=== PATIENT | female | born 1960 | race Caucasian/White ===

== ENCOUNTER 2020-04-08 22:14 | Emergency (ER) | payer OTHER, SELFPAY ==
--- NOTE | 2020-04-08 22:17 | ED_ITS ---
HPI - Abdominal Pain General Chief Complaint: Abdominal Pain Stated Complaint: abdominal pain Time Seen by Provider: 04/08/20 22:17 Source: patient Mode of arrival: EMS Limitations: no limitations History of Present Illness HPI narrative: This is a 60-year-old female with known history of chronic UTIs, renal stones, diverticulitis who presents with 3 days of worsening abdominal pain increasing episodes of nonbloody diarrhea as well as increasing episodes of nausea and vomiting with chills but denies any urinary pain/burning/frequency. MD elicited complaint: abdominal pain Related Data Previous Rx's Medication Instructions Recorded ciprofloxacin HCl 500 mg PO Q12H 10 Days #20 tab 04/09/20 metronidazole [Flagyl] 500 mg PO Q8H 10 Days #30 tab 04/09/20 ondansetron HCl [Zofran] 4 mg PO Q6H PRN #10 tab 04/09/20 Allergies Allergy/AdvReac Type Severity Reaction Status Date / Time Penicillins Allergy Severe ANAPHYLAXIS Verified 04/08/20 22:24 morphine [MORPHINE] Allergy Mild TACHYCARDIA, Verified 04/08/20 22:24 HIVES, ITCHING penicillin V Allergy Unknown Anaphylaxis Verified 04/08/20 22:24 Review of Systems Review of Systems Pertinent positives and negatives as stated in HPI 10 point review of systems otherwise negative. Physical Exam Vital Signs: Vital Signs: Last Vital Signs Temp 97.9 F 04/08/20 22:24 Pulse 73 04/08/20 23:58 Resp 16 04/08/20 23:58 BP 176/85 H 04/08/20 23:58 Pulse Ox 99 04/08/20 23:58 Body Mass Index 25.7 VITAL SIGNS: Reviewed. GENERAL: Well developed, well nourished, in no acute distress. HEAD: Normocephalic/atraumatic, EYES: PERRLA, EOMI intact without pain, no nystagmus/pallor/icterus noted EARS: Ext canals without abnormality, TMs non-bulging and non-erythematous NOSE: Nares patent bilateral OROPHARYNX: no oral lesions noted, posterior pharynx clear and non-erythematous without noted tonsillar enlargement/erythema/exudates NECK: Supple, no adenopathy LUNGS: Normal breath sounds. No adventitious sounds or accessory muscle use. SpO2<98> CARDIOVASCULAR: Regular rate and rhythm without noted murmurs, no JVD or lower extremity edema. ABDOMEN: Soft, diffusely tender/maximal at left lower quadrant with voluntary guarding, non-distended with bowel sounds. No rigidity. No palpable masses or hernias noted MUSCULOSKELETAL: No tenderness, deformities, or effusions noted on gross inspection. EXTREMITIES: No cyanosis, clubbing or edema. SKIN: Inspection of the skin reveals no rashes, ulcerations, jaundice, pallor, or petechiae. NEUROLOGIC: Alert and oriented x 4. Strength and sensation to light touch were grossly intact x 4. Course Course Course Narrative: This is a 60-year-old female with history and clinical presentation most consistent with diverticulitis but will rule out less likely SBO, UTI, renal colic, pyelonephritis. On review of all investigations there is a mild leukocytosis and urinalysis findings that show leukocyte esterase and continued show urine wbc's. Otherwise, there are no acute findings on chemistries and the CT scan inconsistent with evidence of pyelonephritis or obstructive uropathy, and there is reported fat stranding along the sigmoid colon with generalized wall thickening of the sigmoid colon. The radiologist specifically states that there is a segment of the mid sigmoid colon demonstrating what appears to be eccentric wall thickening and that underlying sigmoid colonic mass is not excluded in this location. All these results and findings were discussed with the patient at bedside and she states that she has never been referred to Gastroenterology or undergone a colonoscopy after any episodes of her diverticulitis. At this time I highly recommended to the patient that she follow-up with a semiconductor testing group leader for further evaluation and workup as indicated. In addition, due to the persistent evidence of urine infection as well as some mild stranding of the colon patient understands that she will be discharged on 2 antibiotics. Patient has received 1 L fluid is currently feeling somewhat better. MDM - Abdominal Pain Lab Data Result diagrams: 04/08/20 22:35 04/08/20 22:35 Labs: Lab Results 04/08/20 04/08/20 04/08/20 Range/Units 22:35 22:35 22:35 WBC 12.5 H (4.8-10.8) X10*3/uL RBC 4.46 (4.20-5.50) X10*6/uL Hgb 13.1 (12.0-16.0) g/dl Hct 38.1 (37-47) % MCV 85.4 (80-98) fL MCH 29.4 (27.0-33.0) pg MCHC 34.4 (31.0-35.0) g/dl RDW 14.7 (11.0-16.0) % Plt Count 307 (160-400) X10*3/uL MPV 9.4 (9.4-12.3) fL Immature Gran % (Auto) 0.2 (0.0-0.4) % Neut % (Auto) 66.1 (45-73) % Lymph % (Auto) 24.7 (20-40) % [place] % (Auto) 5.2 (2-11) % Eos % (Auto) 3.4 (0-4) % Baso % (Auto) 0.4 (0-2) % Lymph # (Auto) 3.1 (1.2-4.9) X10*3/uL [place] # (Auto) 0.7 (0.1-1.2) X10*3/uL Eos # (Auto) 0.4 (0.0-0.4) X10*3/uL Baso # (Auto) 0.1 (0.0-0.2) X10*3/uL Abs Immat Gran (auto) 0.03 (0.00-0.03) X10*3/uL Absolute Neuts (auto) 8.2 (2.0-8.3) X10*3/uL Absolute Nucleated RBC 0.000 (0.0-0.012) X10*3/uL Nucleated RBC % (auto) 0.0 (0.0-0.2) /100WBC Sodium 142 (135-145) mmol/L Potassium 3.9 (3.3-5.1) mmol/l Chloride 108 (96-108) mmol/L Carbon Dioxide 24 (22-29) mmol/L Anion Gap 14 (12-20) BUN 17 H (9-16) mg/dL Creatinine 0.74 (0.5-1.4) mg/dL Estim Creat Clear Calc 84.2 Estimated GFR > 60 Random Glucose 109 (60-115) mg/dL Lactic Acid (0.5-2.0) mmol/L Calcium 8.5 (8.4-10.2) mg/dL Total Bilirubin 0.3 (0.0-1.0) mg/dL AST 12 (5-31) U/L ALT 9 (0-31) U/L Alkaline Phosphatase 101 (39-117) U/L Total Protein 7.5 (6.5-8.0) g/dL Albumin 4.2 (3.5-5.0) g/dL Urine Color YELLOW Urine Appearance CLEAR Urine pH 6.0 (5.0-8.0) Ur Specific [place] 1.025 (1.005-1.025) Urine Protein TRACE (NEG-TRACE) MG/DL Urine Glucose (UA) NEG (NEG) MG/DL Urine Ketones 5 (NEG) MG/DL Urine Blood 3+ H (NEG) Urine Nitrite NEG (NEG) Ur Leukocyte Esterase TRACE H (NEG) Urine RBC 15-29 H (0) /HPF Urine WBC 5-9 H (0-4) /HPF Ur Squamous Epith Cells TRACE /LPF Urine Bacteria TRACE /LPF Urine Mucus 1+ /LPF // Range/Units 00:09 WBC (4.8-10.8) X10*3/uL RBC (4.20-5.50) X10*6/uL Hgb (12.0-16.0) g/dl Hct (37-47) % MCV (80-98) fL MCH (27.0-33.0) pg MCHC (31.0-35.0) g/dl RDW (11.0-16.0) % Plt Count (160-400) X10*3/uL MPV (9.4-12.3) fL Immature Gran % (Auto) (0.0-0.4) % Neut % (Auto) (45-73) % Lymph % (Auto) (20-40) % [place] % (Auto) (2-11) % Eos % (Auto) (0-4) % Baso % (Auto) (0-2) % Lymph # (Auto) (1.2-4.9) X10*3/uL [place] # (Auto) (0.1-1.2) X10*3/uL Eos # (Auto) (0.0-0.4) X10*3/uL Baso # (Auto) (0.0-0.2) X10*3/uL Abs Immat Gran (auto) (0.00-0.03) X10*3/uL Absolute Neuts (auto) (2.0-8.3) X10*3/uL Absolute Nucleated RBC (0.0-0.012) X10*3/uL Nucleated RBC % (auto) (0.0-0.2) /100WBC Sodium (135-145) mmol/L Potassium (3.3-5.1) mmol/l Chloride (96-108) mmol/L Carbon Dioxide (22-29) mmol/L Anion Gap (12-20) BUN (9-16) mg/dL Creatinine (0.5-1.4) mg/dL Estim Creat Clear Calc Estimated GFR Random Glucose (60-115) mg/dL Lactic Acid 1.0 (0.5-2.0) mmol/L Calcium (8.4-10.2) mg/dL Total Bilirubin (0.0-1.0) mg/dL AST (5-31) U/L ALT (0-31) U/L Alkaline Phosphatase (39-117) U/L Total Protein (6.5-8.0) g/dL Albumin (3.5-5.0) g/dL Urine Color Urine Appearance Urine pH (5.0-8.0) Ur Specific [place] (1.005-1.025) Urine Protein (NEG-TRACE) MG/DL Urine Glucose (UA) (NEG) MG/DL Urine Ketones (NEG) MG/DL Urine Blood (NEG) Urine Nitrite (NEG) Ur Leukocyte Esterase (NEG) Urine RBC (0) /HPF Urine WBC (0-4) /HPF Ur Squamous Epith Cells /LPF Urine Bacteria /LPF Urine Mucus /LPF Discharge Plan Discharge Clinical Impression: Diverticulitis UTI (urinary tract infection) Qualifiers: Urinary tract infection type: site unspecified Hematuria presence: with hematuria Qualified Code(s): N39.0 - Urinary tract infection, site not specified Patient Disposition: Home, Self-Care Prescriptions: New ondansetron HCl [Zofran] 4 mg tablet 4 mg PO Q6H PRN (Reason: nausea and vomiting) Qty: 10 RF: 0 metronidazole [Flagyl] 500 mg tablet 500 mg PO Q8H 10 Days Qty: 30 RF: 0 ciprofloxacin HCl 500 mg tablet 500 mg PO Q12H 10 Days Qty: 20 RF: 0 Referrals: [facility] [Primary Care Provider] - 2 days (Re-evaluation and outpatient management of chronic UTI as well as co management of further workup regarding her diverticulitis.) Farzaneh Bauer MD [Physician] - 2 days (Patient with multiple episodes of diverticulitis and last CT scan 04/09 cannot rule out underlying malignancy in mid-colon.) [facility] Past Medical History Source: nursing notes reviewed Medical History Medullary sponge kidney Social History Social History Advance Directives: No
--- NOTE | 2020-04-08 22:20 | CT_ITS ---
EXAMINATION: CT ABDOMEN AND PELVIS WITH CONTRAST CLINICAL INFORMATION: Left lower quadrant pain COMPARISON: 12/15/2019 TECHNIQUE: Multidetector volumetric images were obtained from the superior aspect of the liver through the pubic symphysis following administration 85 mL of Omnipaque 350 intravenous contrast. Sagittal and coronal reformatted images were obtained on the technologist's workstation. Oral contrast: No This CT examination was performed using dose optimization techniques as appropriate, variously including the following: *Automated exposure control *Adjustment of mA and/or kV according to patient size (this includes techniques or standardized protocols for targeted exams where dose is matched to indication/reason for exam; i.e. extremities or head) *Use of iterative reconstruction technique DLP: 528 mGy-cm FINDINGS: IMAGED THORAX: Cardiomegaly. Lungs are clear. LIVER, GALLBLADDER, AND BILIARY TREE: The liver is normal in size, shape, and attenuation. No focal hepatic lesion or biliary ductal dilatation is present. Gallbladder unremarkable. PANCREAS: Unremarkable. SPLEEN: Unremarkable. ADRENAL GLANDS: Unremarkable. KIDNEYS AND URETERS: Numerous bilateral nonobstructive intrarenal calculi redemonstrated ranging in size from punctate to 5 mm. There are bilateral renal cysts, some of which are technically too small to characterize. No specifically concerning renal cyst or mass. No hydronephrosis or perinephric abnormality. Ureters are normal in course and caliber. BLADDER: Unremarkable. GASTROINTESTINAL TRACT: Pancolonic diverticulosis redemonstrated, most extensive within the sigmoid colon. There is chronic diverticular disease with generalized wall thickening of the sigmoid colon. There is a segment of the mid sigmoid colon which may have eccentric wall thickening as seen on series 3, images 62 through 67 (see boothe images). There is mild pericolic fat stranding along the sigmoid colon and scarring within the sigmoid mesocolon. There is scar tissue between the sigmoid colon and the bladder, without evidence of fistula formation. The left ovary appears tethered to the proximal sigmoid colon (series 5, image 38), unchanged. Right ovary unremarkable. ABDOMINAL WALL: No significant hernia is appreciated. LYMPH NODES: Normal. VASCULAR: Unremarkable. PELVIC VISCERA: Hysterectomy. Right ovary unremarkable. Left ovary appears scarred to the proximal sigmoid colon as described above. OSSEOUS STRUCTURES: No acute or suspicious osseous abnormalities. CT/CT abdomen pelvis w con IMPRESSION: * Pancolonic diverticulosis with chronic sigmoid diverticular disease. There is mild pericolic fat stranding which may represent chronic scar tissue at the sigmoid mesocolon and/or mild inflammation, the appearance of which is unchanged from the previous examination. There is a segment of the mid sigmoid colon demonstrating what appears to be eccentric wall thickening. Underlying sigmoid colonic mass is not excluded in this location. Recommend colonoscopy for further evaluation. * Of note, the scar tissue tethers the left ovary is tethered to the proximal sigmoid colon. * Hysterectomy. * Numerous bilateral nonobstructive intrarenal calculi and bilateral renal cysts redemonstrated.
[2020-04-08 22:24] VITALS: BP 170/85; BP 191/117; PULSE 60; PULSE 64; RESP 18; TEMP 36.6; O2SAT 98; BMI 25.7
[2020-04-08] MEDS: 0.9 % Sodium Chloride 1,000 ML 999 ML IV (22:36)
[2020-04-08 22:43] LABS: Basophils Absolute Auto 0.1 X10*3/uL (0.0-0.2); Basophils Percent Auto 0.4 % (0-2); Eosinophils Absolute Auto 0.4 X10*3/uL (0.0-0.4); Eosinophils Percent Auto 3.4 % (0-4); Hematocrit 38.1 % (37-47); Hemoglobin 13.1 g/dl (12.0-16.0); Imm Gran Abs Auto 0.03 X10*3/uL (0.00-0.03); Imm Gran Pct Auto 0.2 % (0.0-0.4); Lymphocytes Absolute Auto 3.1 X10*3/uL (1.2-4.9); Lymphocytes Percent Auto 24.7 % (20-40); MANUAL DIFF FLAG NO; Mean Corpuscular HGB Conc 34.4 g/dl (31.0-35.0); Mean Corpuscular Hemoglobin 29.4 pg (27.0-33.0); Mean Corpuscular Volume 85.4 fL (80-98); Mean Platelet Volume 9.4 fL (9.4-12.3); Monocytes Absolute Auto 0.7 X10*3/uL (0.1-1.2); Monocytes Percent Auto 5.2 % (2-11); Neutrophils Absolute Auto 8.2 X10*3/uL (2.0-8.3); Neutrophils Percent Auto 66.1 % (45-73); Platelet Count 307 X10*3/uL (160-400); Red Blood Count 4.46 X10*6/uL (4.20-5.50); Red Cell Distribution Width 14.7 % (11.0-16.0); White Blood Count 12.5 X10*3/uL (4.8-10.8)
[2020-04-08 22:46] LABS: Appearance Urine CLEAR; Color Urine YELLOW; Glucose Urine UA NEG (NEG); Leukocyte Esterase Urine TRACE (NEG); Nitrite Urine NEG (NEG); Specific Gravity - Urine 1.025 (1.005-1.025); Urine Blood 3+ (NEG); Urine Ketones 5 MG/DL (NEG); Urine Protein TRACE MG/DL (NEG-TRACE)
[2020-04-08 23:01] LABS: Bacteria Urine TRACE /LPF; Mucus Urine 1+ /LPF; Squamous Epithelial Cell Urine TRACE /LPF
[2020-04-08 23:07] LABS: Alanine Aminotransferase 9 U/L (0-31); Albumin Level 4.2 g/dL (3.5-5.0); Alkaline Phosphatase 101 U/L (39-117); Anion Gap 14 (12-20); Aspartate Amino Transferase 12 U/L (5-31); Bilirubin Total 0.3 mg/dL (0.0-1.0); Blood Urea Nitrogen 17 mg/dL (9-16); Calcium 8.5 mg/dL (8.4-10.2); Carbon Dioxide 24 mmol/L (22-29); Chloride 108 mmol/L (96-108); Creatinine Clr Calc Pharmacy 84.2; Estimated Glomerular Filt Rate > 60; Glucose Random 109 mg/dL (60-115); Potassium 3.9 mmol/l (3.3-5.1); Sodium 142 mmol/L (135-145); Total Protein 7.5 g/dL (6.5-8.0)
[2020-04-08] MEDS: iohexoL 350 MG/ML 100 ML INFUS..BTL 85 ML IV (23:55)
[2020-04-08] MEDS: fentaNYL citrate/PF 100 MCG/2 ML VIAL 25 MCG IVPUSH (23:57)
[2020-04-08 23:58] VITALS: BP 176/85; PULSE 73; RESP 16; O2SAT 99
[2020-04-09] MEDS: cefTRIAXone sodium 1 GM in 0.9 % Sodium Chloride 50 ML IV (00:20)
[2020-04-09] MEDS: metroNIDAZOLE/NS 500 MG/100 ML PIGGYBACK 100 MG IV (01:13)
[2020-04-09 02:30] VITALS: BP 169/85; PULSE 87; RESP 16; O2SAT 98
== END 2020-04-09 02:52 | disposition home or self-care (01) ==
PROVIDERS: Emergency Provider Student in an Organized Health Care Education/Training Program
DX: K57.32 Diverticulitis of large intestine without perforation or abscess without bleeding (principal); N39.0 Urinary tract infection, site not specified; R10.9 Unspecified abdominal pain; Z79.899 Other long term (current) drug therapy
CPT/HCPCS: 36415; 74177; 80053; 81001; 83605; 85025; 87040; 87086; 96361; 96365; 96375; 99283; 99284; J0696; J3010; Q9967

== ENCOUNTER → 2020-04-17 14:52 | Outpatient (BNVA) | payer OTHER, SELFPAY | PROVIDERS: Visit Provider Internal Medicine Gastroenterology | DX: Z13.89 Encounter for screening for other disorder (principal) | CPT/HCPCS: Q3014 ==

== ENCOUNTER 2020-10-15 19:00 | Emergency (ER) | payer OTHER, SELFPAY ==
--- NOTE | 2020-10-15 | ECG_ITS ---
Test Reason : CP Blood Pressure : / mmHG Vent. Rate : 058 BPM Atrial Rate : 058 BPM P-R Int : 152 ms QRS Dur : 096 ms QT Int : 428 ms P-R-T Axes : 044 -31 017 degrees QTc Int : 420 ms Sinus bradycardia Possible Left atrial enlargement Left axis deviation Left ventricular hypertrophy T wave abnormality, consider anterior ischemia Abnormal ECG When compared with ECG of 15-DEC-2019 14:19, T wave inversion now evident in Anterior leads Referred By: Generic ED Physician Electronically Signed By:Jesse Brooks
--- NOTE | ~2020-10-15 | CT_ITS ---
EXAMINATION: CT ABDOMEN AND PELVIS WITHOUT CONTRAST CLINICAL INFORMATION: Right flank diffuse abdominal pain with history of medullary sponge kidney. COMPARISON: CT abdomen pelvis 04/08/2020 TECHNIQUE: Multidetector volumetric imaging was performed from the superior aspect of the liver through the pubic symphysis. Sagittal and coronal reformatted images were obtained on the technologist's workstation. This CT examination was performed using dose optimization techniques as appropriate, variously including the following: *Automated exposure control *Adjustment of mA and/or kV according to patient size (this includes techniques or standardized protocols for targeted exams where dose is matched to indication/reason for exam; i.e. extremities or head) *Use of iterative reconstruction technique DLP: 544 mGy-cm FINDINGS: LUNG BASES: Scarring is present at the lung bases LIVER, GALLBLADDER, AND BILIARY TREE: The liver is normal in size, shape, and attenuation. No focal hepatic lesion or biliary ductal dilatation is present. The gallbladder is unremarkable with no evidence of radiopaque gallstones, gallbladder wall thickening, or obvious pericholecystic inflammatory changes. PANCREAS: Unremarkable. SPLEEN: Unremarkable. ADRENAL GLANDS: Unremarkable. KIDNEYS AND URETERS: The kidneys are normal in size, shape, and attenuation. Bilateral moderately extensive renal calculi are present with the largest on the right measuring 7 mm and the largest on the left measuring 8 mm. No hydronephrosis, hydroureter, or ureteral calculi seen. No perinephric stranding. BLADDER: Unremarkable. GASTROINTESTINAL TRACT: A small hiatal hernia is present. Diverticular changes present throughout the colon but predominantly on the left no evidence of diverticulitis. The small and large bowel are unremarkable. The appendix is none seen but there is no evidence of appendicitis.. ABDOMINAL WALL: No significant hernia is appreciated. LYMPH NODES: No retroperitoneal lymphadenopathy. VASCULAR: Unremarkable. PELVIC VISCERA: Surgically removed OSSEOUS STRUCTURES: Exaggerated lumbar lordosis is seen. No bony destructive lesions present. CT/CT abdomen pelvis wo con IMPRESSION: 1. Bilateral renal calculi but no evidence of obstruction. 2. Colonic diverticulosis without diverticulitis
[2020-10-15 19:03] VITALS: BP 192/82; PULSE 73; RESP 20; TEMP 36.6; O2SAT 98; BMI 25.9
[2020-10-15 20:00] VITALS: BP 184/89; PULSE 56; RESP 20; O2SAT 96
[2020-10-15 20:10] LABS: Glucose Urine UA NEG (NEG); Leukocyte Esterase Urine 1+ (NEG); Nitrite Urine NEG (NEG); Specific Gravity - Urine 1.025 (1.005-1.025); UACC Culture Trigger YES; Urine Blood 2+ (NEG); Urine Ketones NEG (NEG); Urine Protein NEG (NEG-TRACE)
[2020-10-15 20:11] LABS: Appearance Urine CLEAR; Color Urine YELLOW
[2020-10-15 20:16] LABS: MANUAL DIFF FLAG NO
[2020-10-15 20:18] LABS: Basophils Percent Auto 0.3 % (0-2); Eosinophils Absolute Auto 0.4 X10*3/uL (0.0-0.4); Hematocrit 40.9 % (37-47); Hemoglobin 13.8 g/dl (12.0-16.0); Imm Gran Abs Auto 0.04 X10*3/uL (0.00-0.03); Imm Gran Pct Auto 0.3 % (0.0-0.4); Lymphocytes Absolute Auto 4.2 X10*3/uL (1.2-4.9); Mean Corpuscular HGB Conc 33.7 g/dl (31.0-35.0); Mean Corpuscular Hemoglobin 28.9 pg (27.0-33.0); Mean Corpuscular Volume 85.7 fL (80-98); Mean Platelet Volume 9.4 fL (9.4-12.3); Monocytes Absolute Auto 0.6 X10*3/uL (0.1-1.2); Monocytes Percent Auto 4.6 % (2-11); Neutrophils Absolute Auto 8.2 X10*3/uL (2.0-8.3); Neutrophils Percent Auto 60.8 % (45-73); Platelet Count 334 X10*3/uL (160-400); Red Blood Count 4.77 X10*6/uL (4.20-5.50); Red Cell Distribution Width 14.5 % (11.0-16.0); White Blood Count 13.6 X10*3/uL (4.8-10.8)
[2020-10-15 20:21] LABS: Bacteria Urine 1+ /LPF; Mucus Urine 2+ /LPF; Renal Epithelial Cells Urine TRACE /LPF; Squamous Epithelial Cell Urine 2+ /LPF
[2020-10-15 20:44] LABS: Alanine Aminotransferase 8 U/L (0-31); Albumin Level 4.4 g/dL (3.5-5.0); Alkaline Phosphatase 115 U/L (39-117); Anion Gap 15 (12-20); Aspartate Amino Transferase 14 U/L (5-31); Bilirubin Total 0.4 mg/dL (0.0-1.0); Blood Urea Nitrogen 15 mg/dL (9-16); Calcium 9.7 mg/dL (8.4-10.2); Carbon Dioxide 25 mmol/L (22-29); Chloride 107 mmol/L (96-108); Creatinine Clr Calc Pharmacy 84.7; Estimated Glomerular Filt Rate > 60; Glucose Random 89 mg/dL (60-115); Potassium 4.4 mmol/L (3.3-5.1); Sodium 143 mmol/L (135-145); Total Protein 7.9 g/dL (6.5-8.0)
[2020-10-15] MEDS: Ketorolac Tromethamine 30 MG/ML VIAL IVPUSH (21:19)
[2020-10-15] MEDS: 0.9 % Sodium Chloride 1,000 ML 999 ML IVCONT (21:19)
[2020-10-15] MEDS: ondansetron HCL 4 MG/2 ML VIAL IVPUSH (21:19)
[2020-10-15 21:42] LABS: MANUAL DIFF FLAG NO
[2020-10-15 21:43] LABS: Basophils Absolute Auto 0.1 X10*3/uL (0.0-0.2); Basophils Percent Auto 0.4 % (0-2); Eosinophils Absolute Auto 0.4 X10*3/uL (0.0-0.4); Eosinophils Percent Auto 3.1 % (0-4); Hematocrit 38.3 % (37-47); Hemoglobin 13.1 g/dl (12.0-16.0); Imm Gran Abs Auto 0.03 X10*3/uL (0.00-0.03); Imm Gran Pct Auto 0.2 % (0.0-0.4); Lymphocytes Absolute Auto 3.9 X10*3/uL (1.2-4.9); Lymphocytes Percent Auto 30.5 % (20-40); Mean Corpuscular HGB Conc 34.2 g/dl (31.0-35.0); Mean Corpuscular Hemoglobin 29.1 pg (27.0-33.0); Mean Corpuscular Volume 85.1 fL (80-98); Mean Platelet Volume 9.3 fL (9.4-12.3); Monocytes Absolute Auto 0.7 X10*3/uL (0.1-1.2); Monocytes Percent Auto 5.3 % (2-11); Neutrophils Absolute Auto 7.7 X10*3/uL (2.0-8.3); Neutrophils Percent Auto 60.5 % (45-73); Platelet Count 302 X10*3/uL (160-400); Red Cell Distribution Width 14.4 % (11.0-16.0); White Blood Count 12.8 X10*3/uL (4.8-10.8)
[2020-10-15 22:00] VITALS: BP 169/89; PULSE 78; RESP 18; O2SAT 99
[2020-10-15 22:12] LABS: Troponin-I High Sensitivity < 3.5 ng/L (<3.5-17.0)
[2020-10-15 22:17] LABS: Alanine Aminotransferase 8 U/L (0-31); Albumin Level 3.9 g/dL (3.5-5.0); Alkaline Phosphatase 104 U/L (39-117); Anion Gap 14 (12-20); Aspartate Amino Transferase 12 U/L (5-31); Bilirubin Direct < 0.2 mg/dL (0.0-0.5); Bilirubin Total 0.4 mg/dL (0.0-1.0); Blood Urea Nitrogen 15 mg/dL (9-16); Carbon Dioxide 24 mmol/L (22-29); Chloride 107 mmol/L (96-108); Creatinine Clr Calc Pharmacy 92.2; Estimated Glomerular Filt Rate > 60; Glucose Random 79 mg/dL (60-115); Lipase 22 U/L (8-78); Potassium 3.6 mmol/L (3.3-5.1); Sodium 141 mmol/L (135-145); Total Protein 6.8 g/dL (6.5-8.0)
--- NOTE | 2020-10-15 22:35 | PC.NURSE ---
patient complaining of 10/10 pain despite being given IV toradol patient states that the only medication that works for her is the one that starts with a d patient on the phone in the room, listening to music and lying quietly and calmly until staff approaches the patient wherein which she begins to wiltonan and claude stating that she has excruciating pain that does not go away provider made aware.
--- NOTE | 2020-10-15 22:40 | PC.NURSE ---
patient on her phone in the room swearing saying that no one is addressing my pain Dr. Lee at the bedside
--- NOTE | 2020-10-15 22:54 | ED.ABDPAIN ---
HPI - Abdominal Pain General Chief Complaint: Abdominal Pain Stated Complaint: Flank pain Time Seen by Provider: 10/15/20 21:03 Source: patient Mode of arrival: ambulatory Limitations: no limitations History of Present Illness HPI narrative: Patient comes to the emergency room complaining of right-sided flank pain. Patient states that she has history of medullary sponge kidney disease, usually seen at [facility]. Patient takes oxycodone every day for pain, however she has had a pain issue patient for the last 3-4 days. Patient denies fever chills, patient states every day she urinates dark urine with sediments. Related Data Home Medications Medication Instructions Recorded Confirmed duloxetine 20 mg capsule,delayed 20 mg PO DAILY cap 04/17/20 05/02/20 release losartan 25 mg tablet 25 mg PO DAILY 04/17/20 05/02/20 naproxen 500 mg tablet 500 mg PO DAILY PRN tab 04/17/20 05/02/20 nitrofurantoin macrocrystal 100 mg 100 mg PO DAILY cap 04/17/20 05/02/20 capsule oxycodone 5 mg capsule 5 mg PO QID PRN 04/17/20 05/02/20 Previous Rx's Medication Instructions Recorded ondansetron HCl [Zofran] 4 mg PO Q6H PRN #10 tab 04/09/20 bisacodyl 5 mg tablet,delayed 5 mg PO BEDTIME 2 Days #2 tab 04/17/20 release peg 3350-electrolytes 236 240 ml PO Q10M 1 Days #4000 ml 04/17/20 gram-22.74 gram-6.74 gram-5.86 gram solution Allergies Allergy/AdvReac Type Severity Reaction Status Date / Time Penicillins Allergy Severe ANAPHYLAXIS Verified 04/17/20 14:53 morphine [MORPHINE] Allergy Mild TACHYCARDIA, Verified 04/17/20 14:53 HIVES, ITCHING Review of Systems Review of Systems Constitutional : No Weight loss, No Fever, No Chills, No Night Sweats, No Fatigue, No Malaise ENT/Mouth : No Hearing loss, No Ear Pain, No Nasal Congestion, No Sinus Pain, No Hoarseness, No sore throat, No Rhinorrhea, No Swallowing Difficulty Eyes: No Eye Pain, No Swelling, No Redness, No Foreign Body, No Discharge, No Vision Changes Cardiovascular : No Chest Pain, No SOB, No Dyspnea on Exertion, No Orthopnea, No Edema, No Palpitations Respiratory : No Cough, No Sputum, No Wheezing, No Smoke Exposure, No Dyspnea Gastrointestinal : No Nausea, No Vomiting, No Diarrhea, No Constipation, complaining of right-sided flank pain radiating towards the right lower quadrant, No Hematochezia, No Melena Genitourinary : no irregular bleeding, No Dysuria, No Urinary Frequency, states she has chronic hematuria, No Urinary Incontinence, No Urgency, complaining of right-sided Flank Pain, No Urinary Flow Changes, No Hesitancy Musculoskeletal : No joint pain, No Myalgias, No Joint Swelling Skin : No Skin Lesions, No rash Neuro : No Weakness, No Numbness, No Paresthesias, No Loss of Consciousness, No Dizziness, No Headache Psych : No Anxiety/Panic, No Depression, No SI/HI/AH/VH, No Social Issues, Heme/Lymph: No Bruising, No Bleeding,No Lymphadenopathy Endocrine : No Polyuria, No Polydipsia, No Temperature Intolerance Physical Exam Vital Signs: Vital Signs: Last Vital Signs Temp 98 F 10/15/20 19:03 Pulse 78 10/15/20 22:00 Resp 18 10/15/20 22:00 BP 169/89 H 10/15/20 22:00 Pulse Ox 99 10/15/20 22:00 Body Mass Index 25.9 Appearance: Alert. Oriented X3. No acute distress. Eyes: Pupils equal, round and reactive to light. ENT: Pharynx normal. Neck: Normal inspection. Neck supple. No lymph nodes noted. No crepitus CVS: Normal heart rate and rhythm. Pulses normal. Normal S1 and S2 Respiratory: No respiratory distress. Breath sounds normal. No Wheezing. No rales Abdomen: Soft and nontender. No rigidity. Moderate diffuse distention. Mild CVA tenderness in the right side Skin: Skin warm and dry. Normal skin color. Normal skin turgor. Extremities: No lower extremity edema. No lower extremity edema. No Lacerations. No Rash Neuro: Oriented X 3. No motor deficit. No sensory deficit. Moving all extermities. No slurred speech. Course Course Course Narrative: I discussed the CT scan and labs with the patient, no acute findings. Patient instructed to follow-up with her specialist in [facility]. Patient states she has enough oxycodone at home. MDM - Abdominal Pain Lab Data Result diagrams: 10/15/20 21:38 10/15/20 21:37 Labs: Lab Results 10/15/20 10/15/20 10/15/20 Range/Units 20:05 20:11 20:11 WBC 13.6 H (4.8-10.8) X10*3/uL RBC 4.77 (4.20-5.50) X10*6/uL Hgb 13.8 (12.0-16.0) g/dl Hct 40.9 (37-47) % MCV 85.7 (80-98) fL MCH 28.9 (27.0-33.0) pg MCHC 33.7 (31.0-35.0) g/dl RDW 14.5 (11.0-16.0) % Plt Count 334 (160-400) X10*3/uL MPV 9.4 (9.4-12.3) fL Immature Gran % (Auto) 0.3 (0.0-0.4) % Neut % (Auto) 60.8 (45-73) % Lymph % (Auto) 31.0 (20-40) % [place] % (Auto) 4.6 (2-11) % Eos % (Auto) 3.0 (0-4) % Baso % (Auto) 0.3 (0-2) % Lymph # (Auto) 4.2 (1.2-4.9) X10*3/uL [place] # (Auto) 0.6 (0.1-1.2) X10*3/uL Eos # (Auto) 0.4 (0.0-0.4) X10*3/uL Baso # (Auto) 0.0 (0.0-0.2) X10*3/uL Abs Immat Gran (auto) 0.04 H (0.00-0.03) X10*3/uL Absolute Neuts (auto) 8.2 (2.0-8.3) X10*3/uL Absolute Nucleated RBC 0.000 (0.0-0.012) X10*3/uL Nucleated RBC % (auto) 0.0 (0.0-0.2) /100WBC Sodium 143 (135-145) mmol/L Potassium 4.4 (3.3-5.1) mmol/L Chloride 107 (96-108) mmol/L Carbon Dioxide 25 (22-29) mmol/L Anion Gap 15 (12-20) BUN 15 (9-16) mg/dL Creatinine 0.74 (0.5-1.4) mg/dL Estim Creat Clear Calc 84.7 Estimated GFR > 60 Random Glucose 89 (60-115) mg/dL Calcium 9.7 D (8.4-10.2) mg/dL Total Bilirubin 0.4 (0.0-1.0) mg/dL Direct Bilirubin (0.0-0.5) mg/dL AST 14 (5-31) U/L ALT 8 (0-31) U/L Alkaline Phosphatase 115 (39-117) U/L Troponin I [place]ens (<3.5-17.0) ng/L Total Protein 7.9 (6.5-8.0) g/dL Albumin 4.4 (3.5-5.0) g/dL Lipase (8-78) U/L Urine Color YELLOW Urine Appearance CLEAR Urine pH 6.0 (5.0-8.0) Ur Specific [place] 1.025 (1.005-1.025) Urine Protein NEG (NEG-TRACE) MG/DL Urine Glucose (UA) NEG (NEG) MG/DL Urine Ketones NEG (NEG) MG/DL Urine Blood 2+ H (NEG) Urine Nitrite NEG (NEG) Ur Leukocyte Esterase 1+ H (NEG) Urine RBC 5-9 H (0) /HPF Urine WBC 5-9 H (0-4) /HPF Ur Squamous Epith Cells 2+ /LPF Ur Renal Epithelial Cell TRACE /LPF Urine Bacteria 1+ /LPF Urine Mucus 2+ /LPF 10/15/20 10/15/20 10/15/20 Range/Units 21:37 21:38 21:38 WBC 12.8 H (4.8-10.8) X10*3/uL RBC 4.50 (4.20-5.50) X10*6/uL Hgb 13.1 (12.0-16.0) g/dl Hct 38.3 (37-47) % MCV 85.1 (80-98) fL MCH 29.1 (27.0-33.0) pg MCHC 34.2 (31.0-35.0) g/dl RDW 14.4 (11.0-16.0) % Plt Count 302 (160-400) X10*3/uL MPV 9.3 L (9.4-12.3) fL Immature Gran % (Auto) 0.2 (0.0-0.4) % Neut % (Auto) 60.5 (45-73) % Lymph % (Auto) 30.5 (20-40) % [place] % (Auto) 5.3 (2-11) % Eos % (Auto) 3.1 (0-4) % Baso % (Auto) 0.4 (0-2) % Lymph # (Auto) 3.9 (1.2-4.9) X10*3/uL [place] # (Auto) 0.7 (0.1-1.2) X10*3/uL Eos # (Auto) 0.4 (0.0-0.4) X10*3/uL Baso # (Auto) 0.1 (0.0-0.2) X10*3/uL Abs Immat Gran (auto) 0.03 (0.00-0.03) X10*3/uL Absolute Neuts (auto) 7.7 (2.0-8.3) X10*3/uL Absolute Nucleated RBC 0.000 (0.0-0.012) X10*3/uL Nucleated RBC % (auto) 0.0 (0.0-0.2) /100WBC Sodium 141 (135-145) mmol/L Potassium 3.6 (3.3-5.1) mmol/L Chloride 107 (96-108) mmol/L Carbon Dioxide 24 (22-29) mmol/L Anion Gap 14 (12-20) BUN 15 (9-16) mg/dL Creatinine 0.68 (0.5-1.4) mg/dL Estim Creat Clear Calc 92.2 Estimated GFR > 60 Random Glucose 79 (60-115) mg/dL Calcium 9.0 D (8.4-10.2) mg/dL Total Bilirubin 0.4 (0.0-1.0) mg/dL Direct Bilirubin < 0.2 (0.0-0.5) mg/dL AST 12 (5-31) U/L ALT 8 (0-31) U/L Alkaline Phosphatase 104 (39-117) U/L Troponin I [place]ens < 3.5 (<3.5-17.0) ng/L Total Protein 6.8 (6.5-8.0) g/dL Albumin 3.9 (3.5-5.0) g/dL Lipase 22 (8-78) U/L Urine Color Urine Appearance Urine pH (5.0-8.0) Ur Specific [place] (1.005-1.025) Urine Protein (NEG-TRACE) MG/DL Urine Glucose (UA) (NEG) MG/DL Urine Ketones (NEG) MG/DL Urine Blood (NEG) Urine Nitrite (NEG) Ur Leukocyte Esterase (NEG) Urine RBC (0) /HPF Urine WBC (0-4) /HPF Ur Squamous Epith Cells /LPF Ur Renal Epithelial Cell /LPF Urine Bacteria /LPF Urine Mucus /LPF Imaging Data CT scan - abdomen: Radiologist's impression: FINDINGS: LUNG BASES: Scarring is present at the lung bases LIVER, GALLBLADDER, AND BILIARY TREE: The liver is normal in size, shape, and attenuation. No focal hepatic lesion or biliary ductal dilatation is present. The gallbladder is unremarkable with no evidence of radiopaque gallstones, gallbladder wall thickening, or obvious pericholecystic inflammatory changes. PANCREAS: Unremarkable. SPLEEN: Unremarkable. ADRENAL GLANDS: Unremarkable. KIDNEYS AND URETERS: The kidneys are normal in size, shape, and attenuation. Bilateral moderately extensive renal calculi are present with the largest on the right measuring 7 mm and the largest on the left measuring 8 mm. No hydronephrosis, hydroureter, or ureteral calculi seen. No perinephric stranding. BLADDER: Unremarkable. GASTROINTESTINAL TRACT: A small hiatal hernia is present. Diverticular changes present throughout the colon but predominantly on the left no evidence of diverticulitis. The small and large bowel are unremarkable. The appendix is none seen but there is no evidence of appendicitis.. ABDOMINAL WALL: No significant hernia is appreciated. LYMPH NODES: No retroperitoneal lymphadenopathy. VASCULAR: Unremarkable. PELVIC VISCERA: Surgically removed OSSEOUS STRUCTURES: Exaggerated lumbar lordosis is seen. No bony destructive lesions present. CT/CT abdomen pelvis wo con IMPRESSION: 1. Bilateral renal calculi but no evidence of obstruction. 2. Colonic diverticulosis without diverticulitis ECG Data Attestation: I personally reviewed and interpreted this ECG as follows: (Sinus bradycardia, heart rate 58, nonspecific ST changes, QTC 420, an EKG changes from 2019) Discharge Plan Discharge Clinical Impression: Chronic flank pain Patient Disposition: Home, Self-Care Instructions: Flank Pain (ED) Additional Instructions: Please follow-up with your specialist in [place]. Please follow-up with your primary care physician tomorrow. If you have any worsening or new symptoms, please return to the emergency room or call 911 Prescriptions: No Action ondansetron HCl [Zofran] 4 mg tablet 4 mg PO Q6H PRN (Reason: nausea and vomiting) Qty: 10 RF: 0 duloxetine [Cymbalta] 20 mg capsule,delayed release(DR/EC) 20 mg PO DAILY RF: 0 oxycodone 5 mg capsule 5 mg PO QID PRN (Reason: Pain) RF: 0 nitrofurantoin macrocrystal 100 mg capsule 100 mg PO DAILY RF: 0 losartan 25 mg tablet 25 mg PO DAILY RF: 0 naproxen [Naprosyn] 500 mg tablet 500 mg PO DAILY PRN (Reason: knee pain) RF: 0 bisacodyl [Dulcolax (bisacodyl)] 5 mg tablet,delayed release (DR/EC) 5 mg PO BEDTIME 2 Days Qty: 2 RF: 0 peg 3350-electrolytes [Golytely] 236-22.74-6.74 -5.86 gram recon soln 240 ml PO Q10M 1 Days Qty: 4000 RF: 0 Interventions: ED Discharge Assessment Last Done: 10/15/20 23:08 Discharge Date/Time: 10/15/20 23:08 ON LICENSE OF [facility] Past Medical History Medical History History of urinary tract infection Kidney stones Medullary sponge kidney Surgical History History of arthroplasty of right knee (~01/2018) Hx of cystoscopy Hx of cystoscopy Hx of knee surgery Status post appendectomy Status post bunionectomy (~09/2011) Status post hysterectomy Status post tonsillectomy Family History Family History (Updated 04/17/20 @ 14:56 by MEENA Grant) Father HTN (hypertension) Cancer of kidney Mother Dementia Age related osteoporosis Social History Social History (Updated 04/17/20 @ 14:57 by MEENA Grant) Alcohol intake: never Patient Tobacco Use Status: Current someday Tobacco user Cigarettes Per Day: 2 Smoked in Last 30 Days: Yes Use of substances other than those prescribed or required for medical reasons: Yes Substance Use Type: Marijuana Substance Use Frequency: Daily Last Used Substance: Days (ago) Advance Directives: No Patient : No
[2020-10-15] MEDS: HYDROmorphone HCl 2 MG TABLET 1 MG PO (22:57)
== END 2020-10-15 23:08 | disposition home or self-care (01) ==
PROVIDERS: Emergency Provider Emergency Medicine
DX: R10.9 Unspecified abdominal pain (principal); G89.29 Other chronic pain; Q61.5 Medullary cystic kidney; Z79.891 Long term (current) use of opiate analgesic
CPT/HCPCS: 36415; 74176; 80048; 80053; 80076; 81001; 81003; 82248; 83690; 84484; 85025; 87086; 93005; 96361; 96374; 96375; 99284; 99285; J1885; J2405

== ENCOUNTER 2020-10-22 18:54 | Emergency (ER) | payer OTHER, SELFPAY ==
[2020-10-22 19:06] VITALS: BP 159/87; PULSE 82; RESP 18; TEMP 36.7; O2SAT 98; BMI 25.7
[2020-10-22 19:55] LABS: MANUAL DIFF FLAG NO
[2020-10-22 20:00] LABS: Basophils Percent Auto 0.3 % (0-2); Eosinophils Absolute Auto 0.4 X10*3/uL (0.0-0.4); Eosinophils Percent Auto 3.9 % (0-4); Hematocrit 37.7 % (37-47); Hemoglobin 12.5 g/dl (12.0-16.0); Imm Gran Abs Auto 0.02 X10*3/uL (0.00-0.03); Imm Gran Pct Auto 0.2 % (0.0-0.4); Lymphocytes Absolute Auto 3.2 X10*3/uL (1.2-4.9); Lymphocytes Percent Auto 33.3 % (20-40); Mean Corpuscular HGB Conc 33.2 g/dl (31.0-35.0); Mean Corpuscular Hemoglobin 28.7 pg (27.0-33.0); Mean Corpuscular Volume 86.5 fL (80-98); Mean Platelet Volume 9.4 fL (9.4-12.3); Monocytes Absolute Auto 0.6 X10*3/uL (0.1-1.2); Monocytes Percent Auto 6.3 % (2-11); Neutrophils Absolute Auto 5.4 X10*3/uL (2.0-8.3); Platelet Count 342 X10*3/uL (160-400); Red Blood Count 4.36 X10*6/uL (4.20-5.50); Red Cell Distribution Width 14.5 % (11.0-16.0); White Blood Count 9.7 X10*3/uL (4.8-10.8)
[2020-10-22 20:13] LABS: Glucose Urine UA NEG (NEG); Leukocyte Esterase Urine 1+ (NEG); Nitrite Urine NEG (NEG); PH 6.5 (5.0-8.0); UACC Culture Trigger YES; Urine Blood 2+ (NEG); Urine Ketones NEG (NEG); Urine Protein NEG (NEG-TRACE)
[2020-10-22 20:15] LABS: Appearance Urine CLEAR; Color Urine YELLOW
[2020-10-22 20:24] LABS: Alanine Aminotransferase 13 U/L (0-31); Alkaline Phosphatase 109 U/L (39-117); Anion Gap 11 (12-20); Aspartate Amino Transferase 13 U/L (5-31); Bilirubin Total 0.3 mg/dL (0.0-1.0); Blood Urea Nitrogen 14 mg/dL (9-16); Calcium 9.2 mg/dL (8.4-10.2); Carbon Dioxide 27 mmol/L (22-29); Chloride 109 mmol/L (96-108); Creatinine Clr Calc Pharmacy 85.4; Estimated Glomerular Filt Rate > 60; Glucose Random 83 mg/dL (60-115); Potassium 3.8 mmol/L (3.3-5.1); Sodium 143 mmol/L (135-145); Total Protein 7.1 g/dL (6.5-8.0)
[2020-10-22 20:53] LABS: Bacteria Urine 1+ /LPF; Squamous Epithelial Cell Urine TRACE /LPF
--- NOTE | 2020-10-22 22:20 | ED_ITS ---
HPI - Abdominal Pain General Chief Complaint: Abdominal Pain Stated Complaint: abd pain Time Seen by Provider: 10/22/20 22:18 Source: patient Mode of arrival: ambulatory Limitations: no limitations History of Present Illness HPI narrative: patient history of diverticulitis was seen here 10/15 for abdominal pain had a CT scan done which was negative for diverticulitis but WBC count were elevated to 12.8. Patient went home started taking her Cipro of her own for last 7 days now comes here as pain is getting worse also complaining of low-grade fever at home none at the ER no urinary complaints no nausea no vomi ting no diarrhea no blood in the stool when patient arrived she was afebrile labs were done while she was waiting in triage which showed normal WBC count UA was negative Related Data Home Medications Medication Instructions Recorded Confirmed duloxetine 20 mg capsule,delayed 20 mg PO DAILY cap 04/17/20 05/02/20 release losartan 25 mg tablet 25 mg PO DAILY 04/17/20 05/02/20 naproxen 500 mg tablet 500 mg PO DAILY PRN tab 04/17/20 05/02/20 nitrofurantoin macrocrystal 100 mg 100 mg PO DAILY cap 04/17/20 05/02/20 capsule oxycodone 5 mg capsule 5 mg PO QID PRN 04/17/20 05/02/20 Previous Rx's Medication Instructions Recorded ondansetron HCl [Zofran] 4 mg PO Q6H PRN #10 tab 04/09/20 bisacodyl 5 mg tablet,delayed 5 mg PO BEDTIME 2 Days #2 tab 04/17/20 release peg 3350-electrolytes 236 240 ml PO Q10M 1 Days #4000 ml 04/17/20 gram-22.74 gram-6.74 gram-5.86 gram solution Allergies Allergy/AdvReac Type Severity Reaction Status Date / Time Penicillins Allergy Severe ANAPHYLAXIS Verified 10/22/20 19:06 morphine [MORPHINE] Allergy Intermediate TACHYCARDIA, Verified 10/22/20 19:06 HIVES, ITCHING Review of Systems Review of Systems Yes all other systems are reviewed and are negative Physical Exam Vital Signs: Vital Signs: Last Vital Signs Temp 98.1 F 10/22/20 19:06 Pulse 82 10/22/20 19:06 Resp 18 10/22/20 19:06 BP 159/87 H 10/22/20 19:06 Pulse Ox 98 10/22/20 19:06 Body Mass Index 25.7 Appearance: Alert. Oriented X3. No acute distress. Eyes: PERRLA, No Nystagmus ENT: Pharynx normal. Oral Mucosa moist Neck: Normal inspection. Neck supple. CVS: Normal heart rate and rhythm. Pulses normal. Respiratory: No respiratory distress. Equal air entry bilateral, no wheezing/rales/rhonchi Abdomen: Soft and mild deep tenderness left lower quadrant no rebound tenderness or guarding. Bowel sounds are present, no mass palpable, no CVA tenderness Skin: Skin warm and dry. Normal skin color. Normal skin turgor. Extremities: No lower extremity edema. No calf tenderness Neuro: Oriented X 3. No motor deficit. No sensory deficit MDM - Abdominal Pain MDM Narrative Medical decision making narrative: patient with chronic abdominal pain with history of diverticulitis at this time WBC counts were normal previous CT scan 1 week ago was also negative except for diverticulosis patient is afebrile in the ER patient advised to follow with welfare eligibility worker as advised in the past for future colonoscopy Lab Data Attestation: I reviewed the patient's lab results. Result diagrams: 10/22/20 19:51 10/22/20 19:51 Labs: Lab Results 10/22/20 10/22/20 10/22/20 Range/Units 19:51 19:51 20:06 WBC 9.7 (4.8-10.8) X10*3/uL RBC 4.36 (4.20-5.50) X10*6/uL Hgb 12.5 (12.0-16.0) g/dl Hct 37.7 (37-47) % MCV 86.5 (80-98) fL MCH 28.7 (27.0-33.0) pg MCHC 33.2 (31.0-35.0) g/dl RDW 14.5 (11.0-16.0) % Plt Count 342 (160-400) X10*3/uL MPV 9.4 (9.4-12.3) fL Immature Gran % (Auto) 0.2 (0.0-0.4) % Neut % (Auto) 56.0 (45-73) % Lymph % (Auto) 33.3 (20-40) % [place] % (Auto) 6.3 (2-11) % Eos % (Auto) 3.9 (0-4) % Baso % (Auto) 0.3 (0-2) % Lymph # (Auto) 3.2 (1.2-4.9) X10*3/uL [place] # (Auto) 0.6 (0.1-1.2) X10*3/uL Eos # (Auto) 0.4 (0.0-0.4) X10*3/uL Baso # (Auto) 0.0 (0.0-0.2) X10*3/uL Abs Immat Gran (auto) 0.02 (0.00-0.03) X10*3/uL Absolute Neuts (auto) 5.4 (2.0-8.3) X10*3/uL Absolute Nucleated RBC 0.000 (0.0-0.012) X10*3/uL Nucleated RBC % (auto) 0.0 (0.0-0.2) /100WBC Sodium 143 (135-145) mmol/L Potassium 3.8 (3.3-5.1) mmol/L Chloride 109 H (96-108) mmol/L Carbon Dioxide 27 (22-29) mmol/L Anion Gap 11 L (12-20) BUN 14 (9-16) mg/dL Creatinine 0.73 (0.5-1.4) mg/dL Estim Creat Clear Calc 85.4 Estimated GFR > 60 Random Glucose 83 (60-115) mg/dL Calcium 9.2 (8.4-10.2) mg/dL Total Bilirubin 0.3 (0.0-1.0) mg/dL AST 13 (5-31) U/L ALT 13 (0-31) U/L Alkaline Phosphatase 109 (39-117) U/L Total Protein 7.1 (6.5-8.0) g/dL Albumin 4.0 (3.5-5.0) g/dL Urine Color YELLOW Urine Appearance CLEAR Urine pH 6.5 (5.0-8.0) Ur Specific [place] 1.020 (1.005-1.025) Urine Protein NEG (NEG-TRACE) MG/DL Urine Glucose (UA) NEG (NEG) MG/DL Urine Ketones NEG (NEG) MG/DL Urine Blood 2+ H (NEG) Urine Nitrite NEG (NEG) Ur Leukocyte Esterase 1+ H (NEG) Urine RBC 1-4 (0) /HPF Urine WBC 1-4 (0-4) /HPF Ur Squamous Epith Cells TRACE /LPF Urine Bacteria 1+ /LPF Discharge Plan Discharge Clinical Impression: Diverticulosis of colon Patient Disposition: Home, Self-Care Instructions: Diverticulosis (ED) Additional Instructions: clear fluids advanced as tolerated you do not need any antibiotics at this time follow-up with welfare eligibility worker for colonoscopy Prescriptions: No Action ondansetron HCl [Zofran] 4 mg tablet 4 mg PO Q6H PRN (Reason: nausea and vomiting) Qty: 10 RF: 0 duloxetine [Cymbalta] 20 mg capsule,delayed release(DR/EC) 20 mg PO DAILY RF: 0 oxycodone 5 mg capsule 5 mg PO QID PRN (Reason: Pain) RF: 0 nitrofurantoin macrocrystal 100 mg capsule 100 mg PO DAILY RF: 0 losartan 25 mg tablet 25 mg PO DAILY RF: 0 naproxen [Naprosyn] 500 mg tablet 500 mg PO DAILY PRN (Reason: knee pain) RF: 0 bisacodyl [Dulcolax (bisacodyl)] 5 mg tablet,delayed release (DR/EC) 5 mg PO BEDTIME 2 Days Qty: 2 RF: 0 peg 3350-electrolytes [Golytely] 236-22.74-6.74 -5.86 gram recon soln 240 ml PO Q10M 1 Days Qty: 4000 RF: 0 Interventions: ED Discharge Assessment Last Done: 10/22/20 22:36 Discharge Date/Time: 10/22/20 22:38 [facility] Past Medical History Medical History History of urinary tract infection Kidney stones Medullary sponge kidney Surgical History History of arthroplasty of right knee (~01/2018) Hx of cystoscopy Hx of cystoscopy Hx of knee surgery Status post appendectomy Status post bunionectomy (~09/2011) Status post hysterectomy Status post tonsillectomy Family History Family History Father HTN (hypertension) Cancer of kidney Mother Dementia Age related osteoporosis Social History Social History Alcohol intake: never Patient Tobacco Use Status: Current someday Tobacco user Cigarettes Per Day: 2 Substance Use Type: Marijuana Advance Directives: No Advance Directives Information Provided: Yes Patient : No
== END 2020-10-22 22:38 | disposition home or self-care (01) ==
PROVIDERS: Emergency Provider Internal Medicine
DX: K57.30 Diverticulosis of large intestine without perforation or abscess without bleeding (principal)
CPT/HCPCS: 36415; 80053; 81001; 81003; 85025; 87086; 99283

== ENCOUNTER 2020-11-30 06:31 | Day surgery (SDC) | payer OTHER, SELFPAY ==
[2020-11-26 11:00] VITALS: BMI 26.2
--- NOTE | 2020-11-29 10:56 | HO.ANESPROP2 ---
Documented by User: Viktoriya Alney 11/29/20 10:58 HPI - Anesthesia Eval Consult details Narrative: 60yo F for Colonoscopy PMFSH Active Problems Active Problems: All Active Problems (Updated 10/22/20 @ 22:34 by Jamey Camarena MD) Hypertension (Acute) Diverticulosis of colon (Acute) Depression (Acute) Hx of diverticulitis of colon (Acute) Colon cancer screening (Acute) Past Medical History Medical History Current vaping on some days History of urinary tract infection Kidney stones Medullary sponge kidney Family History Family History Father HTN (hypertension) Cancer of kidney Mother Dementia Age related osteoporosis Surgical History Surgical History History of arthroplasty of right knee (~01/2018) Hx of cystoscopy Hx of cystoscopy Hx of knee surgery Status post appendectomy Status post bunionectomy (~09/2011) Status post hysterectomy Status post tonsillectomy Social History Social History Alcohol intake: never Patient Tobacco Use Status: Current someday Tobacco user Tobacco use type: Cigarette Cigarettes Per Day: 2 Use of substances other than those prescribed or required for medical reasons: Yes Substance Use Type: Marijuana Substance Use Frequency: Daily Are you DNR?: No Advance Directives: No Advance Directives Information Provided: No Advance Directives on File: No Meds Allergies Allergy/AdvReac Type Severity Reaction Status Date / Time Penicillins Allergy Severe ANAPHYLAXIS Verified 11/26/20 11:04 morphine [MORPHINE] Allergy Intermediate TACHYCARDIA, Verified 11/26/20 11:04 HIVES, ITCHING Home Medications Medication Instructions Recorded Confirmed Last Taken Type duloxetine 20 mg capsule,delayed 20 mg PO DAILY cap 04/17/20 05/02/20 Unknown History release (Cymbalta) losartan 25 mg tablet 25 mg PO DAILY 04/17/20 11/26/20 Unknown History naproxen 500 mg tablet (Naprosyn) 500 mg PO DAILY PRN tab 04/17/20 05/02/20 Unknown History nitrofurantoin macrocrystal 100 mg 100 mg PO DAILY cap 04/17/20 05/02/20 Unknown History capsule oxycodone 5 mg capsule 5 mg PO QID PRN 04/17/20 11/30/20 11/30/20 05:00 History Exam Exam Date and Time: November 29, 2020 105 Height,Weight and Vital Signs: Height 5 ft 5 in Weight 71.668 kg Pertinent Lab Results Pertinent Lab Results: Laboratory Tests 10/22/20 10/22/20 19:51 19:51 WBC 9.7 Hgb 12.5 Hct 37.7 Plt Count 342 Sodium 143 Potassium 3.8 Chloride 109 H Carbon Dioxide 27 BUN 14 Creatinine 0.73 Assessment and Plan Assessment Anesthesia Assessment: Chart Reviewed Documented by User: Minnie Rosado MD 11/30/20 08:00 PMFSH Past Medical History Medical History Current vaping on some days History of urinary tract infection Kidney stones Medullary sponge kidney Family History Family History Father HTN (hypertension) Cancer of kidney Mother Dementia Age related osteoporosis Surgical History Surgical History History of arthroplasty of right knee (~01/2018) Hx of cystoscopy Hx of cystoscopy Hx of knee surgery Status post appendectomy Status post bunionectomy (~09/2011) Status post hysterectomy Status post tonsillectomy History of Problems with Anesthesia: No Social History Social History Alcohol intake: never Patient Tobacco Use Status: Current someday Tobacco user Tobacco use type: Cigarette Cigarettes Per Day: 2 Use of substances other than those prescribed or required for medical reasons: Yes Substance Use Type: Marijuana Substance Use Frequency: Daily Are you DNR?: No Advance Directives: No Advance Directives Information Provided: No Advance Directives on File: No Meds Allergies Allergy/AdvReac Type Severity Reaction Status Date / Time Penicillins Allergy Severe ANAPHYLAXIS Verified 11/26/20 11:04 morphine [MORPHINE] Allergy Intermediate TACHYCARDIA, Verified 11/26/20 11:04 HIVES, ITCHING Home Medications Medication Instructions Recorded Confirmed Last Taken Type duloxetine 20 mg capsule,delayed 20 mg PO DAILY cap 04/17/20 05/02/20 Unknown History release (Cymbalta) losartan 25 mg tablet 25 mg PO DAILY 04/17/20 11/26/20 Unknown History naproxen 500 mg tablet (Naprosyn) 500 mg PO DAILY PRN tab 04/17/20 05/02/20 Unknown History nitrofurantoin macrocrystal 100 mg 100 mg PO DAILY cap 04/17/20 05/02/20 Unknown History capsule oxycodone 5 mg capsule 5 mg PO QID PRN 04/17/20 11/30/20 11/30/20 05:00 History Exam Airway Mallampati Class: II TM Dist: >3cm Neck ROM: Full Loose/Missing/Broken Teeth: Yes Heart: RRR Lungs: CTA Assessment and Plan Final Anesthetic Review History of Problems with Anesthesia: No NPO: Yes ASA Class: II Final Preanesthetic Review: Meds/Allgs Chart Reviewed, Consent Obtained/Reviewed and Anes Risks/Benef Reviewed Patient Risk: Low Procedure Risk: Low Anesthetic Plan Anesthetic Plan: MAC: Disposition: Standard PACU
[2020-11-30] VITALS (10 sets, daily range): BP systolic 144–177; BP diastolic 59–91; PULSE 55–74; RESP 14–20; TEMP 36.1–36.8; O2SAT 95–100
[2020-11-30] MEDS: Lactated Ringers 1,000 ML 100 ML IVCONT (07:00)
--- NOTE | 2020-11-30 08:24 | MHC.SHP ---
Pre-Procedural Eval Section A Date of Service: 11/30/20 The patient is an INPATIENT: No The History & Physical has been completed within 30 days and I have reviewed it.: No Section B Chief Complaint: hx of disease of digestive system Details of Present Illness: Colon cancer screening, recurrent diverticulitis Relevant Family History (Specify if Yes): No Present Medications: see Short Stay Collaborative assessment Medical History: Significant History (History of urinary tract infection Kidney stones Medullary sponge kidney) History of Previous Operations: Relevant previous surgery/procedure and date(s) (History of arthroplasty of right knee (~01/2018) Status post appendectomy Status post bunionectomy (~09/2011) Status post hysterectomy Status post tonsillectomy) Allergies: Allergies Allergy/AdvReac Type Severity Reaction Status Date / Time Penicillins Allergy Severe ANAPHYLAXIS Verified 11/26/20 11:04 morphine [MORPHINE] Allergy Intermediate TACHYCARDIA, Verified 11/26/20 11:04 HIVES, ITCHING Review of Systems Sugical H&P ROS: Negative: Constitution, Cardiovascular, Respiratory and Gastrointestinal Exam Surgical H&P Exam: Normal: Heart, Normal: Lungs, Normal: Extremities and Normal: Abdomen Plan Diagnosis/Plan: Unchanged I have reviewed the history and physical and performed a pertinent physical examination on my patient. No changes have occurred unless specified.
--- NOTE | 2020-11-30 08:30 | PM.OP ---
Brief Operative Note Date of Service: 11/30/20 Pre-op diagnosis: Colon cancer screening, hx of diverticulitis Post-op diagnosis: other (severe smyth diverticulosis) Procedure: COLONOSCOPY TILL HEPATIC FLEXURE Consent: Indications for the procedure and potential complications of bleeding, perforation, reaction to medications and missed diagnosis were discussed with the patient and informed consent was obtained. Instrument: Olympus PCF H 190 L variable stiffness pediatric colonoscope and GIF H 190 mid size upper endoscope Monitoring: Vital signs and clinical assessment, intermittent blood pressure monitoring, continuous EKG monitoring, Pulse oximetry and Carbon Dioxide monitoring were done throughout the procedure. Colon withdrawl time was 16 minutes. Procedure: The patient was placed in the left lateral decubitis position and pre-procedure medications were administered. After a digital rectal examination of the ano-rectum, the video colonoscope was inserted into the rectum and advanced to 30-35 cms. It was not possible to advance further due to a ? hairpin turn/diverticular stricture. The colonoscope was removed and a mid size upper endoscope was advanced through the colon to the hepatic flexure. It was not possible to advance further due to lack of additional scope length. The colonoscope was slowly withdrawn in a retrograde panoramic fashion and the colon mucosa was carefully examined including a retroflexed view of the rectum. Findings and interventions are described below. Procedure Difficulty: Incomplete colonoscopy - difficut due to ? diverticular stricture Findings: Terminal Ileum: Not evaluated Cecum: Not evaluated Ascending Colon: Not evaluated Transverse Colon: moderate diverticulosis Descending Colon: Moderate diverticulosis Sigmoid Colon: Severe diverticulosis with ? hair pin turn /stricture precluding passage of pediatric colonoscope and navigated with a mid size upper endoscope Rectum: Normal Ano-rectum: Normal Colon preparation: Good after copious irrigation Impression and Post Procedure Diagnosis: Colonoscopy Findings: No polyps were detected Moderate to severe diverticulosis seen in the entire colon Incomplete colonoscopy Plan: Patient has an appointment on 01/03/21 in the [facility] Clinic with Frannie Zhao M.D.. CT colonography today - not approved by her insurance (I called and discussed with the Insurance company and they insisted on 72 hrs wait time for approval even for urgent/emergent studies) Pt unwilling to take repeat prep for CT colonography. She prefers to see General Surgery for management of recurrent diverticulitis Above findings were reviewed with the patient and diverticulosis handouts were given in the discharge area Surgeon: Frannie Zhao MD Anesthesia: MAC (Robyn Ceballos CRNA) Was an Spa Director/Finance used for this Procedure?: No Spa Director/Finance: Karl Martines Estimated blood loss (mL): 0 Pathology: none sent Condition: stable Disposition: PACU
--- NOTE | 2020-12-09 18:40 | P.OP_ITS ---
Operative Note Operative Note Date of Service: 11/30/20 Narrative: Pre-op diagnosis:?Colon cancer screening, hx of diverticulitis Post-op diagnosis:?other (severe smyth diverticulosis) Procedure:? COLONOSCOPY TILL HEPATIC FLEXURE Consent: Indications for the procedure and potential complications of bleeding, perforation, reaction to medications and missed diagnosis were discussed with the patient and informed consent was obtained. Instrument: Olympus PCF H 190 L variable stiffness pediatric colonoscope and GIF H 190 mid size upper endoscope Monitoring: Vital signs and clinical assessment, intermittent blood pressure monitoring, continuous EKG monitoring, Pulse oximetry and Carbon Dioxide monitoring were done throughout the procedure. Colon withdrawl time was 16 minutes. Procedure: The patient was placed in the left lateral decubitis position and pre-procedure medications were administered. After a digital rectal examination of the ano-rectum, the video colonoscope was inserted into the rectum and advanced to 30-35 cms.? It was not possible to advance further due to a ? hairpin turn/diverticular stricture.? The colonoscope was removed and a mid size upper endoscope was advanced through the colon to the hepatic flexure.? It was not possible to advance further due to lack of additional scope length.? The colonoscope was slowly withdrawn in a retrograde panoramic fashion and the colon mucosa was carefully examined including a retroflexed view of the rectum. Findings and interventions are described below. Procedure Difficulty: Incomplete colonoscopy - difficult due to ? diverticular stricture Findings: Terminal Ileum: Not evaluated Cecum:? Not evaluated Ascending Colon:? Not evaluated Transverse Colon:? moderate diverticulosis Descending Colon:? Moderate diverticulosis Sigmoid Colon:? Severe diverticulosis with ? hair pin turn /stricture precluding passage of pediatric colonoscope and navigated with a mid size upper endoscope Rectum:? Normal Ano-rectum:? Normal Colon preparation:? Good after copious irrigation Impression and Post Procedure Diagnosis: Colonoscopy Findings: No polyps were detected Moderate to severe diverticulosis seen in the entire colon Incomplete colonoscopy Plan: Patient has an appointment on 01/03/21 in the GI Clinic with Frannie Zhao M.D.. CT colonography today - not approved by her insurance (I called and discussed with the Insurance company and they insisted on 72 hrs wait time for approval even for urgent/emergent studies) Pt unwilling to take repeat prep for CT colonography.? She prefers to see General Surgery for management of recurrent diverticulitis Above findings were reviewed with the patient and diverticulosis handouts were given in the discharge area Surgeon:?Frannie Zhao MD Anesthesia:?MAC (Robyn Ceballos CRNA) Was an Marker Delivery used for this Procedure?:?No Marker Delivery:?Karl Martines Estimated blood loss (mL):?0 Pathology:?none sent Condition:?stable Disposition:?PACU
== END 2020-11-30 16:41 | disposition home or self-care (01) ==
PROVIDERS: Visit Provider Internal Medicine Gastroenterology
PROC: 0DJD8ZZ Inspection of Lower Intestinal Tract, Via Natural or Artificial Opening Endoscopic (ICD-10-PCS; CPT 45378; principal; 2020-11-30 08:20)
DX: Z12.11 Encounter for screening for malignant neoplasm of colon (principal); Z87.19 Personal history of other diseases of the digestive system; K57.30 Diverticulosis of large intestine without perforation or abscess without bleeding; Q61.5 Medullary cystic kidney; I10 Essential (primary) hypertension; F32.9 Major depressive disorder, single episode, unspecified; Z87.440 Personal history of urinary (tract) infections; Z87.442 Personal history of urinary calculi; F17.210 Nicotine dependence, cigarettes, uncomplicated; F12.90 Cannabis use, unspecified, uncomplicated; Z79.899 Other long term (current) drug therapy; Z88.0 Allergy status to penicillin; Z88.8 Allergy status to other drugs, medicaments and biological substances
CPT/HCPCS: 45378

== ENCOUNTER → 2021-01-03 08:59 | Outpatient (BNVA) | payer OTHER, SELFPAY | PROVIDERS: Visit Provider Internal Medicine Gastroenterology | DX: K57.30 Diverticulosis of large intestine without perforation or abscess without bleeding (principal); Z87.19 Personal history of other diseases of the digestive system; Z98.890 Other specified postprocedural states | CPT/HCPCS: Q3014 ==

== ENCOUNTER 2021-01-27 18:50 | Inpatient (IN) | payer OTHER, SELFPAY ==
--- NOTE | ~2021-01-27 | CT_ITS ---
EXAMINATION: CT ABDOMEN AND PELVIS WITH CONTRAST CLINICAL INFORMATION: Follow-up diverticulitis COMPARISON: Previous CT scan of the abdomen and pelvis most recent 01/27/2021 TECHNIQUE: Multidetector volumetric images were obtained from the superior aspect of the liver through the pubic symphysis following administration 85 mL of Omnipaque 350 intravenous contrast. Sagittal and coronal reformatted images were obtained on the technologist's workstation. Oral contrast: Yes This CT examination was performed using dose optimization techniques as appropriate, variously including the following: *Automated exposure control *Adjustment of mA and/or kV according to patient size (this includes techniques or standardized protocols for targeted exams where dose is matched to indication/reason for exam; i.e. extremities or head) *Use of iterative reconstruction technique DLP: 616 mGy-cm FINDINGS: LUNG BASES: The visualized lung bases are unremarkable. LIVER, GALLBLADDER, AND BILIARY TREE: The liver is normal in size, shape, and attenuation. No focal hepatic lesion or biliary ductal dilatation is present. The gallbladder is unremarkable with no evidence of radiopaque gallstones, gallbladder wall thickening, or obvious pericholecystic inflammatory changes. PANCREAS: Unremarkable. SPLEEN: Unremarkable. ADRENAL GLANDS: Unremarkable. KIDNEYS AND URETERS: There are bilateral renal cysts that are stable. There are bilateral renal stones. No hydronephrosis, ureteral dilatation or ureteral stone is seen. BLADDER: Unremarkable. GASTROINTESTINAL TRACT: There is diverticulosis of the colon. There is marked wall thickening of the sigmoid colon, edema and stranding of the surrounding fat suggestive of acute diverticulitis. This is slightly increased from previous exam. There is an 8 intramural abscess that measures 2.2 x 3.1 cm and is minimally increased in size from 1.8 x 2.2 cm on 01/27/2021 exam. There are adjacent inflammatory changes that extend to the left adnexa. No evidence of obstruction or perforation are seen. ABDOMINAL WALL: There is a small umbilical hernia containing fat. LYMPH NODES: There is shotty bowel mesentery and retroperitoneal lymphadenopathy. No enlarged lymph nodes are seen. There is no ascites. There is no free air. VASCULAR: Unremarkable. PELVIC VISCERA: The uterus appears to have been removed. OSSEOUS STRUCTURES: There are mild degenerative changes of the spine. CT/CT abdomen pelvis w con IMPRESSION: Worsening sigmoid diverticulitis and increasing intramural abscess now measuring 2.2 x 3.1 cm. No evidence of obstruction or perforation. Bilateral renal stones and bilateral renal cysts.
--- NOTE | ~2021-01-27 | CT_ITS ---
EXAMINATION: CT ABDOMEN AND PELVIS WITH CONTRAST CLINICAL INFORMATION: Diffuse abdominal pain. History of diverticulosis. COMPARISON: CT abdomen/pelvis dated from 10/15/2020 and 04/08/2020. TECHNIQUE: Multidetector volumetric images were obtained from the superior aspect of the liver through the pubic symphysis following administration 85 mL of Omnipaque 350 intravenous contrast. Sagittal and coronal reformatted images were obtained on the technologist's workstation. Oral contrast: No This CT examination was performed using dose optimization techniques as appropriate, variously including the following: *Automated exposure control *Adjustment of mA and/or kV according to patient size (this includes techniques or standardized protocols for targeted exams where dose is matched to indication/reason for exam; i.e. extremities or head) *Use of iterative reconstruction technique DLP: 511 mGy-cm FINDINGS: LUNG BASES: Dependent atelectasis. No focal consolidation or pleural effusion. LIVER, GALLBLADDER, AND BILIARY TREE: The liver is normal in size, shape, and attenuation. No focal hepatic lesion. The CBD is mildly dilated measuring up to 8 mm, which is similar when compared to studies from 2019. No intrahepatic biliary ductal dilatation. The gallbladder is unremarkable with no evidence of radiopaque gallstones, gallbladder wall thickening, or obvious pericholecystic inflammatory changes. PANCREAS: No focal abnormalities. The main pancreatic duct is nondilated. No peripancreatic inflammatory changes or free fluid. SPLEEN: Unremarkable. ADRENAL GLANDS: Unremarkable. KIDNEYS AND URETERS: Redemonstration of innumerable renal calculi not significantly changed since September with the largest located in the upper pole of the left kidney measuring 9 mm at approximately 10 cm from the skin of the posterior axillary line (21:3) and in the upper pole of the right kidney measuring 7 mm at 8 cm from the posterior axillary line (23:3). There is no hydronephrosis or hydroureter. There is redemonstration of several bilateral simple cysts, the largest in the interpolar region of the right kidney measuring 1.7 cm and a few other too small to characterize hypodensities bilaterally that are statistically also likely to be related with simple cysts. Again noted is scarring in the lower pole of the left kidney. BLADDER: Unremarkable. GASTROINTESTINAL TRACT: There is wall thickening and inflammatory changes in the sigmoid centered around several diverticuli, most consistent with acute diverticulitis. There is a 2.2 x 1.8 x 2.1 cm centrally low attenuating collection in the wall of the sigmoid (63:3) worrisome for an intramural abscess formation. No bowel obstruction. Normal appearance of the stomach and small bowel. The appendix is not visualized. ABDOMINAL WALL: No significant hernia is appreciated. LYMPH NODES: Prominent retroperitoneal and mesenteric lymph nodes are likely reactive. No lymphadenopathy by size criteria. VASCULAR: Scattered atherosclerotic disease. The abdominal aorta is of normal caliber. PELVIC VISCERA: Hysterectomy. No adnexal lesions. OSSEOUS STRUCTURES: No acute or aggressive osseous abnormalities. Multilevel degenerative changes. CT/CT abdomen pelvis w con IMPRESSION: Findings most consistent with severe acute sigmoid diverticulitis with a 2.2 cm intramural abscess. Redemonstration of numerous bilateral renal calculi without evidence of obstruction. The report will be called to the ordering clinician by a [facility] Physician Slot Attendant.
[2021-01-27 20:28] VITALS: BP 182/83; PULSE 85; RESP 16; TEMP 36.8; O2SAT 100; BMI 25.7
[2021-01-27 20:48] LABS: Appearance Urine HAZY; Color Urine YELLOW; Glucose Urine UA NEG (NEG); Leukocyte Esterase Urine NEG (NEG); Nitrite Urine NEG (NEG); Specific Gravity - Urine 1.025 (1.005-1.025); UACC Culture Trigger NO; Urine Blood 3+ (NEG); Urine Ketones NEG (NEG); Urine Protein TRACE MG/DL (NEG-TRACE)
[2021-01-27 20:56] LABS: Bacteria Urine TRACE /LPF; Mucus Urine 2+ /LPF; Squamous Epithelial Cell Urine 2+ /LPF; WBC Urine 0 /HPF (0-4)
[2021-01-27] MEDS: 0.9 % Sodium Chloride 1,000 ML 999 ML IV (21:23)
--- NOTE | 2021-01-27 21:30 | PC.NURSE ---
PT TO ROOM CHG INTO GOWN AND MD AT BEDSIDE FOR EVAL. PT C/O PAIN 10/10 TO LOWER ABD AREA WHICH RADIATES INTO LOWER BACK. PT MEDICATED FOR PAIN PER EMAR. PT ALERT, RESPIRATIONS EASY, N/L. PT MOANING IN PAIN, NS UP AND RUNNING, SITE INTACT. PT AWAITING FOR FURTHER ORDERS.
--- NOTE | 2021-01-27 21:31 | ED.ABDPAIN ---
HPI - Abdominal Pain General Chief Complaint: Abdominal Pain Stated Complaint: abd pain Time Seen by Provider: 01/27/21 21:19 Source: patient Mode of arrival: ambulatory History of Present Illness HPI narrative: 60-year-old female with history of diverticulitis/diverticulosis, hypertension, medullary spongiosis and presents with worsening abdominal pain for 1 week and patient decided to start taking ciprofloxacin herself but states that it did not help. This is been associated with nausea but no vomiting, denies any diarrhea, but is having chills. Related Data Home Medications Medication Instructions Recorded Confirmed duloxetine 20 mg capsule,delayed 20 mg PO DAILY cap 04/17/20 01/03/21 release (Cymbalta) losartan 25 mg tablet 25 mg PO DAILY 04/17/20 01/03/21 naproxen 500 mg tablet (Naprosyn) 500 mg PO DAILY PRN tab 04/17/20 01/03/21 nitrofurantoin macrocrystal 100 mg 100 mg PO DAILY cap 04/17/20 01/03/21 capsule oxycodone 5 mg capsule 5 mg PO QID PRN 04/17/20 01/03/21 oxycodone 5 mg tablet 5 - 10 mg PO QID PRN 01/03/21 01/03/21 Previous Rx's Medication Instructions Recorded ondansetron HCl 4 mg tablet 4 mg PO Q6H PRN #10 tab 04/09/20 (Zofran) Allergies Allergy/AdvReac Type Severity Reaction Status Date / Time Penicillins Allergy Severe ANAPHYLAXIS Verified 01/03/21 09:00 morphine [MORPHINE] Allergy Intermediate TACHYCARDIA, Verified 01/03/21 09:00 HIVES, ITCHING Review of Systems Review of Systems Pertinent positives and negatives as stated in HPI 10 point review of systems is otherwise negative. Physical Exam Vital Signs: Vital Signs: Last Vital Signs Temp 98.3 F 01/27/21 20:28 Pulse 80 01/27/21 23:09 Resp 18 01/27/21 23:22 BP 153/71 H 01/27/21 23:09 Pulse Ox 98 01/27/21 23:09 Body Mass Index 25.7 VITAL SIGNS: Reviewed. GENERAL: Well developed, well nourished, in no acute distress. HEAD: Normocephalic/atraumatic EYES: PERRLA, EOMI OROPHARYNX: no oral lesions noted, posterior pharynx clear and non-erythematous without noted tonsillar enlargement/erythema/exudates NECK: Supple, no adenopathy LUNGS: Normal breath sounds. No adventitious sounds or accessory muscle use. SpO2<100> CARDIOVASCULAR: Regular rate and rhythm without noted murmurs, no JVD or lower extremity edema. ABDOMEN: Soft, diffusely tender with voluntary guarding, non-distended with bowel sounds. NEUROLOGIC: Alert and oriented x 4. Strength and sensation to light touch were grossly intact x 4. Course Course Course Narrative: 60-year-old female with history and clinical presentation likely diverticulitis, but will rule out UTI, renal colic, pyelonephritis. Review of all investigations consistent with severe and complicated diverticulitis patient is received pain medication, antibiotics, and will discuss case with Surgical Services for admission given intramural abscess. MDM - Abdominal Pain Lab Data Result diagrams: 01/27/21 21:33 01/27/21 21:33 Labs: Lab Results 01/27/21 01/27/21 01/27/21 Range/Units 20:42 21:33 21:33 WBC 14.5 H (4.8-10.8) X10*3/uL RBC 4.72 (4.20-5.50) X10*6/uL Hgb 13.6 (12.0-16.0) g/dl Hct 40.1 (37-47) % MCV 85.0 (80-98) fL MCH 28.8 (27.0-33.0) pg MCHC 33.9 (31.0-35.0) g/dl RDW 14.4 (11.0-16.0) % Plt Count 345 (160-400) X10*3/uL MPV 9.6 (9.4-12.3) fL Immature Gran % (Auto) 0.3 (0.0-0.4) % Neut % (Auto) 72.2 (45-73) % Lymph % (Auto) 18.8 L (20-40) % [place] % (Auto) 6.6 (2-11) % Eos % (Auto) 1.9 (0-4) % Baso % (Auto) 0.2 (0-2) % Lymph # (Auto) 2.7 (1.2-4.9) X10*3/uL [place] # (Auto) 1.0 (0.1-1.2) X10*3/uL Eos # (Auto) 0.3 (0.0-0.4) X10*3/uL Baso # (Auto) 0.0 (0.0-0.2) X10*3/uL Abs Immat Gran (auto) 0.04 H (0.00-0.03) X10*3/uL Absolute Neuts (auto) 10.4 H (2.0-8.3) X10*3/uL Absolute Nucleated RBC 0.000 (0.0-0.012) X10*3/uL Nucleated RBC % (auto) 0.0 (0.0-0.2) /100WBC PT (9.9-13.0) SEC INR (0.9-1.1) Sodium 142 (135-145) mmol/L Potassium 4.1 (3.3-5.1) mmol/L Chloride 106 (96-108) mmol/L Carbon Dioxide 26 (22-29) mmol/L Anion Gap 14 (12-20) BUN 18 H (9-16) mg/dL Creatinine 0.79 (0.5-1.4) mg/dL Estim Creat Clear Calc 78.9 Estimated GFR > 60 Random Glucose 106 (60-115) mg/dL Lactic Acid (0.5-2.0) mmol/L Calcium 10.0 D (8.4-10.2) mg/dL Total Bilirubin 0.8 (0.0-1.0) mg/dL AST 20 D (5-31) U/L ALT 12 (0-31) U/L Alkaline Phosphatase 110 (39-117) U/L Total Protein 7.9 (6.5-8.0) g/dL Albumin 4.4 (3.5-5.0) g/dL Urine Color YELLOW Urine Appearance HAZY Urine pH 6.0 (5.0-8.0) Ur Specific [place] 1.025 (1.005-1.025) Urine Protein TRACE (NEG-TRACE) MG/DL Urine Glucose (UA) NEG (NEG) MG/DL Urine Ketones NEG (NEG) MG/DL Urine Blood 3+ H (NEG) Urine Nitrite NEG (NEG) Ur Leukocyte Esterase NEG (NEG) Urine RBC 15-29 H (0) /HPF Urine WBC 0 (0-4) /HPF Ur Squamous Epith Cells 2+ /LPF Urine Bacteria TRACE /LPF Urine Mucus 2+ /LPF COVID-19 ([facility]) (Negative) COVID-19 Clin Com 01/27/21 01/27/21 01/27/21 Range/Units 22:13 22:13 22:13 WBC (4.8-10.8) X10*3/uL RBC (4.20-5.50) X10*6/uL Hgb (12.0-16.0) g/dl Hct (37-47) % MCV (80-98) fL MCH (27.0-33.0) pg MCHC (31.0-35.0) g/dl RDW (11.0-16.0) % Plt Count (160-400) X10*3/uL MPV (9.4-12.3) fL Immature Gran % (Auto) (0.0-0.4) % Neut % (Auto) (45-73) % Lymph % (Auto) (20-40) % [place] % (Auto) (2-11) % Eos % (Auto) (0-4) % Baso % (Auto) (0-2) % Lymph # (Auto) (1.2-4.9) X10*3/uL [place] # (Auto) (0.1-1.2) X10*3/uL Eos # (Auto) (0.0-0.4) X10*3/uL Baso # (Auto) (0.0-0.2) X10*3/uL Abs Immat Gran (auto) (0.00-0.03) X10*3/uL Absolute Neuts (auto) (2.0-8.3) X10*3/uL Absolute Nucleated RBC (0.0-0.012) X10*3/uL Nucleated RBC % (auto) (0.0-0.2) /100WBC PT 13.3 H (9.9-13.0) SEC INR 1.2 H (0.9-1.1) Sodium (135-145) mmol/L Potassium (3.3-5.1) mmol/L Chloride (96-108) mmol/L Carbon Dioxide (22-29) mmol/L Anion Gap (12-20) BUN (9-16) mg/dL Creatinine (0.5-1.4) mg/dL Estim Creat Clear Calc Estimated GFR Random Glucose (60-115) mg/dL Lactic Acid 0.8 (0.5-2.0) mmol/L Calcium (8.4-10.2) mg/dL Total Bilirubin (0.0-1.0) mg/dL AST (5-31) U/L ALT (0-31) U/L Alkaline Phosphatase (39-117) U/L Total Protein (6.5-8.0) g/dL Albumin (3.5-5.0) g/dL Urine Color Urine Appearance Urine pH (5.0-8.0) Ur Specific [place] (1.005-1.025) Urine Protein (NEG-TRACE) MG/DL Urine Glucose (UA) (NEG) MG/DL Urine Ketones (NEG) MG/DL Urine Blood (NEG) Urine Nitrite (NEG) Ur Leukocyte Esterase (NEG) Urine RBC (0) /HPF Urine WBC (0-4) /HPF Ur Squamous Epith Cells /LPF Urine Bacteria /LPF Urine Mucus /LPF COVID-19 ([facility]) Negative (Negative) COVID-19 Clin Com See Note Discharge Plan Discharge Clinical Impression: Diverticulitis of large intestine with abscess Patient Disposition: Admitted As Inpatient [facility] Past Medical History Source: nursing notes reviewed Medical History Current vaping on some days History of urinary tract infection Kidney stones Medullary sponge kidney Surgical History History of arthroplasty of right knee (~01/2018) Hx of colonoscopy Hx of cystoscopy Hx of cystoscopy Hx of knee surgery Status post appendectomy Status post bunionectomy (~09/2011) Status post hysterectomy Status post tonsillectomy Family History Family History Father HTN (hypertension) Cancer of kidney Mother Dementia Age related osteoporosis Social History Social History Alcohol intake: never Patient Tobacco Use Status: Current someday Tobacco user Tobacco use type: Cigarette Cigarettes Per Day: 2 Substance Use Type: Marijuana Advance Directives: No Advance Directives Information Provided: Yes
[2021-01-27 21:38] VITALS: RESP 18
[2021-01-27 21:38] LABS: MANUAL DIFF FLAG NO
[2021-01-27] MEDS: fentaNYL citrate/PF 100 MCG/2 ML VIAL 25 MCG IVPUSH (21:38)
[2021-01-27 21:41] LABS: Basophils Percent Auto 0.2 % (0-2); Eosinophils Absolute Auto 0.3 X10*3/uL (0.0-0.4); Eosinophils Percent Auto 1.9 % (0-4); Hematocrit 40.1 % (37-47); Hemoglobin 13.6 g/dl (12.0-16.0); Imm Gran Abs Auto 0.04 X10*3/uL (0.00-0.03); Imm Gran Pct Auto 0.3 % (0.0-0.4); Lymphocytes Absolute Auto 2.7 X10*3/uL (1.2-4.9); Lymphocytes Percent Auto 18.8 % (20-40); Mean Corpuscular HGB Conc 33.9 g/dl (31.0-35.0); Mean Corpuscular Hemoglobin 28.8 pg (27.0-33.0); Mean Platelet Volume 9.6 fL (9.4-12.3); Monocytes Percent Auto 6.6 % (2-11); Neutrophils Absolute Auto 10.4 X10*3/uL (2.0-8.3); Neutrophils Percent Auto 72.2 % (45-73); Platelet Count 345 X10*3/uL (160-400); Red Blood Count 4.72 X10*6/uL (4.20-5.50); Red Cell Distribution Width 14.4 % (11.0-16.0); White Blood Count 14.5 X10*3/uL (4.8-10.8)
[2021-01-27 21:59] LABS: Alanine Aminotransferase 12 U/L (0-31); Albumin Level 4.4 g/dL (3.5-5.0); Alkaline Phosphatase 110 U/L (39-117); Anion Gap 14 (12-20); Aspartate Amino Transferase 20 U/L (5-31); Bilirubin Total 0.8 mg/dL (0.0-1.0); Blood Urea Nitrogen 18 mg/dL (9-16); Carbon Dioxide 26 mmol/L (22-29); Chloride 106 mmol/L (96-108); Creatinine Clr Calc Pharmacy 78.9; Estimated Glomerular Filt Rate > 60; Glucose Random 106 mg/dL (60-115); Potassium 4.1 mmol/L (3.3-5.1); Sodium 142 mmol/L (135-145); Total Protein 7.9 g/dL (6.5-8.0)
[2021-01-27 22:00] VITALS: BP 146/59; BP 158/74; PULSE 74; PULSE 86; RESP 18; O2SAT 98
[2021-01-27] MEDS: ondansetron HCL 4 MG/2 ML VIAL IVPUSH (22:01)
[2021-01-27] MEDS: cefTRIAXone sodium 1 GM in 0.9 % Sodium Chloride 50 ML IV (22:20)
[2021-01-27 22:39] LABS: Lactic Acid 0.8 mmol/L (0.5-2.0)
[2021-01-27] MEDS: iohexoL 350 MG/ML 100 ML INFUS..BTL IV (22:44)
[2021-01-27 22:46] LABS: INTERNATIONAL NORM RATIO 1.2 (0.9-1.1); Prothrombin Time 13.3 SEC (9.9-13.0)
[2021-01-27 22:50] LABS: COVID-19 Test Negative (Negative)
[2021-01-27] MEDS: metroNIDAZOLE/NS 500 MG/100 ML PIGGYBACK 100 MG IV (23:04)
[2021-01-27 23:05] VITALS: PULSE 89; RESP 18
[2021-01-27 23:09] VITALS: BP 153/71; PULSE 80; RESP 18; O2SAT 98
--- NOTE | 2021-01-27 23:10 | PC.NURSE ---
PT MEDICATED PER EMAR. PT C/O PAIN TO ABD/BACK. AWARE.
[2021-01-27 23:22] VITALS: RESP 18
[2021-01-27] MEDS: HYDROmorphone HCl 0.5 MG/0.5 ML SYRINGE IVPUSH (23:22)
[2021-01-28] VITALS (13 sets, daily range): BP systolic 121–160; BP diastolic 51–84; PULSE 62–80; RESP 15–18; TEMP 36.6–37.1; O2SAT 96–99
[2021-01-28] MEDS: HYDROmorphone HCl 0.5 MG/0.5 ML SYRINGE IVPUSH ×3 (00:40→06:36)
[2021-01-28] MEDS: Dextrose 5 % and Lactated Ring 1,000 ML 100 ML IVCONT ×3 (00:46→20:19)
[2021-01-28] MEDS: oxyCODONE HCl Immed Release 5 MG TABLET PO (02:46)
[2021-01-28] MEDS: Acetaminophen 325 MG TABLET 650 MG PO (02:47)
--- NOTE | 2021-01-28 03:13 | PC.NURSE ---
PT C/O PAIN TO LOWER ABD AREA WHICH RADIATES INTO LOWER BACK. PT MEDICATED PER EMAR WITH TYLENOL AND OXYCODONE. FLUIDS UP AND RUNNING ON PUMP WITHOUT DIFFICULTY. SITE INTACT. PT AWAITING FOR FURTHER ORDERS.
--- NOTE | 2021-01-28 03:30 | PC.NURSE ---
PT RESTING IN STRETCHER, PT AWAITING FOR ROOM ASSIGNMENT PT ON MONITOR WITH HR 86. VS OBTAINED. PT STATES MY PAIN IS A LITTLE BETTER PT AWAITING FOR ROOM ASSIGNMENT. WILL CONTINUE OT MONITOR PT.
--- NOTE | 2021-01-28 06:38 | PC.NURSE ---
pt c/o abd pain, pt medicated as per emar for pain 02/03. pt awaiting for room assignment.
[2021-01-28 06:54] LABS: Hematocrit 33.5 % (37-47); Hemoglobin 11.5 g/dl (12.0-16.0); Mean Corpuscular HGB Conc 34.3 g/dl (31.0-35.0); Mean Corpuscular Volume 84.6 fL (80-98); Mean Platelet Volume 9.3 fL (9.4-12.3); Platelet Count 279 X10*3/uL (160-400); Red Blood Count 3.96 X10*6/uL (4.20-5.50); Red Cell Distribution Width 14.4 % (11.0-16.0); White Blood Count 12.6 X10*3/uL (4.8-10.8)
[2021-01-28 07:03] LABS: Anion Gap 10 (12-20); Blood Urea Nitrogen 11 mg/dL (9-16); Calcium 8.5 mg/dL (8.4-10.2); Carbon Dioxide 23 mmol/L (22-29); Chloride 110 mmol/L (96-108); Creatinine Clr Calc Pharmacy 98.9; Estimated Glomerular Filt Rate > 60; Glucose Fasting 126 mg/dL (60-99); Potassium 3.3 mmol/L (3.3-5.1); Sodium 140 mmol/L (135-145)
[2021-01-28] MEDS: metroNIDAZOLE/NS 500 MG/100 ML PIGGYBACK 100 MG IV ×3 (07:18→23:32)
--- NOTE | 2021-01-28 08:01 | P.PNGS_ITS ---
Subjective Subjective Date of Service: 01/28/21 Interval history: Says she is okay but feels that her pain is not well controlled Says she is on chronic narcotics feels that she will need higher doses of pain meds Also says she is anxious Physical Exam Vital Signs: Vital Signs: Last Vital Signs Temp 97.9 F 01/28/21 07:20 Pulse 67 01/28/21 07:20 Resp 18 01/28/21 07:20 BP 126/51 L 01/28/21 07:20 Pulse Ox 97 01/28/21 07:20 Body Mass Index 25.7 Chemistry 01/27/21 01/28/21 21:33 06:32 Sodium 142 140 Potassium 4.1 3.3 Carbon Dioxide 26 23 BUN 18 H 11 Creatinine 0.79 0.63 Calcium 10.0 D 8.5 D Hematology 01/27/21 01/28/21 21:33 06:32 WBC 14.5 H 12.6 H Hgb 13.6 11.5 L Plt Count 345 279 Urinalysis 01/27/21 20:42 Urine Color YELLOW Urine Appearance HAZY Urine pH 6.0 Ur Specific Gravit y 1.025 Urine Protein TRACE Urine Glucose (UA) NEG Urine Ketones NEG Urine Blood 3+ H Urine Nitrite NEG Ur Leukocyte Aarti ase NEG Urine RBC 15-29 H Urine WBC 0 Ur Squamous Epith Cells 2+ Const: Other: Looks anxious otherwise not in distress Resp: Effort & Inspection: normal respiratory effort Cardio: Rate: regular rate GI: Other: Tender mostly in the lower abdomen Palpation (GI): Soft to palpation, not firm, no guarding and not rigid Procedures Date of Service Date of Service: 01/28/21 Progress Note: A&P Assessment and plan (1) Diverticulitis of large intestine with abscess: Status: Acute Assessment and Plan: casing fluid tender - will increase dose of Dilaudid as she has been on chronic pain meds WBC otherwise improving Exam benign May need follow-up CT scan Start on Ativan - says she is anxious Fall Risk Details Current Medications: Current Medications Acetaminophen (Acetaminophen 325 Mg Tablet) 650 mg PO Q6H PRN PRN Reason: Fever Last Admin: 01/28/21 02:47 Dose: 650 mg Documented by: Hydromorphone HCl (Hydromorphone Hcl 0.5 Mg/0.5 Ml Syringe) 0.5 mg IVPUSH Q3H PRN; Protocol PRN Reason: Pain, Severe (Pain Scale 7-10) Last Admin: 01/28/21 06:36 Dose: 0.5 mg Documented by: Dextrose/Lactated Ringer's (D5lr) 1,000 mls @ 100 mls/hr IVCONT .Q10H IZABELLA Last Infusion: 01/28/21 03:47 Dose: Infused Documented by: Levofloxacin (Levaquin) 500 mg in 100 mls @ 100 mls/hr IV Q24H IZABELLA Metronidazole (Flagyl) 500 mg in 100 mls @ 100 mls/hr IV Q8H IZABELLA Last Admin: 01/28/21 07:18 Dose: 100 mls/hr Documented by: Ondansetron HCl (Ondansetron Hcl 4 Mg/2 Ml Vial) 4 mg IVPUSH Q8H PRN PRN Reason: Nausea Oxycodone HCl (Oxycodone Hcl Immed Release 5 Mg Tablet) 5 mg PO Q4H PRN PRN Reason: Pain, Moderate (Pain Scale 4-6 Last Admin: 01/28/21 02:46 Dose: 5 mg Documented by: Time Spent With Patient Time: Total time spent is greater than 50% in coordination of care (as documented) at patient's floor/unit and/or counseling patient: Time with patient: 15 - 24 minutes Quality Stroke Does the patient have a stroke diagnosis?: No VTE Prior VTE?: No VTE Risk Level:: Medical - moderate - high VTE Device Contraindication: N/A - Device Ordered VTE Drug Contraindication: N/A - Med Ordered
[2021-01-28] MEDS: HYDROmorphone HCl 0.5 MG/0.5 ML SYRINGE 0.75 MG IVPUSH ×3 (08:10→15:53)
[2021-01-28] MEDS: LORazepam 1 MG TABLET PO ×2 (08:10→17:22)
--- NOTE | 2021-01-28 09:45 | MHC.CM.PN ---
Addendum entered by Tereza Quinn 01/28/21 10:21: COPY OF IMM SENT TO [facility] 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
--- NOTE | 2021-01-28 18:04 | P.HPGS_ITS ---
History of Present Illness History of Present Illness Date of Service: 01/31/21 Chief complaint: diverticulitis Narrative: Arpita Park is a 60 year old female with known history of diverticulosis, who came to the ED last night because of lower abdominal pain. She says this has been going on for almost a week, although this was mild at onset. She says she took whatever Cipro tablet she had which did not provide resolution so she came to the ED. She had CT scan showing acute diverticulitis with an intramural abscess measuring about 2.2 cm, so she was admitted by Dr. Bruner. She denies any fever but says she felt she had chills. She had a colonoscopy with Dr. Zhao last November 2020 showing severe diverticulosis of the sigmoid. She also says she has had about 4 episodes of diverticulitis the past 2-3 years. The patient says she is on chronic use of opioids and says she will need higher doses of pain meds in view of this. He says he forms a lot of kidney stones in view of her medullary sponge kidneys. Review of Systems Constitutional: Constitutional: Reports chills and Denies fever(s) Cardiovascular: Cardiovascular: Denies chest pain, Denies dyspnea and Denies dyspnea on exertion Respiratory: Respiratory: Denies cough, Denies dyspnea and Denies dyspnea on exertion Gastrointestinal: Gastrointestinal: Denies hematochezia and Denies change in bowel habits Genitourinary: Genitourinary: Denies hematuria Musculoskeletal: Musculoskeletal: Denies back pain and Denies limited range of motion Neurologic: Denies focal weakness and Denies convulsions Psychiatric: Psychiatric: Denies depression and Denies mood swings [facility] Past Medical History Medical History (Updated 01/29/21 @ 08:54 by Jerel Goss MD) Chronic pain Current vaping on some days History of urinary tract infection Kidney stones Medullary sponge kidney Family History Family History Father HTN (hypertension) Cancer of kidney Mother Dementia Age related osteoporosis Surgical History Surgical History History of arthroplasty of right knee (~01/2018) Hx of colonoscopy Hx of cystoscopy Hx of cystoscopy Hx of knee surgery Status post appendectomy Status post bunionectomy (~09/2011) Status post hysterectomy Status post tonsillectomy Social History Social History (Updated 01/31/21 @ 08:12 by Luana Blum MD) Household Members: Children Housing: Apartment Do you presently have visiting nurse or other home services: Yes ([facility]) Alcohol intake: never Patient Tobacco Use Status: Current someday Tobacco user Tobacco use type: Cigarette Cigarettes Per Day: 1 Smoked in Last 30 Days: Yes e-Cigarette/Vaping Use: Currently Using Patient Interested in Nicotine Replacement: No Patient Given Instructions on How to Stop Smoking: Yes Date Education Initiated: 01/28/21 Second Hand Smoke Exposure: No Use of substances other than those prescribed or required for medical reasons: Yes Substance Use Type: Marijuana Substance Use Frequency: Daily Last Used Substance: Days (ago) Currently Displaying Signs/Symptoms of Drug Intoxication Withdrawal: No Any prior treatment program specific to substance use: No Have you been hit, kicked, punched, or otherwise hurt by someone within the past year? If so, by whom?: No Do you feel safe in your current relationship?: Yes Is there a partner from a previous relationship who is making you feel unsafe now?: No Are you made to feel afraid or neglected: No Are you DNR?: No Advance Directives: No Advance Directives Information Provided: Yes Do you have thoughts of harming others: None Do you have a plan to hurt others: No Plan Recently lost weight without trying: No How much weight loss: 2-13 pounds Eating poorly because of decreased appetite: No Nutrition screen score: 1 Nutrition Risks: No Nutritional Risk Patient : No : No Poor oral hygiene: No service: No Current occupational status: unemployed Meds Allergies Allergy/AdvReac Type Severity Reaction Status Date / Time Penicillins Allergy Severe ANAPHYLAXIS Verified 01/03/21 09:00 morphine [MORPHINE] Allergy Intermediate TACHYCARDIA, Verified 01/03/21 09:00 HIVES, ITCHING Active Medications: Current Medications Acetaminophen (Acetaminophen 325 Mg Tablet) 650 mg PO Q6H PRN PRN Reason: Fever Last Admin: 01/28/21 02:47 Dose: 650 mg Documented by: Hydromorphone HCl (Hydromorphone Hcl 0.5 Mg/0.5 Ml Syringe) 1 mg IVPUSH Q3H PRN; Protocol PRN Reason: Pain, Severe (Pain Scale 7-10) Dextrose/Lactated Ringer's (D5lr) 1,000 mls @ 100 mls/hr IVCONT .Q10H IZABELLA Last Admin: 01/28/21 10:46 Dose: 100 mls/hr Documented by: Levofloxacin (Levaquin) 500 mg in 100 mls @ 100 mls/hr IV Q24H IZABELLA Metronidazole (Flagyl) 500 mg in 100 mls @ 100 mls/hr IV Q8H IZABELLA Last Admin: 01/28/21 17:22 Dose: 100 mls/hr Documented by: Lorazepam (Lorazepam 1 Mg Tablet) 1 mg PO TID PRN PRN Reason: Anxiety Last Admin: 01/28/21 17:22 Dose: 1 mg Documented by: Ondansetron HCl (Ondansetron Hcl 4 Mg/2 Ml Vial) 4 mg IVPUSH Q8H PRN PRN Reason: Nausea Oxycodone HCl (Oxycodone Hcl Immed Release 5 Mg Tablet) 5 mg PO Q4H PRN PRN Reason: Pain, Moderate (Pain Scale 4-6 Last Admin: 01/28/21 02:46 Dose: 5 mg Documented by: Home Medications Medication Instructions Recorded Confirmed Last Taken Type losartan 25 mg tablet 25 mg PO DAILY 04/17/20 01/28/21 Unknown History naproxen 500 mg tablet (Naprosyn) 500 mg PO DAILY PRN tab 04/17/20 01/28/21 Unknown History oxycodone 5 mg capsule 5 mg PO QID PRN 04/17/20 01/28/21 11/30/20 05:00 History oxycodone 5 mg tablet 5 - 10 mg PO QID PRN 01/03/21 01/28/21 Unknown History Physical Exam Vital Signs: Vital Signs: Last Vital Signs Temp 98 F 01/28/21 16:00 Pulse 70 01/28/21 16:00 Resp 18 01/28/21 16:00 BP 150/75 H 01/28/21 16:00 Pulse Ox 96 01/28/21 16:00 Body Mass Index 25.7 Const: General: comfortable and no acute distress Orientation/consciousness: patient oriented x3 Neck: Neck: Yes no lymphadenopathy Resp: Auscultation: clear to auscultation bilaterally Cardio: Rhythm: regular rhythm GI: Palpation (GI): Soft to palpation, Tenderness to palpation present (GI) (diffuse on lower abdomen), no guarding, not rigid and No Rebound tenderness present Neuro: General: patient oriented x3 Results Results Labs: Short CBC 01/27/21 01/28/21 Range/Units 21:33 06:32 WBC 14.5 H 12.6 H (4.8-10.8) X10*3/uL Hgb 13.6 11.5 L (12.0-16.0) g/dl Hct 40.1 33.5 L (37-47) % Plt Count 345 279 (160-400) X10*3/uL BMP 01/27/21 01/28/21 21:33 06:32 Sodium 142 140 Potassium 4.1 3.3 Chloride 106 110 H Carbon Dioxide 26 23 BUN 18 H 11 Creatinine 0.79 0.63 Calcium 10.0 D 8.5 D Liver Function 01/27/21 Range/Units 21:33 Total Bilirubin 0.8 (0.0-1.0) mg/dL AST 20 D (5-31) U/L ALT 12 (0-31) U/L Alkaline Phosphatase 110 (39-117) U/L Albumin 4.4 (3.5-5.0) g/dL Urine 01/27/21 Range/Units 20:42 Urine Color YELLOW Urine Appearance HAZY Urine pH 6.0 (5.0-8.0) Ur Specific Wellman 1.025 (1.005-1.025) Urine Protein TRACE (NEG-TRACE) MG/DL Urine Glucose (UA) NEG (NEG) MG/DL Abdomen CT scan report/results: report reviewed and image reviewed CT scan - pelvis: report reviewed and image reviewed Assessment and Plan (1) Diverticulitis of large intestine with abscess: Status: Acute Her CT scan shows diverticulitis with what appears to be an intramural abscess. She has been started on Levaquin and Flagyl as she describes severe PCN allergies. She otherwise has a benign exam, and asks for better pain control, as she may have opioid tolerance from chronic use of Oxycodone. I may repeat the CT scan tomorrow depending on her clinical course. We will follow her CBC as well. The patient understands the plan and is agreeable to this. She understands that if she has clinical worsening or non improvement, she may require surgical resection. Quality Stroke Does the patient have a stroke diagnosis?: No VTE Prior VTE?: No VTE Risk Level:: Medical - moderate - high VTE Device Contraindication: N/A - Device Ordered VTE Drug Contraindication: N/A - Med Ordered Procedures Date of Service Date of Service: 01/28/21
[2021-01-28] MEDS: HYDROmorphone HCl 0.5 MG/0.5 ML SYRINGE 1 MG IVPUSH ×2 (19:18→23:33)
[2021-01-28] MEDS: levoFLOXacin/D5W 500 MG/100 ML PIGGYBACK 100 MG IV (20:20)
[2021-01-28] MEDS: ondansetron HCL 4 MG/2 ML VIAL IVPUSH (23:35)
[2021-01-29] VITALS (7 sets, daily range): BP systolic 128–176; BP diastolic 61–86; PULSE 55–81; RESP 15–18; TEMP 36.4–37.2; O2SAT 95–98
[2021-01-29] MEDS: HYDROmorphone HCl 0.5 MG/0.5 ML SYRINGE 1 MG IVPUSH ×5 (03:08→22:01)
[2021-01-29] MEDS: Dextrose 5 % and Lactated Ring 1,000 ML 100 ML IVCONT ×2 (05:44→17:40)
[2021-01-29 06:00] LABS: Hematocrit 33.5 % (37-47); Hemoglobin 11.3 g/dl (12.0-16.0); Mean Corpuscular HGB Conc 33.7 g/dl (31.0-35.0); Mean Corpuscular Hemoglobin 28.5 pg (27.0-33.0); Mean Corpuscular Volume 84.6 fL (80-98); Mean Platelet Volume 9.8 fL (9.4-12.3); Platelet Count 276 X10*3/uL (160-400); Red Blood Count 3.96 X10*6/uL (4.20-5.50); Red Cell Distribution Width 14.1 % (11.0-16.0); White Blood Count 11.9 X10*3/uL (4.8-10.8)
[2021-01-29] MEDS: metroNIDAZOLE/NS 500 MG/100 ML PIGGYBACK 100 MG IV ×3 (07:31→23:56)
--- NOTE | 2021-01-29 08:15 | P.PNGS_ITS ---
Subjective Subjective Date of Service: 01/29/21 <Brianda Lawson PA-C - Last Filed: 01/29/21 08:19> 01/29/21 <Jerel Goss MD - Last Filed: 01/29/21 14:55> Interval history: Less spasms but persistent possible worsened LLQ pain. Also pain while urinating. Pain medication helping but wearing off quickly. <GNEA Younger Last Filed: 01/29/21 08:19> Physical Exam Vital Signs: Vital Signs: Last Vital Signs Temp 98.5 F 01/29/21 07:12 Pulse 68 01/29/21 07:12 Resp 17 01/29/21 07:12 BP 146/75 H 01/29/21 07:12 Pulse Ox 98 01/29/21 07:12 Body Mass Index 25.7 <GENA Younger Last Filed: 01/29/21 08:19> Const: General: healthy appearing, no acute distress and alert <Brianda Lawson PA-C - Last Filed: 01/29/21 08:19> Orientation/consciousness: patient oriented x3 <GENA Younger Last Filed: 01/29/21 08:19> Eyes: Sclerae: sclerae normal <GENA Younger Last Filed: 01/29/21 08:19> Resp: Effort & Inspection: normal respiratory effort <GENA Younger Last Filed: 01/29/21 08:19> GI: Inspection: No distended <GENA Younger Last Filed: 01/29/21 08:19> Palpation (GI): Soft to palpation, Tenderness to palpation present (GI) in the LLQ and suprapubicly, no guarding and not rigid <GENA Younger Last Filed: 01/29/21 08:19> Percussion: Yes normal to percussion <GENA Younger Last Filed: 01/29/21 08:19> Skin: General skin exam: no rashes or lesions noted <GENA Younger Last Filed: 01/29/21 08:19> Neuro: General: patient oriented x3 <Brianda Lawson PA-C - Last Filed: 01/29/21 08:19> Extrem: General: Yes no clubbing, cyanosis or edema <Brianda Lawson PA-C - Last Filed: 01/29/21 08:19> Procedures Date of Service Date of Service: 01/29/21 <Brianda Lawson PA-C - Last Filed: 01/29/21 08:19> Progress Note: A&P Assessment and plan (1) Diverticulitis of large intestine with abscess: Status: Acute <Brianda Lawson PA-C - Last Filed: 01/29/21 08:19> (2) Hx of diverticulitis of colon: Status: Acute <Brianda Lawson PA-C - Last Filed: 01/29/21 08:19> Assessment and Plan: 60 year old female admitted with diverticulitis with intramural abscess. She has increased pain this morning however WBC is slightly improved. Will repeat CT scan with IV contrast to reevaluate area. Further plan dependent on results. NPO for now. Cont IVF, IV zosyn/flagyl. <Brianda Lawson PA-C - Last Filed: 01/29/21 08:19> 60 year old female admitted with diverticulitis with intramural abscess. She has increased pain this morning however WBC is slightly improved. Will repeat CT scan with IV contrast to reevaluate area. Further plan dependent on results. NPO for now. Cont IVF, IV zosyn/flagyl. Status her pain is not well She reiterated that she is on chronic narcotics and requires higher doses for pain control Otherwise no events overnight No fever White count lower Abdomen soft, tender in lower part, no rebound Repeat CT scan ordered Continue IV antibiotics Seen and examined - agree with TIFFANIE Lawson <Jerel Goss MD - Last Filed: 01/29/21 14:55> Fall Risk Details Current Medications: Current Medications Acetaminophen (Acetaminophen 325 Mg Tablet) 650 mg PO Q6H PRN PRN Reason: Fever Last Admin: 01/28/21 02:47 Dose: 650 mg Documented by: Hydromorphone HCl (Hydromorphone Hcl 0.5 Mg/0.5 Ml Syringe) 1 mg IVPUSH Q3H PRN; Protocol PRN Reason: Pain, Severe (Pain Scale 7-10) Last Admin: 01/29/21 07:31 Dose: 1 mg Documented by: Dextrose/Lactated Ringer's (D5lr) 1,000 mls @ 100 mls/hr IVCONT .Q10H IZABELLA Last Admin: 01/29/21 05:44 Dose: 100 mls/hr Documented by: Levofloxacin (Levaquin) 500 mg in 100 mls @ 100 mls/hr IV Q24H PENDING SALE TO [facility] Last Infusion: 01/28/21 21:34 Dose: Infused Documented by: Metronidazole (Flagyl) 500 mg in 100 mls @ 100 mls/hr IV Q8H PENDING S[facility] TO [facility] Last Admin: 01/29/21 07:31 Dose: 100 mls/hr Documented by: Lorazepam (Lorazepam 1 Mg Tablet) 1 mg PO TID PRN PRN Reason: Anxiety Last Admin: 01/28/21 17:22 Dose: 1 mg Documented by: Ondansetron HCl (Ondansetron Hcl 4 Mg/2 Ml Vial) 4 mg IVPUSH Q8H PRN PRN Reason: Nausea Last Admin: 01/28/21 23:35 Dose: 4 mg Documented by: Oxycodone HCl (Oxycodone Hcl Immed Release 5 Mg Tablet) 5 mg PO Q4H PRN PRN Reason: Pain, Moderate (Pain Scale 4-6 Last Admin: 01/28/21 02:46 Dose: 5 mg Documented by: <Brianda Lawson PA-C - Last Filed: 01/29/21 08:19> Time Spent With Patient Time: Total time spent is greater than 50% in coordination of care (as documented) at patient's floor/unit and/or counseling patient: <Brianda Lawson PA-C - Last Filed: 01/29/21 08:19> Time with patient: 15 - 24 minutes <Brianda Lawson PA-C - Last Filed: 01/29/21 08:19> Quality Stroke Does the patient have a stroke diagnosis?: No <Brianda Lawson PA-C - Last Filed: 01/29/21 08:19> VTE Prior VTE?: No <Brianda Lawson PA-C - Last Filed: 01/29/21 08:19> VTE Risk Level:: Medical - moderate - high <GENA Younger Last Filed: 01/29/21 08:19> VTE Device Contraindication: N/A - Device Ordered <GENA Younger Last Filed: 01/29/21 08:19> VTE Drug Contraindication: N/A - Med Ordered <Brianda Lawson PA-C - Last Filed: 01/29/21 08:19>
[2021-01-29] MEDS: LORazepam 1 MG TABLET PO ×2 (12:35→17:39)
[2021-01-29] MEDS: iohexoL 350 MG/ML 100 ML INFUS..BTL IV (12:47)
--- NOTE | 2021-01-29 14:56 | PM.EVENT ---
Event Note Date of Service: 01/29/21 Event Note: Patient says she feels better this afternoon Follow-up CT scan reviewed - worsening inflammatory changes, intramural abscess somewhat bigger Abdomen remained soft, tender but benign Explained to patient that if she does not feel significant improvement may need to proceed with sigmoid resection, possible stoma She is aware of this possibility Keep on clear liquids for now Levaquin and Flagyl
--- NOTE | 2021-01-29 14:58 | PM.EVENT ---
Event Note Date of Service: 01/29/21 Event Note: Feels better this afternoon with regards to pain CT reviewed - worsening inflammatory changes in the sigmoid, intramural abscess bigger Abdomen remained soft, tender but benign No fever Stable vital signs Does not appear toxic Explained to patient that if she does not have any significant improvement by tomorrow, may need to proceed with sigmoid resection, possible stoma Continue Levaquin and Flagyl for now Stay on clear liquids
[2021-01-29] MEDS: oxyCODONE HCl Immed Release 5 MG TABLET 10 MG PO (19:51)
[2021-01-29] MEDS: levoFLOXacin/D5W 750 MG/150 ML PIGGYBACK 100 MG IV (20:16)
[2021-01-30] MEDS: HYDROmorphone HCl 0.5 MG/0.5 ML SYRINGE 1 MG IVPUSH ×6 (02:05→22:40)
[2021-01-30] MEDS: ondansetron HCL 4 MG/2 ML VIAL IVPUSH ×2 (02:07→22:40)
[2021-01-30 03:09] VITALS: BP 152/84; PULSE 68; RESP 15; TEMP 36.4; O2SAT 97
[2021-01-30] MEDS: Dextrose 5 % and Lactated Ring 1,000 ML 100 ML IVCONT ×2 (03:50→16:42)
[2021-01-30 05:46] LABS: MANUAL DIFF FLAG NO
[2021-01-30 05:50] LABS: Basophils Percent Auto 0.3 % (0-2); Eosinophils Absolute Auto 0.4 X10*3/uL (0.0-0.4); Eosinophils Percent Auto 4.1 % (0-4); Hematocrit 32.9 % (37-47); Imm Gran Abs Auto 0.02 X10*3/uL (0.00-0.03); Imm Gran Pct Auto 0.2 % (0.0-0.4); Lymphocytes Absolute Auto 1.6 X10*3/uL (1.2-4.9); Lymphocytes Percent Auto 17.4 % (20-40); Mean Corpuscular HGB Conc 33.4 g/dl (31.0-35.0); Mean Corpuscular Hemoglobin 28.2 pg (27.0-33.0); Mean Corpuscular Volume 84.4 fL (80-98); Mean Platelet Volume 9.6 fL (9.4-12.3); Monocytes Absolute Auto 0.6 X10*3/uL (0.1-1.2); Monocytes Percent Auto 6.1 % (2-11); Neutrophils Absolute Auto 6.7 X10*3/uL (2.0-8.3); Neutrophils Percent Auto 71.9 % (45-73); Platelet Count 277 X10*3/uL (160-400); Red Cell Distribution Width 13.7 % (11.0-16.0); White Blood Count 9.3 X10*3/uL (4.8-10.8)
[2021-01-30 07:15] VITALS: BP 151/69; PULSE 57; RESP 17; TEMP 36.9; O2SAT 99
[2021-01-30] MEDS: metroNIDAZOLE/NS 500 MG/100 ML PIGGYBACK 100 MG IV ×2 (07:53→16:37)
--- NOTE | 2021-01-30 08:23 | P.PNGS_ITS ---
Subjective Subjective Date of Service: 01/31/21 Interval history: States that she still has pain Says that spasms are better but episodes of pain are the same Passing flatus No nausea or vomiting No fever Physical Exam Vital Signs: Vital Signs: Last Vital Signs Temp 98.5 F 01/30/21 07:15 Pulse 57 01/30/21 07:15 Resp 17 01/30/21 07:15 BP 151/69 H 01/30/21 07:15 Pulse Ox 99 01/30/21 07:15 Body Mass Index 25.7 Chemistry 01/27/21 01/28/21 21:33 06:32 Sodium 142 140 Potassium 4.1 3.3 Carbon Dioxide 26 23 BUN 18 H 11 Creatinine 0.79 0.63 Calcium 10.0 D 8.5 D Hematology 01/27/21 01/28/21 01/29/21 21:33 06:32 05:14 WBC 14.5 H 12.6 H 11.9 H Hgb 13.6 11.5 L 11.3 L Plt Count 345 279 276 01/30/21 05:15 WBC 9.3 Hgb 11.0 L Plt Count 277 Urinalysis 01/27/21 20:42 Urine Color YELLOW Urine Appearance HAZY Urine pH 6.0 Ur Specific Gravit y 1.025 Urine Protein TRACE Urine Glucose (UA) NEG Urine Ketones NEG Urine Blood 3+ H Urine Nitrite NEG Ur Leukocyte Aarti ase NEG Urine RBC 15-29 H Urine WBC 0 Ur Squamous Epith Cells 2+ Const: Other: Appears anxious and depressed General: no acute distress Resp: Effort & Inspection: normal respiratory effort Cardio: Rhythm: regular rhythm GI: Other: Some tenderness lower abdomen Palpation (GI): Soft to palpation, not firm and no guarding Procedures Date of Service Date of Service: 01/30/21 Progress Note: A&P Assessment and plan (1) Diverticulitis of large intestine with abscess: Status: Acute Assessment and Plan: Follow-up CT reviewed with Dr. Scott - worsening inflammatory changes, intramural abscess larger I explained to the patient with the way the CAT scan images appear, it would be unlikely for this acute diverticulitis with intramural abscess to resolve with IV antibiotics despite improvement in WBC I told her that she would benefit from resection, possible stoma Explained the technique of hand assisted laparoscopic sigmoid resection, possible stoma I reviewed the risks including but not limited to bleeding, infections, bowel injury, urinary tract injury, inherent perioperative risks, as well as the benefits and alternatives I told her that we can do the procedure as early as today She stated that she does not want it today and would wait until tomorrow Exam benign otherwise She does not appear septic Fall Risk Details Current Medications: Current Medications Hydromorphone HCl (Hydromorphone Hcl 0.5 Mg/0.5 Ml Syringe) 1 mg IVPUSH Q3H PRN; Protocol PRN Reason: Pain, Severe (Pain Scale 7-10) Last Admin: 01/30/21 07:36 Dose: 1 mg Documented by: Dextrose/Lactated Ringer's (D5lr) 1,000 mls @ 100 mls/hr IVCONT .Q10H [facility] Last Admin: 01/30/21 03:50 Dose: 100 mls/hr Documented by: Metronidazole (Flagyl) 500 mg in 100 mls @ 100 mls/hr IV Q8H ON LICENSE OF [facility] Last Admin: 01/30/21 07:53 Dose: 100 mls/hr Documented by: Acetaminophen (Ofirmev) 1,000 mg in 100 mls @ 400 mls/hr IV Q6H ON LICENSE OF [facility] Last Infusion: 01/30/21 07:50 Dose: Infused Documented by: Levofloxacin (Levaquin) 750 mg in 150 mls @ 100 mls/hr IV Q24H ON LICENSE OF [facility] Last Infusion: 01/29/21 21:58 Dose: Infused Documented by: Lorazepam (Lorazepam 1 Mg Tablet) 1 mg PO TID PRN PRN Reason: Anxiety Last Admin: 01/29/21 17:39 Dose: 1 mg Documented by: Ondansetron HCl (Ondansetron Hcl 4 Mg/2 Ml Vial) 4 mg IVPUSH Q8H PRN PRN Reason: Nausea Last Admin: 01/30/21 02:07 Dose: 4 mg Documented by: Oxycodone HCl (Oxycodone Hcl Immed Release 5 Mg Tablet) 5 mg PO Q4H PRN PRN Reason: Pain, Moderate (Pain Scale 4-6 Last Admin: 01/28/21 02:46 Dose: 5 mg Documented by: Oxycodone HCl (Oxycodone Hcl Immed Release 5 Mg Tablet) 10 mg PO Q4H PRN PRN Reason: Pain, Severe (Pain Scale 7-10) Last Admin: 01/29/21 19:51 Dose: 10 mg Documented by: Time Spent With Patient Time: Total time spent is greater than 50% in coordination of care (as documented) at patient's floor/unit and/or counseling patient: Time with patient: 15 - 24 minutes Quality Stroke Does the patient have a stroke diagnosis?: No VTE Prior VTE?: No VTE Risk Level:: Medical - moderate - high VTE Device Contraindication: N/A - Device Ordered VTE Drug Contraindication: N/A - Med Ordered
[2021-01-30] MEDS: Losartan Potassium 25 MG TABLET PO (09:21)
--- NOTE | 2021-01-30 11:27 | MHC.CM.PN ---
Patient is not yet medically cleared for dc (IV Ofirmev, IV Zofran and IV Dilaudid today, IV Levaquin, IV Flagyl). Home/resume [employer] is the goal for dc and CM will follow for possible need to adjust the dc plan.
[2021-01-30 16:00] VITALS: BP 151/69; PULSE 57; RESP 18; TEMP 36.9; O2SAT 99
[2021-01-30] MEDS: LORazepam 1 MG TABLET PO (16:36)
[2021-01-30] MEDS: oxyCODONE HCl Immed Release 5 MG TABLET 10 MG PO (17:59)
[2021-01-30 19:16] VITALS: BP 199/116; PULSE 57; RESP 20; TEMP 36.5; O2SAT 97
[2021-01-30 20:00] VITALS: BP 199/116; PULSE 76; RESP 20; TEMP 36.5
[2021-01-30] MEDS: levoFLOXacin/D5W 750 MG/150 ML PIGGYBACK 100 MG IV (20:23)
[2021-01-31] VITALS (22 sets, daily range): BP systolic 141–188; BP diastolic 67–97; PULSE 55–96; RESP 16–20; TEMP 36.1–36.6; O2SAT 93–100
[2021-01-31] MEDS: metroNIDAZOLE/NS 500 MG/100 ML PIGGYBACK 100 MG IV ×4 (00:42→23:45)
[2021-01-31] MEDS: HYDROmorphone HCl 0.5 MG/0.5 ML SYRINGE 1 MG IVPUSH (06:14)
[2021-01-31] MEDS: Dextrose 5 % and Lactated Ring 1,000 ML 100 ML IVCONT ×2 (06:16→15:34)
[2021-01-31] MEDS: Lactated Ringers 1,000 ML 100 ML IVCONT (06:43)
--- NOTE | 2021-01-31 08:03 | P.CONAN_ITS ---
HPI - Anesthesia Eval Consult details Narrative: 60yo female patient for exploratory laparotomy, sigmoid resection, possible stoma PMFSH Active Problems Active Problems: All Active Problems (Updated 01/29/21 @ 08:54 by Jerel Goss MD) Chronic pain (Acute) Diverticulitis of large intestine with abscess (Acute) Hypertension (Acute) Diverticulosis of colon (Acute) Depression (Acute) Hx of diverticulitis of colon (Acute) Colon cancer screening (Acute) Past Medical History Medical History (Updated 01/29/21 @ 08:54 by Jerel Goss MD) Chronic pain Current vaping on some days History of urinary tract infection Kidney stones Medullary sponge kidney Family History Family History Father HTN (hypertension) Cancer of kidney Mother Dementia Age related osteoporosis Family history of problems with anesthesia: No Surgical History Surgical History History of arthroplasty of right knee (~01/2018) Hx of colonoscopy Hx of cystoscopy Hx of cystoscopy Hx of knee surgery Status post appendectomy Status post bunionectomy (~09/2011) Status post hysterectomy Status post tonsillectomy History of Problems with Anesthesia: No Social History Social History (Updated 01/31/21 @ 08:12 by Luana Blum MD) Household Members: Children Housing: Apartment Do you presently have visiting nurse or other home services: Yes ([facility]) Alcohol intake: never Patient Tobacco Use Status: Current someday Tobacco user Tobacco use type: Cigarette Cigarettes Per Day: 1 Smoked in Last 30 Days: Yes e-Cigarette/Vaping Use: Currently Using Patient Interested in Nicotine Replacement: No Patient Given Instructions on How to Stop Smoking: Yes Date Education Initiated: 01/28/21 Second Hand Smoke Exposure: No Use of substances other than those prescribed or required for medical reasons: Yes Substance Use Type: Marijuana Substance Use Frequency: Daily Last Used Substance: Days (ago) Currently Displaying Signs/Symptoms of Drug Intoxication Withdrawal: No Any prior treatment program specific to substance use: No Have you been hit, kicked, punched, or otherwise hurt by someone within the past year? If so, by whom?: No Do you feel safe in your current relationship?: Yes Is there a partner from a previous relationship who is making you feel unsafe now?: No Are you made to feel afraid or neglected: No Are you DNR?: No Advance Directives: No Advance Directives Information Provided: Yes Do you have thoughts of harming others: None Do you have a plan to hurt others: No Plan Recently lost weight without trying: No How much weight loss: 2-13 pounds Eating poorly because of decreased appetite: No Nutrition screen score: 1 Nutrition Risks: No Nutritional Risk Patient : No : No Poor oral hygiene: No service: No Current occupational status: unemployed Meds Allergies Allergy/AdvReac Type Severity Reaction Status Date / Time Penicillins Allergy Severe ANAPHYLAXIS Verified 01/03/21 09:00 morphine [MORPHINE] Allergy Intermediate TACHYCARDIA, Verified 01/03/21 09:00 HIVES, ITCHING Active Medications: Current Medications Fentanyl (Fentanyl Citrate/Pf 100 Mcg/2 Ml Vial) 25 mcg IVPUSH Q5M PRN; Protocol PRN Reason: Pain, Moderate (Pain Scale 4-6 Hydromorphone HCl (Hydromorphone Hcl 0.5 Mg/0.5 Ml Syringe) 1 mg IVPUSH Q3H PRN; Protocol PRN Reason: Pain, Severe (Pain Scale 7-10) Last Admin: 01/31/21 06:14 Dose: 1 mg Documented by: Hydromorphone HCl (Hydromorphone Hcl 0.5 Mg/0.5 Ml Syringe) 0.25 mg IVPUSH Q5M PRN; Protocol PRN Reason: Pain, Severe (Pain Scale 7-10) Dextrose/Lactated Ringer's (D5lr) 1,000 mls @ 100 mls/hr IVCONT .Q10H [facility] Last Admin: 01/31/21 06:16 Dose: 100 mls/hr Documented by: Metronidazole (Flagyl) 500 mg in 100 mls @ 100 mls/hr IV Q8H [facility] Last Infusion: 01/31/21 03:46 Dose: Infused Documented by: Acetaminophen (Ofirmev) 1,000 mg in 100 mls @ 400 mls/hr IV Q6H [facility] Last Infusion: 01/31/21 04:54 Dose: Infused Documented by: Levofloxacin (Levaquin) 750 mg in 150 mls @ 100 mls/hr IV Q24H [facility] Last Infusion: 01/30/21 22:05 Dose: Infused Documented by: Gentamicin Sulfate 320 mg/ (Sodium Chloride) 108 mls @ 100 mls/hr IV PREOP ONE Stop: 01/31/21 12:03 Metronidazole (Flagyl) 500 mg in 100 mls @ 100 mls/hr IV PREOP ONE Stop: 01/31/21 11:58 Last Admin: 01/31/21 07:19 Dose: 100 mls/hr Documented by: Lactated Ringer's (Lr) 1,000 mls @ 100 mls/hr IVCONT .Q10H [facility] Last Admin: 01/31/21 06:43 Dose: 100 mls/hr Documented by: Promethazine HCl 6.25 mg/ (Sodium Chloride) 50.25 mls @ 201 mls/hr IV ONCE PRN PRN Reason: Nausea and Vomiting Lorazepam (Lorazepam 1 Mg Tablet) 1 mg PO TID PRN PRN Reason: Anxiety Last Admin: 01/30/21 16:36 Dose: 1 mg Documented by: Losartan Potassium (Losartan Potassium 25 Mg Tablet) 25 mg PO DAILY [facility]; Protocol Last Admin: 01/30/21 09:21 Dose: 25 mg Documented by: Ondansetron HCl (Ondansetron Hcl 4 Mg/2 Ml Vial) 4 mg IVPUSH Q8H PRN PRN Reason: Nausea Last Admin: 01/30/21 22:40 Dose: 4 mg Documented by: Ondansetron HCl (Ondansetron Hcl 4 Mg/2 Ml Vial) 4 mg IVPUSH ONCE PRN PRN Reason: Nausea and Vomiting Oxycodone HCl (Oxycodone Hcl Immed Release 5 Mg Tablet) 5 mg PO Q4H PRN PRN Reason: Pain, Moderate (Pain Scale 4-6 Last Admin: 01/28/21 02:46 Dose: 5 mg Documented by: Oxycodone HCl (Oxycodone Hcl Immed Release 5 Mg Tablet) 10 mg PO Q4H PRN PRN Reason: Pain, Severe (Pain Scale 7-10) Last Admin: 01/30/21 17:59 Dose: 10 mg Documented by: Home Medications Medication Instructions Recorded Confirmed Last Taken Type losartan 25 mg tablet 25 mg PO DAILY 04/17/20 01/28/21 Unknown History naproxen 500 mg tablet (Naprosyn) 500 mg PO DAILY PRN tab 04/17/20 01/28/21 Unknown History oxycodone 5 mg capsule 5 mg PO QID PRN 04/17/20 01/28/21 11/30/20 05:00 History oxycodone 5 mg tablet 5 - 10 mg PO QID PRN 01/03/21 01/28/21 Unknown History Exam Exam Date and Time: January 31, 2021 0803 Height,Weight and Vital Signs: Height 5 ft 6 in Weight 72.121 kg Last Vital Signs Temp 97.5 F 01/31/21 06:40 Pulse 57 01/31/21 06:52 Resp 16 01/31/21 06:40 BP 168/67 H 01/31/21 06:52 Pulse Ox 96 01/31/21 06:40 Pertinent Lab Results Pertinent Lab Results: Laboratory Tests 01/27/21 01/27/21 01/27/21 20:42 21:33 21:33 WBC 14.5 H RBC 4.72 Hgb 13.6 Hct 40.1 MCV 85.0 MCH 28.8 MCHC 33.9 RDW 14.4 Plt Count 345 MPV 9.6 Immature Gran % (Auto) 0.3 Neut % (Auto) 72.2 Lymph % (Auto) 18.8 L [place] % (Auto) 6.6 Eos % (Auto) 1.9 Baso % (Auto) 0.2 Lymph # (Auto) 2.7 [place] # (Auto) 1.0 Eos # (Auto) 0.3 Baso # (Auto) 0.0 Abs Immat Gran (auto) 0.04 H Absolute Neuts (auto) 10.4 H Absolute Nucleated RBC 0.000 Nucleated RBC % (auto) 0.0 PT INR Sodium 142 Potassium 4.1 Chloride 106 Carbon Dioxide 26 Anion Gap 14 BUN 18 H Creatinine 0.79 Estim Creat Clear Calc 78.9 Estimated GFR > 60 Random Glucose 106 Fasting Glucose Lactic Acid Calcium 10.0 D Total Bilirubin 0.8 AST 20 D ALT 12 Alkaline Phosphatase 110 Total Protein 7.9 Albumin 4.4 Urine Color YELLOW Urine Appearance HAZY Urine pH 6.0 Ur Specific [place] 1.025 Urine Protein TRACE Urine Glucose (UA) NEG Urine Ketones NEG Urine Blood 3+ H Urine Nitrite NEG Ur Leukocyte Esterase NEG Urine RBC 15-29 H Urine WBC 0 Ur Squamous Epith Cells 2+ Urine Bacteria TRACE Urine Mucus 2+ COVID-19 ([facility]) COVID-19 Clin Com Blood Type Antibody Screen 01/27/21 01/27/21 01/27/21 22:13 22:13 22:13 WBC RBC Hgb Hct MCV MCH MCHC RDW Plt Count MPV Immature Gran % (Auto) Neut % (Auto) Lymph % (Auto) [place] % (Auto) Eos % (Auto) Baso % (Auto) Lymph # (Auto) [place] # (Auto) Eos # (Auto) Baso # (Auto) Abs Immat Gran (auto) Absolute Neuts (auto) Absolute Nucleated RBC Nucleated RBC % (auto) PT 13.3 H INR 1.2 H Sodium Potassium Chloride Carbon Dioxide Anion Gap BUN Creatinine Estim Creat Clear Calc Estimated GFR Random Glucose Fasting Glucose Lactic Acid 0.8 Calcium Total Bilirubin AST ALT Alkaline Phosphatase Total Protein Albumin Urine Color Urine Appearance Urine pH Ur Specific [place] Urine Protein Urine Glucose (UA) Urine Ketones Urine Blood Urine Nitrite Ur Leukocyte Esterase Urine RBC Urine WBC Ur Squamous Epith Cells Urine Bacteria Urine Mucus COVID-19 ([facility]) Negative COVID-19 Clin Com See Note Blood Type Antibody Screen 01/28/21 01/28/21 01/29/21 06:32 06:32 05:14 WBC 12.6 H 11.9 H RBC 3.96 L 3.96 L Hgb 11.5 L 11.3 L Hct 33.5 L 33.5 L MCV 84.6 84.6 MCH 29.0 28.5 MCHC 34.3 33.7 RDW 14.4 14.1 Plt Count 279 276 MPV 9.3 L 9.8 Immature Gran % (Auto) Neut % (Auto) Lymph % (Auto) [place] % (Auto) Eos % (Auto) Baso % (Auto) Lymph # (Auto) [place] # (Auto) Eos # (Auto) Baso # (Auto) Abs Immat Gran (auto) Absolute Neuts (auto) Absolute Nucleated RBC 0.000 0.000 Nucleated RBC % (auto) 0.0 0.0 PT INR Sodium 140 Potassium 3.3 Chloride 110 H Carbon Dioxide 23 Anion Gap 10 L BUN 11 Creatinine 0.63 Estim Creat Clear Calc 98.9 Estimated GFR > 60 Random Glucose Fasting Glucose 126 H Lactic Acid Calcium 8.5 D Total Bilirubin AST ALT Alkaline Phosphatase Total Protein Albumin Urine Color Urine Appearance Urine pH Ur Specific [place] Urine Protein Urine Glucose (UA) Urine Ketones Urine Blood Urine Nitrite Ur Leukocyte Esterase Urine RBC Urine WBC Ur Squamous Epith Cells Urine Bacteria Urine Mucus COVID-19 ([facility]) COVID-19 [facility] Com Blood Type Antibody Screen 01/30/21 01/31/21 05:15 05:04 WBC 9.3 RBC 3.90 L Hgb 11.0 L Hct 32.9 L MCV 84.4 MCH 28.2 MCHC 33.4 RDW 13.7 Plt Count 277 MPV 9.6 Immature Gran % (Auto) 0.2 Neut % (Auto) 71.9 Lymph % (Auto) 17.4 L [place] % (Auto) 6.1 Eos % (Auto) 4.1 H Baso % (Auto) 0.3 Lymph # (Auto) 1.6 [place] # (Auto) 0.6 Eos # (Auto) 0.4 Baso # (Auto) 0.0 Abs Immat Gran (auto) 0.02 Absolute Neuts (auto) 6.7 Absolute Nucleated RBC 0.000 Nucleated RBC % (auto) 0.0 PT INR Sodium Potassium Chloride Carbon Dioxide Anion Gap BUN Creatinine Estim Creat Clear Calc Estimated GFR Random Glucose Fasting Glucose Lactic Acid Calcium Total Bilirubin AST ALT Alkaline Phosphatase Total Protein Albumin Urine Color Urine Appearance Urine pH Ur Specific [place] Urine Protein Urine Glucose (UA) Urine Ketones Urine Blood Urine Nitrite Ur Leukocyte Esterase Urine RBC Urine WBC Ur Squamous Epith Cells Urine Bacteria Urine Mucus COVID-19 ([facility]) COVID-19 Clin Com Blood Type A Positive Antibody Screen NEGATIVE Airway Mallampati Class: III TM Dist: >3cm Neck ROM: Full Loose/Missing/Broken Teeth: Yes (Some extractions) Heart: RRR Lungs: CTAB Assessment and Plan Assessment Anesthesia Assessment: Anesthesia Plan Discussed and Chart Reviewed Final Anesthetic Review Family History of Problems with Anesthesia: No History of Problems with Anesthesia: No NPO: Yes ASA Class: II Final Preanesthetic Review: No Changes in Pt Med Stat, Meds/Allgs Chart Reviewed, Consent Obtained/Reviewed and Anes Risks/Benef Reviewed Patient Risk: Intermediate Procedure Risk: Intermediate Assessment/Block/Sedation in SS: Assess/Block/Sedation-SS Anesthetic Plan Anesthetic Plan: GA Disposition: Standard PACU and Inp. Admit - Standard Bed
--- NOTE | 2021-01-31 11:46 | PM.OP ---
Brief Operative Note Date of Service: 01/31/21 <Brianda Lawson PA-C - Last Filed: 01/31/21 11:48> Pre-op diagnosis: diverticular abscess <Brianda Lawson PA-C - Last Filed: 01/31/21 11:48> Post-op diagnosis: same <Brianda Lawson PA-C - Last Filed: 01/31/21 11:48> Procedure: hand assisted laparoscopic sigmoid resection, colorectal anastomosis, diverting loop ileostomy, lysis of adhesions <Brianda Lawson PA-C - Last Filed: 01/31/21 11:48> Surgeon: JOSE BEAUCHAMP MD <Brianda Lawson PA-C - Last Filed: 01/31/21 11:48> Anesthesia: GETA <Brianda Lawson PA-C - Last Filed: 01/31/21 11:48> Was an Associate Professor [employer] used for this Procedure?: Yes <Brianda Lawson PA-C - Last Filed: 01/31/21 11:48> No <Jose Beauchamp MD - Last Filed: 01/31/21 12:10> Associate Professor [employer]: Brianda Lawson <Brianda Lawson PA-C - Last Filed: 01/31/21 11:48> Estimated blood loss (mL): 200 <Brianda Lawson PA-C - Last Filed: 01/31/21 11:48> IV fluids (mL): 1,100 <Brianda Lawson PA-C - Last Filed: 01/31/21 11:48> Urine output (mL): 530 <GENA Younger Last Filed: 01/31/21 11:48> Pathology: other (sigmoid) <GENA Younger Last Filed: 01/31/21 11:48> Condition: stable <GENA Younger Last Filed: 01/31/21 11:48> Disposition: PACU <GENA Younger Last Filed: 01/31/21 11:48>
--- NOTE | 2021-01-31 11:47 | W.PM.OPN ---
Operative Note Operative Note Date of Service: 01/31/21 Narrative: Preop diagnosis: Acute diverticulitis with large intramural abscess Postop diagnosis: The same Procedure: Hand assisted laparoscopic sigmoid resection, anastomosis, extensive lysis of adhesions, diverting loop ileostomy Surgeon: Jerel Goss MD human resources office assistant: TIFFANIE Lawson The patient is a 60-year-old female with known diverticular disease. She had stated that she has had 3-4 episodes of diverticulitis in the past 2-3 years. She came in to the ER on January 27, 2021 because of abdominal pain and her CAT scan showed acute diverticulitis with an intramural abscess. She had persistent pain and I repeated the CT scan on January 29 and this had shown the abscess to be bigger with worsening of the inflammatory changes in the sigmoid and surrounding areas. I therefore explained to her that with this, along with her history of recurrent episodes, it may be best to proceed with sigmoid resection. She understood the planned procedure of the hand assisted laparoscopic sigmoid resection and stoma formation. She was aware of the risks, benefits, and alternatives. She eventually stated that she wanted to proceed. She was brought to the operating room and placed in modified lithotomy position under general anesthesia via endotracheal tube. The rightarm was tucked on the side. All pressure points were protected. A Wayne catheter was inserted. The abdomen and the perineum were prepped and draped in the usual sterile fashion. A surgical time-out was done. The patient received gentamicin and Flagyl for prophylaxis in view of her penicillin allergies. I made a short infraumbilical midline incision using blade 15 and this was carried down through the full-thickness of the skin and subcutaneous fat down to the fascia. The fascia was incised. The peritoneum was entered. The Jose Antonio wound retractor was positioned. The GelPort was attached to the wound retractor. We insufflated through a 5/12 mm port through the GelPort. A 10 mm/30 degree scope was positioned through the port and with laparoscopic visualization, I proceeded to then insert a 5/12 mm port in the epigastric area. We moved the camera into this port. I then positioned my hand through the GelPort. The patient was placed in a steep head-down position. This allowed the bowel loops to fall away from the pelvis.. By doing so I was able to visualize large amounts of adherent small bowel loops in the pelvis so we had to carefully divide these adhesions this using the LigaSure. The patient did have a history of hysterectomy and appendectomy which were likely to have caused these adhesions. Releasing all these adherent small bowel loops from the pelvis took some time but we eventually were able to release all of these. This allowed us to visualize and expose the sigmoid. There was note of a very large, indurated segment of sigmoid that was thickly adherent to the pelvic sidewall on the left. This segment of sigmoid appeared phlegmonous and erythematous. We had to do a lot of dissection to release this segment off of the pelvic sidewall using the LigaSure. Again, this part of the procedure took an extended period of time because of the amount of thick and densely adherent tissue tethering this entire segment to the pelvic sidewall. We had to do also the combination of finger fracture technique to release this. Eventually, I had the segment of very indurated, thickened sigmoid released from the sidewall. We had to then mobilize the rest of the proximal sigmoid in the left colon by dividing the ligamentousattachments along the white line of Toldt using the LigaSure. We continued to divide this peritoneal reflection all the way to just proximal to the splenic flexure. We divided the rest of the filmy adhesions in the retroperitoneum of the mesentery to further allow medial reflection of this entire left colon. We also divided thick bands in the proximal sigmoid that was tethered to the lower pelvis. The peritoneum was also very thickened and chronically indurated. We were therefore able to eventually clear up the segment of sigmoid proximal to this induration. The distal sigmoid was however very tethered to the pelvis on the left, and the anterior wall, as well as the ovary and the fallopian tube. We we had to carefully separate the ovary and the fallopian tube by continue to divide the adhesions using the LigaSure in a mm by mm fashion. The planes on this area was very poorly defined in view of the acute and chronic inflammatory changes. The mesentery was also very indurated, thickened and foreshortened. We continued to do a lot of dissection to separate the distal sigmoid from the ovary and the fallopian tube as well as from the rest of the pelvic sidewall. I was eventually able to see the peritoneum of the distal sigmoid laterally on both sides. I could feel the supple part of the sigmoid and felt that we had adequate length distally and proximally to resect this disease segment I chose my point of transection by creating a mesenteric window on the sigmoid. I used an Endo-JANET 60 mm stapler with a purple load to divide this distal sigmoid I then proceeded to divide thickened, indurated mesentery a little bit to allow as some mobilization We had very poor visualization laparoscopically of the rest of the mesentery because of the bulky nature of this indurated and inflamed sigmoid, as well as because of the dense inflammatory changes. I therefore had to do part of this dissection open with the existing incision by removing the GelPort. I proceeded to continue to divide the ligamentous attachments adhesions from the sigmoid. I was able to visualize the supple area of the proximal sigmoid and created a mesenteric window. I used an JANET 60 mm stapler to divide this. I then proceeded to then alternate dividing the distal and proximal mesentery using the LigaSure. This part of the procedure also took an extended period time in view of the friability and induration of the mesentery along with the foreshortening. We had to periodically tie off bleeding vessels Dexon 3-0 ties to achieve hemostasis Eventually I was able to connect my mesenteric division from proximal distal and removed the entire diseased segment. This was sent for pathology. I observed the divided mesentery for hemostasis. Once hemostasis was ensured, I proceeded then open up the staple line of the proximal sigmoid. I used sizers to dilate this. I then chose a 28 mm anvil for our end-to-end anastomosis. I created my pursestring using an Prolene 2-0 stitch. I positioned the anvil through the lumen and tighten the pursestring around this. I cleared up part of the serosa by removing thickened and indurated epiploic fat. I tested the length of the remaining left colon/proximal sigmoid and this seemed to reach down to the pelvis well I then proceeded to reattache the GelPort. With laparoscopic visualization a proceeded to then pull the anvil all the way to the pelvis and the see seems to reach all the way to the distal stump At this point, the research assistant member dilated the rectum all the way to the staple line with a sizer. I then positioned the EEA 28 mm stapler apparatus through the anus all the way into the stump. Which shows the area anterior to the staple line. The spike was activated. I attached the anvil into the spike and this was tightened to lock in place. We then proceeded to close the stapler apparatus. I examined the anastomotic site to make sure that we were not catching any bowel loop nor any other thick tissue in between the oly We fired the stapler to create our circular anastomosis. We removed the stapler apparatus and examined the anastomotic rings and this appeared to be intact. We tested the anastomosis by immersing this in irrigation fluid and insufflating the rectum multiple times until we felt distension of the left colon. There was no bubbling of the irrigation fluid which suggested that the anastomosis was intact and not leaking. Since there was a lot of acute and chronic inflammatory changes in the pelvis, I proceeded to do an loop ileostomy for diversion. I traced the distal ileum from the ileocecal valve and the cecum and chose a segment of the distal ileum for our ileostomy. I created a mesenteric window and made our stoma opening on the right lower quadrant that had been previously marked and which was also a port site. I dilated the opening using blunt dissection and electrocautery to allow 3 of my fingers through. I pulled up the loop of distal ileum using a Nikolai drain as well as a small-sized Jose Antonio wound retractor. The wound retractor was then removed. I applied a stoma bridge. I then proceeded to laparoscopically examine the pelvis. I irrigated and suction. At this point we had changed gloves already. I proceeded to examine the area of dissection on the left gutter and this seemed to be hemostatic. I also irrigated this area. There was no twisting of the left colon all the way to the anastomosis. There was no twisting of the ileostomy loop. Once all of these were confirmed, I examined the small bowel was starting from the distal ileum all the way proximally. We repaired a short serosal tear using a running Dexon 3-0 stitch. This was a segment that was earlier part of the adherent small bowel loops to the pelvis. There were no bowel injuries nor leak noted. Furthermore, there was no bleeding seen We therefore proceeded to then replace all these bowel loops back in the peritoneal cavity I examined laparoscopically 1 more time. I then removed the camera and desufflated the port sites. I removed the GelPort in the Jose Antonio wound retractor and closed the fascia with running Maxon 1 stitch. Her skin incisions were closed with skin oly. We matured the ileostomy by opening the anterior wall of the loop of small bowel transversely to enter the lumen. I secured the wall of this ileostomy to the dermal layer with multiple circumferential Dexon 3-0. The procedure was then completed. Dressings were applied and all incisions were infiltrated with Marcaine 0.5% for postop analgesia. A stoma appliance also put in place. The patient tolerated the procedure well. There were no complications noted. Initial and final counts of sponges and instruments were correct. Estimated blood loss about 200 cc. The patient was extubated without difficulty in the operating room transferred to the recovery room with stable vital signs. There was note of good urine output which was clear and nonbloody.
[2021-01-31] MEDS: HYDROmorphone HCl 0.5 MG/0.5 ML SYRINGE 0.25 MG IVPUSH ×4 (12:08→12:25)
[2021-01-31] MEDS: LORazepam 2 MG/ML VIAL 1 MG IVPUSH (12:31)
--- NOTE | 2021-01-31 16:06 | PM.EVENT ---
Event Note Date of Service: 01/31/21 Event Note: Patient seen postop She underwent sigmoid resection, anastomosis, diverting loop ileostomy earlier today She has had pain control issues postop as expected in view of her prison use of narcotics Otherwise, she has had stable vital signs Abdomen is soft, appropriately tender Stoma viable looking with stoma bridge Urine output good, clear Continue pain management OUTSIDE COLLECTOR Dilaudid ordered Richard Beckman updated multiple times
[2021-01-31] MEDS: HYDROmorphone HCl/NS 10 MG/50 ML PIGGYBACK 2 MG IV (16:11)
[2021-01-31] MEDS: ondansetron HCL 4 MG/2 ML VIAL IVPUSH ×2 (16:25→23:45)
[2021-01-31] MEDS: LORazepam 1 MG TABLET PO (18:54)
[2021-01-31] MEDS: levoFLOXacin/D5W 750 MG/150 ML PIGGYBACK 100 MG IV (21:22)
[2021-02-01] VITALS (9 sets, daily range): BP systolic 159–186; BP diastolic 74–96; PULSE 80–100; RESP 16–20; TEMP 36.4–37.3; O2SAT 94–98
[2021-02-01] MEDS: LORazepam 2 MG/ML VIAL 1 MG IVPUSH (01:07)
[2021-02-01] MEDS: Dextrose 5 % and Lactated Ring 1,000 ML 100 ML IVCONT ×2 (02:42→15:21)
[2021-02-01 05:26] LABS: MANUAL DIFF FLAG NO
[2021-02-01 05:30] LABS: Basophils Percent Auto 0.1 % (0-2); Eosinophils Percent Auto 0.2 % (0-4); Hematocrit 35.4 % (37-47); Hemoglobin 12.3 g/dl (12.0-16.0); Imm Gran Abs Auto 0.08 X10*3/uL (0.00-0.03); Imm Gran Pct Auto 0.5 % (0.0-0.4); Lymphocytes Absolute Auto 2.3 X10*3/uL (1.2-4.9); Lymphocytes Percent Auto 15.5 % (20-40); Mean Corpuscular HGB Conc 34.7 g/dl (31.0-35.0); Mean Corpuscular Hemoglobin 28.6 pg (27.0-33.0); Mean Corpuscular Volume 82.3 fL (80-98); Mean Platelet Volume 9.6 fL (9.4-12.3); Monocytes Absolute Auto 1.2 X10*3/uL (0.1-1.2); Monocytes Percent Auto 8.2 % (2-11); Neutrophils Absolute Auto 11.2 X10*3/uL (2.0-8.3); Neutrophils Percent Auto 75.5 % (45-73); Platelet Count 307 X10*3/uL (160-400); Red Cell Distribution Width 13.7 % (11.0-16.0); White Blood Count 14.9 X10*3/uL (4.8-10.8)
[2021-02-01 05:43] LABS: Anion Gap 11 (12-20); Blood Urea Nitrogen 7 mg/dL (9-16); Calcium 8.3 mg/dL (8.4-10.2); Carbon Dioxide 28 mmol/L (22-29); Chloride 104 mmol/L (96-108); Creatinine Clr Calc Pharmacy 100.6; Estimated Glomerular Filt Rate > 60; Glucose Fasting 113 mg/dL (60-99); Potassium 3.2 mmol/L (3.3-5.1); Sodium 140 mmol/L (135-145)
--- NOTE | 2021-02-01 07:58 | P.PNGS_ITS ---
Subjective Subjective Date of Service: 02/01/21 <Brianda Lawson PA-C - Last Filed: 02/01/21 08:04> 02/01/21 <Jerel Goss MD - Last Filed: 02/01/21 10:48> Interval history: Very sore, c/o incisional pain. Medication helping- using about 3-4x/hr. Scared to move due to the pain. Has had sips of liquids, no real appetite. <Brianda Lawson PA-C - Last Filed: 02/01/21 08:04> Physical Exam Vital Signs: Vital Signs: Last Vital Signs Temp 97.8 F 01/31/21 23:23 Pulse 87 01/31/21 23:23 Resp 16 01/31/21 23:23 BP 164/80 H 01/31/21 23:23 Pulse Ox 98 01/31/21 23:23 Body Mass Index 25.7 <Brianda Lawson PA-C - Last Filed: 02/01/21 08:04> Const: General: no acute distress and alert <Brianda Lawson PA-C - Last Filed: 02/01/21 08:04> Orientation/consciousness: patient oriented x3 <GENA Younger Last Filed: 02/01/21 08:04> Resp: Effort & Inspection: normal respiratory effort <Brianda Lawson PA-C - Last Filed: 02/01/21 08:04> GI: Other: ileostomy pink <Brianda Lawson PA-C - Last Filed: 02/01/21 08:04> Inspection: No distended and Yes incision (dressings c/d/i) <GENA Younger Last Filed: 02/01/21 08:04> Palpation (GI): Soft to palpation, Tenderness to palpation present (GI) (incisional), no guarding and not rigid <GENA Younger Last Filed: 02/01/21 08:04> Percussion: Yes normal to percussion <GENA Younger Last Filed: 02/01/21 08:04> Skin: General skin exam: no rashes or lesions noted <GENA Younger Last Filed: 02/01/21 08:04> Neuro: General: patient oriented x3 <Brianda Lawson PA-C - Last Filed: 02/01/21 08:04> Extrem: General: Yes no clubbing, cyanosis or edema <Brianda Lawson PA-C - Last Filed: 02/01/21 08:04> Procedures Date of Service Date of Service: 02/01/21 <GENA Younger Last Filed: 02/01/21 08:04> Progress Note: A&P Assessment and plan (1) Diverticulitis of large intestine with abscess: Status: Acute <GENA Younger Last Filed: 02/01/21 08:04> Assessment and Plan: Status post sigmoid resection, extensive lysis of adhesions Complaints of pain - patient has been on chronic narcotics for kidney stones Stoma viable, no significant output yet Stable overnight otherwise Good urine output via Mauricio Encouraged to get out of bed Incentive spirometry Pain management - currently on SPECIAL DELIVERY CLERK Dilaudid Seen and examined - agree with TIFFANIE Lawson <Jerel Goss MD - Last Filed: 02/01/21 10:48> (2) Chronic pain: Status: Acute <GENA Younger Last Filed: 02/01/21 08:04> (3) S/P colon resection: Status: Acute <GENA Younger Last Filed: 02/01/21 08:04> Assessment and Plan: 60 year old admitted with sigmoid diverticulitis with abscess. Repeat CT scan revealed worsening diverticulitis and intramural abscess. Therefore underwent TOMMY sigmoid resection, diverting loop ileostomy, POD #1. C/o pain, meds helping but only using SPECIAL DELIVERY CLERK 3-4x/hr. VSS. Abd exam with kirt ropriate post op tenderness, dressing clean, ileostomy viable appearing. AM labs reviewed- leukocytosis likely reactive. Will trend. Await ileostomy function. Continue clear liquids for now, IVF. D/c mauricio once more comfortable. Encouraged OOB to chair today, IS use. Will likely have difficulty with pain control post op due to chronic narcotic use. Encouraged use of SPECIAL DELIVERY CLERK q10min to better control pain, on ofirmev. If this still does not help, will increase bolus dose or possibly add basal rate. <Brianda Lawson PA-C - Last Filed: 02/01/21 08:04> Fall Risk Details Current Medications: Current Medications Heparin Sodium (Porcine) (Heparin Sodium,Porcine 5,000 Unit/Ml Vial) 5,000 unit SUBCUT Q8H [facility] Hydromorphone HCl (Hydromorphone Hcl 0.5 Mg/0.5 Ml Syringe) 0.5 mg IVPUSH Q5M PRN; Protocol PRN Reason: Pain, Severe (Pain Scale 7-10) Dextrose/Lactated Ringer's (D5lr) 1,000 mls @ 100 mls/hr IVCONT .Q10H [facility] Last Admin: 02/01/21 02:42 Dose: 100 mls/hr Documented by: Metronidazole (Flagyl) 500 mg in 100 mls @ 100 mls/hr IV Q8H [facility] Last Infusion: 02/01/21 00:54 Dose: Infused Documented by: Acetaminophen (Ofirmev) 1,000 mg in 100 mls @ 400 mls/hr IV Q6H [facility] Last Infusion: 02/01/21 01:27 Dose: Infused Documented by: Levofloxacin (Levaquin) 750 mg in 150 mls @ 100 mls/hr IV Q24H [facility] Last Infusion: 01/31/21 23:40 Dose: Infused Documented by: Hydromorphone HCl (Dilaudid) 10 mg in 50 mls @ 0 mls/hr IV .Q0M [facility]; Protocol Last Admin: 01/31/21 16:11 Dose: 0.4 mg/hr, 2 mls/hr Documented by: Lorazepam (Lorazepam 1 Mg Tablet) 1 mg PO TID PRN PRN Reason: Anxiety Last Admin: 01/31/21 18:54 Dose: 1 mg Documented by: Lorazepam (Lorazepam 2 Mg/Ml Vial) 1 mg IVPUSH ONCE PRN PRN Reason: Agitation Last Admin: 02/01/21 01:07 Dose: 1 mg Documented by: Losartan Potassium (Losartan Potassium 25 Mg Tablet) 25 mg PO DAILY [facility]; Protocol Last Admin: 01/31/21 13:47 Dose: Not Given Documented by: Naloxone HCl (Naloxone Hcl 0.4 Mg/Ml Vial) 0.2 mg IVPUSH Q2M PRN PRN Reason: Excessive sedation or RR < 8 Ondansetron HCl (Ondansetron Hcl 4 Mg/2 Ml Vial) 4 mg IVPUSH Q8H PRN PRN Reason: Nausea Last Admin: 01/31/21 23:45 Dose: 4 mg Documented by: <Brianda Lawson PA-C - Last Filed: 02/01/21 08:04> Time Spent With Patient Time: Total time spent is greater than 50% in coordination of care (as documented) at patient's floor/unit and/or counseling patient: <Brianda Lawson PA-C - Last Filed: 02/01/21 08:04> Time with patient: 15 - 24 minutes <Brianda Lawson PA-C - Last Filed: 02/01/21 08:04> Quality Stroke Does the patient have a stroke diagnosis?: No <Brianda Lawson PA-C - Last Filed: 02/01/21 08:04> VTE Prior VTE?: No <Brianda Lawson PA-C - Last Filed: 02/01/21 08:04> VTE Risk Level:: Medical - moderate - high <GENA Younger Last Filed: 02/01/21 08:04> VTE Device Contraindication: N/A - Device Ordered <GENA Younger Last Filed: 02/01/21 08:04> VTE Drug Contraindication: N/A - Med Ordered <GENA Younger Last Filed: 02/01/21 08:04>
[2021-02-01] MEDS: metroNIDAZOLE/NS 500 MG/100 ML PIGGYBACK 100 MG IV ×2 (08:14→15:34)
[2021-02-01] MEDS: Losartan Potassium 25 MG TABLET PO (08:17)
[2021-02-01] MEDS: LORazepam 1 MG TABLET PO ×2 (08:18→16:30)
[2021-02-01] MEDS: Potassium Chloride Packet 20 MEQ PACKET 40 MEQ PO (09:16)
[2021-02-01] MEDS: HYDROmorphone HCl/NS 10 MG/50 ML PIGGYBACK 2 MG IV (10:37)
--- NOTE | 2021-02-01 12:17 | HO.POSTANES ---
Post Anesthesia Evaluation Post Anesthesia Evaluation Vital Signs: Vital Signs Temp Pulse Resp BP Pulse Ox 02/01/21 11:32 98.4 F 80 18 159/74 H 98 02/01/21 10:37 18 02/01/21 08:17 85 174/89 H Anesthesia: General Endotracheal-GETA Mental Status: Awake Pain Control: Satisfactory Nausea/Vomiting: None Hydration: Adequate Anesthesia-Related Issues: No Anes. Related Issues
--- NOTE | 2021-02-01 12:17 | MHC.CM.PN ---
IMM 02/01/2021, EMR REVIEWED, PT C/O OF INCISIONAL PAIN, RECEIVING PAIN MEDS Q3-4 HRS, REMAINS ON CLEAR LIQUIDS, NO D/C PLANNED FOR TODAY, POSSIBLE D/C OVER W/E, CM WILL CONT TO FOLLOW.
--- NOTE | 2021-02-01 12:58 | MHC.CM.PN ---
CM CONTACTED [facility] TO VERIFY PT'S PCP, PER [facility] PT'S PCP HAS LEFT PRACTICE AND PT HAS BEEN REASSIGNED TO [facility] TO WHO PT HAS NOT SEEN, [facility]RIAN ATTEMPTED TO SCHEDULE APPT HOWEVER [facility] REPORTED THEY HAVE NO APPTS AVAILABLE AND WILL CONTACT DR. TO TO DETERMINE IF SHE WILL COVER [facility] ORDERS AND WILL LET ADRIAN KNOW.
[2021-02-01] MEDS: Heparin Sodium,Porcine 5,000 UNIT/ML VIAL 5000 UNIT SUBCUT ×2 (13:40→20:02)
[2021-02-01] MEDS: ondansetron HCL 4 MG/2 ML VIAL IVPUSH (16:16)
[2021-02-01] MEDS: levoFLOXacin/D5W 750 MG/150 ML PIGGYBACK 100 MG IV (20:52)
[2021-02-02] VITALS (20 sets, daily range): BP systolic 154–188; BP diastolic 22–92; PULSE 68–100; RESP 14–19; TEMP 36.1–36.9; O2SAT 93–99
[2021-02-02] MEDS: LORazepam 1 MG TABLET PO ×3 (00:16→18:19)
[2021-02-02] MEDS: ondansetron HCL 4 MG/2 ML VIAL IVPUSH ×2 (00:16→08:17)
[2021-02-02] MEDS: metroNIDAZOLE/NS 500 MG/100 ML PIGGYBACK 100 MG IV ×3 (00:44→15:18)
[2021-02-02] MEDS: Heparin Sodium,Porcine 5,000 UNIT/ML VIAL 5000 UNIT SUBCUT ×3 (04:08→19:36)
[2021-02-02] MEDS: HYDROmorphone HCl/NS 10 MG/50 ML PIGGYBACK 2 MG IV ×2 (06:23→15:11)
[2021-02-02] MEDS: Lidocaine 4 % Patch ADH..PATCH 1 PATCH TRANSDERMA (08:08)
[2021-02-02] MEDS: Losartan Potassium 25 MG TABLET PO (08:08)
--- NOTE | 2021-02-02 08:48 | PM.PNGS ---
Subjective Subjective Date of Service: 02/02/21 Interval history: The patient reports a difficult night due to abdominal pain but does feel improved this morning. TALENT ACQUISITION DIRECTOR is working and Lidocaine patch been added this morning as well. she does not have much of an appetite and took only a small amount of clear liquids. She does report some flatus passing through the ostomy. Physical Exam Vital Signs: Vital Signs: Last Vital Signs Temp 97.9 F 02/02/21 07:23 Pulse 92 02/02/21 08:08 Resp 17 02/02/21 07:41 BP 172/87 H 02/02/21 08:08 Pulse Ox 94 02/02/21 07:41 Body Mass Index 25.7 Const: General: cooperative and no acute distress Nutritional Appearance: well nourished Orientation/consciousness: patient oriented x3 Limitations: no limitations Resp: Other: Breathing comfortably on room air, no respiratory distress GI: Other: incisions are clean, dry, and intact without redness or discharge. Ostomy is pink and viable. Bridge is in place. A small amount of serous fluid is identified but no stool. Skin: Other: Warm, dry, no rash Neuro: General: patient oriented x3 Extrem: Other: no edema Procedures Date of Service Date of Service: 02/02/21 Progress Note: A&P Assessment and plan (1) S/P colon resection: Status: Acute (2) Diverticulitis of large intestine with abscess: Status: Acute (3) Chronic pain: Status: Acute Assessment and Plan: postoperative day 2 following hand assisted laparoscopic sigmoid resection due to sigmoid diverticulitis with loop ileostomy. Patient is having difficulty getting comfortable but does feel improved this morning compared to during the night. TALENT ACQUISITION DIRECTOR seems to be helping and lidocaine patch has been added. Patient was encouraged to get out of bed this morning, he breathing exercises encouraged as well. Wayne catheter will be removed. Continue clear liquid diet for now. Fall Risk Details Current Medications: Current Medications Heparin Sodium (Porcine) (Heparin Sodium,Porcine 5,000 Unit/Ml Vial) 5,000 unit SUBCUT Q8H [facility] Last Admin: 02/02/21 04:08 Dose: 5,000 unit Documented by: Hydromorphone HCl (Hydromorphone Hcl 0.5 Mg/0.5 Ml Syringe) 0.5 mg IVPUSH Q5M PRN; Protocol PRN Reason: Pain, Severe (Pain Scale 7-10) Dextrose/Lactated Ringer's (D5lr) 1,000 mls @ 100 mls/hr IVCONT .Q10H [facility] Last Admin: 02/02/21 07:25 Dose: Not Given Documented by: Metronidazole (Flagyl) 500 mg in 100 mls @ 100 mls/hr IV Q8H [facility] Last Admin: 02/02/21 08:07 Dose: 100 mls/hr Documented by: Acetaminophen (Ofirmev) 1,000 mg in 100 mls @ 400 mls/hr IV Q6H [facility] Last Infusion: 02/02/21 04:54 Dose: Infused Documented by: Levofloxacin (Levaquin) 750 mg in 150 mls @ 100 mls/hr IV Q24H [facility] Last Infusion: 02/01/21 22:26 Dose: Infused Documented by: Hydromorphone HCl (Dilaudid) 10 mg in 50 mls @ 0 mls/hr IV .Q0M [facility]; Protocol Last Admin: 02/02/21 06:23 Dose: 0.4 mg/hr, 2 mls/hr Documented by: Lidocaine (Lidocaine 4 % Patch Adh..Patch) 1 patch TRANSDERMA DAILY [facility]; Protocol Last Admin: 02/02/21 08:08 Dose: 1 patch Documented by: Lorazepam (Lorazepam 1 Mg Tablet) 1 mg PO TID PRN PRN Reason: Anxiety Last Admin: 02/02/21 00:16 Dose: 1 mg Documented by: Lorazepam (Lorazepam 2 Mg/Ml Vial) 1 mg IVPUSH ONCE PRN PRN Reason: Agitation Last Admin: 02/01/21 01:07 Dose: 1 mg Documented by: Losartan Potassium (Losartan Potassium 25 Mg Tablet) 25 mg PO DAILY [facility]; Protocol Last Admin: 02/02/21 08:08 Dose: 25 mg Documented by: Naloxone HCl (Naloxone Hcl 0.4 Mg/Ml Vial) 0.2 mg IVPUSH Q2M PRN PRN Reason: Excessive sedation or RR < 8 Ondansetron HCl (Ondansetron Hcl 4 Mg/2 Ml Vial) 4 mg IVPUSH Q8H PRN PRN Reason: Nausea Last Admin: 02/02/21 08:17 Dose: 4 mg Documented by: Time Spent With Patient Time: Total time spent is greater than 50% in coordination of care (as documented) at patient's floor/unit and/or counseling patient: Time with patient: 15 - 24 minutes Quality Stroke Does the patient have a stroke diagnosis?: No VTE Prior VTE?: No VTE Risk Level:: Medical - moderate - high VTE Device Contraindication: N/A - Device Ordered VTE Drug Contraindication: N/A - Med Ordered
[2021-02-02] MEDS: Dextrose 5 % and Lactated Ring 1,000 ML 100 ML IVCONT ×2 (09:25→19:42)
--- NOTE | 2021-02-02 13:19 | PC.NURSE ---
Pt mauricio removed at [address] Javier order
--- NOTE | 2021-02-02 16:04 | PC.NURSE ---
Pt completed first DTV at 1600. Pt voided 300mL
[2021-02-02] MEDS: levoFLOXacin/D5W 750 MG/150 ML PIGGYBACK 100 MG IV (19:37)
[2021-02-03] VITALS (12 sets, daily range): BP systolic 149–196; BP diastolic 78–100; PULSE 68–93; RESP 17–18; TEMP 36.1–37.1; O2SAT 93–98
[2021-02-03] MEDS: metroNIDAZOLE/NS 500 MG/100 ML PIGGYBACK 100 MG IV ×4 (01:15→21:49)
[2021-02-03] MEDS: LORazepam 1 MG TABLET PO (03:16)
[2021-02-03] MEDS: Heparin Sodium,Porcine 5,000 UNIT/ML VIAL 5000 UNIT SUBCUT ×3 (03:17→19:57)
--- NOTE | 2021-02-03 03:18 | PC.NURSE ---
Patient c/o severe pain to the stomach unrelieved by RESOURCE RECOVERY SPECIALIST pump. She claims the pain only goes down to a 7 from a 10 recently after using RESOURCE RECOVERY SPECIALIST pump. This RN found gas buildup in the colostomy bag and released it. Pt claims to feel some relief
[2021-02-03] MEDS: Dextrose 5 % and Lactated Ring 1,000 ML 100 ML IVCONT ×2 (06:00→15:34)
[2021-02-03] MEDS: HYDROmorphone HCl 1 MG/ML SYRINGE IVPUSH ×5 (08:35→23:27)
[2021-02-03] MEDS: Lidocaine 4 % Patch ADH..PATCH 1 PATCH TRANSDERMA (08:36)
[2021-02-03] MEDS: Losartan Potassium 25 MG TABLET PO (08:40)
--- NOTE | 2021-02-03 08:42 | P.PNGS_ITS ---
Subjective Subjective Date of Service: 02/03/21 Interval history: Patient reports coughing up clear phlegm, found it more comfortable to sleep in the chair. Abdominal pain remains an issue and does not seem to be relieved with DEPUT[employer]IE[employer] SHERIFF. She wishes to change to a p.r.n. dosing. Physical Exam Vital Signs: Vital Signs: Last Vital Signs Temp 97.7 F 02/03/21 07:37 Pulse 92 02/03/21 07:37 Resp 17 02/03/21 07:37 BP 183/84 H 02/03/21 07:37 Pulse Ox 93 02/03/21 07:37 Body Mass Index 25.7 Const: General: no acute distress Nutritional Appearance: well nourished Orientation/consciousness: patient oriented x3 Limitations: no limitations Resp: Effort & Inspection: normal respiratory effort, not labored and not tachypneic GI: Other: Soft, nondistended, incisions clean and intact. No surrounding erythema or discharge. Ostomy patent with small amount of liquid and gas noted. Skin: Other: Warm and dry, Neuro: General: patient oriented x3 Extrem: Other: no calf tenderness Procedures Date of Service Date of Service: 02/03/21 Progress Note: A&P Assessment and plan (1) S/P colon resection: Status: Acute Assessment and Plan: Postoperative day 3 following hand assisted laparoscopic sigmoid resection due to sigmoid diverticulitis with loop ileostomy.? Patient is overall improved but continues to complain of incisional pain. She feels the DEPUT[employer]IE[employer] SHERIFF is not effective for her in wishes to change to a p.r.n. dosing. Patient is sitting out of bed in the chair and reports coughing up some clear phlegm. She was encouraged to continue her deep breathing exercises to mobilize her secretions. Patient has not eaten much since yesterday and therefore will continue on a clear liquid diet for now. (2) Diverticulitis of large intestine with abscess: Status: Acute Fall Risk Details Current Medications: Current Medications Heparin Sodium (Porcine) (Heparin Sodium,Porcine 5,000 Unit/Ml Vial) 5,000 unit SUBCUT Q8H [facility] Last Admin: 02/03/21 03:17 Dose: 5,000 unit Documented by: Hydromorphone HCl (Hydromorphone Hcl 0.5 Mg/0.5 Ml Syringe) 0.5 mg IVPUSH Q2H PRN; Protocol PRN Reason: Breakthrough Pain Hydromorphone HCl (Hydromorphone Hcl 4 Mg Tablet) 4 mg PO Q4H PRN PRN Reason: Pain, Moderate (Pain Scale 4-6 Hydromorphone HCl (Hydromorphone Hcl 1 Mg/Ml Syringe) 1 mg IVPUSH Q2H PRN; Protocol PRN Reason: Pain, Severe (Pain Scale 7-10) Last Admin: 02/03/21 08:35 Dose: 1 mg Documented by: Dextrose/Lactated Ringer's (D5lr) 1,000 mls @ 100 mls/hr IVCONT .Q10H [facility] Last Admin: 02/03/21 06:00 Dose: 100 mls/hr Documented by: Metronidazole (Flagyl) 500 mg in 100 mls @ 100 mls/hr IV Q8H [facility] Last Admin: 02/03/21 08:36 Dose: 100 mls/hr Documented by: Acetaminophen (Ofirmev) 1,000 mg in 100 mls @ 400 mls/hr IV Q6H [facility] Last Infusion: 02/03/21 07:44 Dose: Infused Documented by: Levofloxacin (Levaquin) 750 mg in 150 mls @ 100 mls/hr IV Q24H [facility] Last Infusion: 02/02/21 21:37 Dose: Infused Documented by: Lidocaine (Lidocaine 4 % Patch Adh..Patch) 1 patch TRANSDERMA DAILY [facility]; Protocol Last Admin: 02/03/21 08:36 Dose: 1 patch Documented by: Lorazepam (Lorazepam 1 Mg Tablet) 1 mg PO TID PRN PRN Reason: Anxiety Last Admin: 02/03/21 03:16 Dose: 1 mg Documented by: Losartan Potassium (Losartan Potassium 25 Mg Tablet) 25 mg PO DAILY [facility]; Aneta col Last Admin: 02/03/21 08:40 Dose: 25 mg Documented by: Naloxone HCl (Naloxone Hcl 0.4 Mg/Ml Vial) 0.2 mg IVPUSH Q2M PRN PRN Reason: Excessive sedation or RR < 8 Ondansetron HCl (Ondansetron Hcl 4 Mg/2 Ml Vial) 4 mg IVPUSH Q8H PRN PRN Reason: Nausea Last Admin: 02/02/21 08:17 Dose: 4 mg Documented by: Time Spent With Patient Time: Total time spent is greater than 50% in coordination of care (as documented) at patient's floor/unit and/or counseling patient: Time with patient: 15 - 24 minutes Quality Stroke Does the patient have a stroke diagnosis?: No VTE Prior VTE?: No VTE Risk Level:: Medical - moderate - high VTE Device Contraindication: N/A - Device Ordered VTE Drug Contraindication: N/A - Med Ordered
[2021-02-03] MEDS: ondansetron HCL 4 MG/2 ML VIAL IVPUSH (11:56)
[2021-02-03] MEDS: levoFLOXacin/D5W 750 MG/150 ML PIGGYBACK 100 MG IV (20:04)
[2021-02-03] MEDS: HYDROmorphone HCl 0.5 MG/0.5 ML SYRINGE IVPUSH (20:13)
[2021-02-04] MEDS: Dextrose 5 % and Lactated Ring 1,000 ML 100 ML IVCONT ×3 (01:30→23:41)
[2021-02-04] MEDS: LORazepam 1 MG TABLET PO ×2 (01:30→13:09)
[2021-02-04] MEDS: HYDROmorphone HCl 1 MG/ML SYRINGE IVPUSH (01:31)
[2021-02-04 04:00] VITALS: BP 183/94; PULSE 80; RESP 16; TEMP 36.6; O2SAT 100
[2021-02-04 05:30] LABS: MANUAL DIFF FLAG NO
[2021-02-04 05:35] LABS: Basophils Percent Auto 0.2 % (0-2); Eosinophils Absolute Auto 0.4 X10*3/uL (0.0-0.4); Eosinophils Percent Auto 3.2 % (0-4); Hematocrit 30.8 % (37-47); Hemoglobin 10.4 g/dl (12.0-16.0); Imm Gran Abs Auto 0.05 X10*3/uL (0.00-0.03); Imm Gran Pct Auto 0.4 % (0.0-0.4); Lymphocytes Absolute Auto 2.7 X10*3/uL (1.2-4.9); Lymphocytes Percent Auto 22.7 % (20-40); Mean Corpuscular HGB Conc 33.8 g/dl (31.0-35.0); Mean Corpuscular Hemoglobin 28.1 pg (27.0-33.0); Mean Corpuscular Volume 83.2 fL (80-98); Mean Platelet Volume 9.4 fL (9.4-12.3); Monocytes Absolute Auto 0.7 X10*3/uL (0.1-1.2); Monocytes Percent Auto 5.6 % (2-11); Neutrophils Absolute Auto 8.2 X10*3/uL (2.0-8.3); Neutrophils Percent Auto 67.9 % (45-73); Platelet Count 314 X10*3/uL (160-400); Red Cell Distribution Width 13.8 % (11.0-16.0); White Blood Count 12.1 X10*3/uL (4.8-10.8)
[2021-02-04] MEDS: Heparin Sodium,Porcine 5,000 UNIT/ML VIAL 5000 UNIT SUBCUT ×2 (05:40→19:46)
[2021-02-04] MEDS: HYDROmorphone HCl 0.5 MG/0.5 ML SYRINGE IVPUSH ×2 (05:41→19:50)
[2021-02-04 08:00] VITALS: BP 195/93; PULSE 73; RESP 17; TEMP 37.8; O2SAT 96
[2021-02-04] MEDS: metroNIDAZOLE/NS 500 MG/100 ML PIGGYBACK 100 MG IV ×3 (08:26→23:44)
[2021-02-04] MEDS: Lidocaine 4 % Patch ADH..PATCH 1 PATCH TRANSDERMA (08:26)
[2021-02-04] MEDS: Losartan Potassium 25 MG TABLET PO (08:27)
--- NOTE | 2021-02-04 10:52 | PM.PNGS ---
Subjective Subjective Date of Service: 02/04/21 Interval history: Says her pain control is better with p.r.n. meds instead of [employer] REPORTER Wants to try to eat Stoma has some stool and gas Physical Exam Vital Signs: Vital Signs: Last Vital Signs Temp 100.0 F 02/04/21 08:00 Pulse 73 02/04/21 08:00 Resp 17 02/04/21 08:00 BP 195/93 H 02/04/21 08:00 Pulse Ox 96 02/04/21 08:00 Body Mass Index 25.7 Const: Other: Hematology 02/04/21 05:14 WBC 12.1 H Hgb 10.4 L Plt Count 314 General: comfortable and no acute distress Resp: Effort & Inspection: normal respiratory effort Cardio: Rate: regular rate GI: Other: Soft, nondistended, no guarding or rebound, stoma with liquid stool and gas, incision clean and dry Procedures Date of Service Date of Service: 02/04/21 Progress Note: A&P Assessment and plan (1) Diverticulitis of large intestine with abscess: Status: Acute Assessment and Plan: Status post resection, anastomosis with diverting loop ileostomy Better pain control off [employer] REPORTER Stoma with output Well advance diet Continue getting out of bed Improving Pain management Exam benign Fall Risk Details Current Medications: Current Medications Heparin Sodium (Porcine) (Heparin Sodium,Porcine 5,000 Unit/Ml Vial) 5,000 unit SUBCUT Q8H [facility] Last Admin: 02/04/21 05:40 Dose: 5,000 unit Documented by: Hydromorphone HCl (Hydromorphone Hcl 0.5 Mg/0.5 Ml Syringe) 0.5 mg IVPUSH Q2H PRN; Protocol PRN Reason: Breakthrough Pain Last Admin: 02/04/21 05:41 Dose: 0.5 mg Documented by: Hydromorphone HCl (Hydromorphone Hcl 4 Mg Tablet) 4 mg PO Q4H PRN PRN Reason: Pain, Moderate (Pain Scale 4-6 Last Admin: 02/04/21 08:27 Dose: 4 mg Documented by: Hydromorphone HCl (Hydromorphone Hcl 1 Mg/Ml Syringe) 1 mg IVPUSH Q2H PRN; Protocol PRN Reason: Pain, Severe (Pain Scale 7-10) Last Admin: 02/04/21 01:31 Dose: 1 mg Documented by: Dextrose/Lactated Ringer's (D5lr) 1,000 mls @ 100 mls/hr IVCONT .Q10H [facility] Last Admin: 02/04/21 01:30 Dose: 100 mls/hr Documented by: Metronidazole (Flagyl) 500 mg in 100 mls @ 100 mls/hr IV Q8H [facility] Last Infusion: 02/04/21 09:38 Dose: Infused Documented by: Acetaminophen (Ofirmev) 1,000 mg in 100 mls @ 400 mls/hr IV Q6H [facility] Last Infusion: 02/04/21 09:02 Dose: Infused Documented by: Levofloxacin (Levaquin) 750 mg in 150 mls @ 100 mls/hr IV Q24H [facility] Last Infusion: 02/03/21 21:45 Dose: Infused Documented by: Lidocaine (Lidocaine 4 % Patch Adh..Patch) 1 patch TRANSDERMA DAILY [facility]; Protocol Last Admin: 02/04/21 08:26 Dose: 1 patch Documented by: Lorazepam (Lorazepam 1 Mg Tablet) 1 mg PO TID PRN PRN Reason: Anxiety Last Admin: 02/04/21 01:30 Dose: 1 mg Documented by: Losartan Potassium (Losartan Potassium 25 Mg Tablet) 25 mg PO DAILY [facility]; Protocol Last Admin: 02/04/21 08:27 Dose: 25 mg Documented by: Naloxone HCl (Naloxone Hcl 0.4 Mg/Ml Vial) 0.2 mg IVPUSH Q2M PRN PRN Reason: Excessive sedation or RR < 8 Ondansetron HCl (Ondansetron Hcl 4 Mg/2 Ml Vial) 4 mg IVPUSH Q8H PRN PRN Reason: Nausea Last Admin: 02/03/21 11:56 Dose: 4 mg Documented by: Time Spent With Patient Time: Total time spent is greater than 50% in coordination of care (as documented) at patient's floor/unit and/or counseling patient: Time with patient: 15 - 24 minutes Quality Stroke Does the patient have a stroke diagnosis?: No VTE Prior VTE?: No VTE Risk Level:: Medical - moderate - high VTE Device Contraindication: N/A - Device Ordered VTE Drug Contraindication: N/A - Med Ordered
[2021-02-04 15:26] VITALS: BP 192/90; PULSE 73; RESP 16; TEMP 36; O2SAT 94
--- NOTE | 2021-02-04 16:42 | PM.IMCN ---
History of Present Illness Data of Consult Service Date: 02/04/21 Requesting physician: Jerel Goss Primary Care Provider: [facility] HPI Reason for consult: Medical Management 60 year old women admitted by general surgery on 01/28/21 with diverticulitis and abscess. She is status post laparoscopic sigmoid resection, colorectal anastomosis and diverting loop ileostomy. She has had some pain control issues but is much better now on p.r.n. medications. She does have a history of high blood pressure and her blood pressure has been quite elevated over the last several days with pain likely being a component to this. She just started eating food and does feel little bit better. She has been able to get up and walk to the bathroom. She has no chest pain, shortness of breath, headache, visual changes. Medical consultation was placed due to hypertension. Review of Systems Review of Systems: Denies any recent fever chills or decrease in appetite respiratory denies any shortness of breath coverage production cardiovascular See HPI gastrointestinal denies any dysphagia abdominal pain nausea vomiting or diarrhea genitourinary denies any dysuria frequency or hematuria musculoskeletal denies any joint pain or swelling neuropsych denies any weakness or seizures all other systems reviewed are negative [facility] Medical History (Updated 01/29/21 @ 08:54 by Jerel Goss MD) Chronic pain Current vaping on some days History of urinary tract infection Kidney stones Medullary sponge kidney Family History Father HTN (hypertension) Cancer of kidney Mother Dementia Age related osteoporosis Pertinent family history: . Surgical History (Updated 02/04/21 @ 16:45 by Haydee Madison NP) History of arthroplasty of right knee (~01/2018) Hx of colonoscopy Hx of cystoscopy Status post appendectomy Status post bunionectomy (~09/2011) Status post hysterectomy Status post tonsillectomy Social History (Updated 01/31/21 @ 08:12 by Luana Blum MD) Household Members: Children Housing: Apartment Do you presently have visiting nurse or other home services: Yes ([facility]) Alcohol intake: never Patient Tobacco Use Status: Current someday Tobacco user Tobacco use type: Cigarette Cigarettes Per Day: 1 Smoked in Last 30 Days: Yes e-Cigarette/Vaping Use: Currently Using Patient Interested in Nicotine Replacement: No Patient Given Instructions on How to Stop Smoking: Yes Date Education Initiated: 01/28/21 Second Hand Smoke Exposure: No Use of substances other than those prescribed or required for medical reasons: Yes Substance Use Type: Marijuana Substance Use Frequency: Daily Last Used Substance: Days (ago) Currently Displaying Signs/Symptoms of Drug Intoxication Withdrawal: No Any prior treatment program specific to substance use: No Have you been hit, kicked, punched, or otherwise hurt by someone within the past year? If so, by whom?: No Do you feel safe in your current relationship?: Yes Is there a partner from a previous relationship who is making you feel unsafe now?: No Are you made to feel afraid or neglected: No Are you DNR?: No Advance Directives: No Advance Directives Information Provided: Yes Do you have thoughts of harming others: None Do you have a plan to hurt others: No Plan Recently lost weight without trying: No How much weight loss: 2-13 pounds Eating poorly because of decreased appetite: No Nutrition screen score: 1 Nutrition Risks: No Nutritional Risk Patient : No : No Poor oral hygiene: No service: No Current occupational status: unemployed Meds Allergies Allergy/AdvReac Type Severity Reaction Status Date / Time Penicillins Allergy Severe ANAPHYLAXIS Verified 01/03/21 09:00 morphine [MORPHINE] Allergy Intermediate TACHYCARDIA, Verified 01/03/21 09:00 HIVES, ITCHING Active Medications: Current Medications Heparin Sodium (Porcine) (Heparin Sodium,Porcine 5,000 Unit/Ml Vial) 5,000 unit SUBCUT Q8H [facility] Last Admin: 02/04/21 11:56 Dose: Not Given Documented by: Hydromorphone HCl (Hydromorphone Hcl 0.5 Mg/0.5 Ml Syringe) 0.5 mg IVPUSH Q2H PRN; Protocol PRN Reason: Breakthrough Pain Last Admin: 02/04/21 05:41 Dose: 0.5 mg Documented by: Hydromorphone HCl (Hydromorphone Hcl 4 Mg Tablet) 4 mg PO Q4H PRN PRN Reason: Pain, Moderate (Pain Scale 4-6 Last Admin: 02/04/21 12:24 Dose: 4 mg Documented by: Hydromorphone HCl (Hydromorphone Hcl 1 Mg/Ml Syringe) 1 mg IVPUSH Q2H PRN; Protocol PRN Reason: Pain, Severe (Pain Scale 7-10) Last Admin: 02/04/21 01:31 Dose: 1 mg Documented by: Dextrose/Lactated Ringer's (D5lr) 1,000 mls @ 100 mls/hr IVCONT .Q10H [facility] Last Admin: 02/04/21 13:07 Dose: 100 mls/hr Documented by: Metronidazole (Flagyl) 500 mg in 100 mls @ 100 mls/hr IV Q8H [facility] Last Admin: 02/04/21 16:02 Dose: 100 mls/hr Documented by: Acetaminophen (Ofirmev) 1,000 mg in 100 mls @ 400 mls/hr IV Q6H [facility] Last Infusion: 02/04/21 14:08 Dose: Infused Documented by: Levofloxacin (Levaquin) 750 mg in 150 mls @ 100 mls/hr IV Q24H [facility] Last Infusion: 02/03/21 21:45 Dose: Infused Documented by: Lidocaine (Lidocaine 4 % Patch Adh..Patch) 1 patch TRANSDERMA DAILY [facility]; Protocol Last Admin: 02/04/21 08:26 Dose: 1 patch Documented by: Lorazepam (Lorazepam 1 Mg Tablet) 1 mg PO TID PRN PRN Reason: Anxiety Last Admin: 02/04/21 13:09 Dose: 1 mg Documented by: Losartan Potassium (Losartan Potassium 25 Mg Tablet) 25 mg PO DAILY [facility]; Protocol Last Admin: 02/04/21 08:27 Dose: 25 mg Documented by: Naloxone HCl (Naloxone Hcl 0.4 Mg/Ml Vial) 0.2 mg IVPUSH Q2M PRN PRN Reason: Excessive sedation or RR < 8 Ondansetron HCl (Ondansetron Hcl 4 Mg/2 Ml Vial) 4 mg IVPUSH Q8H PRN PRN Reason: Nausea Last Admin: 02/03/21 11:56 Dose: 4 mg Documented by: Home Medications Medication Instructions Recorded Confirmed Last Taken Type losartan 25 mg tablet 25 mg PO DAILY 04/17/20 01/28/21 Unknown History naproxen 500 mg tablet (Naprosyn) 500 mg PO DAILY PRN tab 04/17/20 01/28/21 Unknown History oxycodone 5 mg capsule 5 mg PO QID PRN 04/17/20 01/28/21 11/30/20 05:00 History oxycodone 5 mg tablet 5 - 10 mg PO QID PRN 01/03/21 01/28/21 Unknown History Physical Exam Vital Signs and Narrative: Vital Signs: Last Vital Signs Temp 96.8 F 02/04/21 15:26 Pulse 73 02/04/21 15:26 Resp 16 02/04/21 15:26 BP 192/90 H 02/04/21 15:26 Pulse Ox 94 02/04/21 15:26 Body Mass Index 25.7 Appearing in no acute distress head is normocephalic atraumatic eyes pupils are PERRLA sclera is anicteric mouth throat mucous membranes are intact and moist neck is supple no lymphadenopathy, no JVD noted lung sounds are clear to auscultation heart regular rate rhythm, clear S1, S2 positive bowel sounds, abdomen is soft, nontender neuro patient is alert x3, no focal deficits Results Labs CBC and Chem 7: 02/04/21 05:14 02/01/21 05:08 Labs: Laboratory Results - last 24 hr 02/04/21 05:14 MCV 83.2 MCH 28.1 MCHC 33.8 RDW 13.8 Plt Count 314 MPV 9.4 Immature Gran % (Auto) 0.4 Neut % (Auto) 67.9 Lymph % (Auto) 22.7 Hickman % (Auto) 5.6 Eos % (Auto) 3.2 Baso % (Auto) 0.2 Lymph # (Auto) 2.7 Hickman # (Auto) 0.7 Eos # (Auto) 0.4 Baso # (Auto) 0.0 Abs Immat Gran (auto) 0.05 H Absolute Neuts (auto) 8.2 Absolute Nucleated RBC 0.000 Nucleated RBC % (auto) 0.0 Assessment and Plan (1) Hypertension: Status: Acute 52-year-old woman admitted by General surgery due to acute diverticulitis with large abscess, she is status post laparoscopic sigmoid resection with diverting loop ileostomy. Pain management, status post resection, anastomosis with diverting loop ileostomy Management as per surgical team Hypertension with elevated blood pressure reading Likely has some component of pain making this worse Increase losartan to 50 mg, add lisinopril 5mg Trend BP closely DVT prophylaxis with mechanical compression boots Attending Dr. Nagy Full code
[2021-02-04] MEDS: amLODIPine Besylate 2.5 MG TABLET PO (17:30)
[2021-02-04] MEDS: Potassium Chloride ER 20 MEQ TAB.ER.PRT PO (17:59)
[2021-02-04 19:34] VITALS: BP 171/88; PULSE 84; RESP 18; TEMP 36.3; O2SAT 98
[2021-02-04] MEDS: levoFLOXacin/D5W 750 MG/150 ML PIGGYBACK 100 MG IV (19:45)
[2021-02-04 23:58] VITALS: BP 187/84; PULSE 72; RESP 17; TEMP 36.1; O2SAT 100
[2021-02-05] MEDS: LORazepam 1 MG TABLET PO ×2 (01:47→15:33)
[2021-02-05 04:00] VITALS: BP 196/89; PULSE 81; RESP 17; TEMP 36.6; O2SAT 95
[2021-02-05] MEDS: HYDROmorphone HCl 1 MG/ML SYRINGE IVPUSH ×5 (05:36→20:03)
[2021-02-05] MEDS: ondansetron HCL 4 MG/2 ML VIAL IVPUSH (05:36)
[2021-02-05 05:43] LABS: Hemoglobin 12.4 g/dl (12.0-16.0); Mean Corpuscular HGB Conc 34.4 g/dl (31.0-35.0); Mean Corpuscular Hemoglobin 28.6 pg (27.0-33.0); Mean Corpuscular Volume 82.9 fL (80-98); Platelet Count 364 X10*3/uL (160-400); Red Blood Count 4.34 X10*6/uL (4.20-5.50); Red Cell Distribution Width 13.8 % (11.0-16.0); White Blood Count 13.5 X10*3/uL (4.8-10.8)
[2021-02-05 06:04] LABS: Anion Gap 12 (12-20); Blood Urea Nitrogen 4 mg/dL (9-16); Calcium 8.8 mg/dL (8.4-10.2); Carbon Dioxide 28 mmol/L (22-29); Chloride 105 mmol/L (96-108); Creatinine Clr Calc Pharmacy 102.2; Estimated Glomerular Filt Rate > 60; Glucose Random 115 mg/dL (60-115); Sodium 142 mmol/L (135-145)
[2021-02-05 08:00] VITALS: BP 185/90; PULSE 75; RESP 18; TEMP 37.4; O2SAT 97
[2021-02-05] MEDS: amLODIPine Besylate 2.5 MG TABLET PO (08:50)
[2021-02-05] MEDS: Losartan Potassium 50 MG TABLET PO (08:50)
[2021-02-05] MEDS: Lidocaine 4 % Patch ADH..PATCH 1 PATCH TRANSDERMA (08:50)
[2021-02-05] MEDS: metroNIDAZOLE/NS 500 MG/100 ML PIGGYBACK 100 MG IV ×2 (08:51→15:20)
--- NOTE | 2021-02-05 08:56 | PM.PNGS ---
Subjective Subjective Date of Service: 02/05/21 <Brianda Lawson PA-C - Last Filed: 02/05/21 09:02> 02/05/21 <Jerel Goss MD - Last Filed: 02/05/21 14:53> Interval history: Feeling better overall. Incisional pain better. Vomited after first meal of solid food but felt better after. Had BM from rectum which made her nervous this morning. <Brianda Lawson PA-C - Last Filed: 02/05/21 09:02> Physical Exam Vital Signs: Vital Signs: Last Vital Signs Temp 99.3 F 02/05/21 08:00 Pulse 75 02/05/21 08:00 Resp 18 02/05/21 08:00 BP 185/90 H 02/05/21 08:00 Pulse Ox 97 02/05/21 08:00 Body Mass Index 25.7 <Brianda Lawson PA-C - Last Filed: 02/05/21 09:02> Const: General: comfortable, no acute distress and alert <Brianda Lawson PA-C - Last Filed: 02/05/21 09:02> Orientation/consciousness: patient oriented x3 <GENA Younger Last Filed: 02/05/21 09:02> Eyes: Sclerae: sclerae normal <GENA Younger Last Filed: 02/05/21 09:02> Resp: Effort & Inspection: normal respiratory effort <GENA Younger Last Filed: 02/05/21 09:02> GI: Other: ileostomy pink, bilious drainage and gas in appliance, bridge removed <Brianda Lawson PA-C - Last Filed: 02/05/21 09:02> Inspection: Yes incision (clean) <GENA Younger Last Filed: 02/05/21 09:02> Palpation (GI): Soft to palpation, Tenderness to palpation present (GI) (incisional), no guarding and not rigid <GENA Younger Last Filed: 02/05/21 09:02> Percussion: Yes normal to percussion <GENA Younger Last Filed: 02/05/21 09:02> Skin: General skin exam: no rashes or lesions noted <Brianda Lawson PA-C Preethi Last Filed: 02/05/21 09:02> Neuro: General: patient oriented x3 <Brianda Lawson PA-C Preethi Last Filed: 02/05/21 09:02> Extrem: General: Yes no clubbing, cyanosis or edema <Brianda Lawson PA-C Preethi Last Filed: 02/05/21 09:02> Procedures Date of Service Date of Service: 02/05/21 <Brianda Lawson PA-C Preethi Last Filed: 02/05/21 09:02> Progress Note: A&P Assessment and plan (1) Diverticulitis of large intestine with abscess: Status: Acute <Brianda Lawson PA-C Preethi Last Filed: 02/05/21 09:02> (2) S/P colon resection: Status: Acute <Brianda Lawson PA-C Preethi Last Filed: 02/05/21 09:02> (3) Hypokalemia: Status: Acute <JOHN YoungerSedrick Oro Last Filed: 02/05/21 09:02> Assessment and Plan: Postoperative day 5 following hand assisted laparoscopic sigmoid resection due to sigmoid diverticulitis with loop ileostomy for diverticulitis with abscess.? Patient overall doing well but recovering slowly.?VSS. Abd exam with appropriate post op tenderness, incision clean, ileostomy viable appearing and functioning well. Bridge removed. Continue diet as tolerated. OOB/ambulation and IS use. Continues with hypokalemia- PO potassium ordered. Begin ileostomy education. REpeat labs in am. <Brianda Lawson PA-C Preethi Last Filed: 02/05/21 09:02> Postoperative day 5 following hand assisted laparoscopic sigmoid resection due to sigmoid diverticulitis with loop ileostomy for diverticulitis with abscess.? Patient overall doing well but recovering slowly.?VSS. Abd exam with appropriate post op tenderness, incision clean, ileostomy viable appearing and functioning well. Bridge removed. Continue diet as tolerated. OOB/ambulation and IS use. Continues with hypokalemia- PO potassium ordered. Begin ileostomy education. REpeat labs in am. Feels much better Pain much improved Tolerating diet well Stoma functioning Abdomen soft Correct hypokalemia Doing well Seen and examined - agree with TIFFANIE Lawson <Jerel Goss MD - Last Filed: 02/05/21 14:53> Fall Risk Details Current Medications: Current Medications Amlodipine Besylate (Amlodipine Besylate 2.5 Mg Tablet) 2.5 mg PO DAILY [facility]; Protocol Heparin Sodium (Porcine) (Heparin Sodium,Porcine 5,000 Unit/Ml Vial) 5,000 unit SUBCUT Q8H [facility] Last Admin: 02/05/21 03:28 Dose: Not Given Documented by: Hydromorphone HCl (Hydromorphone Hcl 0.5 Mg/0.5 Ml Syringe) 0.5 mg IVPUSH Q2H PRN; Protocol PRN Reason: Breakthrough Pain Last Admin: 02/04/21 19:50 Dose: 0.5 mg Documented by: Hydromorphone HCl (Hydromorphone Hcl 4 Mg Tablet) 4 mg PO Q4H PRN PRN Reason: Pain, Moderate (Pain Scale 4-6 Last Admin: 02/04/21 17:30 Dose: 4 mg Documented by: Hydromorphone HCl (Hydromorphone Hcl 1 Mg/Ml Syringe) 1 mg IVPUSH Q2H PRN; Protocol PRN Reason: Pain, Severe (Pain Scale 7-10) Last Admin: 02/05/21 05:36 Dose: 1 mg Documented by: Metronidazole (Flagyl) 500 mg in 100 mls @ 100 mls/hr IV Q8H [facility] Last Infusion: 02/05/21 01:08 Dose: Infused Documented by: Acetaminophen (Ofirmev) 1,000 mg in 100 mls @ 400 mls/hr IV Q6H [facility] Last Infusion: 02/05/21 02:31 Dose: Infused Documented by: Levofloxacin (Levaquin) 750 mg in 150 mls @ 100 mls/hr IV Q24H [facility] Last Infusion: 02/04/21 22:32 Dose: Infused Documented by: Lidocaine (Lidocaine 4 % Patch Adh..Patch) 1 patch TRANSDERMA DAILY [facility]; Protocol Last Admin: 02/04/21 08:26 Dose: 1 patch Documented by: Lorazepam (Lorazepam 1 Mg Tablet) 1 mg PO TID PRN PRN Reason: Anxiety Last Admin: 02/05/21 01:47 Dose: 1 mg Documented by: Losartan Potassium (Losartan Potassium 50 Mg Tablet) 50 mg PO DAILY [facility]; Protocol Naloxone HCl (Naloxone Hcl 0.4 Mg/Ml Vial) 0.2 mg IVPUSH Q2M PRN PRN Reason: Excessive sedation or RR < 8 Ondansetron HCl (Ondansetron Hcl 4 Mg/2 Ml Vial) 4 mg IVPUSH Q8H PRN PRN Reason: Nausea Last Admin: 02/05/21 05:36 Dose: 4 mg Documented by: Potassium Chloride (Potassium Chloride Packet 20 Meq Packet) 40 meq PO ONCE ONE Stop: 02/05/21 08:56 <Brianda Lawson PA-C - Last Filed: 02/05/21 09:02> Time Spent With Patient Time: Total time spent is greater than 50% in coordination of care (as documented) at patient's floor/unit and/or counseling patient: <Brianda Lawson PA-C - Last Filed: 02/05/21 09:02> Time with patient: 15 - 24 minutes <Brianda Lawson PA-C - Last Filed: 02/05/21 09:02> Quality Stroke Does the patient have a stroke diagnosis?: No <Brianda Lawson PA-C - Last Filed: 02/05/21 09:02> VTE Prior VTE?: No <Brianda Lawson PA-C - Last Filed: 02/05/21 09:02> VTE Risk Level:: Medical - moderate - high <GENA Younger Last Filed: 02/05/21 09:02> VTE Device Contraindication: N/A - Device Ordered <GENA Younger Last Filed: 02/05/21 09:02> VTE Drug Contraindication: N/A - Med Ordered <GENA Younger Last Filed: 02/05/21 09:02>
[2021-02-05] MEDS: Potassium Chloride ER 20 MEQ TAB.ER.PRT 60 MEQ PO (08:59)
[2021-02-05 11:49] VITALS: BP 180/87; PULSE 72; RESP 17; TEMP 36.3; O2SAT 98
--- NOTE | 2021-02-05 12:27 | P.PNIM_ITS ---
Progress Note: A&P (1) Hypertension: Status: Acute Assessment and Plan: 52-year-old woman admitted by General surgery due to acute diverticulitis with large abscess, she is status post laparoscopic? sigmoid resection with diverting loop ileostomy. Pain management, status post resection, anastomosis with diverting loop ileostomy Management as per surgical team Hypertension with elevated blood pressure reading Likely has some component of pain making this worse Increase losartan to 50 mg and add Norvasc 2.5 mg Trend BP closely DVT prophylaxis with mechanical compression boots Attending Dr. Mckinnon Full code Subjective Subjective Date of Service: 02/05/21 Review of Systems Follow up consult Hypertension still elevated Physical Exam Vital Signs: Vital Signs: Last Vital Signs Temp 97.4 F 02/05/21 11:49 Pulse 72 02/05/21 11:49 Resp 17 02/05/21 11:49 BP 180/87 H 02/05/21 11:49 Pulse Ox 98 02/05/21 11:49 Body Mass Index 25.7 Appearing in no acute distress lung sounds are clear to auscultation heart regular rate rhythm, clear S1, S2 positive bowel sounds, abdomen is soft, nontender neuro patient is alert x3, no focal deficits Objective Data Current Medications Amlodipine Besylate (Amlodipine Besylate 2.5 Mg Tablet) 2.5 mg PO DAILY IZABELLA; Protocol Last Admin: 02/05/21 08:50 Dose: 2.5 mg Documented by: Heparin Sodium (Porcine) (Heparin Sodium,Porcine 5,000 Unit/Ml Vial) 5,000 unit SUBCUT Q8H IZABELLA Last Admin: 02/05/21 03:28 Dose: Not Given Documented by: Hydromorphone HCl (Hydromorphone Hcl 0.5 Mg/0.5 Ml Syringe) 0.5 mg IVPUSH Q2H PRN; Protocol PRN Reason: Breakthrough Pain Last Admin: 02/04/21 19:50 Dose: 0.5 mg Documented by: Hydromorphone HCl (Hydromorphone Hcl 4 Mg Tablet) 4 mg PO Q4H PRN PRN Reason: Pain, Moderate (Pain Scale 4-6 Last Admin: 02/04/21 17:30 Dose: 4 mg Documented by: Hydromorphone HCl (Hydromorphone Hcl 1 Mg/Ml Syringe) 1 mg IVPUSH Q2H PRN; Protocol PRN Reason: Pain, Severe (Pain Scale 7-10) Last Admin: 02/05/21 09:13 Dose: 1 mg Documented by: Metronidazole (Flagyl) 500 mg in 100 mls @ 100 mls/hr IV Q8H [facility] Last Infusion: 02/05/21 10:53 Dose: Infused Documented by: Acetaminophen (Ofirmev) 1,000 mg in 100 mls @ 400 mls/hr IV Q6H [facility] Last Infusion: 02/05/21 09:12 Dose: Infused Documented by: Levofloxacin (Levaquin) 750 mg in 150 mls @ 100 mls/hr IV Q24H [facility] Last Infusion: 02/04/21 22:32 Dose: Infused Documented by: Lidocaine (Lidocaine 4 % Patch Adh..Patch) 1 patch TRANSDERMA DAILY [facility]; Protocol Last Admin: 02/05/21 08:50 Dose: 1 patch Documented by: Lorazepam (Lorazepam 1 Mg Tablet) 1 mg PO TID PRN PRN Reason: Anxiety Last Admin: 02/05/21 01:47 Dose: 1 mg Documented by: Losartan Potassium (Losartan Potassium 50 Mg Tablet) 50 mg PO DAILY [facility]; Protocol Last Admin: 02/05/21 08:50 Dose: 50 mg Documented by: Naloxone HCl (Naloxone Hcl 0.4 Mg/Ml Vial) 0.2 mg IVPUSH Q2M PRN PRN Reason: Excessive sedation or RR < 8 Ondansetron HCl (Ondansetron Hcl 4 Mg/2 Ml Vial) 4 mg IVPUSH Q8H PRN PRN Reason: Nausea Last Admin: 02/05/21 05:36 Dose: 4 mg Documented by: Labs CBC & Chem 7: 02/05/21 05:31 02/05/21 05:31 Labs: Laboratory Results - last 24 hr 02/05/21 02/05/21 05:31 05:31 MCV 82.9 MCH 28.6 MCHC 34.4 RDW 13.8 Plt Count 364 MPV 9.0 L Absolute Nucleated RBC 0.000 Nucleated RBC % (auto) 0.0 Anion Gap 12 Estim Creat Clear Calc 102.2 Estimated GFR > 60 Random Glucose 115 Calcium 8.8 D Microbiology Microbiology Results: Microbiology 01/27/21 22:11 Blood - Venous Blood Culture - Final No growth after 5 days. 01/27/21 22:10 Blood - Venous Blood Culture - Final No growth after 5 days. Quality Stroke Does the patient have a stroke diagnosis?: No VTE Prior VTE?: No VTE Risk Level:: Medical - moderate - high VTE Device Contraindication: N/A - Device Ordered VTE Drug Contraindication: N/A - Med Ordered
[2021-02-05] MEDS: Heparin Sodium,Porcine 5,000 UNIT/ML VIAL 5000 UNIT SUBCUT ×2 (12:30→20:03)
--- NOTE | 2021-02-05 13:26 | PC.NURSE ---
Skin assessment completed today. Patient has an ileostomy with a midline dressing which is C/D/I. No other skin issues noted at this time.
[2021-02-05 15:25] VITALS: BP 204/94; PULSE 67; RESP 17; TEMP 36.6; O2SAT 98
[2021-02-05 19:21] VITALS: BP 189/90; PULSE 72; RESP 17; TEMP 36.4; O2SAT 100
[2021-02-05] MEDS: levoFLOXacin/D5W 750 MG/150 ML PIGGYBACK 100 MG IV (20:03)
[2021-02-05 23:24] VITALS: BP 172/96; PULSE 89; RESP 18; TEMP 37; O2SAT 97
[2021-02-06] MEDS: metroNIDAZOLE/NS 500 MG/100 ML PIGGYBACK 100 MG IV ×2 (00:55→08:44)
[2021-02-06] MEDS: HYDROmorphone HCl 1 MG/ML SYRINGE IVPUSH ×3 (01:01→08:45)
[2021-02-06 02:06] VITALS: RESP 18
[2021-02-06 03:06] VITALS: BP 156/83; PULSE 85; RESP 16; TEMP 36.4; O2SAT 98
[2021-02-06 04:53] VITALS: RESP 20
[2021-02-06] MEDS: Heparin Sodium,Porcine 5,000 UNIT/ML VIAL 5000 UNIT SUBCUT (04:54)
[2021-02-06 06:09] LABS: MANUAL DIFF FLAG NO
[2021-02-06 06:14] LABS: Basophils Percent Auto 0.3 % (0-2); Eosinophils Absolute Auto 0.3 X10*3/uL (0.0-0.4); Eosinophils Percent Auto 2.4 % (0-4); Hematocrit 33.6 % (37-47); Hemoglobin 11.3 g/dl (12.0-16.0); Imm Gran Abs Auto 0.06 X10*3/uL (0.00-0.03); Imm Gran Pct Auto 0.4 % (0.0-0.4); Lymphocytes Absolute Auto 2.3 X10*3/uL (1.2-4.9); Lymphocytes Percent Auto 16.1 % (20-40); Mean Corpuscular HGB Conc 33.6 g/dl (31.0-35.0); Mean Corpuscular Hemoglobin 28.1 pg (27.0-33.0); Mean Corpuscular Volume 83.6 fL (80-98); Mean Platelet Volume 9.4 fL (9.4-12.3); Monocytes Absolute Auto 0.9 X10*3/uL (0.1-1.2); Monocytes Percent Auto 6.1 % (2-11); Neutrophils Absolute Auto 10.4 X10*3/uL (2.0-8.3); Neutrophils Percent Auto 74.7 % (45-73); Platelet Count 361 X10*3/uL (160-400); Red Blood Count 4.02 X10*6/uL (4.20-5.50); Red Cell Distribution Width 14.1 % (11.0-16.0)
[2021-02-06 06:31] LABS: Anion Gap 13 (12-20); Blood Urea Nitrogen 11 mg/dL (9-16); Calcium 8.7 mg/dL (8.4-10.2); Carbon Dioxide 24 mmol/L (22-29); Chloride 106 mmol/L (96-108); Creatinine Clr Calc Pharmacy 107.5; Estimated Glomerular Filt Rate > 60; Glucose Fasting 104 mg/dL (60-99); Magnesium 1.7 mg/dL (1.6-2.6); Potassium 3.7 mmol/L (3.3-5.1); Sodium 139 mmol/L (135-145)
[2021-02-06 07:46] VITALS: BP 169/81; PULSE 76; RESP 18; TEMP 36.3; O2SAT 97
[2021-02-06] MEDS: amLODIPine Besylate 5 MG TABLET PO (08:44)
[2021-02-06] MEDS: Lidocaine 4 % Patch ADH..PATCH 1 PATCH TRANSDERMA (08:45)
[2021-02-06] MEDS: Losartan Potassium 50 MG TABLET PO (08:45)
--- NOTE | 2021-02-06 09:06 | PM.PNGS ---
Subjective Subjective Date of Service: 02/06/21 <Brianda Lawson PA-C - Last Filed: 02/06/21 09:08> 02/06/21 <Jerel Goss MD - Last Filed: 02/06/21 11:05> Interval history: Feels much better today. COmfortable. Doing well after ostomy education yesterday. OOB. Tolerating diet. Ready to go home. <Brianda Lawson PA-C - Last Filed: 02/06/21 09:08> Physical Exam Vital Signs: Vital Signs: Last Vital Signs Temp 97.4 F 02/06/21 07:46 Pulse 76 02/06/21 07:46 Resp 18 02/06/21 07:46 BP 169/81 H 02/06/21 07:46 Pulse Ox 97 02/06/21 07:46 Body Mass Index 25.7 <Brianda Lawson PA-C - Last Filed: 02/06/21 09:08> Const: General: comfortable, no acute distress and alert <Brianda Lawson PA-C - Last Filed: 02/06/21 09:08> Orientation/consciousness: patient oriented x3 <Brianda Lawson PA-C - Last Filed: 02/06/21 09:08> Resp: Effort & Inspection: normal respiratory effort <Brianda Lawson PA-C - Last Filed: 02/06/21 09:08> GI: Other: ostomy pink, large amount of soft brown stool in appliance <Brainda Lawson PA-C - Last Filed: 02/06/21 09:08> Inspection: No distended and Yes incision (clean, no erythema) <Brianda Lawson PA-C - Last Filed: 02/06/21 09:08> Palpation (GI): Soft to palpation and Tenderness to palpation present (GI) (mild, incisional) <GENA Younger Last Filed: 02/06/21 09:08> Skin: General skin exam: no rashes or lesions noted <GENA Younger Last Filed: 02/06/21 09:08> Neuro: General: patient oriented x3 <Brianda Lawson PA-C - Last Filed: 02/06/21 09:08> Extrem: General: Yes no clubbing, cyanosis or edema <Brianda Lawson PA-C - Last Filed: 02/06/21 09:08> Procedures Date of Service Date of Service: 02/06/21 <Brianda Lawson PA-C - Last Filed: 02/06/21 09:08> Progress Note: A&P Assessment and plan (1) Diverticulitis of large intestine with abscess: Status: Acute <GENA Younger Last Filed: 02/06/21 09:08> (2) S/P colon resection: Status: Acute <Brianda Lawson PA-C - Last Filed: 02/06/21 09:08> Assessment and Plan: Continues to do well Good GI function Stoma functioning well Abdomen soft She wants to go and says she is ready Potassium okay Okay to DC home Instructions given; p.o. hydration Seen and examined - agree with TIFFANIE Lawson <Jerel Goss MD - Last Filed: 02/06/21 11:05> (3) Hypokalemia: Status: Acute <Brianda Lawson PA-C - Last Filed: 02/06/21 09:08> (4) Chronic pain: Status: Acute <Brianda Lawson PA-C - Last Filed: 02/06/21 09:08> Assessment and Plan: Postoperative day 6 following hand assisted laparoscopic sigmoid resection due to sigmoid diverticulitis with loop ileostomy for diverticulitis with abscess.? Doing well post op.?VSS. Abd exam with appropriate post op tenderness, incision clean, ileostomy viable appearing and functioning well. Patient fells well and ready for discharge to home. K remains stable. D/c to home today with VNA services. PO flagyl/levaquin course. F/u in office in [address] Goss. <Brianda Lawson PA-C - Last Filed: 02/06/21 09:08> Fall Risk Details Current Medications: Current Medications Amlodipine Besylate (Amlodipine Besylate 5 Mg Tablet) 5 mg PO DAILY IZABELLA; Protocol Last Admin: 02/06/21 08:44 Dose: 5 mg Documented by: Heparin Sodium (Porcine) (Heparin Sodium,Porcine 5,000 Unit/Ml Vial) 5,000 unit SUBCUT Q8H IZABELLA Last Admin: 02/06/21 04:54 Dose: 5,000 unit Documented by: Hydromorphone HCl (Hydromorphone Hcl 0.5 Mg/0.5 Ml Syringe) 0.5 mg IVPUSH Q2H PRN; Protocol PRN Reason: Breakthrough Pain Last Admin: 02/04/21 19:50 Dose: 0.5 mg Documented by: Hydromorphone HCl (Hydromorphone Hcl 4 Mg Tablet) 4 mg PO Q4H PRN PRN Reason: Pain, Moderate (Pain Scale 4-6 Last Admin: 02/04/21 17:30 Dose: 4 mg Documented by: Hydromorphone HCl (Hydromorphone Hcl 1 Mg/Ml Syringe) 1 mg IVPUSH Q2H PRN; Protocol PRN Reason: Pain, Severe (Pain Scale 7-10) Last Admin: 02/06/21 08:45 Dose: 1 mg Documented by: Metronidazole (Flagyl) 500 mg in 100 mls @ 100 mls/hr IV Q8H [facility] Last Admin: 02/06/21 08:44 Dose: 100 mls/hr Documented by: Lidocaine (Lidocaine 4 % Patch Adh..Patch) 1 patch TRANSDERMA DAILY [facility]; Protocol Last Admin: 02/06/21 08:45 Dose: 1 patch Documented by: Lorazepam (Lorazepam 1 Mg Tablet) 1 mg PO TID PRN PRN Reason: Anxiety Last Admin: 02/05/21 15:33 Dose: 1 mg Documented by: Losartan Potassium (Losartan Potassium 50 Mg Tablet) 50 mg PO DAILY IZABELLA; Protocol Last Admin: 02/06/21 08:45 Dose: 50 mg Documented by: Naloxone HCl (Naloxone Hcl 0.4 Mg/Ml Vial) 0.2 mg IVPUSH Q2M PRN PRN Reason: Excessive sedation or RR < 8 Ondansetron HCl (Ondansetron Hcl 4 Mg/2 Ml Vial) 4 mg IVPUSH Q8H PRN PRN Reason: Nausea Last Admin: 02/05/21 05:36 Dose: 4 mg Documented by: <Brianda Lawson PA-C - Last Filed: 02/06/21 09:08> Time Spent With Patient Time: Total time spent is greater than 50% in coordination of care (as documented) at patient's floor/unit and/or counseling patient: <Brianda Lawson PA-C - Last Filed: 02/06/21 09:08> Time with patient: 15 - 24 minutes <Brianda Lawson PA-C - Last Filed: 02/06/21 09:08> Quality Stroke Does the patient have a stroke diagnosis?: No <Brianda Lawson PA-C - Last Filed: 02/06/21 09:08> VTE Prior VTE?: No <Brianda Lawson PA-C - Last Filed: 02/06/21 09:08> VTE Risk Level:: Medical - moderate - high <Brianda Lawson PA-C - Last Filed: 02/06/21 09:08> VTE Device Contraindication: N/A - Device Ordered <Brianda Lawson PA-C - Last Filed: 02/06/21 09:08> VTE Drug Contraindication: N/A - Med Ordered <Brianda Lawson PA-C - Last Filed: 02/06/21 09:08>
--- NOTE | 2021-02-06 11:02 | P.PNIM_ITS ---
Progress Note: A&P (1) Hypertension: Status: Acute Assessment and Plan: 52-year-old woman admitted by General surgery due to acute diverticulitis with large abscess, she is status post laparoscopic? sigmoid resection with diverting loop ileostomy. Pain management, status post resection, anastomosis with diverting loop ileostomy Management as per surgical team Hypertension with elevated blood pressure reading. Better today Likely has some component of pain making this worse continue losartan to 50 mg and Norvasc to 5mg Trend BP closely DVT prophylaxis with mechanical compression boots Will sign off. Attending Dr. Mckinnon Full code Subjective Subjective Date of Service: 02/06/21 Review of Systems follow-up consultation Hypertension improving Physical Exam Vital Signs: Vital Signs: Last Vital Signs Temp 97.4 F 02/06/21 07:46 Pulse 76 02/06/21 07:46 Resp 18 02/06/21 07:46 BP 169/81 H 02/06/21 07:46 Pulse Ox 97 02/06/21 07:46 Body Mass Index 25.7 Appearing in no acute distress lung sounds are clear to auscultation heart regular rate rhythm, clear S1, S2 positive bowel sounds, abdomen is soft, nontender neuro patient is alert x3, no focal deficits Objective Data Current Medications Amlodipine Besylate (Amlodipine Besylate 5 Mg Tablet) 5 mg PO DAILY [facility]ELLA; Protocol Last Admin: 02/06/21 08:44 Dose: 5 mg Documented by: Heparin Sodium (Porcine) (Heparin Sodium,Porcine 5,000 Unit/Ml Vial) 5,000 unit SUBCUT Q8H IZABELLA Last Admin: 02/06/21 04:54 Dose: 5,000 unit Documented by: Hydromorphone HCl (Hydromorphone Hcl 0.5 Mg/0.5 Ml Syringe) 0.5 mg IVPUSH Q2H PRN; Protocol PRN Reason: Breakthrough Pain Last Admin: 02/04/21 19:50 Dose: 0.5 mg Documented by: Hydromorphone HCl (Hydromorphone Hcl 4 Mg Tablet) 4 mg PO Q4H PRN PRN Reason: Pain, Moderate (Pain Scale 4-6 Last Admin: 02/04/21 17:30 Dose: 4 mg Documented by: Hydromorphone HCl (Hydromorphone Hcl 1 Mg/Ml Syringe) 1 mg IVPUSH Q2H PRN; Protocol PRN Reason: Pain, Severe (Pain Scale 7-10) Last Admin: 02/06/21 08:45 Dose: 1 mg Documented by: Metronidazole (Flagyl) 500 mg in 100 mls @ 100 mls/hr IV Q8H IZABELLA Last Infusion: 02/06/21 09:59 Dose: Infused Documented by: Lidocaine (Lidocaine 4 % Patch Adh..Patch) 1 patch TRANSDERMA DAILY [facility]; Protocol Last Admin: 02/06/21 08:45 Dose: 1 patch Documented by: Lorazepam (Lorazepam 1 Mg Tablet) 1 mg PO TID PRN PRN Reason: Anxiety Last Admin: 02/05/21 15:33 Dose: 1 mg Documented by: Losartan Potassium (Losartan Potassium 50 Mg Tablet) 50 mg PO DAILY IZABELLA; Protocol Last Admin: 02/06/21 08:45 Dose: 50 mg Documented by: Naloxone HCl (Naloxone Hcl 0.4 Mg/Ml Vial) 0.2 mg IVPUSH Q2M PRN PRN Reason: Excessive sedation or RR < 8 Ondansetron HCl (Ondansetron Hcl 4 Mg/2 Ml Vial) 4 mg IVPUSH Q8H PRN PRN Reason: Nausea Last Admin: 02/05/21 05:36 Dose: 4 mg Documented by: Labs CBC & Chem 7: 02/06/21 06:00 02/06/21 06:00 Labs: Laboratory Results - last 24 hr 02/06/21 02/06/21 06:00 06:00 MCV 83.6 MCH 28.1 MCHC 33.6 RDW 14.1 Plt Count 361 MPV 9.4 Immature Gran % (Auto) 0.4 Neut % (Auto) 74.7 H Lymph % (Auto) 16.1 L Moody % (Auto) 6.1 Eos % (Auto) 2.4 Baso % (Auto) 0.3 Lymph # (Auto) 2.3 Moody # (Auto) 0.9 Eos # (Auto) 0.3 Baso # (Auto) 0.0 Abs Immat Gran (auto) 0.06 H Absolute Neuts (auto) 10.4 H Absolute Nucleated RBC 0.000 Nucleated RBC % (auto) 0.0 Anion Gap 13 Estim Creat Clear Calc 107.5 Estimated GFR > 60 Fasting Glucose 104 H Calcium 8.7 Magnesium 1.7 Microbiology Microbiology Results: Microbiology 01/27/21 22:11 Blood - Venous Blood Culture - Final No growth after 5 days. 01/27/21 22:10 Blood - Venous Blood Culture - Final No growth after 5 days. Quality Stroke Does the patient have a stroke diagnosis?: No VTE Prior VTE?: No VTE Risk Level:: Medical - moderate - high VTE Device Contraindication: N/A - Device Ordered VTE Drug Contraindication: N/A - Med Ordered
[2021-02-06 11:56] VITALS: BP 149/80; PULSE 92; RESP 20; TEMP 36.4; O2SAT 96
--- NOTE | 2021-02-06 14:23 | W.MHC.F2F ---
Service Date Service Date: 02/06/21 Encounter Date of encounter: 02/06/21 Reasons for Services Signs and symptoms assessed: Patient underwent sigmoid resection, anastomosis a diverting loop ileostomy; assessed for oral intake, stoma function and abdominal exam Reason for intermediate: other (Stoma care) Homebound: Leaving the home is medically contraindicated at this time without the asist of a device and/or another person due th the listed conditions above and below. Certification: Based on the above findings, I certify that this patient is confined to the home and needs intermittent intermediate care, physical therapy and/or speech therapy, or continues to need occupational therapy. The patient is under my care, and I have initiated the establishment of the plan of care. The patient will be followed by a physician who will periodically review the plan of care.
--- NOTE | 2021-02-06 15:15 | W.PM.OPN ---
Operative Note Operative Note Date of Service: 02/06/21
--- NOTE | 2021-02-06 15:34 | P.F2F_ITS ---
Service Date Service Date: 02/06/21 Reasons for Services Signs and symptoms assessed: abdominal pain, abdominal tenderness, ostomy appearance/output Reason for jail: wound care (ileostomy) and postoperative assessment and/or care Homebound: Leaving the home is medically contraindicated at this time without the asist of a device and/or another person due th the listed conditions above and below. Reason homebound: weakness related to hospital stay and unable to drive Homebound supporting statement: Ms. Park underwent a hand assisted laparoscopic sigmoid resection with diverting loop ileostomy for diverticular abscess. She will need VNA services for assistance with care for her new ostomy. Certification: Based on the above findings, I certify that this patient is confined to the home and needs intermittent jail care, physical therapy and/or speech therapy, or continues to need occupational therapy. The patient is under my care, and I have initiated the establishment of the plan of care. The patient will be followed by a physician who will periodically review the plan of care.
--- NOTE | 2021-02-06 16:21 | PM.DS ---
DS: Providers Provider Date of Service: 02/06/21 Date of admission: 01/27/21 23:34 Primary care physician: [facility] Consults: 02/04/21 16:11 Consult to Hospitalist Routine Consulting Provider: Hospitalist Reason For Exam: HTN DS: Diagnosis Discharge Diagnosis (1) Diverticulitis of large intestine with abscess: Status: Acute (2) S/P colon resection: Status: Acute (3) Hypokalemia: Status: Acute (4) Chronic pain: Status: Acute DS: Summary Hospital Course Hospital Course: [age] year-old female with known diverticular disease, who was admitted on the evening of January 27, 2021 because of lower abdominal pain. Her CAT scan at that time showed an intramural abscess about 2.2 cm secondary to acute diverticulitis of the sigmoid colon. She was started on Levaquin and Flagyl. She had worsening of her pain and stated that this was poorly controlled so I repeated the CT scan on January 29 which showed the intramural to be increasing in size along with worsening of the inflammatory changes around the sigmoid. She had persistent pain so I told her that since she has had recurrent disease, it would be best to proceed with sigmoid resection. She initially was hesitant but eventually agreed to proceed with this on 01/31/2021. She therefore underwent hand assisted laparoscopic sigmoid resection, anastomosis, with a diverting loop ileostomy on 01/31/2021. She tolerated procedure well. She had difficult pain control postop as she had been on chronic pain medications for medullary sponge kidney with recurrent kidney stones. She was therefore on a SHIRT SORTER pump. This was switch to p.r.n. IV Dilaudid which she said had worked better. She started to have stoma output on postop day 2. This had improved over the next few days and she was started on regular diet on postop day number 5. She tolerated this well. She developed hypokalemia which improved and resolved with PO supplementation. She eventually had adequate pain control. She had some issues with hypertension and a hospitalist consult was done. She continued to improve well and tolerated regular diet with good stoma function. She was eventually discharged home on February 06, 2021. At time of her discharge, she was tolerating regular diet. She had good stoma function and had good pain control. She is to follow up with Dr. Goss in the office in 2 weeks. Time Spent with Patient Time attestation: Total time spent providing and/or coordinating discharge services: Discharge coordination time: Less than 30 minutes Quality: Stroke Does the patient have a stroke diagnosis?: No Physical Exam Vital Signs: Vital Signs: Last Vital Signs Temp 97.6 F 02/06/21 11:56 Pulse 92 02/06/21 11:56 Resp 20 02/06/21 11:56 BP 149/80 H 02/06/21 11:56 Pulse Ox 96 02/06/21 11:56 Body Mass Index 25.7 Const: General: comfortable and no acute distress Orientation/consciousness: patient oriented x3 Neck: Neck: Yes no lymphadenopathy Resp: Auscultation: clear to auscultation bilaterally Cardio: Rhythm: regular rhythm GI: Other: Midline incision is well-healed, stoma functioning well Palpation (GI): Soft to palpation, nontender and no guarding Neuro: General: patient oriented x3 DS: Data Data Completed and Pending Completed studies during hospitalization [Text1]: Pending at discharge 01/31/21 10:33 Surgical [PTH] Routine Labs on day of discharge: Laboratory Results - last 24 hr 02/06/21 02/06/21 06:00 06:00 WBC 14.0 H RBC 4.02 L Hgb 11.3 L Hct 33.6 L MCV 83.6 MCH 28.1 MCHC 33.6 RDW 14.1 Plt Count 361 MPV 9.4 Immature Gran % (Auto) 0.4 Neut % (Auto) 74.7 H Lymph % (Auto) 16.1 L Evans % (Auto) 6.1 Eos % (Auto) 2.4 Baso % (Auto) 0.3 Lymph # (Auto) 2.3 Evans # (Auto) 0.9 Eos # (Auto) 0.3 Baso # (Auto) 0.0 Abs Immat Gran (auto) 0.06 H Absolute Neuts (auto) 10.4 H Absolute Nucleated RBC 0.000 Nucleated RBC % (auto) 0.0 Sodium 139 Potassium 3.7 D Chloride 106 Carbon Dioxide 24 Anion Gap 13 BUN 11 D Creatinine 0.58 Estim Creat Clear Calc 107.5 Estimated GFR > 60 Fasting Glucose 104 H Calcium 8.[address] scan - pelvis: Radiologist's impression: ITS Impressions Abdomen/Pelvis CT 01/27/21 21:20 IMPRESSION: Findings most consistent with severe acute sigmoid diverticulitis with a 2.2 cm intramural abscess. Redemonstration of numerous bilateral renal calculi without evidence of obstruction. The report will be called to the ordering clinician by a [place] Radiology Physician Nuclear Reactor Technician. Abdomen/Pelvis CT 01/29/21 12:30 IMPRESSION: Worsening sigmoid diverticulitis and increasing intramural abscess now measuring 2.2 x 3.1 cm. No evidence of obstruction or perforation. Bilateral renal stones and bilateral renal cysts. Discharge Plan Discharge Patient Disposition: Home Health Service Discharge Diagnosis: diverticular abscess Referrals: [facility] [Outside] - 1 Week [place] [Primary Care Provider] - 1 Week Jerel Goss MD [Physician] - 1 Week Discharge Medications: New levofloxacin 500 mg tablet 500 mg PO DAILY Qty: 5 RF: 0 metronidazole 500 mg tablet 500 mg PO Q8H Qty: 15 RF: 0 Continued ondansetron HCl [Zofran] 4 mg tablet 4 mg PO Q6H PRN (Reason: nausea and vomiting) Qty: 10 RF: 0 oxycodone 5 mg capsule 5 mg PO QID PRN (Reason: Pain) RF: 0 losartan 25 mg tablet 25 mg PO DAILY RF: 0 naproxen [Naprosyn] 500 mg tablet 500 mg PO DAILY PRN (Reason: knee pain) RF: 0 oxycodone 5 mg tablet 5 - 10 mg PO QID PRN (Reason: severe pain) RF: 0 Discharge Orders: Discharge Order (Routine); Ordered 02/06/21 Ordered By: Jerel Goss Diet: advance to usual diet Activity on Discharge: No heavy lifting Stand Alone Forms: Patient Portal Discharge page, Work/School Release Activity Restrictions/Additional Instructions: If the incision area is tender, you may apply an ice pack for short intervals (No more than 20 minutes on, followed by at least 20 minutes off). Do not apply heat. Do not use creams, lotions, or topical antibiotics unless instructed to do so by your surgeon. These can cause infection or allergic reaction. Ok to shower. NO HEAVY LIFTING (>10lbs). Follow up in office with Dr. Goss. ([phone]) Call Your Doctor If: -Your temperature exceeds 101.5? F -You experience excessive pain or swelling -You have an unexpected reaction to medication -You have excessive bleeding -You experience continued vomiting/nausea -Your incision begins to separate -Your incision shows signs of infection such as increased redness, swelling, excessive pain, drainage (light blood or clear fluid is normal) or heat Care Plan Goals: Return to baseline health and gradual return to activity following recovery period, ostomy care. Health Concerns: diverticular abscess Plan of Treatment: Home with VNA services, ileostomy care Assessment: Doing well post op Discharge Date/Time: 02/06/21 16:17
--- NOTE | 2021-02-07 10:42 | PM.DS ---
DS: Providers Provider Date of Service: 02/06/21 Date of admission: 01/27/21 23:34 Primary care physician: [facility] Attending physician on admission: Jerel Goss Consults: 02/04/21 16:11 Consult to Hospitalist Routine Consulting Provider: Hospitalist Reason For Exam: HTN DS: Diagnosis Discharge Diagnosis (1) Diverticulitis of large intestine with abscess: Status: Acute (2) S/P colon resection: Status: Acute (3) Hypokalemia: Status: Acute (4) Chronic pain: Status: Acute DS: Summary Hospital Course Hospital Course: [age] year-old female with known diverticular disease, who was admitted on the evening of January 27, 2021 because of lower abdominal pain. Her CAT scan at that time showed an intramural abscess about 2.2 cm secondary to acute diverticulitis of the sigmoid colon. She was started on Levaquin and Flagyl. She had worsening of her pain and stated that this was poorly controlled so I repeated the CT scan on January 29 which showed the intramural to be increasing in size along with worsening of the inflammatory changes around the sigmoid. She had persistent pain so I told her that since she has had recurrent disease, it would be best to proceed with sigmoid resection. She initially was hesitant but eventually agreed to proceed with this on 01/31/2021. She therefore underwent hand assisted laparoscopic sigmoid resection, anastomosis, with a diverting loop ileostomy on 01/31/2021. She tolerated procedure well. She had difficult pain control postop as she had been on chronic pain medications for medullary sponge kidney with recurrent kidney stones. She was therefore on a [employer] pump. This was switch to p.r.n. IV Dilaudid which she said had worked better. She started to have stoma output on postop day 2. This had improved over the next few days and she was started on regular diet on postop day number 5. She tolerated this well. She developed hypokalemia which improved and resolved with PO supplementation. She eventually had adequate pain control. She had some issues with hypertension and a hospitalist consult was done. She continued to improve well and tolerated regular diet with good stoma function. She was eventually discharged home on February 06, 2021. At time of her discharge, she was tolerating regular diet. She had good stoma function and had good pain control. She is to follow up with Dr. Goss in the office in 2 weeks. Status at Discharge Functional status at discharge: independent ambulation Overall status at discharge: patient is progressing back to baseline Time Spent with Patient Time attestation: Total time spent providing and/or coordinating discharge services: Discharge coordination time: Greater than 30 minutes Quality: Stroke Does the patient have a stroke diagnosis?: No Physical Exam Vital Signs: Vital Signs: Last Vital Signs Temp 97.6 F 02/06/21 11:56 Pulse 92 02/06/21 11:56 Resp 20 02/06/21 11:56 BP 149/80 H 02/06/21 11:56 Pulse Ox 96 02/06/21 11:56 Body Mass Index 25.7 Const: General: comfortable, no acute distress and alert Orientation/consciousness: patient oriented x3 GI: Other: ileostomy pink, soft stool in appliance Inspection: No distended and Yes incision (clean) Palpation (GI): Soft to palpation and Tenderness to palpation present (GI) (mild, incisional) Skin: General skin exam: no rashes or lesions noted Neuro: General: patient oriented x3 DS: Data Data Completed and Pending Completed studies during hospitalization [Text1]: 01/31/21 10:33 Surgical [PTH] Routine Colon, sigmoid, segmental resection:? Diverticular-associated segmental colitis; one reactive lymph node. Discharge Plan Discharge Patient Disposition: Home Health Service Discharge Diagnosis: diverticular abscess Referrals: [facility] [Outside] - 1 Week [facility] [Primary Care Provider] - 1 Week Jerel Goss MD [Physician] - 1 Week Discharge Medications: New levofloxacin 500 mg tablet 500 mg PO DAILY Qty: 5 RF: 0 metronidazole 500 mg tablet 500 mg PO Q8H Qty: 15 RF: 0 Continued ondansetron HCl [Zofran] 4 mg tablet 4 mg PO Q6H PRN (Reason: nausea and vomiting) Qty: 10 RF: 0 oxycodone 5 mg capsule 5 mg PO QID PRN (Reason: Pain) RF: 0 losartan 25 mg tablet 25 mg PO DAILY RF: 0 naproxen [Naprosyn] 500 mg tablet 500 mg PO DAILY PRN (Reason: knee pain) RF: 0 oxycodone 5 mg tablet 5 - 10 mg PO QID PRN (Reason: severe pain) RF: 0 Discharge Orders: Discharge Order (Routine); Ordered 02/06/21 Ordered By: Jerel Goss Diet: advance to usual diet Activity on Discharge: No heavy lifting Stand Alone Forms: Patient Portal Discharge page, Work/School Release Activity Restrictions/Additional Instructions: If the incision area is tender, you may apply an ice pack for short intervals (No more than 20 minutes on, followed by at least 20 minutes off). Do not apply heat. Do not use creams, lotions, or topical antibiotics unless instructed to do so by your surgeon. These can cause infection or allergic reaction. Ok to shower. NO HEAVY LIFTING (>10lbs). Follow up in office with Dr. Goss. ([phone]) Call Your Doctor If: -Your temperature exceeds 101.5? F -You experience excessive pain or swelling -You have an unexpected reaction to medication -You have excessive bleeding -You experience continued vomiting/nausea -Your incision begins to separate -Your incision shows signs of infection such as increased redness, swelling, excessive pain, drainage (light blood or clear fluid is normal) or heat Care Plan Goals: Return to baseline health and gradual return to activity following recovery period, ostomy care. Health Concerns: diverticular abscess Plan of Treatment: Home with VNA services, ileostomy care Assessment: Doing well post op Discharge Date/Time: 02/06/21 16:17
== END 2021-02-06 16:17 | disposition home health service (06) | DRG 330 ==
LOC: HO.ED 23:18 → HO.EDOVER 23:42 → HO.S3 01-28 14:35
PROVIDERS: Nurse Practitioner Acute Care; Physician Assistant Surgical; Surgery; Admitting Provider Surgery; Emergency Provider Student in an Organized Health Care Education/Training Program; Visit Provider Surgery
DX: K57.20 Diverticulitis of large intestine with perforation and abscess without bleeding (principal); Q61.5 Medullary cystic kidney; F17.210 Nicotine dependence, cigarettes, uncomplicated; I10 Essential (primary) hypertension; Z71.6 Tobacco abuse counseling; E87.6 Hypokalemia; G89.29 Other chronic pain; Z87.442 Personal history of urinary calculi; K66.0 Peritoneal adhesions (postprocedural) (postinfection); Z20.822 Contact with and (suspected) exposure to COVID-19; Z88.0 Allergy status to penicillin; Z88.5 Allergy status to narcotic agent; Z79.1 Long term (current) use of non-steroidal anti-inflammatories (NSAID); Z79.899 Other long term (current) drug therapy
CPT/HCPCS: 36415; 74177; 80048; 80053; 81001; 83605; 83735; 85025; 85027; 85610; 86850; 86900; 86901; 87040; 87635; 88307; 96361; 96365; 96375; 99024; 99285; J0131; J0696; J1100; J1170; J1580; J1885; J1956; J2060; J2250; J2405; J2550; J2765; J3010; Q9967

== ENCOUNTER 2021-02-11 15:31 | Inpatient (IN) | payer OTHER, SELFPAY ==
--- NOTE | ~2021-02-11 | CT_ITS ---
EXAMINATION: CT ABDOMEN AND PELVIS WITH CONTRAST CLINICAL INFORMATION: Question rectovaginal fistula. COMPARISON: CT abdomen and pelvis 01/29/2021 TECHNIQUE: Multidetector volumetric images were obtained from the superior aspect of the liver through the pubic symphysis following administration 85 mL of Omnipaque 350 intravenous contrast. Sagittal and coronal reformatted images were obtained on the technologist's workstation. Oral contrast: No This CT examination was performed using dose optimization techniques as appropriate, variously including the following: *Automated exposure control *Adjustment of mA and/or kV according to patient size (this includes techniques or standardized protocols for targeted exams where dose is matched to indication/reason for exam; i.e. extremities or head) *Use of iterative reconstruction technique DLP: 326 mGy-cm FINDINGS: LUNG BASES: There is platelike atelectasis left lung base. The heart size is normal. LIVER, GALLBLADDER, AND BILIARY TREE: The liver is normal in size, shape, and attenuation. No focal hepatic lesion or biliary ductal dilatation is present. The gallbladder is unremarkable with no evidence of radiopaque gallstones, gallbladder wall thickening, or obvious pericholecystic inflammatory changes. PANCREAS: Unremarkable. SPLEEN: Unremarkable. ADRENAL GLANDS: Unremarkable. KIDNEYS AND URETERS: The kidneys are normal in size, shape, and attenuation. There are bilateral nonobstructive radiopaque calculi and bilateral renal cysts. The largest radiopaque calculi upper pole right kidney measures 7 mm and upper pole left kidney measures 9 mm. BLADDER: Unremarkable. GASTROINTESTINAL TRACT: There is scattered stool and gas seen throughout the colon without distention. There is a sigmoidectomy with annular sutures in the lower pelvis. Previously seen intra-abdominal abscess has been removed. No recurrent fluid collection or abscess is seen. The small bowel loops are normal caliber. There is a right lower quadrant ileostomy. No free fluid or free air is seen. ABDOMINAL WALL: There is a right lower quadrant ileostomy. No evidence of hernia. There are midline abdominal wall sutures in the lower abdomen. LYMPH NODES: Normal. VASCULAR: Unremarkable. PELVIC VISCERA: The uterus is anteverted with fecal residue seen from a known internal vaginal fistula. The anastomotic colon appears to be extending into the anterior wall of the uterus on sagittal image 55/5. OSSEOUS STRUCTURES: No lytic or sclerotic process is seen. 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 There is evidence of previous partial sigmoidectomy anastomotic suture line. Right lower quadrant ileostomy is present. Scattered colonic diverticulosis without active diverticulitis, abscess seen. There is minimal trace free fluid in the pelvis. Bilateral nephrolithiasis and bilateral renal cysts. Minimal atelectatic changes left lung base.
[2021-02-11 16:17] VITALS: BP 138/86; PULSE 76; RESP 14; TEMP 37.3; O2SAT 96; BMI 25.4
--- NOTE | 2021-02-11 16:58 | ED_ITS ---
HPI - Female Genitourinary General Chief complaint: Urogenital-Female <Cindi Reynolds MD - Last Filed: 02/11/21 18:30> Stated complaint: See Stated <Cindi Reynolds MD - Last Filed: 02/11/21 18:30> Time Seen by Provider: 02/11/21 16:17 <Cindi Reynolds MD - Last Filed: 02/11/21 18:30> Source: patient and EMS <Cindi Reynolds MD - Last Filed: 02/11/21 18:30> Mode of arrival: EMS <Cindi Reynolds MD - Last Filed: 02/11/21 18:30> Limitations: no limitations <Cindi Reynolds MD - Last Filed: 02/11/21 18:30> History of Present Illness HPI Narrative: 60-year-old female known to have diverticular disease ladder recent hospitalization for abdominal pain, patient underwent hand assisted laparoscopic sigmoid resection, and anastomosis, with loop ileostomy by Dr. Goss, patient continue to improve with surgically, patient returned today because been having large amount of stool coming out of her vagina since she was discharged. Patient declined any fever chills. Patient was discharged home on levofloxacin and Flagyl. <Cindi Reynolds MD - Last Filed: 02/11/21 18:30> Related Data Home medications: Home Medications Medication Instructions Recorded Confirmed losartan 25 mg tablet 25 mg PO DAILY 04/17/20 02/11/21 naproxen 500 mg tablet (Naprosyn) 500 mg PO DAILY PRN tab 04/17/20 02/11/21 oxycodone 5 mg tablet 5 - 10 mg PO QID PRN 01/03/21 02/11/21 Previous Rx's Medication Instructions Recorded ondansetron HCl 4 mg tablet 4 mg PO Q6H PRN #10 tab 04/09/20 (Zofran) levofloxacin 500 mg tablet 500 mg PO DAILY #5 tab 02/06/21 metronidazole 500 mg tablet 500 mg PO Q8H #15 tab 02/06/21 <Cindi Reynolds MD - Last Filed: 02/11/21 18:30> Allergies/Adverse reactions: Allergies Allergy/AdvReac Type Severity Reaction Status Date / Time Penicillins Allergy Severe ANAPHYLAXIS Verified 01/03/21 09:00 morphine [MORPHINE] Allergy Intermediate TACHYCARDIA, Verified 01/03/21 09:00 HIVES, ITCHING <Cindi Reynolds MD - Last Filed: 02/11/21 18:30> Review of Systems Review of Systems: All other systems are reviewed and are negative Constitutional: Reports as per HPI and Reports no additional constitutional complaints Eyes: Reports as per HPI and Reports no additional eye complaints Reports system reviewed and no additional complaints, except as documented Cardiovascular: Reports as per HPI and Reports no additional cardiovascular complaints Respiratory: Reports as per HPI and Reports no additional respiratory complaints Gastrointestinal: Reports as per HPI and Reports no additional gastrointestinal complaints Genitourinary: Reports no additional female genitourinary complaints Musculoskeletal: Reports no additional musculoskeletal complaints Skin/Breast: Reports system reviewed and no additional complaints, except as docu Psychiatric: Reports no additional psychiatric complaints Endocrine: Reports no additional endocrine complaints Hematologic/Lymphatic: Reports no additional hematologic/lymphatic complaints Allergic/Immunologic: Reports no additional allergic/immunologic complaints Reports system reviewed and no additional complaints, except as documented and Reports Abnormal speech present <Cindi Reynolds MD - Last Filed: 02/11/21 18:30> COUNTS INCLUDE 234 BEDS AT THE [facility] Past Medical History Medical History: Medical History Chronic pain Current vaping on some days History of urinary tract infection Kidney stones Medullary sponge kidney <Cindi Reynolds MD - Last Filed: 02/11/21 18:30> Surgical History: Surgical History History of arthroplasty of right knee (~01/2018) Hx of colonoscopy Hx of cystoscopy Status post appendectomy Status post bunionectomy (~09/2011) Status post hysterectomy Status post tonsillectomy <Cindi Reynolds MD - Last Filed: 02/11/21 18:30> Family History Family History: Family History Father HTN (hypertension) Cancer of kidney Mother Dementia Age related osteoporosis <Cindi Reynolds MD - Last Filed: 02/11/21 18:30> Social History Social History: Social History Household Members: Children Housing: Apartment Do you presently have visiting nurse or other home services: Yes ([facility]) Alcohol intake: never Patient Tobacco Use Status: Current everyday Tobacco user Tobacco use type: Cigarette Cigarettes Per Day: 1 e-Cigarette/Vaping Use: Currently Using Second Hand Smoke Exposure: No Use of substances other than those prescribed or required for medical reasons: No Substance Use Type: Marijuana Advance Directives: No Advance Directives Information Provided: No Patient : No service: No Current occupational status: unemployed <Cindi Reynolds MD - Last Filed: 02/11/21 18:30> Physical Exam Vital Signs: Vital Signs: Last Vital Signs Temp 100.6 F H 02/11/21 18:41 Pulse 74 02/11/21 18:47 Resp 15 02/11/21 18:47 BP 134/71 02/11/21 18:47 Pulse Ox 96 02/11/21 18:47 Body Mass Index 25.4 Vital signs have been reviewed as appeared to be correct. Blood pressure normal. Heart rate normal. Respiration rate normal. Temperature normal. Oxygen saturation normal. <Cindi Reynolds MD - Last Filed: 02/11/21 18:30> Vital Signs: Last Vital Signs Temp 100.6 F H 02/11/21 18:41 Pulse 74 02/11/21 18:47 Resp 15 02/11/21 18:47 BP 134/71 02/11/21 18:47 Pulse Ox 96 02/11/21 18:47 Body Mass Index 25.4 <Jamey Camarena MD - Last Filed: 02/11/21 21:58> Appearance: Alert. Oriented X3. No acute distress. Head: Normal external exam. Normocephalic. Atraumatic. No Guerrero signs noted. No raccoon eyes noted Eyes: PERRLA. EOMI. Conjunctiva and sclera normal. Eyelids normal. ENT: TM's Normal. Pharynx normal. Uvula midline. Moist mucous membranes. No trismus noted. No drooling noted. No muffled voice noted. Neck: Normal inspection. Neck supple. FROM. No adenopathy. Thyroid Normal. No meningeal signs. No neck mass noted. CVS: Normal heart rate and rhythm. Heart sound normal. No murmurs noted. Pulses normal throughout. Respiratory: No respiratory distress. Painless inspiration. Breath sounds normal. No wheezes/rales/rhonchi noted. Chest nontender. No accessory muscle usage noted or decreased air movement noted. Abdomen: Soft and nontender. Postsurgical scars and oly appear dry and clean and intact, diverting ileostomy is intact. Bowel sounds normal in all 4 quadrants. No distention noted. No organomegaly noted. No visible injury noted. Pelvic exam: Large amount of stool coming from the vaginal vault. Back: No CVA tenderness. Full range of motion noted. Skin: Skin warm and dry. Normal skin color. Normal skin turgor. No rashes/lesions/lacerations noted. Extremities: No lower extremity edema. Extremities exhibit normal range of motion. Extremities nontender. Neuro: Oriented X 3. Cranial nerve exam: II-XII are grossly intact No motor deficit. No sensory deficit. Reflexes normal. <Cindi Reynolds MD - Last Filed: 02/11/21 18:30> Course Course Course Narrative: Assessment and plan. 60-year-old female status post colectomy with ileostomy last week, patient presented with discharge of fecal material from the vagina likely secondary to fistula. Patient not septic, leukocyte is trending down from last week, case discussed with Dr. Roach to admit the patient. <Cindi Reynolds MD - Last Filed: 02/11/21 18:30> MDM - Female Genitourinary Lab Data Attestation: I reviewed the patient's lab results. <Cindi Reynolds MD - Last Filed: 02/11/21 18:30> Result diagrams: : 02/11/21 16:58 02/11/21 16:58 <Cindi Reynolds MD - Last Filed: 02/11/21 18:30> Labs: Lab Results 02/11/21 02/11/21 02/11/21 Range/Units 16:58 16:58 16:58 WBC 13.3 H (4.8-10.8) X10*3/uL RBC 4.12 L (4.20-5.50) X10*6/uL Hgb 11.7 L (12.0-16.0) g/dl Hct 35.0 L (37-47) % MCV 85.0 (80-98) fL MCH 28.4 (27.0-33.0) pg MCHC 33.4 (31.0-35.0) g/dl RDW 15.0 (11.0-16.0) % Plt Count 580 H D (160-400) X10*3/uL MPV 8.9 L (9.4-12.3) fL Immature Gran % (Auto) 0.4 (0.0-0.4) % Neut % (Auto) 73.2 H (45-73) % Lymph % (Auto) 19.4 L (20-40) % Whitley % (Auto) 5.0 (2-11) % Eos % (Auto) 1.8 (0-4) % Baso % (Auto) 0.2 (0-2) % Lymph # (Auto) 2.6 (1.2-4.9) X10*3/uL Whitley # (Auto) 0.7 (0.1-1.2) X10*3/uL Eos # (Auto) 0.2 (0.0-0.4) X10*3/uL Baso # (Auto) 0.0 (0.0-0.2) X10*3/uL Abs Immat Gran (auto) 0.05 H (0.00-0.03) X10*3/uL Absolute Neuts (auto) 9.8 H (2.0-8.3) X10*3/uL Absolute Nucleated RBC 0.000 (0.0-0.012) X10*3/uL Nucleated RBC % (auto) 0.0 (0.0-0.2) /100WBC Sodium 142 (135-145) mmol/L Potassium 3.9 (3.3-5.1) mmol/L Chloride 110 H (96-108) mmol/L Carbon Dioxide 23 (22-29) mmol/L Anion Gap 13 (12-20) BUN 13 (9-16) mg/dL Creatinine 0.67 (0.5-1.4) mg/dL Estim Creat Clear Calc 89.5 Estimated GFR > 60 Random Glucose 91 (60-115) mg/dL Lactic Acid 0.9 (0.5-2.0) mmol/L Calcium 9.4 D (8.4-10.2) mg/dL Total Bilirubin 0.6 (0.0-1.0) mg/dL Direct Bilirubin 0.3 (0.0-0.5) mg/dL AST 12 (5-31) U/L ALT 16 (0-31) U/L Alkaline Phosphatase 100 (39-117) U/L Total Protein 7.1 (6.5-8.0) g/dL Albumin 3.9 (3.5-5.0) g/dL Lipase 18 (8-78) U/L <Cindi Reynolds MD - Last Filed: 02/11/21 18:30> Lab Results 02/11/21 02/11/21 02/11/21 Range/Units 16:58 16:58 16:58 WBC 13.3 H (4.8-10.8) X10*3/uL RBC 4.12 L (4.20-5.50) X10*6/uL Hgb 11.7 L (12.0-16.0) g/dl Hct 35.0 L (37-47) % MCV 85.0 (80-98) fL MCH 28.4 (27.0-33.0) pg MCHC 33.4 (31.0-35.0) g/dl RDW 15.0 (11.0-16.0) % Plt Count 580 H D (160-400) X10*3/uL MPV 8.9 L (9.4-12.3) fL Immature Gran % (Auto) 0.4 (0.0-0.4) % Neut % (Auto) 73.2 H (45-73) % Lymph % (Auto) 19.4 L (20-40) % Whitley % (Auto) 5.0 (2-11) % Eos % (Auto) 1.8 (0-4) % Baso % (Auto) 0.2 (0-2) % Lymph # (Auto) 2.6 (1.2-4.9) X10*3/uL Whitley # (Auto) 0.7 (0.1-1.2) X10*3/uL Eos # (Auto) 0.2 (0.0-0.4) X10*3/uL Baso # (Auto) 0.0 (0.0-0.2) X10*3/uL Abs Immat Gran (auto) 0.05 H (0.00-0.03) X10*3/uL Absolute Neuts (auto) 9.8 H (2.0-8.3) X10*3/uL Absolute Nucleated RBC 0.000 (0.0-0.012) X10*3/uL Nucleated RBC % (auto) 0.0 (0.0-0.2) /100WBC Sodium 142 (135-145) mmol/L Potassium 3.9 (3.3-5.1) mmol/L Chloride 110 H (96-108) mmol/L Carbon Dioxide 23 (22-29) mmol/L Anion Gap 13 (12-20) BUN 13 (9-16) mg/dL Creatinine 0.67 (0.5-1.4) mg/dL Estim Creat Clear Calc 89.5 Estimated GFR > 60 Random Glucose 91 (60-115) mg/dL Lactic Acid 0.9 (0.5-2.0) mmol/L Calcium 9.4 D (8.4-10.2) mg/dL Total Bilirubin 0.6 (0.0-1.0) mg/dL Direct Bilirubin 0.3 (0.0-0.5) mg/dL AST 12 (5-31) U/L ALT 16 (0-31) U/L Alkaline Phosphatase 100 (39-117) U/L Total Protein 7.1 (6.5-8.0) g/dL Albumin 3.9 (3.5-5.0) g/dL Lipase 18 (8-78) U/L <Jamey Camarena MD - Last Filed: 02/11/21 21:58> Discharge Plan Discharge Patient Disposition: Admitted As Inpatient <Cindi Reynolds MD - Last Filed: 02/11/21 18:30> Interventions: Admission Worksheet (ED) Last Done: 02/11/21 21:25 <Cindi Reynolds MD - Last Filed: 02/11/21 18:30>
[2021-02-11 17:05] LABS: MANUAL DIFF FLAG NO
[2021-02-11 17:07] LABS: Basophils Percent Auto 0.2 % (0-2); Eosinophils Absolute Auto 0.2 X10*3/uL (0.0-0.4); Eosinophils Percent Auto 1.8 % (0-4); Hemoglobin 11.7 g/dl (12.0-16.0); Imm Gran Abs Auto 0.05 X10*3/uL (0.00-0.03); Imm Gran Pct Auto 0.4 % (0.0-0.4); Lymphocytes Absolute Auto 2.6 X10*3/uL (1.2-4.9); Lymphocytes Percent Auto 19.4 % (20-40); Mean Corpuscular HGB Conc 33.4 g/dl (31.0-35.0); Mean Corpuscular Hemoglobin 28.4 pg (27.0-33.0); Mean Platelet Volume 8.9 fL (9.4-12.3); Monocytes Absolute Auto 0.7 X10*3/uL (0.1-1.2); Neutrophils Absolute Auto 9.8 X10*3/uL (2.0-8.3); Neutrophils Percent Auto 73.2 % (45-73); Platelet Count 580 X10*3/uL (160-400); Red Blood Count 4.12 X10*6/uL (4.20-5.50); White Blood Count 13.3 X10*3/uL (4.8-10.8)
--- NOTE | 2021-02-11 17:09 | PC.NURSE ---
The pt presents to the ED alert and orineted x 3 for evaluation of foul smelling, brown discharge from her vagina . She states she had recent bowel resection/ostomy placement due to severe diverticulitis. # days ago she began to notice foul smelling brown discharge from her vagina and I knew that wasn't right. She admits to low grade fevers at home. She has not had any lightheadedness/dizziness/ Speech clear and appropriate. Skin pale, warm and dry. No chest pain. No difficulty breathing. I attempted to obtain IV access x 2 unsuccessfully. Labs obtained. Will request another RN attempt IV placement.
[2021-02-11 17:16] LABS: Lactic Acid 0.9 mmol/L (0.5-2.0)
[2021-02-11 17:22] LABS: Alanine Aminotransferase 16 U/L (0-31); Albumin Level 3.9 g/dL (3.5-5.0); Alkaline Phosphatase 100 U/L (39-117); Anion Gap 13 (12-20); Aspartate Amino Transferase 12 U/L (5-31); Bilirubin Direct 0.3 mg/dL (0.0-0.5); Bilirubin Total 0.6 mg/dL (0.0-1.0); Blood Urea Nitrogen 13 mg/dL (9-16); Calcium 9.4 mg/dL (8.4-10.2); Carbon Dioxide 23 mmol/L (22-29); Chloride 110 mmol/L (96-108); Creatinine Clr Calc Pharmacy 89.5; Estimated Glomerular Filt Rate > 60; Glucose Random 91 mg/dL (60-115); Lipase 18 U/L (8-78); Potassium 3.9 mmol/L (3.3-5.1); Sodium 142 mmol/L (135-145); Total Protein 7.1 g/dL (6.5-8.0)
[2021-02-11] MEDS: HYDROmorphone HCl 1 MG/ML SYRINGE IVPUSH (18:34)
[2021-02-11 18:41] VITALS: BP 134/71; PULSE 84; RESP 20; TEMP 38.1; O2SAT 96
[2021-02-11 18:47] VITALS: BP 134/71; PULSE 74; RESP 15; O2SAT 96
[2021-02-11] MEDS: levoFLOXacin/D5W 500 MG/100 ML PIGGYBACK 100 MG IV (19:16)
[2021-02-11 19:54] LABS: COVID-19 Test Negative (Negative)
[2021-02-11] MEDS: Dextrose 5 % and Lactated Ring 1,000 ML 125 ML IVCONT (19:58)
[2021-02-11] MEDS: metroNIDAZOLE/NS 500 MG/100 ML PIGGYBACK 100 MG IV (20:31)
[2021-02-11 22:04] VITALS: BP 153/76; PULSE 70; RESP 18; TEMP 36.1; O2SAT 96
[2021-02-11] MEDS: oxyCODONE HCl Immed Release 5 MG TABLET PO (22:30)
[2021-02-11] MEDS: Zolpidem Tartrate 5 MG TABLET PO (22:31)
[2021-02-11 23:30] VITALS: BP 156/74; PULSE 69; RESP 18; TEMP 36.6; O2SAT 97
[2021-02-12] VITALS (10 sets, daily range): BP systolic 122–150; BP diastolic 59–77; PULSE 63–96; RESP 16–18; TEMP 36.1–37.3; O2SAT 95–97
[2021-02-12] MEDS: metroNIDAZOLE/NS 500 MG/100 ML PIGGYBACK 100 MG IV ×4 (01:26→19:51)
[2021-02-12] MEDS: HYDROmorphone HCl 0.5 MG/0.5 ML SYRINGE IVPUSH ×5 (02:08→19:22)
[2021-02-12] MEDS: oxyCODONE HCl Immed Release 5 MG TABLET PO (04:45)
[2021-02-12] MEDS: Dextrose 5 % and Lactated Ring 1,000 ML 125 ML IVCONT ×3 (04:46→22:36)
[2021-02-12 06:08] LABS: MANUAL DIFF FLAG NO
[2021-02-12 06:32] LABS: Anion Gap 10 (12-20); Blood Urea Nitrogen 10 mg/dL (9-16); Calcium 8.8 mg/dL (8.4-10.2); Carbon Dioxide 23 mmol/L (22-29); Chloride 111 mmol/L (96-108); Creatinine Clr Calc Pharmacy 98.3; Estimated Glomerular Filt Rate > 60; Glucose Random 119 mg/dL (60-115); Potassium 3.7 mmol/L (3.3-5.1); Sodium 140 mmol/L (135-145)
[2021-02-12 06:48] LABS: Basophils Percent Auto 0.3 % (0-2); Eosinophils Absolute Auto 0.3 X10*3/uL (0.0-0.4); Eosinophils Percent Auto 2.9 % (0-4); Hematocrit 30.1 % (37-47); Hemoglobin 10.1 g/dl (12.0-16.0); Imm Gran Abs Auto 0.04 X10*3/uL (0.00-0.03); Imm Gran Pct Auto 0.4 % (0.0-0.4); Lymphocytes Absolute Auto 2.6 X10*3/uL (1.2-4.9); Lymphocytes Percent Auto 22.8 % (20-40); Mean Corpuscular HGB Conc 33.6 g/dl (31.0-35.0); Mean Corpuscular Hemoglobin 28.3 pg (27.0-33.0); Mean Corpuscular Volume 84.3 fL (80-98); Mean Platelet Volume 9.2 fL (9.4-12.3); Monocytes Absolute Auto 0.8 X10*3/uL (0.1-1.2); Monocytes Percent Auto 6.7 % (2-11); Neutrophils Absolute Auto 7.5 X10*3/uL (2.0-8.3); Neutrophils Percent Auto 66.9 % (45-73); Platelet Count 507 X10*3/uL (160-400); Red Blood Count 3.57 X10*6/uL (4.20-5.50); White Blood Count 11.2 X10*3/uL (4.8-10.8)
--- NOTE | 2021-02-12 07:37 | P.HPGS_ITS ---
History of Present Illness History of Present Illness Date of Service: 02/12/21 <Brianda Lawson PA-C - Last Filed: 02/12/21 08:46> 02/15/21 <Jerel Goss MD - Last Filed: 02/15/21 11:55> Chief complaint: Colovaginal fistula <Brianda Lawson PA-C - Last Filed: 02/12/21 08:46> Narrative: Arpita Park is a 60 year old female who presented with complaints of stool from the vagina. This began Thursday. She underwent a TOMMY sigmoid resection with colorectal anastomosis and diverting loop ileostomy on 01/31/21 for sigmoid diverticulitis with intramural abscess which was uneventful. She had an uncomplicated post operative course, did very well and was discharged to home on 02/06/21 on a course of PO levaquin/flagyl. She had been doing very well at home. Her pain was improving and she was taking oxycodone less frequently for the incisional pain. She then noticed the stool from her vagina after a couple of days at home. She has been wearing pads for this. Her ileostomy has been functioning well. She denies fever, chills, abdominal pain, anorexia. She called the office and was instructed to see Dr. Goss in the office but she did not want to wait and therefore presented to the ED. In the ED, CBC, BMP and LFTs were obtained which was significant for a WBC count of 13.3 which had actually improved from her leukocytosis at time of discharge. Pelvic exam revealed a large amount of stool within the vaginal vault. <Brianda Lawson PA-C - Last Filed: 02/12/21 08:46> Review of Systems Constitutional: Constitutional: Denies chills, Denies fever(s), Denies malaise and Denies weakness <Brianda Lawson PA-C - Last Filed: 02/12/21 08:46> ENT: Denies dizziness <GENA Younger Last Filed: 02/12/21 08:46> Cardiovascular: Cardiovascular: Denies chest pain and Denies dyspnea <Brianda Lawson PA-C - Last Filed: 02/12/21 08:46> Respiratory: Respiratory: Denies cough and Denies dyspnea <Brianda Lawson PA-C - Last Filed: 02/12/21 08:46> Gastrointestinal: Gastrointestinal: Reports as per HPI <Brianda Lawson PA-C Last Filed: 02/12/21 08:46> Genitourinary: Genitourinary: Denies hematuria, Denies dysuria, Reports vaginal discharge and Reports vaginal odor <GENA Younger Last Filed: 02/12/21 08:46> Integumentary/Breasts: Skin/Breast: Denies rash <GENA Younger Last Filed: 02/12/21 08:46> Neurologic: Denies dizziness and Denies weakness <Brianda Lawson PA-C Last Filed: 02/12/21 08:46> PMFSH Past Medical History Medical History: Medical History Chronic pain Current vaping on some days History of urinary tract infection Kidney stones Medullary sponge kidney <GENA Younger Last Filed: 02/12/21 08:46> Family History Family History: Family History Father HTN (hypertension) Cancer of kidney Mother Dementia Age related osteoporosis <GENA Younger Last Filed: 02/12/21 08:46> Surgical History Surgical History: Surgical History History of arthroplasty of right knee (~01/2018) Hx of colonoscopy Hx of cystoscopy Status post appendectomy Status post bunionectomy (~09/2011) Status post hysterectomy Status post tonsillectomy <GENA Younger Last Filed: 02/12/21 08:46> Social History Social History: Social History Household Members: Children Housing: Apartment Do you presently have visiting nurse or other home services: Yes (post op visiting nurses since last week) Alcohol intake: never Patient Tobacco Use Status: Current someday Tobacco user Tobacco use type: Cigarette Cigarettes Per Day: 1 Smoked in Last 30 Days: Yes e-Cigarette/Vaping Use: Currently Using Second Hand Smoke Exposure: No Use of substances other than those prescribed or required for medical reasons: Yes Substance Use Type: Marijuana Currently Displaying Signs/Symptoms of Drug Intoxication Withdrawal: No Have you been hit, kicked, punched, or otherwise hurt by someone within the past year? If so, by whom?: No Do you feel safe in your current relationship?: No Current Relationship Is there a partner from a previous relationship who is making you feel unsafe now?: No Are you made to feel afraid or neglected: No Advance Directives: No Advance Directives Information Provided: No Do you have thoughts of harming others: None Do you have a plan to hurt others: No Plan Recently lost weight without trying: No Nutrition Risks: No Nutritional Risk Patient : No service: No Current occupational status: unemployed <Brianda Lawson PA-C - Last Filed: 02/12/21 08:46> Meds Allergies/Adverse reactions: Allergies Allergy/AdvReac Type Severity Reaction Status Date / Time Penicillins Allergy Severe ANAPHYLAXIS Verified 01/03/21 09:00 morphine [MORPHINE] Allergy Intermediate TACHYCARDIA, Verified 01/03/21 09:00 HIVES, ITCHING <GENA Younger Last Filed: 02/12/21 08:46> Active Medications: Current Medications Acetaminophen (Acetaminophen 325 Mg Tablet) 650 mg PO QID PRN PRN Reason: headache, temp > 101 Hydromorphone HCl (Hydromorphone Hcl 0.5 Mg/0.5 Ml Syringe) 0.5 mg IVPUSH Q3H PRN; Protocol PRN Reason: Pain, Severe (Pain Scale 7-10) Last Admin: 02/12/21 06:07 Dose: 0.5 mg Documented by: Dextrose/Lactated Ringer's (D5lr) 1,000 mls @ 125 mls/hr IVCONT .Q8H [facility] Last Infusion: 02/12/21 06:13 Dose: 0 mls/hr Documented by: Levofloxacin (Levaquin) 500 mg in 100 mls @ 100 mls/hr IV Q24H [facility] Last Infusion: 02/11/21 20:16 Dose: Infused Documented by: Metronidazole (Flagyl) 500 mg in 100 mls @ 100 mls/hr IV Q6H [facility] Last Admin: 02/12/21 06:14 Dose: 100 mls/hr Documented by: Ondansetron HCl (Ondansetron Hcl 4 Mg/2 Ml Vial) 4 mg IVPUSH QID PRN PRN Reason: Nausea Oxycodone HCl (Oxycodone Hcl Immed Release 5 Mg Tablet) 5 mg PO Q6H PRN PRN Reason: Pain, Moderate (Pain Scale 4-6 Last Admin: 02/12/21 04:45 Dose: 5 mg Documented by: Pharmacy Consult (Consult Rx Perform Med Rec) 1 each MISCELLANE ONCE PRN PRN Reason: Consult order Sodium Chloride (0.9 % Sodium Chloride Flush 3 Ml Syringe) 3 ml IVFLUSH QSHIFT [facility] Last Admin: 02/11/21 23:13 Dose: Not Given Documented by: Zolpidem Tartrate (Zolpidem Tartrate 5 Mg Tablet) 5 mg PO BEDTIME PRN PRN Reason: Insomnia Last Admin: 02/11/21 22:31 Dose: 5 mg Documented by: <Brianda Lawson PA-C - Last Filed: 02/12/21 08:46> Home medications: Home Medications Medication Instructions Recorded Confirmed Last Taken Type losartan 25 mg tablet 25 mg PO DAILY 04/17/20 02/11/21 Unknown History naproxen 500 mg tablet (Naprosyn) 500 mg PO DAILY PRN tab 04/17/20 02/11/21 Unknown History oxycodone 5 mg tablet 5 - 10 mg PO QID PRN 01/03/21 02/11/21 Unknown History <Brianda Lawson PA-C - Last Filed: 02/12/21 08:46> Physical Exam Vital Signs: Vital Signs: Last Vital Signs Temp 97.0 F 02/12/21 07:25 Pulse 85 02/12/21 07:25 Resp 16 02/12/21 07:25 BP 122/59 L 02/12/21 07:25 Pulse Ox 96 02/12/21 07:25 Body Mass Index 25.4 <GENA Younger Last Filed: 02/12/21 08:46> Const: General: healthy appearing, comfortable, no acute distress and alert <GENA Younger Last Filed: 02/12/21 08:46> Orientation/consciousness: patient oriented x3 <Brianda Cabezasdeau GENA Oro Last Filed: 02/12/21 08:46> Resp: Effort & Inspection: normal respiratory effort <Brianda Cabezasdeau GENA Oro Last Filed: 02/12/21 08:46> Cardio: Rate: regular rate <Brianda Lawson GENA Oro Last Filed: 02/12/21 08:46> GI: Other: ileostomy pink, light brown, soft stool in appliance <Brianda Cabezasdeau GENA - Last Filed: 02/12/21 08:46> Inspection: No distended and Yes incision (clean) <Brianda Cabezasdeau GENA Oro Last Filed: 02/12/21 08:46> Palpation (GI): Soft to palpation, Tenderness to palpation present (GI) (very mild incisional), no guarding and not rigid <Brianda Cabezasnatividad GENA Oro Last Filed: 02/12/21 08:46> : External Female Exam: other <Brianda Cabezasdeau GENA Oro Last Filed: 02/12/21 08:46> Skin: Other: normal color warm and dry <Brianda Cabezasdeau GENA Oro Last Filed: 02/12/21 08:46> General skin exam: no rashes or lesions noted <Brianda Cabezasdeau GENA Oro Last Filed: 02/12/21 08:46> Neuro: General: patient oriented x3 <Brianda Morasaturnino GENA Oro Last Filed: 02/12/21 08:46> Extrem: General: Yes no clubbing, cyanosis or edema <Brianda Morasaturnino GENA Oro Last Filed: 02/12/21 08:46> Results Results Labs: Short CBC 02/11/21 02/12/21 Range/Units 16:58 05:58 WBC 13.3 H 11.2 H (4.8-10.8) X10*3/uL Hgb 11.7 L 10.1 L (12.0-16.0) g/dl Hct 35.0 L 30.1 L (37-47) % Plt Count 580 H D 507 H (160-400) X10*3/uL BMP 02/11/21 02/12/21 16:58 05:58 Sodium 142 140 Potassium 3.9 3.7 Chloride 110 H 111 H Carbon Dioxide 23 23 BUN 13 10 Creatinine 0.67 0.61 Calcium 9.4 D 8.8 D Liver Function 02/11/21 Range/Units 16:58 Total Bilirubin 0.6 (0.0-1.0) mg/dL Direct Bilirubin 0.3 (0.0-0.5) mg/dL AST 12 (5-31) U/L ALT 16 (0-31) U/L Alkaline Phosphatase 100 (39-117) U/L Albumin 3.9 (3.5-5.0) g/dL <Brianda Lawson PA-C - Last Filed: 02/12/21 08:46> Assessment and Plan (1) Colovaginal fistula: Status: Acute <Brianda Lawson PA-C - Last Filed: 02/12/21 08:46> Patient is known to me Underwent urgent sigmoid resection, reanastomosis and diverting loop ileostomy because of severe diverticulitis with worsening intramural abscess last January 31 Had been doing very well at home Started to note feculent vaginal drainage 2 days ago Stoma has been functioning well Abdomen soft and benign Patient otherwise feels well and denies any abdominal pain Will check CT scan Explained plan to patient Seen and examined independently <Jerel Goss MD - Last Filed: 02/15/21 11:55> 60 year old female who is almost 2 weeks s/p TOMMY sigmoid resection with colorectal anastomosis and diverting loop ileostomy for diverticular abscess who presents with stool from her vagina beginning Thursday. The patient was admitted to the surgical service for further workup. This is likely due to colovaginal fistula but will obtain CT scan abd/pelvis with PO contrast to further evaluate. She is clinically appearing well without signs of sepsis. Her WBC continues to downtrend. Continue IV flagyl/levaquin, IVF, temporary NPO status for now. If fistula is confirmed, likely will continue nonoperative measures as she is already diverted with the loop ileostomy. This was discussed with the patient in detail. Case discussed with Dr. Goss. <Brianda Lawson PA-C - Last Filed: 02/12/21 08:46> Quality Stroke Does the patient have a stroke diagnosis?: No <Brianda Lawson PA-C - Last Filed: 02/12/21 08:46> VTE Prior VTE?: No <Brianda Lawson PA-C - Last Filed: 02/12/21 08:46> VTE Risk Level:: Surgical - moderate <Brianda Lawson PA-C - Last Filed: 02/12/21 08:46> VTE Device Contraindication: N/A - Device Ordered <Brianda Lawson PA-C - Last Filed: 02/12/21 08:46> VTE Drug Contraindication: Treatment Not Indicated <Brianda Lawson PA-C - Last Filed: 02/12/21 08:46> Procedures Date of Service Date of Service: 02/12/21 <Brianda Lawson PA-C - Last Filed: 02/12/21 08:46>
--- NOTE | 2021-02-12 08:09 | P.CDIC_ITS ---
CDI Concurrent Query Documentation Clarification: PHYSICIAN'S DOCUMENTATION REQUEST Date of Query: 02/12/21 0810 Patient Name: Arpita Park Admit Date: 02/11/21 Dear Doctor, A review of the medical record indicates additional documentation may be needed. Please review below and update the documentation accordingly. Clinical Indicators: Risk Factors/Clinical Indicators/Treatments Per H&P: Colovaginal Fistula T 100.6 WBC 13.3 On Levaquin and Flagyl Please clarify which, if any, of the following is the most likely etiology of the above symptoms and treatment rendered: * Sepsis * Systemic manifestations of infection, with 2 or more SIRS criteria which include: - Fever > 100.4F or hypothermia < 96.8 F - Leukocytosis - WBC > 12,000 or leukopenia, WBC < 4,000 or > 10% bands - Tachycardia > 90 beats/minute - Tachypnea - RR > 20 breaths/minute or PaCO2 < 32mmHg (Source: Merck Manual 2013) * Indicate the known or suspected organism * Indicate the known or suspected underlying infection, such as UTI, pneumonia, or cellulitis * Indicate if a suspected bacterial infection of unknown source * Indicate if associated with an implanted device such as a F/C, PICC line, orthopedic hardware, etc. * Severe Sepsis * Sepsis with associated acute organ dysfunction, such as renal or respiratory failure * Documentation should indicate the association between the sepsis and the organ dysfunction * Localized infection only, without systemic illness - indicate the site/source, such as UTI, pneumonia, etc. * Other (please specify) * Unable to determine Use of terms such as suspected, likely, concern for, or probable (associated with a specific diagnosis that is being evaluated, monitored, or treated as if it exists) are acceptable and can be coded in the inpatient setting, when documented at the time of discharge. Thank you, Chel Mckinnon RN Extension: [phone] Please use your independent medical judgment in providing your response. THIS QUERY IS PART OF THE PERMANENT MEDICAL RECORD Provider Response: Other (Not treating for sepsis) Other Diagnosis: Colovaginal fistula
--- NOTE | 2021-02-12 10:09 | MHC.CM.PN ---
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 D/C PLAN: HOME W/RESUMP OF [facility], FAMILY FOR TRANSPORT.
[2021-02-12] MEDS: 0.9 % Sodium Chloride Flush 3 ML SYRINGE IVFLUSH (10:32)
[2021-02-12] MEDS: iohexoL 350 MG/ML 100 ML INFUS..BTL IV (11:49)
--- NOTE | 2021-02-12 16:55 | PM.EVENT ---
Event Note Date of Service: 02/13/21 Event Note: Patient anxious about fistulous drainage Very frustrated as she says that she had been doing well at home until Thursday Abdomen remained soft Stoma functioning well CT reviewed - fistulous connection may be from staple line Will allow further drainage through the fistula at this time Patient is diverted from the ileostomy site Continue antibiotics at this point Plan to eventually do sigmoidoscopy examine area
[2021-02-12] MEDS: levoFLOXacin/D5W 500 MG/100 ML PIGGYBACK 100 MG IV (18:36)
[2021-02-13] MEDS: 0.9 % Sodium Chloride Flush 3 ML SYRINGE IVFLUSH ×3 (00:15→19:54)
[2021-02-13] MEDS: metroNIDAZOLE/NS 500 MG/100 ML PIGGYBACK 100 MG IV ×5 (00:15→23:39)
[2021-02-13] MEDS: HYDROmorphone HCl 0.5 MG/0.5 ML SYRINGE IVPUSH ×6 (00:19→23:39)
[2021-02-13 03:43] VITALS: BP 156/73; PULSE 68; RESP 17; TEMP 36; O2SAT 96
[2021-02-13 04:24] LABS: MANUAL DIFF FLAG NO
[2021-02-13 04:30] LABS: Basophils Percent Auto 0.2 % (0-2); Eosinophils Absolute Auto 0.3 X10*3/uL (0.0-0.4); Eosinophils Percent Auto 2.6 % (0-4); Hematocrit 29.3 % (37-47); Hemoglobin 9.9 g/dl (12.0-16.0); Imm Gran Abs Auto 0.04 X10*3/uL (0.00-0.03); Imm Gran Pct Auto 0.4 % (0.0-0.4); Lymphocytes Absolute Auto 2.2 X10*3/uL (1.2-4.9); Mean Corpuscular HGB Conc 33.8 g/dl (31.0-35.0); Mean Corpuscular Hemoglobin 28.1 pg (27.0-33.0); Mean Corpuscular Volume 83.2 fL (80-98); Monocytes Absolute Auto 0.7 X10*3/uL (0.1-1.2); Neutrophils Absolute Auto 7.3 X10*3/uL (2.0-8.3); Neutrophils Percent Auto 68.8 % (45-73); Platelet Count 504 X10*3/uL (160-400); Red Blood Count 3.52 X10*6/uL (4.20-5.50); Red Cell Distribution Width 14.8 % (11.0-16.0); White Blood Count 10.6 X10*3/uL (4.8-10.8)
--- NOTE | 2021-02-13 05:03 | PC.NURSE ---
patient is requesting diet be advanced to regular
[2021-02-13] MEDS: oxyCODONE HCl Immed Release 5 MG TABLET PO ×2 (05:50→13:24)
[2021-02-13 08:00] VITALS: BP 166/72; PULSE 65; RESP 18; TEMP 36.6; O2SAT 97
--- NOTE | 2021-02-13 08:13 | PC.NURSE ---
Skin assessment completed. Patient has a midline incision, well approximated. No drainage, [employer]. No other skin issues noted at this time.
[2021-02-13] MEDS: Dextrose 5 % and Lactated Ring 1,000 ML 125 ML IVCONT (08:30)
--- NOTE | 2021-02-13 08:54 | P.PNGS_ITS ---
Subjective Subjective Date of Service: 02/13/21 <Brianda Lawson PA-C - Last Filed: 02/13/21 08:59> 02/13/21 <Jerel Goss MD - Last Filed: 02/13/21 13:33> Interval history: Feeling ok. Having some discomfort and burning when she urinates. Vaginal drainage as significantly slowed. <Brianda Lawson PA-C - Last Filed: 02/13/21 08:59> Physical Exam Vital Signs: Vital Signs: Last Vital Signs Temp 97.9 F 02/13/21 08:00 Pulse 65 02/13/21 08:00 Resp 18 02/13/21 08:00 BP 166/72 H 02/13/21 08:00 Pulse Ox 97 02/13/21 08:00 Body Mass Index 25.4 <Brianda Lawson PA-C - Last Filed: 02/13/21 08:59> Const: General: comfortable, no acute distress and alert <Brianda Lawson PA-C - Last Filed: 02/13/21 08:59> Orientation/consciousness: patient oriented x3 <Brianda Lawson PA-C - Last Filed: 02/13/21 08:59> Resp: Effort & Inspection: normal respiratory effort <Brianda Lawson PA-C - Last Filed: 02/13/21 08:59> GI: Other: ileostomy pink <Brianda Lawson PA-C - Last Filed: 02/13/21 08:59> Inspection: No distended and Yes incision (clean) <Brianda Lawson PA-C - Last Filed: 02/13/21 08:59> Palpation (GI): Soft to palpation <Brianda Lawson PA-C - Last Filed: 02/13/21 08:59> Skin: General skin exam: no rashes or lesions noted <Brianda Lawson PA-C - Last Filed: 02/13/21 08:59> Neuro: General: patient oriented x3 <GENA Younger Last Filed: 02/13/21 08:59> Procedures Date of Service Date of Service: 02/13/21 <Brianda Lawson PA-C - Last Filed: 02/13/21 08:59> Progress Note: A&P Assessment and plan (1) Colovaginal fistula: Status: Acute <Brianda Lawson PA-C - Last Filed: 02/13/21 08:59> Assessment and Plan: Says the drainage from the vagina has slowed down Stoma continues to function well Looks well Abdomen soft If fistula does not heal, will likely require revision of anastomosis prior to reversal of loop ileostomy Exam benign at this time Seen and examined independently Explained plan to patient and she says he understands <Jerel Goss MD - Last Filed: 02/13/21 13:33> Assessment and Plan: 60 year old female who is almost 2 weeks s/p TOMMY sigmoid resection with colorectal anastomosis and diverting loop ileostomy for diverticular abscess who presented with fecal vaginal drainage for [address] scan demonstrated colovaginal fistula. She is already diverted from the loop ileostomy. Cont to monitor vaginal drainage- likely will stop when residual stool in left colon is gone. Once drainage has ceased, can d/c to home. Will need colonoscopy outpatient, likely revision of anastomosis prior to ileostomy reversal. Discussed with patient. Will advance diet, d/c IVF. WBC normal. Can continue abx while inpatient to complete course. WIll obtain UA to r/o UTI but burning may be due to irritation from stool. <Brianda Lawson PA-C - Last Filed: 02/13/21 08:59> Fall Risk Details Current Medications: Current Medications Acetaminophen (Acetaminophen 325 Mg Tablet) 650 mg PO QID PRN PRN Reason: headache, temp > 101 Hydromorphone HCl (Hydromorphone Hcl 0.5 Mg/0.5 Ml Syringe) 0.5 mg IVPUSH Q3H PRN; Protocol PRN Reason: Pain, Severe (Pain Scale 7-10) Last Admin: 02/13/21 08:29 Dose: 0.5 mg Documented by: Dextrose/Lactated Ringer's (D5lr) 1,000 mls @ 125 mls/hr IVCONT .Q8H [facility] Last Admin: 02/13/21 08:30 Dose: 125 mls/hr Documented by: Levofloxacin (Levaquin) 500 mg in 100 mls @ 100 mls/hr IV Q24H [facility] Last Infusion: 02/12/21 19:55 Dose: Infused Documented by: Metronidazole (Flagyl) 500 mg in 100 mls @ 100 mls/hr IV Q6H [facility] Last Admin: 02/13/21 07:41 Dose: 100 mls/hr Documented by: Ondansetron HCl (Ondansetron Hcl 4 Mg/2 Ml Vial) 4 mg IVPUSH QID PRN PRN Reason: Nausea Oxycodone HCl (Oxycodone Hcl Immed Release 5 Mg Tablet) 5 mg PO Q6H PRN PRN Reason: Pain, Moderate (Pain Scale 4-6 Last Admin: 02/13/21 05:50 Dose: 5 mg Documented by: Pharmacy Consult (Consult Rx Perform Med Rec) 1 each MISCELLANE ONCE PRN PRN Reason: Consult order Sodium Chloride (0.9 % Sodium Chloride Flush 3 Ml Syringe) [facility] Last Admin: 02/13/21 08:29 Dose: Not Given Documented by: Zolpidem Tartrate (Zolpidem Tartrate 5 Mg Tablet) 5 mg PO BEDTIME PRN PRN Reason: Insomnia Last Admin: 02/11/21 22:31 Dose: 5 mg Documented by: <Brianda Lawson PA-C - Last Filed: 02/13/21 08:59> Time Spent With Patient Time: Total time spent is greater than 50% in coordination of care (as documented) at patient's floor/unit and/or counseling patient: <Brianda Lawson PA-C - Last Filed: 02/13/21 08:59> Time with patient: 15 - 24 minutes <Brianda Lawson PA-C - Last Filed: 02/13/21 08:59> Quality Stroke Does the patient have a stroke diagnosis?: No <Brianda Lawson PA-C - Last Filed: 02/13/21 08:59> VTE Prior VTE?: No <Brianda Lawson PA-C - Last Filed: 02/13/21 08:59> VTE Risk Level:: Surgical - moderate <GENA Younger Last Filed: 02/13/21 08:59> VTE Device Contraindication: N/A - Device Ordered <Brianda Lawson PA-C - Last Filed: 02/13/21 08:59> VTE Drug Contraindication: Treatment Not Indicated <Brianda Lawson PA-C - Last Filed: 02/13/21 08:59>
[2021-02-13 11:34] VITALS: BP 132/71; PULSE 67; RESP 18; TEMP 36.9; O2SAT 96
--- NOTE | 2021-02-13 12:24 | MHC.CM.PN ---
REFERRAL PLACED TO [facility]PD[facility] SENT. CASE MANAGEMENT TO CONTINUE TO FOLLOW AND UPDATE TOWARDS DC PLAN.
[2021-02-13 15:17] VITALS: BP 156/81; PULSE 75; RESP 18; TEMP 37.4; O2SAT 96
--- NOTE | 2021-02-13 15:25 | PM.EVENT ---
Event Note Date of Service: 02/13/21 Event Note: Says she feels okay Sore on the area of the vagina Does state that drainage seems to be slowly decreasing Abdomen soft Stoma functioning well The plan is to eventually control the fistula with the current ileostomy Will however eventually need revision of the anastomosis if the fistula does not close Continue current care in the meantime Perineal hygiene emphasized to patient On antibiotics
[2021-02-13] MEDS: levoFLOXacin/D5W 500 MG/100 ML PIGGYBACK 100 MG IV (17:14)
[2021-02-13] MEDS: Heparin Sodium,Porcine 5,000 UNIT/ML VIAL 5000 UNIT SUBCUT (17:15)
--- NOTE | 2021-02-13 18:50 | PC.NURSE ---
1500 Ostomy bag patent Draining liq dark stool. Assisted with care. Cont having stool with voiding, states less than prev.
[2021-02-13 19:20] VITALS: BP 157/77; PULSE 75; RESP 18; TEMP 37; O2SAT 96
[2021-02-14] VITALS: BP 132/65; PULSE 88; RESP 18; TEMP 36.6; O2SAT 94
[2021-02-14 03:38] VITALS: BP 122/65; PULSE 70; RESP 17; TEMP 36.2; O2SAT 95
[2021-02-14] MEDS: Heparin Sodium,Porcine 5,000 UNIT/ML VIAL 5000 UNIT SUBCUT ×2 (05:59→17:54)
[2021-02-14] MEDS: HYDROmorphone HCl 0.5 MG/0.5 ML SYRINGE IVPUSH ×4 (06:02→21:10)
[2021-02-14] MEDS: metroNIDAZOLE/NS 500 MG/100 ML PIGGYBACK 100 MG IV ×3 (06:04→19:44)
--- NOTE | 2021-02-14 07:50 | P.PNGS_ITS ---
Subjective Subjective Date of Service: 02/14/21 <Brianda Lawson PA-C - Last Filed: 02/14/21 08:20> 02/14/21 <Jerel Goss MD - Last Filed: 02/14/21 15:42> Interval history: Feeling better. Drainage continues to decrease- changing pad 4 times daily. Changes pad as soon as drainage occurs. <Brianda Lawson PA-C - Last Filed: 02/14/21 08:20> Physical Exam Vital Signs: Vital Signs: Last Vital Signs Temp 97.1 F 02/14/21 03:38 Pulse 70 02/14/21 03:38 Resp 17 02/14/21 03:38 BP 122/65 02/14/21 03:38 Pulse Ox 95 02/14/21 03:38 Body Mass Index 25.4 <Brianda Lawson PA-C - Last Filed: 02/14/21 08:20> Const: General: comfortable, no acute distress and alert <Brianda Lawson PA-C - Last Filed: 02/14/21 08:20> Orientation/consciousness: patient oriented x3 <Brianda Lawson PA-C - Last Filed: 02/14/21 08:20> GI: Other: ileostomy pink, stool in appliance <Brianda Lawson PA-C - Last Filed: 02/14/21 08:20> Inspection: No distended and Yes incision (clean) <Brianda Lawson PA-C - Last Filed: 02/14/21 08:20> Palpation (GI): Soft to palpation, no guarding and not rigid <Brianda Lawson PA-C - Last Filed: 02/14/21 08:20> Skin: General skin exam: no rashes or lesions noted <Brianda Lawson PA-C - Last Filed: 02/14/21 08:20> Neuro: General: patient oriented x3 <GENA Younger Last Filed: 02/14/21 08:20> Procedures Date of Service Date of Service: 02/14/21 <GENA Younger Last Filed: 02/14/21 08:20> Progress Note: A&P Assessment and plan (1) Colovaginal fistula: Status: Acute <Brianda Lawson PA-C - Last Filed: 02/14/21 08:20> Assessment and Plan: She says she is ?okay Gets depressed sometimes Drainage from the vagina has been decreasing although she says this is still significant She says that she does not feel until ready to because of this Stoma functioning well Tolerating diet well Exam overall is benign Continue current care Seen and examined independently - agree with TIFFANIE Lawson <Jerel Goss MD - Last Filed: 02/14/21 15:42> (2) S/P colon resection: Status: Acute <Brianda Lawson PA-C - Last Filed: 02/14/21 08:20> Assessment and Plan: ?60 year old female who is 2 weeks s/p TOMMY sigmoid resection with colorectal anastomosis and diverting loop ileostomy for diverticular abscess who presented with fecal vaginal drainage for [address] scan demonstrated colovaginal fistula. She is already diverted with loop ileostomy. Feeling better. Drainage continues to decrease. Ileostomy functioning well. Tolerating solid diet. VSS. Abd exam benign- will remove oly later today. Likely discharge in next 1-2 days. Will need follow up in office, further evaluation down the line. Understands if the fistula does not heal she will need revision of the colorectal anastomosis prior to reversal of ileostomy. <Nabor Lawson PA-C - Last Filed: 02/14/21 08:20> Fall Risk Details Current Medications: Current Medications Acetaminophen (Acetaminophen 325 Mg Tablet) 650 mg PO QID PRN PRN Reason: headache, temp > 101 Heparin Sodium (Porcine) (Heparin Sodium,Porcine 5,000 Unit/Ml Vial) 5,000 unit SUBCUT Q12H [facility] Last Admin: 02/14/21 05:59 Dose: 5,000 unit Documented by: Hydromorphone HCl (Hydromorphone Hcl 0.5 Mg/0.5 Ml Syringe) 0.5 mg IVPUSH Q3H PRN; Protocol PRN Reason: Pain, Severe (Pain Scale 7-10) Last Admin: 02/14/21 06:02 Dose: 0.5 mg Documented by: Levofloxacin (Levaquin) 500 mg in 100 mls @ 100 mls/hr IV Q24H [facility] Last Infusion: 02/13/21 18:33 Dose: Infused Documented by: Metronidazole (Flagyl) 500 mg in 100 mls @ 100 mls/hr IV Q6H [facility] Last Infusion: 02/14/21 07:48 Dose: Infused Documented by: Ondansetron HCl (Ondansetron Hcl 4 Mg/2 Ml Vial) 4 mg IVPUSH QID PRN PRN Reason: Nausea Oxycodone HCl (Oxycodone Hcl Immed Release 5 Mg Tablet) 5 mg PO Q6H PRN PRN Reason: Pain, Moderate (Pain Scale 4-6 Last Admin: 02/13/21 13:24 Dose: 5 mg Documented by: Pharmacy Consult (Consult Rx Perform Med Rec) 1 each MISCELLANE ONCE PRN PRN Reason: Consult order Sodium Chloride (0.9 % Sodium Chloride Flush 3 Ml Syringe) [facility] Last Admin: 02/13/21 19:54 Dose: 3 ml Documented by: Zolpidem Tartrate (Zolpidem Tartrate 5 Mg Tablet) 5 mg PO BEDTIME PRN PRN Reason: Insomnia Last Admin: 02/11/21 22:31 Dose: 5 mg Documented by: <Brianda Lawson PA-C - Last Filed: 02/14/21 08:20> Time Spent With Patient Time: Total time spent is greater than 50% in coordination of care (as documented) at patient's floor/unit and/or counseling patient: <Brianda Lawson PA-C - Last Filed: 02/14/21 08:20> Time with patient: 15 - 24 minutes <Brianda Lawson PA-C - Last Filed: 02/14/21 08:20> Quality Stroke Does the patient have a stroke diagnosis?: No <GENA Younger Last Filed: 02/14/21 08:20> VTE Prior VTE?: No <Brianda Lawson PA-C - Last Filed: 02/14/21 08:20> VTE Risk Level:: Surgical - moderate <GENA Younger Last Filed: 02/14/21 08:20> VTE Device Contraindication: N/A - Device Ordered <Brianda Lawson PA-C - Last Filed: 02/14/21 08:20> VTE Drug Contraindication: Treatment Not Indicated <Brianda Lawson PA-C - Last Filed: 02/14/21 08:20>
[2021-02-14 07:56] VITALS: BP 132/70; PULSE 67; RESP 18; TEMP 36.5; O2SAT 96
--- NOTE | 2021-02-14 09:35 | P.DS_ITS ---
DS: Providers Provider Date of Service: 02/16/21 Date of admission: 02/11/21 18:17 Primary care physician: Yudelka Jain Attending physician on admission: Jerel Goss Attending physician on discharge: Karlie Sosa DS: Diagnosis Discharge Diagnosis (1) Colovaginal fistula: Status: Acute (2) S/P colon resection: Status: Acute DS: Summary Hospital Course Hospital Course: BRIEF HPI: ?Arpita Park is a 60 year old female who presented with complaints of stool from the vagina. This began Thursday. She underwent a TOMMY sigmoid resection with colorectal anastomosis and diverting loop ileostomy on 01/31/21 for sigmoid diverticulitis with intramural abscess which was uneventful. She had an uncomplicated post operative course, did very well and was discharged to home on 02/06/21 on a course of PO levaquin/flagyl. She had been doing very well at home. Her pain was improving and she was taking oxycodone less frequently for the incisional pain. She then noticed the fecal drainage from her vagina after a couple of days at home. She has been wearing pads for this. Her ileostomy has been functioning well. She denies fever, chills, abdominal pain, anorexia. She called the office and was instructed to see Dr. Goss in the office but she did not want to wait and therefore presented to the ED. In the ED, CBC, BMP and LFTs were obtained which was significant for a WBC count of 13.3 which had actually improved from her leukocytosis at time of discharge. Pelvic exam revealed a large amount of stool within the vaginal vault. HOSPITAL COURSE: The patient was admitted to the surgical service for further evaluation. This was likely due to colovaginal fistula and a CT scan abd/pelvis with PO contrast was obtained for further evaluation. She was placed on IV flagyl/levaquin to complete her course from the diverticular abscess. The CT scan demonstrated a colovaginal fistula. She was already diverted with the loop ileostomy but if the fistula did not heal on its own it would require revision of the colorectal anastomosis. This was discussed with the patient. Her diet was advanced to solids. Her drainage began to slow significantly and became minimal. She felt comfortable managing at home. She was discharged to home on 02/16/21 in stable condition with VNA services. Status at Discharge Functional status at discharge: independent ambulation Overall status at discharge: patient is progressing back to baseline Time Spent with Patient Time attestation: Total time spent providing and/or coordinating discharge services: Discharge coordination time: Less than 30 minutes Quality: Stroke Does the patient have a stroke diagnosis?: No Physical Exam Vital Signs: Vital Signs: Last Vital Signs Temp 97.7 F 02/14/21 07:56 Pulse 67 02/14/21 07:56 Resp 18 02/14/21 07:56 BP 132/70 02/14/21 07:56 Pulse Ox 96 02/14/21 07:56 Body Mass Index 25.4 Const: General: comfortable, no acute distress and alert Orientation/consciousness: patient oriented x3 Resp: Effort & Inspection: normal respiratory effort GI: Other: ileostomy pink Inspection: No distended and Yes incision (clean, oly removed) Palpation (GI): Soft to palpation and Tenderness to palpation present (GI) (mild) Skin: General skin exam: no rashes or lesions noted Neuro: General: patient oriented x3 DS: Data Data Completed and Pending Labs on day of discharge: Preliminary micro results at discharge 02/11/21 16:44 Blood Culture - Preliminary Blood - Venous No growth after 48 hours. 02/11/21 16:57 Blood Culture - Preliminary Blood - Venous No growth after 48 hours. Discharge Plan Discharge Patient Disposition: Home Health Service Discharge Diagnosis: colovaginal fistula Referrals: [facility] [Outside] - 1 Day (RESUMPTION OF CORRECTION) Yudelka aJin [Primary Care Provider] - 1 Week Jerel Goss MD [Physician] - 1 Week Discharge Medications: Continued ondansetron HCl [Zofran] 4 mg tablet 4 mg PO Q6H PRN (Reason: nausea and vomiting) Qty: 10 RF: 0 losartan 25 mg tablet 25 mg PO DAILY RF: 0 naproxen [Naprosyn] 500 mg tablet 500 mg PO DAILY PRN (Reason: knee pain) RF: 0 oxycodone 5 mg tablet 5 - 10 mg PO QID PRN (Reason: severe pain) RF: 0 Discontinued levofloxacin 500 mg tablet 500 mg PO DAILY Qty: 5 RF: 0 metronidazole 500 mg tablet 500 mg PO Q8H Qty: 15 RF: 0 Discharge Orders: Discharge Order (Routine); Ordered 02/16/21 Ordered By: Karlie Sosa Diet: advance to usual diet Activity on Discharge: No heavy lifting Stand Alone Forms: Patient Portal Discharge page Care Plan Goals: Resolution of vaginal drainage. Gradual return to activity following recovery period. Health Concerns: Medullary sponge kidney, S/p colon resection with diverting loop ileostomy, colovaginal fistula Plan of Treatment: Follow up in office with Dr. Goss Assessment: Stable for discharge Discharge Date/Time: 02/16/21 12:44
[2021-02-14] MEDS: 0.9 % Sodium Chloride Flush 3 ML SYRINGE IVFLUSH ×2 (10:06→17:54)
[2021-02-14 12:00] VITALS: BP 157/84; PULSE 78; RESP 16; TEMP 37.2; O2SAT 96
[2021-02-14 15:42] VITALS: BP 149/74; PULSE 71; RESP 18; TEMP 36.1; O2SAT 96
[2021-02-14] MEDS: levoFLOXacin/D5W 500 MG/100 ML PIGGYBACK 100 MG IV (17:54)
[2021-02-14 19:34] VITALS: BP 148/78; PULSE 81; RESP 17; TEMP 36; O2SAT 97
[2021-02-15] VITALS (7 sets, daily range): BP systolic 139–168; BP diastolic 69–92; PULSE 63–81; RESP 16–18; TEMP 36.4–37.4; O2SAT 94–98
[2021-02-15] MEDS: HYDROmorphone HCl 0.5 MG/0.5 ML SYRINGE IVPUSH ×6 (01:06→22:56)
[2021-02-15] MEDS: metroNIDAZOLE/NS 500 MG/100 ML PIGGYBACK 100 MG IV ×4 (01:06→19:57)
[2021-02-15] MEDS: Heparin Sodium,Porcine 5,000 UNIT/ML VIAL 5000 UNIT SUBCUT ×2 (06:02→18:22)
--- NOTE | 2021-02-15 08:33 | P.PNGS_ITS ---
Subjective Subjective Date of Service: 02/15/21 <Brianda Lawson PA-C - Last Filed: 02/15/21 08:37> 02/15/21 <Jerel Goss MD - Last Filed: 02/15/21 13:38> Interval history: Was feeling improved as the drainage was minimal yesterday but awoke this morning with large amount of vaginal drainage and pad saturated. Feeling frustrated. Wanted to go home but does not feel comfortable managing with current amount of vaginal drainage from this morning. <Brianda Lawson PA-C - Last Filed: 02/15/21 08:37> Physical Exam Vital Signs: Vital Signs: Last Vital Signs Temp 98.4 F 02/15/21 08:00 Pulse 66 02/15/21 08:00 Resp 17 02/15/21 08:00 BP 139/69 02/15/21 08:00 Pulse Ox 97 02/15/21 08:00 Body Mass Index 25.4 <Brianda Lawson PA-C - Last Filed: 02/15/21 08:37> Const: General: comfortable, no acute distress and alert <Brianda Lawson PA-C - Last Filed: 02/15/21 08:37> Orientation/consciousness: patient oriented x3 <GENA Younger Last Filed: 02/15/21 08:37> Resp: Effort & Inspection: normal respiratory effort <Brianda Lawson PA-C - Last Filed: 02/15/21 08:37> GI: Other: ileostomy pink <Brianda Lawson PA-C - Last Filed: 02/15/21 08:37> Inspection: No distended and Yes incision (clean) <Brianda Lawson PA-C - Last Filed: 02/15/21 08:37> Palpation (GI): Soft to palpation <GENA Younger Last Filed: 02/15/21 08:37> Skin: General skin exam: no rashes or lesions noted <GENA Younger Last Filed: 02/15/21 08:37> Neuro: General: patient oriented x3 <GENA Younger Last Filed: 02/15/21 08:37> Procedures Date of Service Date of Service: 02/15/21 <Brianda Lawson PA-C - Last Filed: 02/15/21 08:37> Progress Note: A&P Assessment and plan (1) Colovaginal fistula: Status: Acute <GENA Younger Last Filed: 02/15/21 08:37> Assessment and Plan: She says drainage from her vagina was much less yesterday and she had thought going home However, she says this morning she felt that there was significant drainage compared to yesterday Says that she does not feel comfortable going home Good p.o. intake Stoma functioning well Looks well otherwise Continue current care Anticipate drainage to continue to decrease as she is diverted Revision of anastomosis will be necessary down the line Seen and examined independently - agree with TIFFANIE Lawson <Jerel Goss MD - Last Filed: 02/15/21 13:38> (2) S/P colon resection: Status: Acute <Brianda Lawson PA-C - Last Filed: 02/15/21 08:37> Assessment and Plan: 60 year old female who is 2 weeks s/p TOMMY sigmoid resection with colorectal anastomosis and diverting loop ileostomy for diverticular abscess who presented with fecal vaginal drainage for [address] scan demonstrated colovaginal fistula. She is already diverted with loop ileostomy. Drainaged had slowed significantly but increased this morning. Does not feel comfortable managing at home currently after this morning. Discussed amount will vary daily but be significantly less than initial presentation. Will reassess later today for possible discharge if drainage remains less and she is comfortable. Continue current care. Adama removed yesterday. <Brianda Lawson PA-C - Last Filed: 02/15/21 08:37> Fall Risk Details Current Medications: Current Medications Acetaminophen (Acetaminophen 325 Mg Tablet) 650 mg PO QID PRN PRN Reason: headache, temp > 101 Heparin Sodium (Porcine) (Heparin Sodium,Porcine 5,000 Unit/Ml Vial) 5,000 unit SUBCUT Q12H [facility] Last Admin: 02/15/21 06:02 Dose: 5,000 unit Documented by: Hydromorphone HCl (Hydromorphone Hcl 0.5 Mg/0.5 Ml Syringe) 0.5 mg IVPUSH Q3H PRN; Protocol PRN Reason: Pain, Severe (Pain Scale 7-10) Last Admin: 02/15/21 06:12 Dose: 0.5 mg Documented by: Levofloxacin (Levaquin) 500 mg in 100 mls @ 100 mls/hr IV Q24H [facility] Last Infusion: 02/14/21 19:53 Dose: Infused Documented by: Metronidazole (Flagyl) 500 mg in 100 mls @ 100 mls/hr IV Q6H [facility] Last Infusion: 02/15/21 07:24 Dose: Infused Documented by: Ondansetron HCl (Ondansetron Hcl 4 Mg/2 Ml Vial) 4 mg IVPUSH QID PRN PRN Reason: Nausea Oxycodone HCl (Oxycodone Hcl Immed Release 5 Mg Tablet) 5 mg PO Q6H PRN PRN Reason: Pain, Moderate (Pain Scale 4-6 Last Admin: 02/13/21 13:24 Dose: 5 mg Documented by: Pharmacy Consult (Consult Rx Perform Med Rec) 1 each MISCELLANE ONCE PRN PRN Reason: Consult order Sodium Chloride (0.9 % Sodium Chloride Flush 3 Ml Syringe) [facility] Last Admin: 02/15/21 01:23 Dose: Not Given Documented by: Zolpidem Tartrate (Zolpidem Tartrate 5 Mg Tablet) 5 mg PO BEDTIME PRN PRN Reason: Insomnia Last Admin: 02/11/21 22:31 Dose: 5 mg Documented by: <Brianda Lawson PA-C - Last Filed: 02/15/21 08:37> Time Spent With Patient Time: Total time spent is greater than 50% in coordination of care (as documented) at patient's floor/unit and/or counseling patient: <Brianda Lawson PA-C - Last Filed: 02/15/21 08:37> Time with patient: 15 - 24 minutes <Brianda Lawson PA-C - Last Filed: 02/15/21 08:37> Quality Stroke Does the patient have a stroke diagnosis?: No <Brianda Lawson PA-C - Last Filed: 02/15/21 08:37> VTE Prior VTE?: No <Brianda Lawson PA-C - Last Filed: 02/15/21 08:37> VTE Risk Level:: Surgical - moderate <GENA Younger Last Filed: 02/15/21 08:37> VTE Device Contraindication: N/A - Device Ordered <GENA Younger Last Filed: 02/15/21 08:37> VTE Drug Contraindication: Treatment Not Indicated <GENA Younger Last Filed: 02/15/21 08:37>
[2021-02-15] MEDS: 0.9 % Sodium Chloride Flush 3 ML SYRINGE IVFLUSH ×2 (12:25→18:22)
[2021-02-15] MEDS: levoFLOXacin/D5W 500 MG/100 ML PIGGYBACK 100 MG IV (18:23)
[2021-02-16] MEDS: 0.9 % Sodium Chloride Flush 3 ML SYRINGE IVFLUSH
[2021-02-16] MEDS: metroNIDAZOLE/NS 500 MG/100 ML PIGGYBACK 100 MG IV ×2 (00:22→08:32)
[2021-02-16 03:07] VITALS: BP 163/80; PULSE 75; RESP 18; TEMP 36.8; O2SAT 93
[2021-02-16] MEDS: HYDROmorphone HCl 0.5 MG/0.5 ML SYRINGE IVPUSH ×2 (03:12→08:27)
[2021-02-16] MEDS: ondansetron HCL 4 MG/2 ML VIAL IVPUSH (03:12)
[2021-02-16 07:17] VITALS: BP 125/64; PULSE 65; RESP 16; TEMP 36.2; O2SAT 98
--- NOTE | 2021-02-16 11:35 | MHC.CM.PN ---
PT MEDICALLY CLEARED TO D/C HOME W/[facility] FOR SN AND OUPT FOLLOW-UP W/DR. BEAUCHAMP, FAMILY FOR TRANSPORT.
== END 2021-02-16 12:44 | disposition home health service (06) | DRG 395 ==
LOC: HO.ED 16:56 → HO.EDOVER 18:28 → HO.S3 20:26
PROVIDERS: Physician Assistant Surgical; Admitting Provider Surgery; Emergency Provider Emergency Medicine; PCP Nurse Practitioner; Visit Provider Surgery
DX: N82.3 Fistula of vagina to large intestine (principal); F17.210 Nicotine dependence, cigarettes, uncomplicated; Z20.822 Contact with and (suspected) exposure to COVID-19; Z71.6 Tobacco abuse counseling; Z93.2 Ileostomy status; Z88.0 Allergy status to penicillin; Z88.5 Allergy status to narcotic agent; Z79.1 Long term (current) use of non-steroidal anti-inflammatories (NSAID); Z79.899 Other long term (current) drug therapy
CPT/HCPCS: 36415; 74177; 80048; 80076; 83605; 83690; 85025; 87040; 87635; 96374; 99285; J1170; J1956; J2405; Q9967

== ENCOUNTER → 2021-03-06 09:56 | Outpatient (BNVA) | payer OTHER, SELFPAY | PROVIDERS: PCP Nurse Practitioner; Referring Provider Nurse Practitioner; Visit Provider Surgery | DX: Z93.2 Ileostomy status (principal) | CPT/HCPCS: 99212 ==

== ENCOUNTER → 2021-04-24 11:25 | Outpatient (BNVA) | payer OTHER, SELFPAY | PROVIDERS: PCP Nurse Practitioner; Referring Provider Nurse Practitioner; Visit Provider Surgery | DX: Z93.2 Ileostomy status (principal) | CPT/HCPCS: 99212 ==

== ENCOUNTER 2021-05-08 13:29 | Inpatient (IN) | payer OTHER, SELFPAY ==
--- NOTE | ~2021-05-08 | CT_ITS ---
EXAMINATION: CT ABDOMEN AND PELVIS WITH CONTRAST CLINICAL INFORMATION: Colovaginal fistula. COMPARISON: 02/11/2021 TECHNIQUE: Multidetector volumetric images were obtained from the superior aspect of the liver through the pubic symphysis following administration 85 mL of Omnipaque 350 intravenous contrast. Sagittal and coronal reformatted images were obtained on the technologist's workstation. Oral contrast: No This CT examination was performed using dose optimization techniques as appropriate, variously including the following: *Automated exposure control *Adjustment of mA and/or kV according to patient size (this includes techniques or standardized protocols for targeted exams where dose is matched to indication/reason for exam; i.e. extremities or head) *Use of iterative reconstruction technique DLP: 485 mGy-cm FINDINGS: LUNG BASES: The visualized lung bases are unremarkable. LIVER, GALLBLADDER, AND BILIARY TREE: The liver is normal in size, shape, and attenuation. No focal hepatic lesion or biliary ductal dilatation is present. Gallbladder unremarkable. PANCREAS: Unremarkable. SPLEEN: Unremarkable. ADRENAL GLANDS: Unremarkable. KIDNEYS AND URETERS: Kidneys enhance symmetrically. Numerous bilateral nonobstructive intrarenal calculi present measuring up to 7 mm in the upper pole right kidney and 9 mm in the upper pole of left kidney. No hydronephrosis. Bilateral renal cysts are simple fluid attenuating, and benign requiring no further follow-up. No ureteral calculi. BLADDER: Unremarkable. GASTROINTESTINAL TRACT: Scattered colonic diverticula are redemonstrated status post sigmoid colectomy with creation of a Goyal's pouch. The proximal sigmoid colon continues to demonstrate a communication with the vaginal cuff, with stool present within the vagina as evident on the prior examination. A diverting loop ileostomy is present within the right lower quadrant. Stomach unremarkable. ABDOMINAL WALL: Diverting loop ileostomy, right lower quadrant. LYMPH NODES: Normal. VASCULAR: Unremarkable. PELVIC VISCERA: Hysterectomy. Right ovary unremarkable. Left ovary not seen. OSSEOUS STRUCTURES: No acute or suspicious osseous abnormalities. CT/CT abdomen pelvis w con IMPRESSION: * Stable appearance of the callosal vaginal fistula involving the distal descending/proximal sigmoid colon and the vaginal cuff this patient status post hysterectomy. The Goyal's pouch is intact and not involved in the fistula. * Unremarkable appearance of the diverting loop ileostomy within the right lower quadrant. * Pancolonic diverticulosis. * Bilateral nonobstructive intrarenal calculi redemonstrated.
[2021-05-08 13:37] VITALS: BP 153/92; PULSE 80; RESP 19; TEMP 36.1; O2SAT 99; BMI 25.4
[2021-05-08 21:19] VITALS: PULSE 73; RESP 18; TEMP 36.6; O2SAT 98
[2021-05-08 23:45] VITALS: PULSE 84; RESP 16; TEMP 36.6; O2SAT 98
[2021-05-09] VITALS (8 sets, daily range): BP systolic 145–189; BP diastolic 67–97; PULSE 60–88; RESP 15–19; TEMP 36.6–37.1; O2SAT 96–100
[2021-05-09 00:39] LABS: MANUAL DIFF FLAG NO
[2021-05-09 00:41] LABS: Basophils Percent Auto 0.3 % (0-2); Eosinophils Absolute Auto 0.3 X10*3/uL (0.0-0.4); Eosinophils Percent Auto 2.3 % (0-4); Hematocrit 42.7 % (37.0-47.0); Hemoglobin 14.3 g/dl (12.0-16.0); Imm Gran Abs Auto 0.03 X10*3/uL (0.00-0.03); Imm Gran Pct Auto 0.3 % (0.0-0.4); Lymphocytes Absolute Auto 3.6 X10*3/uL (1.2-4.9); Lymphocytes Percent Auto 31.1 % (20-40); Mean Corpuscular HGB Conc 33.5 g/dl (31.0-35.0); Mean Corpuscular Hemoglobin 28.3 pg (27.0-33.0); Mean Corpuscular Volume 84.4 fL (80.0-98.0); Mean Platelet Volume 9.3 fL (9.4-12.3); Monocytes Absolute Auto 0.6 X10*3/uL (0.1-1.2); Monocytes Percent Auto 5.4 % (2-11); Neutrophils Percent Auto 60.6 % (45-73); Platelet Count 338 X10*3/uL (160-400); Red Blood Count 5.06 X10*6/uL (4.20-5.50); Red Cell Distribution Width 14.5 % (11.0-16.0); White Blood Count 11.5 X10*3/uL (4.8-10.8)
[2021-05-09 01:00] LABS: Alanine Aminotransferase 12 U/L (0-31); Albumin Level 4.4 g/dL (3.5-5.0); Alkaline Phosphatase 103 U/L (39-117); Anion Gap 13 (12-20); Aspartate Amino Transferase 13 U/L (5-31); Bilirubin Direct 0.4 mg/dL (0.0-0.5); Bilirubin Total 1.5 mg/dL (0.0-1.0); Blood Urea Nitrogen 12 mg/dL (9-16); Calcium 9.8 mg/dL (8.4-10.2); Carbon Dioxide 25 mmol/L (22-29); Chloride 106 mmol/L (96-108); Creatinine Clr Calc Pharmacy 73.1; Estimated Glomerular Filt Rate > 60; Glucose Random 118 mg/dL (60-115); Lipase 13 U/L (8-78); Potassium 3.5 mmol/L (3.3-5.1); Sodium 140 mmol/L (135-145); Total Protein 8.3 g/dL (6.5-8.0)
--- NOTE | 2021-05-09 03:43 | ED_ITS ---
HPI - Abdominal Pain General Chief Complaint: Abdominal Pain <Inocencio Rush MD - Last Filed: 05/20/21 06:49> Stated Complaint: GI PROBLEM,RECENT GI SURGERY <Inocencio Rush MD - Last Filed: 05/20/21 06:49> Time Seen by Provider: 05/09/21 03:42 <Inocencio Rush MD - Last Filed: 05/20/21 06:49> Source: patient <Inocencio Rush MD - Last Filed: 05/20/21 06:49> Mode of arrival: ambulatory <Inocencio Rush MD - Last Filed: 05/20/21 06:49> Limitations: no limitations <Inocencio Rush MD - Last Filed: 05/20/21 06:49> History of Present Illness HPI narrative: Patient has been passing stool through her vagina, known colovaginal fistula. Patient with known history of diverticulitis. patient states she is not having fever <Inocencio Rush MD - Last Filed: 05/20/21 06:49> MD elicited complaint: abdominal pain <Inocencio Rush MD - Last Filed: 05/20/21 06:49> Pertinent past history: diverticulitis and other (colostomy) <Inocencio Rush MD - Last Filed: 05/20/21 06:49> Onset (ago): day(s) <Inocencio Rush MD - Last Filed: 05/20/21 06:49> Pain Consistency: constant <Inocencio Rush MD - Last Filed: 05/20/21 06:49> Severity: moderate <Inocencio Rush MD - Last Filed: 05/20/21 06:49> Associated symptoms: denies other symptoms <Inocencio Rush MD - Last Filed: 05/20/21 06:49> Related Data Home Medications: Home Medications Medication Instructions Recorded Confirmed oxycodone 5 mg tablet 5 - 10 mg PO QID PRN 01/03/21 05/09/21 Previous Rx's Medication Instructions Recorded ostomy wafer #[id number] #20 ea 03/05/21 ostomy bag #[id number] #20 ea 04/12/21 ostomy supplies-skin barrier 6 X #20 wafer 04/12/21 6 wafer <Inocencio Rush MD - Last Filed: 05/20/21 06:49> Allergies/Adverse Reactions: Allergies Allergy/AdvReac Type Severity Reaction Status Date / Time Penicillins Allergy Severe ANAPHYLAXIS Verified 04/24/21 11:37 morphine [MORPHINE] Allergy Intermediate TACHYCARDIA, Verified 04/24/21 11:37 HIVES, ITCHING <Inocencio Rush MD - Last Filed: 05/20/21 06:49> Review of Systems Denies Sensory deficit (Neuro) <Inocencio Rush MD - Last Filed: 05/20/21 06:49> Physical Exam Vital Signs: Vital Signs: Last Vital Signs Temp 97.3 F 05/20/21 03:56 Pulse 71 05/20/21 03:56 Resp 17 05/20/21 03:56 BP 133/64 05/20/21 03:56 Pulse Ox 95 05/20/21 03:56 BMI result Body Mass Index 25.4 <Inocencio Rush MD - Last Filed: 05/20/21 06:49> Vital Signs: Last Vital Signs Temp 97.3 F 05/20/21 03:56 Pulse 71 05/20/21 03:56 Resp 17 05/20/21 03:56 BP 133/64 05/20/21 03:56 Pulse Ox 95 05/20/21 03:56 BMI result Body Mass Index 25.4 <Trudy Lee MD - Last Filed: 05/09/21 08:03> Const: General: healthy appearing <Inocencio Rush MD - Last Filed: 05/20/21 06:49> Nutritional Appearance: average body habitus <Inocencio Rush MD - Last Filed: 05/20/21 06:49> Orientation/consciousness: oriented to person and patient oriented x3 <Inocencio Rush MD - Last Filed: 05/20/21 06:49> Limitations: no limitations <Inocencio Rush MD - Last Filed: 05/20/21 06:49> HENMT: Head: Yes normal to inspection <Inocencio Rush MD - Last Filed: 05/20/21 06:49> Ears: external ears normal <Inocencio Rush MD - Last Filed: 05/20/21 06:49> General nose exam: Normal external nose present <Inocencio Rush MD - Last Filed: 05/20/21 06:49> Mouth: Normal oral and palatal mucosa present and oropharynx normal <Inocencio Rush MD - Last Filed: 05/20/21 06:49> Throat: Yes posterior oropharynx normal <Inocencio Rsuh MD - Last Filed: 05/20/21 06:49> Eyes: General: appearance normal, both eyes and all related structures <Tamir Rush MD - Last Filed: 05/20/21 06:49> Neck: Other: supple <Inocencio Rush MD - Last Filed: 05/20/21 06:49> Neck: Yes normal visual inspection <Inocencio Rush MD - Last Filed: 05/20/21 06:49> Chest: Chest palpation & inspection: normal inspection of the chest <Inocencio Rush MD - Last Filed: 05/20/21 06:49> Resp: Auscultation: clear to auscultation bilaterally <Inocencio Rush MD - Last Filed: 05/20/21 06:49> Cardio: Jugular venous distension: no JVD <Inocencio Rush MD - Last Filed: 05/20/21 06:49> Rate: regular rate <Inocencio Rush MD - Last Filed: 05/20/21 06:49> Rhythm: regular rhythm <Inocencio Rush MD - Last Filed: 05/20/21 06:49> Heart sounds: S1 normal heart sound present and S2 normal heart sound present <Inocencio Rush MD - Last Filed: 05/20/21 06:49> GI: Other: colostomy in place, left lower abdominal pain to palpation, no rebound <Inocencio Rush MD - Last Filed: 05/20/21 06:49> Auscultation: normal bowel sounds <Inocencio Rush MD - Last Filed: 05/20/21 06:49> : Other: Passing stool from vagina <Inocencio Rush MD - Last Filed: 05/20/21 06:49> Skin: General skin exam: no rashes or lesions noted <Inocencio Rush MD - Last Filed: 05/20/21 06:49> Neuro: General: oriented to person and patient oriented x3 <Inocencio Rush MD - Last Filed: 05/20/21 06:49> Cranial nerves: Yes CN's II-XII intact bilaterally <Inocencio Rush MD - Last Filed: 05/20/21 06:49> Motor exam (neuro): 5/5 motor strength present throughout <Inocencio Rush MD - Last Filed: 05/20/21 06:49> Sensory Exam: No Sensory deficit (Neuro) <Inocencio Rush MD - Last Filed: 05/20/21 06:49> Extrem: General: Yes normal to inspection <Inocencio Rush MD - Last Filed: 05/20/21 06:49> Psych: Appearance: grossly normal <Inocencio Rush MD - Last Filed: 05/20/21 06:49> Course Course Course Narrative: I received sign-out from Dr. Rush. I discussed the CT scan findings with Dr. Goss. He will be in shortly to evaluate the patient. Patient was evaluated by Dr. Goss, patient is being admitted to the surgery service. <Trudy Lee MD - Last Filed: 05/09/21 08:03> Reevaluation(s) Reevaluation #1: Will start levaquin and flagyl after blood cultures, awaiting CT to speak to Dr. Goss <Inocencio Rush MD - Last Filed: 05/20/21 06:49> Time: 06:47 <Inocencio Rush MD - Last Filed: 05/20/21 06:49> MDM - Abdominal Pain Lab Data Result diagrams: : 05/09/21 00:36 05/16/21 06:55 <Inocencio Rush MD - Last Filed: 05/20/21 06:49> Labs: Lab Results 05/09/21 05/09/21 05/09/21 Range/Units 00:36 00:36 06:41 WBC 11.5 H (4.8-10.8) X10*3/uL RBC 5.06 (4.20-5.50) X10*6/uL Hgb 14.3 (12.0-16.0) g/dl Hct 42.7 (37.0-47.0) % MCV 84.4 (80.0-98.0) fL MCH 28.3 (27.0-33.0) pg MCHC 33.5 (31.0-35.0) g/dl RDW 14.5 (11.0-16.0) % Plt Count 338 (160-400) X10*3/uL MPV 9.3 L (9.4-12.3) fL Immature Gran % (Auto) 0.3 (0.0-0.4) % Neut % (Auto) 60.6 (45-73) % Lymph % (Auto) 31.1 (20-40) % [place] % (Auto) 5.4 (2-11) % Eos % (Auto) 2.3 (0-4) % Baso % (Auto) 0.3 (0-2) % Lymph # (Auto) 3.6 (1.2-4.9) X10*3/uL [place] # (Auto) 0.6 (0.1-1.2) X10*3/uL Eos # (Auto) 0.3 (0.0-0.4) X10*3/uL Baso # (Auto) 0.0 (0.0-0.2) X10*3/uL Abs Immat Gran (auto) 0.03 (0.00-0.03) X10*3/uL Absolute Neuts (auto) 7.0 (2.0-8.3) x10*3/uL Absolute Nucleated RBC 0.000 (0.0-0.012) X10*3/uL Nucleated RBC % (auto) 0.0 (0.0-0.2) /100WBC Sodium 140 (135-145) mmol/L Potassium 3.5 (3.3-5.1) mmol/L Chloride 106 (96-108) mmol/L Carbon Dioxide 25 (22-29) mmol/L Anion Gap 13 (12-20) BUN 12 (9-16) mg/dL Creatinine 0.81 (0.5-1.4) mg/dL Estim Creat Clear Calc 73.1 Estimated GFR > 60 Random Glucose 118 H (60-115) mg/dL Calcium 9.8 D (8.4-10.2) mg/dL Total Bilirubin 1.5 H (0.0-1.0) mg/dL Direct Bilirubin 0.4 (0.0-0.5) mg/dL AST 13 (5-31) U/L ALT 12 (0-31) U/L Alkaline Phosphatase 103 (39-117) U/L Total Protein 8.3 H (6.5-8.0) g/dL Albumin 4.4 (3.5-5.0) g/dL Lipase 13 (8-78) U/L Urine Color YELLOW Urine Appearance HAZY Urine pH 5.5 (5.0-8.0) Ur Specific [place] 1.025 (1.005-1.025) Urine Protein 1+ H (NEG-TRACE) MG/DL Urine Glucose (UA) NEG (NEG) MG/DL Urine Ketones NEG (NEG) MG/DL Urine Blood 2+ H (NEG) Urine Nitrite NEG (NEG) Ur Leukocyte Esterase 1+ H (NEG) Urine RBC 5-9 H (0) /HPF Urine WBC 10-14 H (0-4) /HPF Ur Squamous Epith Cells 1+ /LPF Urine Bacteria 2+ /LPF Urine Mucus 1+ /LPF COVID-19 ([facility]) (Negative) COVID-19 Clin Com 05/09/21 Range/Units 07:42 WBC (4.8-10.8) X10*3/uL RBC (4.20-5.50) X10*6/uL Hgb (12.0-16.0) g/dl Hct (37.0-47.0) % MCV (80.0-98.0) fL MCH (27.0-33.0) pg MCHC (31.0-35.0) g/dl RDW (11.0-16.0) % Plt Count (160-400) X10*3/uL MPV (9.4-12.3) fL Immature Gran % (Auto) (0.0-0.4) % Neut % (Auto) (45-73) % Lymph % (Auto) (20-40) % [place] % (Auto) (2-11) % Eos % (Auto) (0-4) % Baso % (Auto) (0-2) % Lymph # (Auto) (1.2-4.9) X10*3/uL [place] # (Auto) (0.1-1.2) X10*3/uL Eos # (Auto) (0.0-0.4) X10*3/uL Baso # (Auto) (0.0-0.2) X10*3/uL Abs Immat Gran (auto) (0.00-0.03) X10*3/uL Absolute Neuts (auto) (2.0-8.3) x10*3/uL Absolute Nucleated RBC (0.0-0.012) X10*3/uL Nucleated RBC % (auto) (0.0-0.2) /100WBC Sodium (135-145) mmol/L Potassium (3.3-5.1) mmol/L Chloride (96-108) mmol/L Carbon Dioxide (22-29) mmol/L Anion Gap (12-20) BUN (9-16) mg/dL Creatinine (0.5-1.4) mg/dL Estim Creat Clear Calc Estimated GFR Random Glucose (60-115) mg/dL Calcium (8.4-10.2) mg/dL Total Bilirubin (0.0-1.0) mg/dL Direct Bilirubin (0.0-0.5) mg/dL AST (5-31) U/L ALT (0-31) U/L Alkaline Phosphatase (39-117) U/L Total Protein (6.5-8.0) g/dL Albumin (3.5-5.0) g/dL Lipase (8-78) U/L Urine Color Urine Appearance Urine pH (5.0-8.0) Ur Specific [place] (1.005-1.025) Urine Protein (NEG-TRACE) MG/DL Urine Glucose (UA) (NEG) MG/DL Urine Ketones (NEG) MG/DL Urine Blood (NEG) Urine Nitrite (NEG) Ur Leukocyte Esterase (NEG) Urine RBC (0) /HPF Urine WBC (0-4) /HPF Ur Squamous Epith Cells /LPF Urine Bacteria /LPF Urine Mucus /LPF COVID-19 ([facility]) Negative (Negative) COVID-19 Clin Com See Note <Inocencio Rush MD - Last Filed: 05/20/21 06:49> Lab Results 05/09/21 05/09/21 05/09/21 Range/Units 00:36 00:36 06:41 WBC 11.5 H (4.8-10.8) X10*3/uL RBC 5.06 (4.20-5.50) X10*6/uL Hgb 14.3 (12.0-16.0) g/dl Hct 42.7 (37.0-47.0) % MCV 84.4 (80.0-98.0) fL MCH 28.3 (27.0-33.0) pg MCHC 33.5 (31.0-35.0) g/dl RDW 14.5 (11.0-16.0) % Plt Count 338 (160-400) X10*3/uL MPV 9.3 L (9.4-12.3) fL Immature Gran % (Auto) 0.3 (0.0-0.4) % Neut % (Auto) 60.6 (45-73) % Lymph % (Auto) 31.1 (20-40) % [place] % (Auto) 5.4 (2-11) % Eos % (Auto) 2.3 (0-4) % Baso % (Auto) 0.3 (0-2) % Lymph # (Auto) 3.6 (1.2-4.9) X10*3/uL [place] # (Auto) 0.6 (0.1-1.2) X10*3/uL Eos # (Auto) 0.3 (0.0-0.4) X10*3/uL Baso # (Auto) 0.0 (0.0-0.2) X10*3/uL Abs Immat Gran (auto) 0.03 (0.00-0.03) X10*3/uL Absolute Neuts (auto) 7.0 (2.0-8.3) x10*3/uL Absolute Nucleated RBC 0.000 (0.0-0.012) X10*3/uL Nucleated RBC % (auto) 0.0 (0.0-0.2) /100WBC Sodium 140 (135-145) mmol/L Potassium 3.5 (3.3-5.1) mmol/L Chloride 106 (96-108) mmol/L Carbon Dioxide 25 (22-29) mmol/L Anion Gap 13 (12-20) BUN 12 (9-16) mg/dL Creatinine 0.81 (0.5-1.4) mg/dL Estim Creat Clear Calc 73.1 Estimated GFR > 60 Random Glucose 118 H (60-115) mg/dL Calcium 9.8 D (8.4-10.2) mg/dL Total Bilirubin 1.5 H (0.0-1.0) mg/dL Direct Bilirubin 0.4 (0.0-0.5) mg/dL AST 13 (5-31) U/L ALT 12 (0-31) U/L Alkaline Phosphatase 103 (39-117) U/L Total Protein 8.3 H (6.5-8.0) g/dL Albumin 4.4 (3.5-5.0) g/dL Lipase 13 (8-78) U/L Urine Color YELLOW Urine Appearance HAZY Urine pH 5.5 (5.0-8.0) Ur Specific [place] 1.025 (1.005-1.025) Urine Protein 1+ H (NEG-TRACE) MG/DL Urine Glucose (UA) NEG (NEG) MG/DL Urine Ketones NEG (NEG) MG/DL Urine Blood 2+ H (NEG) Urine Nitrite NEG (NEG) Ur Leukocyte Esterase 1+ H (NEG) Urine RBC 5-9 H (0) /HPF Urine WBC 10-14 H (0-4) /HPF Ur Squamous Epith Cells 1+ /LPF Urine Bacteria 2+ /LPF Urine Mucus 1+ /LPF COVID-19 ([facility]) (Negative) COVID-19 Clin Com 05/09/21 Range/Units 07:42 WBC (4.8-10.8) X10*3/uL RBC (4.20-5.50) X10*6/uL Hgb (12.0-16.0) g/dl Hct (37.0-47.0) % MCV (80.0-98.0) fL MCH (27.0-33.0) pg MCHC (31.0-35.0) g/dl RDW (11.0-16.0) % Plt Count (160-400) X10*3/uL MPV (9.4-12.3) fL Immature Gran % (Auto) (0.0-0.4) % Neut % (Auto) (45-73) % Lymph % (Auto) (20-40) % [place] % (Auto) (2-11) % Eos % (Auto) (0-4) % Baso % (Auto) (0-2) % Lymph # (Auto) (1.2-4.9) X10*3/uL [place] # (Auto) (0.1-1.2) X10*3/uL Eos # (Auto) (0.0-0.4) X10*3/uL Baso # (Auto) (0.0-0.2) X10*3/uL Abs Immat Gran (auto) (0.00-0.03) X10*3/uL Absolute Neuts (auto) (2.0-8.3) x10*3/uL Absolute Nucleated RBC (0.0-0.012) X10*3/uL Nucleated RBC % (auto) (0.0-0.2) /100WBC Sodium (135-145) mmol/L Potassium (3.3-5.1) mmol/L Chloride (96-108) mmol/L Carbon Dioxide (22-29) mmol/L Anion Gap (12-20) BUN (9-16) mg/dL Creatinine (0.5-1.4) mg/dL Estim Creat Clear Calc Estimated GFR Random Glucose (60-115) mg/dL Calcium (8.4-10.2) mg/dL Total Bilirubin (0.0-1.0) mg/dL Direct Bilirubin (0.0-0.5) mg/dL AST (5-31) U/L ALT (0-31) U/L Alkaline Phosphatase (39-117) U/L Total Protein (6.5-8.0) g/dL Albumin (3.5-5.0) g/dL Lipase (8-78) U/L Urine Color Urine Appearance Urine pH (5.0-8.0) Ur Specific [place] (1.005-1.025) Urine Protein (NEG-TRACE) MG/DL Urine Glucose (UA) (NEG) MG/DL Urine Ketones (NEG) MG/DL Urine Blood (NEG) Urine Nitrite (NEG) Ur Leukocyte Esterase (NEG) Urine RBC (0) /HPF Urine WBC (0-4) /HPF Ur Squamous Epith Cells /LPF Urine Bacteria /LPF Urine Mucus /LPF COVID-19 ([facility]) Negative (Negative) COVID-19 Clin Com See Note <Trudy Lee MD - Last Filed: 05/09/21 08:03> Imaging Data CT scan - abdomen: Radiologist's impression: FINDINGS: LUNG BASES: The visualized lung bases are unremarkable.? LIVER, GALLBLADDER, AND BILIARY TREE: The liver is normal in size, shape, and attenuation. No focal hepatic lesion or biliary ductal dilatation is present. Gallbladder unremarkable.? PANCREAS: Unremarkable.? SPLEEN: Unremarkable.? ADRENAL GLANDS: Unremarkable.? KIDNEYS AND URETERS: Kidneys enhance symmetrically. Numerous bilateral nonobstructive intrarenal calculi present measuring up to 7 mm in the upper pole right kidney and 9 mm in the upper pole of left kidney. No hydronephrosis. Bilateral renal cysts are simple fluid attenuating, and benign requiring no further follow-up. No ureteral calculi.? BLADDER: Unremarkable.? GASTROINTESTINAL TRACT: Scattered colonic diverticula are redemonstrated status post sigmoid colectomy with creation of a Goyal's pouch. The proximal sigmoid colon continues to demonstrate a communication with the vaginal cuff, with stool present within the vagina as evident on the prior examination. A diverting loop ileostomy is present within the right lower quadrant. Stomach unremarkable.? ABDOMINAL WALL: Diverting loop ileostomy, right lower quadrant.? LYMPH NODES: Normal. VASCULAR: Unremarkable. PELVIC VISCERA: Hysterectomy. Right ovary unremarkable. Left ovary not seen.? OSSEOUS STRUCTURES: No acute or suspicious osseous abnormalities.? CT/CT abdomen pelvis w con IMPRESSION: *? Stable appearance of the callosal vaginal fistula involving the distal descending/proximal sigmoid colon and the vaginal cuff this patient status post hysterectomy. The Goyal's pouch is intact and not involved in the fistula. *? Unremarkable appearance of the diverting loop ileostomy within the right lower quadrant. *? Pancolonic diverticulosis.? *? Bilateral nonobstructive intrarenal calculi redemonstrated. <Trudy Lee MD - Last Filed: 05/09/21 08:03> Discharge Plan Discharge Clinical Impression: Colovaginal fistula, UTI (urinary tract infection) <Inocencio Rush MD - Last Filed: 05/20/21 06:49> Patient Disposition: Admitted As Inpatient <Inocencio Rush MD - Last Filed: 05/20/21 06:49> Discharge Date/Time: 05/09/21 23:36 <Inocencio Rush MD - Last Filed: 05/20/21 06:49> FORMERLY [facility] Past Medical History Medical History: Medical History Chronic pain Current vaping on some days History of urinary tract infection Ileostomy present Kidney stones Medullary sponge kidney <Inocencio Rush MD - Last Filed: 05/20/21 06:49> Surgical History: Surgical History History of arthroplasty of right knee (~01/2018) History of colon resection (~01/2021) Hx of colonoscopy Hx of cystoscopy Status post appendectomy Status post bunionectomy (~09/2011) Status post hysterectomy Status post tonsillectomy <Inocencio Rush MD - Last Filed: 05/20/21 06:49> Family History Family History: Family History Father HTN (hypertension) Cancer of kidney Mother Dementia Age related osteoporosis <Inocencio Rush MD - Last Filed: 05/20/21 06:49> Social History Social History: Social History Household Members: Children Housing: Apartment Do you presently have visiting nurse or other home services: Yes ([employer]) Alcohol intake: never Patient Tobacco Use Status: Current someday Tobacco user Tobacco use type: Cigarette Cigarettes Per Day: 1 e-Cigarette/Vaping Use: Currently Using Second Hand Smoke Exposure: No Substance Use Type: Marijuana service: No Current occupational status: unemployed <Inocencio Rush MD - Last Filed: 05/20/21 06:49>
[2021-05-09] MEDS: Diatrizoate Meglumine, Sodium 30 ML SOLUTION PO (04:13)
[2021-05-09] MEDS: HYDROmorphone HCl 2 MG/ML VIAL IVPUSH (05:33)
[2021-05-09] MEDS: 0.9 % Sodium Chloride 1,000 ML 125 ML IVCONT (05:33)
[2021-05-09] MEDS: iohexoL 350 MG/ML 100 ML INFUS..BTL IV (06:30)
[2021-05-09 06:47] LABS: Appearance Urine HAZY; Color Urine YELLOW; Glucose Urine UA NEG (NEG); Leukocyte Esterase Urine 1+ (NEG); Nitrite Urine NEG (NEG); PH 5.5 (5.0-8.0); Specific Gravity - Urine 1.025 (1.005-1.025); UACC Culture Trigger YES; Urine Blood 2+ (NEG); Urine Ketones NEG (NEG); Urine Protein 1+ MG/DL (NEG-TRACE)
[2021-05-09 06:59] LABS: Bacteria Urine 2+ /LPF; Mucus Urine 1+ /LPF; Squamous Epithelial Cell Urine 1+ /LPF
[2021-05-09 08:04] LABS: COVID-19 Test Negative (Negative)
[2021-05-09] MEDS: levoFLOXacin/D5W 500 MG/100 ML PIGGYBACK 100 MG IV (08:08)
--- NOTE | 2021-05-09 08:18 | P.HPGS_ITS ---
History of Present Illness History of Present Illness Date of Service: 05/09/21 <Brianda Lawson PA-C - Last Filed: 05/09/21 10:03> 05/09/21 <Jerel Goss MD - Last Filed: 05/09/21 15:14> Chief complaint: uti colovaginal fistula <Brianda Lawson PA-C - Last Filed: 05/09/21 10:03> Narrative: Arpita Park is a 61 year old who presents with pelvic pain and burning on urination. She had a sigmoid resection with colorectal anastomosis and diverting loop ileostomy on 01/31/21 for sigmoid diverticulitis with intramural abscess. 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 The drainage improved and she had been doing well at home since. Plans were made for a flexible sigmoidoscopy with Dr. Goss to evaluate the anastomosis and fistula. She however now presents with pelvic pain and dysuria and feculent vaginal drainage which began a 4-5 days ago. She denies nausea, vomiting, fever, chills, change in ileostomy output. She is otherwise feeling well. She has a history of medullary sponge kidney and frequent UTIs. Work up in the ED included a CT scan abd/pelvis which redemonstrated the colovaginal fistula with with stool present within the vagina. She had a leukocytosis of 11.5. Urinalysis was positive for bacteria and leukocyte esterase. <Brianda Lawson PA-C - Last Filed: 05/09/21 10:03> Review of Systems Constitutional: Constitutional: Denies chills, Denies fatigue, Denies fever(s) and Denies weakness <Brianda Lawson PA-C - Last Filed: 05/09/21 10:03> ENT: Denies dizziness <GENA Younger Last Filed: 05/09/21 10:03> Cardiovascular: Cardiovascular: Denies dyspnea <GENA Younger Last Filed: 05/09/21 10:03> Respiratory: Respiratory: Denies cough and Denies dyspnea <GENA Younger Last Filed: 05/09/21 10:03> Gastrointestinal: Gastrointestinal: Reports as per HPI, Denies hematochezia, Denies change in bowel habits and Denies diarrhea <Brianda Lawson PA-C - Last Filed: 05/09/21 10:03> Genitourinary: Genitourinary: Denies hematuria, Reports dysuria, Reports pelvic pain and Reports vaginal discharge (feculent) <Brianda Lawson PA-C - Last Filed: 05/09/21 10:03> Integumentary/Breasts: Skin/Breast: Denies rash <Brianda Lawson PA-C - Last Filed: 05/09/21 10:03> Neurologic: Denies dizziness and Denies weakness <Brianda Lawson PA-C - Last Filed: 05/09/21 10:03> Endocrine: Endocrine: Denies fatigue <Brianda Lawson PA-C - Last Filed: 05/09/21 10:03> PMFSH Past Medical History Medical History: Medical History (Updated 05/09/21 @ 07:19 by Trudy Lee MD) Chronic pain Current vaping on some days History of urinary tract infection Ileostomy present Kidney stones Medullary sponge kidney <Brianda Lawson PA-C - Last Filed: 05/09/21 10:03> Family History Family History: Family History Father HTN (hypertension) Cancer of kidney Mother Dementia Age related osteoporosis <Brianda Lawson PA-C - Last Filed: 05/09/21 10:03> Surgical History Surgical History: Surgical History (Updated 05/09/21 @ 09:50 by Brianda Lawson PA-C) History of arthroplasty of right knee (~01/2018) History of colon resection (~01/2021) Hx of colonoscopy Hx of cystoscopy Status post appendectomy Status post bunionectomy (~09/2011) Status post hysterectomy Status post tonsillectomy <Brianda Lawson PA-C - Last Filed: 05/09/21 10:03> Social History Social History: Social History Household Members: Children Housing: Apartment Do you presently have visiting nurse or other home services: Yes (post op visiting nurses since last week) Alcohol intake: never Patient Tobacco Use Status: Current someday Tobacco user Tobacco use type: Cigarette Cigarettes Per Day: 1 e-Cigarette/Vaping Use: Currently Using Second Hand Smoke Exposure: No Substance Use Type: Marijuana Advance Directives: No Patient : No service: No Current occupational status: unemployed <GENA Younegr Last Filed: 05/09/21 10:03> Meds Allergies/Adverse reactions: Allergies Allergy/AdvReac Type Severity Reaction Status Date / Time Penicillins Allergy Severe ANAPHYLAXIS Verified 04/24/21 11:37 morphine [MORPHINE] Allergy Intermediate TACHYCARDIA, Verified 04/24/21 11:37 HIVES, ITCHING <GENA Younger Last Filed: 05/09/21 10:03> Active Medications: Current Medications Acetaminophen (Acetaminophen 325 Mg Tablet) 650 mg PO Q6H PRN PRN Reason: (Pain Scale 1-3), fever Heparin Sodium (Porcine) (Heparin Sodium,Porcine 5,000 Unit/Ml Vial) 5,000 unit SUBCUT Q8H [facility] Sodium Chloride (Ns) 1,000 mls @ 80 mls/hr IVCONT .[id number] [facility] Last Admin: 05/09/21 05:33 Dose: 125 mls/hr Documented by: Ondansetron HCl (Ondansetron Hcl 4 Mg/2 Ml Vial) 4 mg IVPUSH Q8H PRN PRN Reason: Nausea and Vomiting Oxycodone HCl (Oxycodone Hcl Immed Release 5 Mg Tablet) 5 mg PO Q6H PRN PRN Reason: Pain, Moderate (Pain Scale 4-6 Oxycodone HCl (Oxycodone Hcl Immed Release 5 Mg Tablet) 10 mg PO Q6H PRN PRN Reason: Pain, Severe (Pain Scale 7-10) Sodium Chloride (0.9 % Sodium Chloride Flush 3 Ml Syringe) 3 ml IVFLUSH QSHIFT [facility] <GENA Younger Last Filed: 05/09/21 10:03> Home medications: Home Medications Medication Instructions Recorded Confirmed Last Taken Type oxycodone 5 mg tablet 5 - 10 mg PO QID PRN 01/03/21 05/09/21 05/09/21 History 10 mg <GENA Younger Last Filed: 05/09/21 10:03> Physical Exam Vital Signs: Vital Signs: Last Vital Signs Temp 97.9 F 05/09/21 04:08 Pulse 71 05/09/21 07:38 Resp 18 05/09/21 07:38 BP 159/67 H 05/09/21 07:38 Pulse Ox 96 05/09/21 07:38 BMI result Body Mass Index 25.4 <Brianda Lawson PA-C Preethi Last Filed: 05/09/21 10:03> Const: General: healthy appearing, comfortable, no acute distress and alert <Brianda Lawson PA-C Preethi Last Filed: 05/09/21 10:03> Orientation/consciousness: patient oriented x3 <Brianda Lawson PA-C Preethi Last Filed: 05/09/21 10:03> Resp: Effort & Inspection: normal respiratory effort <Brianda Lawson PA-C Preethi Last Filed: 05/09/21 10:03> Cardio: Rate: regular rate <Brianda Lawson PA-C Preethi Last Filed: 05/09/21 10:03> GI: Other: ileostomy pink, liquid output in appliance <Brianda Lawson PA-C Preethi Last Filed: 05/09/21 10:03> Inspection: No distended and Yes scar (midline, well healed) <Brianda Lawson PA-C Preethi Last Filed: 05/09/21 10:03> Palpation (GI): Soft to palpation, Tenderness to palpation present (GI) (very mild pelvic tenderness to deep palpation ), no guarding and not rigid <Brianda Lawson PA-C [employer] Last Filed: 05/09/21 10:03> Percussion: Yes normal to percussion <Brianda Lawson PA-C Preethi Last Filed: 05/09/21 10:03> Skin: General skin exam: no rashes or lesions noted <Brianda Lawson PA-C Preethi Last Filed: 05/09/21 10:03> Neuro: General: patient oriented x3 <Brianda Lawson PA-C [employer] Last Filed: 05/09/21 10:03> Extrem: General: Yes no clubbing, cyanosis or edema <GENA Younger Last Filed: 05/09/21 10:03> Results Results Labs: Short CBC 05/09/21 Range/Units 00:36 WBC 11.5 H (4.8-10.8) X10*3/uL Hgb 14.3 (12.0-16.0) g/dl Hct 42.7 (37.0-47.0) % Plt Count 338 (160-400) X10*3/uL BMP 05/09/21 00:36 Sodium 140 Potassium 3.5 Chloride 106 Carbon Dioxide 25 BUN 12 Creatinine 0.81 Calcium 9.8 D Liver Function 05/09/21 Range/Units 00:36 Total Bilirubin 1.5 H (0.0-1.0) mg/dL Direct Bilirubin 0.4 (0.0-0.5) mg/dL AST 13 (5-31) U/L ALT 12 (0-31) U/L Alkaline Phosphatase 103 (39-117) U/L Albumin 4.4 (3.5-5.0) g/dL Urine 05/09/21 Range/Units 06:41 Urine Color YELLOW Urine Appearance HAZY Urine pH 5.5 (5.0-8.0) Ur Specific [place] 1.025 (1.005-1.025) Urine Protein 1+ H (NEG-TRACE) MG/DL Urine Glucose (UA) NEG (NEG) MG/DL <GENA Younger Last Filed: 05/09/21 10:03> Additional studies: CT SCAN ABD/PELVIS Stable appearance of the callosal vaginal fistula involving the distal descending/proximal sigmoid colon and the vaginal cuff this patient status post hysterectomy. The Goyal's pouch is intact and not involved in the fistula. * Unremarkable appearance of the diverting loop ileostomy within the right lower quadrant. * Pancolonic diverticulosis. * Bilateral nonobstructive intrarenal calculi redemonstrated. <GENA Younger Last Filed: 05/09/21 10:03> Assessment and Plan (1) UTI (urinary tract infection): Status: Acute <GENA Younger Last Filed: 05/09/21 10:03> (2) Ileostomy present: Status: Acute <Brianda Lawson PA-C - Last Filed: 05/09/21 10:03> (3) Colovaginal fistula: Status: Acute <Brianda Lawson PA-C - Last Filed: 05/09/21 10:03> has had vaginal drainge again x 4-5 days had has no drainage for [address] reviewed - fistulous connection to vaginal cuff ileostomy functioning well abd soft, benign plan flex sig tomorrow to visualize anastomosis seen and examined independently - agree with TIFFANIE Lawson <Jerel Goss MD - Last Filed: 05/09/21 15:14> Arpita Park is a 61 year old with history of a sigmoid resection with colorectal anastomosis and diverting loop ileostomy for diverticular abscess with known colovaginal fistula who presents with pelvic pain, burning on urination and recurrent feculent vaginal drainage. She is admitted to the surgical service for further treatment of the UTI with plan for flexible sigmoidoscopy tomorrow for further evaluation of the anastomosis and fistula. She agrees with the plan. Solid diet today and NPO after midnight for procedure. She is started on IV levaquin. <Brianda Lawson PA-C - Last Filed: 05/09/21 10:03> Quality Stroke Does the patient have a stroke diagnosis?: No <Brianda Lawson PA-C - Last Filed: 05/09/21 10:03> VTE Prior VTE?: No <Brianda Lawson PA-C - Last Filed: 05/09/21 10:03> VTE Risk Level:: Medical - low <Brianda Lawson PA-C - Last Filed: 05/09/21 10:03> VTE Device Contraindication: N/A - Device Ordered <Brianda Lawson PA-C - Last Filed: 05/09/21 10:03> VTE Drug Contraindication: N/A - Med Ordered <Brianda Lawson PA-C - Last Filed: 05/09/21 10:03> Procedures Date of Service Date of Service: 05/09/21 <Brianda Lawson PA-C - Last Filed: 05/09/21 10:03>
--- NOTE | 2021-05-09 08:44 | PHA.MEDREC ---
Pharmacy Consult ? Medication Reconciliation Pharmacy has completed the medication reconciliation. Patient reports no longer taking BP medicaitons. She only take oxycodone for pain. Zoila Carter, AmberD
[2021-05-09] MEDS: metroNIDAZOLE/NS 500 MG/100 ML PIGGYBACK 100 MG IV (09:42)
[2021-05-09] MEDS: oxyCODONE HCl Immed Release 5 MG TABLET 10 MG PO ×2 (10:02→19:31)
[2021-05-09 13:55] LABS: Glucose, Whole Blood 85 mg/dL (60-115)
--- NOTE | 2021-05-09 14:08 | PC.NURSE ---
Pt requested pain medication, upon entrance into room, pt sleeping with no clinical sigs of pain at this time. I brought Oxycodone and tylenol PO to pt, pt refusing both, states the only medication that works for her is the shot . Upon review of chart, she is referring to Are[facility]. Explained to pt that was a one time dose and this is what she has a available at this time. She asked to please ask the MD for the Shot again while stating, Please don't forget me for dinner
[2021-05-09] MEDS: 0.9 % Sodium Chloride 1,000 ML 80 ML IVCONT (14:41)
--- NOTE | 2021-05-09 16:08 | PC.NURSE ---
colostomy bag sized and applied by this copy writer, bag functioning appropriately.
--- NOTE | 2021-05-09 17:23 | PM.EVENT ---
Event Note Date of Service: 05/09/21 Event Note: no events today pt hungry - says she has been waiting for dinner some draiange from vagina - less stoma functioning abd soft, benign smyth flex sig tomorrow NPO post MN
[2021-05-09] MEDS: Lactated Ringers 1,000 ML 80 ML IVCONT ×3 (20:03→23:50)
[2021-05-09] MEDS: 0.9 % Sodium Chloride Flush 3 ML SYRINGE IVFLUSH (23:49)
[2021-05-10] VITALS (13 sets, daily range): BP systolic 106–182; BP diastolic 60–88; PULSE 56–74; RESP 15–18; TEMP 36.3–37.7; O2SAT 96–100
[2021-05-10] MEDS: HYDROmorphone HCl 1 MG/ML SYRINGE 0.5 MG IVPUSH ×4 (01:05→21:57)
[2021-05-10] MEDS: diphenhydrAMINE HCL 25 MG TABLET PO (02:45)
[2021-05-10] MEDS: oxyCODONE HCl Immed Release 5 MG TABLET 10 MG PO ×2 (07:00→12:37)
[2021-05-10] MEDS: levoFLOXacin/D5W 500 MG/100 ML PIGGYBACK 100 MG IV (07:01)
[2021-05-10 07:12] LABS: Anion Gap 13 (12-20); Blood Urea Nitrogen 11 mg/dL (9-16); Calcium 9.2 mg/dL (8.4-10.2); Carbon Dioxide 21 mmol/L (22-29); Chloride 110 mmol/L (96-108); Creatinine Clr Calc Pharmacy 82.3; Estimated Glomerular Filt Rate > 60; Glucose Fasting 92 mg/dL (60-99); Potassium 3.5 mmol/L (3.3-5.1); Sodium 140 mmol/L (135-145)
--- NOTE | 2021-05-10 08:18 | PM.PNGS ---
Subjective Subjective Date of Service: 05/10/21 Interval history: Feels well this morning Much less vaginal drainage overnight No new complaints Physical Exam Vital Signs: Vital Signs: Last Vital Signs Temp 97.7 F 05/10/21 04:00 Pulse 68 05/10/21 04:00 Resp 18 05/10/21 04:00 BP 125/66 05/10/21 04:00 Pulse Ox 98 05/10/21 04:00 BMI result Body Mass Index 25.4 Const: Other: Looks well General: comfortable and no acute distress Resp: Effort & Inspection: normal respiratory effort Cardio: Rate: regular rate GI: Palpation (GI): Soft to palpation, not firm, nontender and no guarding Objective Data Active Medications Acetaminophen (Acetaminophen 325 Mg Tablet) 650 mg PO Q6H PRN PRN Reason: (Pain Scale 1-3), fever Heparin Sodium (Porcine) (Heparin Sodium,Porcine 5,000 Unit/Ml Vial) 5,000 unit SUBCUT Q8H [facility] Hydromorphone HCl (Hydromorphone Hcl 1 Mg/Ml Syringe) 0.5 mg IVPUSH Q3H PRN; Protocol PRN Reason: Pain, Severe (Pain Scale 7-10) Last Admin: 05/10/21 04:25 Dose: 0.5 mg Documented by: ALLI Sodium Chloride (Ns) 1,000 mls @ 80 mls/hr IVCONT .[id number] [facility] Last Admin: 05/09/21 23:52 Dose: Not Given Documented by: ALLI Non-Admin Reason: Duplicate Order Levofloxacin (Levaquin) 500 mg in 100 mls @ 100 mls/hr IV Q24H [facility] Last Admin: 05/10/21 07:01 Dose: 100 mls/hr Documented by: CYNTHIA Lactated Ringer's (Lr) 1,000 mls @ 80 mls/hr IVCONT .[id number] [facility] Last Infusion: 05/09/21 23:50 Dose: 80 mls/hr Documented by: ALLI Ondansetron HCl (Ondansetron Hcl 4 Mg/2 Ml Vial) 4 mg IVPUSH Q8H PRN PRN Reason: Nausea and Vomiting Oxycodone HCl (Oxycodone Hcl Immed Release 5 Mg Tablet) 5 mg PO Q6H PRN PRN Reason: Pain, Moderate (Pain Scale 4-6 Oxycodone HCl (Oxycodone Hcl Immed Release 5 Mg Tablet) 10 mg PO Q6H PRN PRN Reason: Pain, Severe (Pain Scale 7-10) Last Admin: 05/10/21 07:00 Dose: 10 mg Documented by: CYNTHIA Sodium Chloride (0.9 % Sodium Chloride Flush 3 Ml Syringe) 3 ml IVFLUSH QSHIFT [facility] Last Admin: 05/10/21 07:01 Dose: Not Given Documented by: CYNTHIA Non-Admin Reason: IV Running Labs CBC & Chem 7: 05/09/21 00:36 05/10/21 06:01 Labs: Laboratory Results - last 24 hr 05/09/21 05/10/21 13:30 06:01 Anion Gap 13 Estim Creat Clear Calc 82.3 Estimated GFR > 60 POC Glucose 85 Fasting Glucose 92 Calcium 9.2 D Procedures Date of Service Date of Service: 05/10/21 Progress Note: A&P Assessment and plan (1) Ileostomy present: Status: Acute (2) Colovaginal fistula: Status: Acute Assessment and Plan: Currently diverted with ileostomy after sigmoid resection for diverticular abscess Vaginal drainage much improved UTI - she says she has had frequent UTIs for years due to hx of kidney stones Flex sig today to examine Kiko's pouch Looks well CT suggests colovaginal fistula likely from staple line injury labs ok Fall Risk Details Current Medications: Current Medications Acetaminophen (Acetaminophen 325 Mg Tablet) 650 mg PO Q6H PRN PRN Reason: (Pain Scale 1-3), fever Heparin Sodium (Porcine) (Heparin Sodium,Porcine 5,000 Unit/Ml Vial) 5,000 unit SUBCUT Q8H [facility] Hydromorphone HCl (Hydromorphone Hcl 1 Mg/Ml Syringe) 0.5 mg IVPUSH Q3H PRN; Protocol PRN Reason: Pain, Severe (Pain Scale 7-10) Last Admin: 05/10/21 04:25 Dose: 0.5 mg Documented by: Sodium Chloride (Ns) 1,000 mls @ 80 mls/hr IVCONT .[id number] [facility] Last Admin: 05/09/21 23:52 Dose: Not Given Documented by: Levofloxacin (Levaquin) 500 mg in 100 mls @ 100 mls/hr IV Q24H [facility] Last Admin: 05/10/21 07:01 Dose: 100 mls/hr Documented by: Lactated Ringer's (Lr) 1,000 mls @ 80 mls/hr IVCONT .[id number] [facility] Last Admin: 05/09/21 23:50 Dose: 80 mls/hr Documented by: Ondansetron HCl (Ondansetron Hcl 4 Mg/2 Ml Vial) 4 mg IVPUSH Q8H PRN PRN Reason: Nausea and Vomiting Oxycodone HCl (Oxycodone Hcl Immed Release 5 Mg Tablet) 5 mg PO Q6H PRN PRN Reason: Pain, Moderate (Pain Scale 4-6 Oxycodone HCl (Oxycodone Hcl Immed Release 5 Mg Tablet) 10 mg PO Q6H PRN PRN Reason: Pain, Severe (Pain Scale 7-10) Last Admin: 05/10/21 07:00 Dose: 10 mg Documented by: Sodium Chloride (0.9 % Sodium Chloride Flush 3 Ml Syringe) 3 ml IVFLUSH QSHIFT [facility] Last Admin: 05/10/21 07:01 Dose: Not Given Documented by: Time Spent With Patient Time: Total time spent is greater than 50% in coordination of care (as documented) at patient's floor/unit and/or counseling patient: Time with patient: 15 - 24 minutes Quality Stroke Does the patient have a stroke diagnosis?: No VTE Prior VTE?: No VTE Risk Level:: Medical - low VTE Device Contraindication: N/A - Device Ordered VTE Drug Contraindication: N/A - Med Ordered
--- NOTE | 2021-05-10 09:18 | P.CONAN_ITS ---
HPI - Anesthesia Eval Consult details Narrative: 61 F for flexible sigmoidoscopy PMFSH Active Problems Active Problems: All Active Problems (Updated 05/09/21 @ 07:19 by Trudy Lee MD) UTI (urinary tract infection) (Acute) Ileostomy present (Acute) Colostomy in place (Acute) Colovaginal fistula (Acute) Fistula involving female genital tract (Acute) Hypokalemia (Acute) S/P colon resection (Acute) Chronic pain (Acute) Diverticulitis of large intestine with abscess (Acute) Hypertension (Acute) Diverticulosis of colon (Acute) Depression (Acute) Hx of diverticulitis of colon (Acute) Colon cancer screening (Acute) Past Medical History Medical History (Updated 05/09/21 @ 07:19 by Trudy Lee MD) Chronic pain Current vaping on some days History of urinary tract infection Ileostomy present Kidney stones Medullary sponge kidney Family History Family History Father HTN (hypertension) Cancer of kidney Mother Dementia Age related osteoporosis Family history of problems with anesthesia: No Surgical History Surgical History (Updated 05/09/21 @ 09:50 by Brianda Lawson PA-C) History of arthroplasty of right knee (~01/2018) History of colon resection (~01/2021) Hx of colonoscopy Hx of cystoscopy Status post appendectomy Status post bunionectomy (~09/2011) Status post hysterectomy Status post tonsillectomy History of Problems with Anesthesia: No Social History Social History Household Members: Children Housing: Apartment Do you presently have visiting nurse or other home services: Yes ([employer]) Alcohol intake: never Patient Tobacco Use Status: Current someday Tobacco user Tobacco use type: Cigarette Cigarettes Per Day: 1 e-Cigarette/Vaping Use: Currently Using Second Hand Smoke Exposure: No Substance Use Type: Marijuana service: No Current occupational status: unemployed Meds Allergies Allergy/AdvReac Type Severity Reaction Status Date / Time Penicillins Allergy Severe ANAPHYLAXIS Verified 04/24/21 11:37 morphine [MORPHINE] Allergy Intermediate TACHYCARDIA, Verified 04/24/21 11:37 HIVES, ITCHING Active Medications: Current Medications Acetaminophen (Acetaminophen 325 Mg Tablet) 650 mg PO Q6H PRN PRN Reason: (Pain Scale 1-3), fever Heparin Sodium (Porcine) (Heparin Sodium,Porcine 5,000 Unit/Ml Vial) 5,000 unit SUBCUT Q8H [facility] Last Admin: 05/10/21 08:41 Dose: Not Given Documented by: Hydromorphone HCl (Hydromorphone Hcl 1 Mg/Ml Syringe) 0.5 mg IVPUSH Q3H PRN; Protocol PRN Reason: Pain, Severe (Pain Scale 7-10) Last Admin: 05/10/21 04:25 Dose: 0.5 mg Documented by: Sodium Chloride (Ns) 1,000 mls @ 80 mls/hr IVCONT .[id number] [facility] Last Admin: 05/09/21 23:52 Dose: Not Given Documented by: Levofloxacin (Levaquin) 500 mg in 100 mls @ 100 mls/hr IV Q24H [facility] Last Infusion: 05/10/21 08:52 Dose: Infused Documented by: Lactated Ringer's (Lr) 1,000 mls @ 80 mls/hr IVCONT .[id number] [facility] Last Admin: 05/09/21 23:50 Dose: 80 mls/hr Documented by: Ondansetron HCl (Ondansetron Hcl 4 Mg/2 Ml Vial) 4 mg IVPUSH Q8H PRN PRN Reason: Nausea and Vomiting Oxycodone HCl (Oxycodone Hcl Immed Release 5 Mg Tablet) 5 mg PO Q6H PRN PRN Reason: Pain, Moderate (Pain Scale 4-6 Oxycodone HCl (Oxycodone Hcl Immed Release 5 Mg Tablet) 10 mg PO Q6H PRN PRN Reason: Pain, Severe (Pain Scale 7-10) Last Admin: 05/10/21 07:00 Dose: 10 mg Documented by: Sodium Chloride (0.9 % Sodium Chloride Flush 3 Ml Syringe) 3 ml IVFLUSH QSHIFT [facility] Last Admin: 05/10/21 07:01 Dose: Not Given Documented by: Home Medications Medication Instructions Recorded Confirmed Last Taken Type oxycodone 5 mg tablet 5 - 10 mg PO QID PRN 01/03/21 05/09/21 05/09/21 History 10 mg Exam Exam Date and Time: May 10, [id number] Height,Weight and Vital Signs: Height 5 ft 5 in Weight 69.4 kg Last Vital Signs Temp 99.2 F 05/10/21 08:00 Pulse 65 05/10/21 08:00 Resp 18 05/10/21 08:00 BP 146/67 H 05/10/21 08:00 Pulse Ox 99 05/10/21 08:00 Pertinent Lab Results Pertinent Lab Results: Laboratory Tests 05/09/21 05/09/21 05/09/21 00:36 00:36 06:41 WBC 11.5 H RBC 5.06 Hgb 14.3 Hct 42.7 MCV 84.4 MCH 28.3 MCHC 33.5 RDW 14.5 Plt Count 338 MPV 9.3 L Immature Gran % (Auto) 0.3 Neut % (Auto) 60.6 Lymph % (Auto) 31.1 Cotton % (Auto) 5.4 Eos % (Auto) 2.3 Baso % (Auto) 0.3 Lymph # (Auto) 3.6 Cotton # (Auto) 0.6 Eos # (Auto) 0.3 Baso # (Auto) 0.0 Abs Immat Gran (auto) 0.03 Absolute Neuts (auto) 7.0 Absolute Nucleated RBC 0.000 Nucleated RBC % (auto) 0.0 Sodium 140 Potassium 3.5 Chloride 106 Carbon Dioxide 25 Anion Gap 13 BUN 12 Creatinine 0.81 Estim Creat Clear Calc 73.1 Estimated GFR > 60 POC Glucose Random Glucose 118 H Fasting Glucose Calcium 9.8 D Total Bilirubin 1.5 H Direct Bilirubin 0.4 AST 13 ALT 12 Alkaline Phosphatase 103 Total Protein 8.3 H Albumin 4.4 Lipase 13 Urine Color YELLOW Urine Appearance HAZY Urine pH 5.5 Ur Specific [place] 1.025 Urine Protein 1+ H Urine Glucose (UA) NEG Urine Ketones NEG Urine Blood 2+ H Urine Nitrite NEG Ur Leukocyte Esterase 1+ H Urine RBC 5-9 H Urine WBC 10-14 H Ur Squamous Epith Cells 1+ Urine Bacteria 2+ Urine Mucus 1+ COVID-19 ([facility]) COVID-19 Clin Com 05/09/21 05/09/21 05/10/21 07:42 13:30 06:01 WBC RBC Hgb Hct MCV MCH MCHC RDW Plt Count MPV Immature Gran % (Auto) Neut % (Auto) Lymph % (Auto) Cotton % (Auto) Eos % (Auto) Baso % (Auto) Lymph # (Auto) Cotton # (Auto) Eos # (Auto) Baso # (Auto) Abs Immat Gran (auto) Absolute Neuts (auto) Absolute Nucleated RBC Nucleated RBC % (auto) Sodium 140 Potassium 3.5 Chloride 110 H Carbon Dioxide 21 L Anion Gap 13 BUN 11 Creatinine 0.72 Estim Creat Clear Calc 82.3 Estimated GFR > 60 POC Glucose 85 Random Glucose Fasting Glucose 92 Calcium 9.2 D Total Bilirubin Direct Bilirubin AST ALT Alkaline Phosphatase Total Protein Albumin Lipase Urine Color Urine Appearance Urine pH Ur Specific [place] Urine Protein Urine Glucose (UA) Urine Ketones Urine Blood Urine Nitrite Ur Leukocyte Esterase Urine RBC Urine WBC Ur Squamous Epith Cells Urine Bacteria Urine Mucus COVID-19 ([facility]) Negative COVID-19 Clin Com See Note Airway Mallampati Class: III TM Dist: >3cm Neck ROM: Full Loose/Missing/Broken Teeth: Yes (Chipped and missing. ) Assessment and Plan Assessment Anesthesia Assessment: Anesthesia Plan Discussed Final Anesthetic Review Family History of Problems with Anesthesia: No History of Problems with Anesthesia: No NPO: Yes ASA Class: II Final Preanesthetic Review: Anes Risks/Benef Reviewed Patient Risk: Intermediate Procedure Risk: Intermediate Anesthetic Plan Anesthetic Plan: MAC: Disposition: Standard PACU
--- NOTE | 2021-05-10 11:03 | W.PM.OPN ---
Operative Note Operative Note Date of Service: 05/10/21 Narrative: Preop diagnosis: Status post sigmoid resection, colostomy, with colovaginal fistula Postop diagnosis: the same Procedure: Flexible sigmoidoscopy to 20 cm, large amounts of stools encountered at this level surgeon: Jerel Goss MD The patient is a 89-year-old female who had undergone emergency sigmoid resection for a diverticular abscess, with anastomosis as well as a diverting loop ileostomy last January,. She had some so fecal drainage from her vagina about days postoperatively. This had resolved and she has had no drainage for about over months. I had scheduled her for a barium enema study via the ostomy. However, she came to the ER yesterday because of drainage of stool again for for her vagina. I therefore schedule her for a flexible sigmoidoscopy. She understood the technique of this procedure as well as the risks, benefits, and alternatives She was brought to the endoscopy suite and placed in left lateral decubitus position under monitored anesthesia care. A surgical time-out was done. A full digital exam did not reveal any pathology I gently inserted the colonoscope through the anal orifice and advanced this with insufflation slowly. I naviagted round some formed solid stool and continued to advance proximally. At about 20 cm, there was note of thick stool balls which we could not irrigate. We could not therefore get around this and had no good visualization past this area. I therefore decided to withdraw and examined the remaining sigmoid colon and rectum. There was no other pathology. There was no identifiable fistulous opening .I withdrew the scope completely . I proceeded to then examine her vaginal opening with direct vision there was note of some small scanty amounts of stool in the vault. I could not directly see a fistulous opening however. The procedure was then completed . The patient tolerated theprocedure well. No complications were noted. Again, this likely that the vaginal fistula is on the staple line itself involving the vaginal cuff to the sigmoid stump.. I will discuss with her repair which will involve revision of this anastomosis.
--- NOTE | 2021-05-10 13:26 | MHC.CM.PN ---
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
--- NOTE | 2021-05-10 15:31 | PM.EVENT ---
Event Note Date of Service: 05/10/21 Event Note: flex sig - unable to see staple line; a lot of old stool at level 20 cm discussed with pt - need to revise anastomosis, with handassisted laparoscopy/laparotomy currently she looks well but want this done sooner will try to squeeze in pt next week on OR schedule will dw Dr. Harvey as well pt currenly feels well, abd benign, no fever
[2021-05-10] MEDS: Lactated Ringers 1,000 ML 80 ML IVCONT (17:36)
[2021-05-10] MEDS: LORazepam 0.5 MG TABLET PO (19:41)
[2021-05-11] VITALS (10 sets, daily range): BP systolic 114–167; BP diastolic 61–79; PULSE 56–65; RESP 16–20; TEMP 36.2–37; O2SAT 94–98
[2021-05-11] MEDS: HYDROmorphone HCl 1 MG/ML SYRINGE 0.5 MG IVPUSH ×5 (03:43→22:14)
--- NOTE | 2021-05-11 03:46 | PC.NURSE ---
DURING [facility] CHANGE REPORTING OFF RN NOTED PATIENTS NOVA CATHETER WAS REMOVED IN AM OF THIS DAY ENDING AND ONLY VOIDED TIMES ONE AT 1400. PT ASSISTED TO BR WITH NO URINE PASSED. PT BTB AND PREVIOUS SHIFT RN BLADDER SCANNED PT FOR 750 ML OF RETENTION. INFORMATION WAS SENT TO HOSPITALIST ON DUTY AND ORDER TO REPLACE NOVA CATHETER DUE TO ACUTE RETENTION. # 18 SETSWANA WAS SUCCESSFULLY INSERTED AFTWITH #16 PT TENSE BRANDIN FAILED ATTEMPT BY RN PREVIOUS SHIFT AND THIS ROOF SERVICE TECHNICIAN PT SEEMED TENSE AND UNCOMFORTABLE. SUCCESSFUL AFTER RELAXATION WITH 600 YELLOW URINE DRAINED RIGHT AFTER INSERTION. PT MARTA WELL AND ABLE TO RELAX AND REST.
[2021-05-11] MEDS: Lactated Ringers 1,000 ML 80 ML IVCONT ×2 (06:16→18:38)
[2021-05-11] MEDS: 0.9 % Sodium Chloride Flush 3 ML SYRINGE IVFLUSH ×2 (08:04→17:00)
[2021-05-11] MEDS: levoFLOXacin/D5W 500 MG/100 ML PIGGYBACK 100 MG IV (08:05)
--- NOTE | 2021-05-11 08:45 | HO.POSTANES ---
Post Anesthesia Evaluation Post Anesthesia Evaluation Vital Signs: Vital Signs Temp Pulse Resp BP Pulse Ox 05/11/21 08:04 16 05/11/21 07:25 97.6 F 64 17 114/62 98 05/11/21 03:16 97.1 F 63 16 132/61 96 05/10/21 23:42 97.3 F 67 16 132/63 96 Anesthesia: TIVA Mental Status: Awake Pain Control: Satisfactory Nausea/Vomiting: None Hydration: Adequate Anesthesia-Related Issues: No Anes. Related Issues
--- NOTE | 2021-05-11 08:58 | P.PNGS_ITS ---
Subjective Subjective Date of Service: 05/11/21 Interval history: No new complaints Continues to note stool per vagina. Tolerating regular diet without nausea or vomiting. Denies abdominal pain. Physical Exam Vital Signs: Vital Signs: Last Vital Signs Temp 97.6 F 05/11/21 07:25 Pulse 64 05/11/21 07:25 Resp 16 05/11/21 08:04 BP 114/62 05/11/21 07:25 Pulse Ox 98 05/11/21 07:25 BMI result Body Mass Index 25.4 Const: General: comfortable and no acute distress Nutritional Appearance: well nourished Orientation/consciousness: patient oriented x3 Limitations: no limitations Resp: Other: Breathing comfortably on room air, no respiratory distress GI: Other: Soft and nondistended, nontender Skin: Other: Warm, dry, no rash Neuro: General: patient oriented x3 Extrem: Other: No edema Objective Data Active Medications Acetaminophen (Acetaminophen 325 Mg Tablet) 650 mg PO Q6H PRN PRN Reason: (Pain Scale 1-3), fever Heparin Sodium (Porcine) (Heparin Sodium,Porcine 5,000 Unit/Ml Vial) 5,000 unit SUBCUT Q8H [facility] Last Admin: 05/11/21 00:53 Dose: Not Given Documented by: AMARILIS Non-Admin Reason: Patient Refused Hydromorphone HCl (Hydromorphone Hcl 1 Mg/Ml Syringe) 0.5 mg IVPUSH Q3H PRN; Protocol PRN Reason: Pain, Severe (Pain Scale 7-10) Last Admin: 05/11/21 08:04 Dose: 0.5 mg Documented by: VALENTINA Levofloxacin (Levaquin) 500 mg in 100 mls @ 100 mls/hr IV Q24H [facility] Last Admin: 05/11/21 08:05 Dose: 100 mls/hr Documented by: VALENTINA Lactated Ringer's (Lr) 1,000 mls @ 80 mls/hr IVCONT .[id number] [facility] Last Admin: 05/11/21 06:16 Dose: 80 mls/hr Documented by: AMARILIS Lorazepam (Lorazepam 0.5 Mg Tablet) 0.5 mg PO Q8H PRN PRN Reason: Anxiety Last Admin: 05/10/21 19:41 Dose: 0.5 mg Documented by: HO.BOURQC Ondansetron HCl (Ondansetron Hcl 4 Mg/2 Ml Vial) 4 mg IVPUSH Q8H PRN PRN Reason: Nausea and Vomiting Oxycodone HCl (Oxycodone Hcl Immed Release 5 Mg Tablet) 5 mg PO Q6H PRN PRN Reason: Pain, Moderate (Pain Scale 4-6 Oxycodone HCl (Oxycodone Hcl Immed Release 5 Mg Tablet) 10 mg PO Q6H PRN PRN Reason: Pain, Severe (Pain Scale 7-10) Last Admin: 05/10/21 12:37 Dose: 10 mg Documented by: CYNTHIA Sodium Chloride (0.9 % Sodium Chloride Flush 3 Ml Syringe) 3 ml IVFLUSH QSHIFT [facility] Last Admin: 05/11/21 08:04 Dose: 3 ml Documented by: VALENTINA Labs CBC & Chem 7: 05/09/21 00:36 05/10/21 06:01 Microbiology Microbiology Results: Microbiology 05/09/21 Unknown Urine Culture - Final Urine clean catch - Urine griffith top 05/09/21 07:46 Blood Culture - Preliminary Blood - Venous No growth after 24 hours. 05/09/21 07:45 Blood Culture - Preliminary Blood - Venous No growth after 24 hours. 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 Patient is stable with no evidence of sepsis at this time. She is tolerating regular diet. Current plan is for patient to undergo revision of her colorectal anastomosis with closure of the colovaginal fistula at some point this week. Fall Risk Details Current Medications: Current Medications Acetaminophen (Acetaminophen 325 Mg Tablet) 650 mg PO Q6H PRN PRN Reason: (Pain Scale 1-3), fever Heparin Sodium (Porcine) (Heparin Sodium,Porcine 5,000 Unit/Ml Vial) 5,000 unit SUBCUT Q8H [facility] Last Admin: 05/11/21 00:53 Dose: Not Given Documented by: Hydromorphone HCl (Hydromorphone Hcl 1 Mg/Ml Syringe) 0.5 mg IVPUSH Q3H PRN; Protocol PRN Reason: Pain, Severe (Pain Scale 7-10) Last Admin: 05/11/21 08:04 Dose: 0.5 mg Documented by: Levofloxacin (Levaquin) 500 mg in 100 mls @ 100 mls/hr IV Q24H [facility] Last Admin: 05/11/21 08:05 Dose: 100 mls/hr Documented by: Lactated Ringer's (Lr) 1,000 mls @ 80 mls/hr IVCONT .[id number] [facility] Last Admin: 05/11/21 06:16 Dose: 80 mls/hr Documented by: Lorazepam (Lorazepam 0.5 Mg Tablet) 0.5 mg PO Q8H PRN PRN Reason: Anxiety Last Admin: 05/10/21 19:41 Dose: 0.5 mg Documented by: Ondansetron HCl (Ondansetron Hcl 4 Mg/2 Ml Vial) 4 mg IVPUSH Q8H PRN PRN Reason: Nausea and Vomiting Oxycodone HCl (Oxycodone Hcl Immed Release 5 Mg Tablet) 5 mg PO Q6H PRN PRN Reason: Pain, Moderate (Pain Scale 4-6 Oxycodone HCl (Oxycodone Hcl Immed Release 5 Mg Tablet) 10 mg PO Q6H PRN PRN Reason: Pain, Severe (Pain Scale 7-10) Last Admin: 05/10/21 12:37 Dose: 10 mg Documented by: Sodium Chloride (0.9 % Sodium Chloride Flush 3 Ml Syringe) [facility] Last Admin: 05/11/21 08:04 Dose: 3 ml Documented by: Time Spent With Patient Time: Total time spent is greater than 50% in coordination of care (as documented) at patient's floor/unit and/or counseling patient: Time with patient: 15 - 24 minutes Quality Stroke Does the patient have a stroke diagnosis?: No VTE Prior VTE?: No VTE Risk Level:: Medical - low VTE Device Contraindication: N/A - Device Ordered VTE Drug Contraindication: N/A - Med Ordered
[2021-05-11] MEDS: ondansetron HCL 4 MG/2 ML VIAL IVPUSH (12:15)
[2021-05-11] MEDS: Heparin Sodium,Porcine 5,000 UNIT/ML VIAL 5000 UNIT SUBCUT (16:59)
[2021-05-12] VITALS (9 sets, daily range): BP systolic 135–189; BP diastolic 63–86; PULSE 54–66; RESP 16–18; TEMP 36.4–36.9; O2SAT 95–99
[2021-05-12] MEDS: HYDROmorphone HCl 1 MG/ML SYRINGE 0.5 MG IVPUSH ×5 (02:05→20:04)
[2021-05-12] MEDS: Lactated Ringers 1,000 ML 80 ML IVCONT ×2 (05:45→18:11)
[2021-05-12] MEDS: 0.9 % Sodium Chloride Flush 3 ML SYRINGE IVFLUSH ×2 (07:32→17:07)
[2021-05-12] MEDS: levoFLOXacin/D5W 500 MG/100 ML PIGGYBACK 100 MG IV (07:32)
--- NOTE | 2021-05-12 10:00 | PM.PNGS ---
Subjective Subjective Date of Service: 05/12/21 Interval history: No new complaints, continued stool discharge per vagina reported. Physical Exam Vital Signs: Vital Signs: Last Vital Signs Temp 97.5 F 05/12/21 07:52 Pulse 61 05/12/21 07:52 Resp 16 05/12/21 07:52 BP 186/77 H 05/12/21 07:52 Pulse Ox 99 05/12/21 07:52 BMI result Body Mass Index 25.4 Const: General: no acute distress Resp: Effort & Inspection: normal respiratory effort GI: Inspection: Yes normal to inspection Skin: General skin exam: no rashes or lesions noted Objective Data Active Medications Acetaminophen (Acetaminophen 325 Mg Tablet) 650 mg PO Q6H PRN PRN Reason: (Pain Scale 1-3), fever Heparin Sodium (Porcine) (Heparin Sodium,Porcine 5,000 Unit/Ml Vial) 5,000 unit SUBCUT Q8H [facility] Last Admin: 05/12/21 00:02 Dose: Not Given Documented by: AMARILIS Non-Admin Reason: Patient Refused Hydromorphone HCl (Hydromorphone Hcl 1 Mg/Ml Syringe) 0.5 mg IVPUSH Q3H PRN; Protocol PRN Reason: Pain, Severe (Pain Scale 7-10) Last Admin: 05/12/21 07:48 Dose: 0.5 mg Documented by: VALENTINA Levofloxacin (Levaquin) 500 mg in 100 mls @ 100 mls/hr IV Q24H [facility] Last Infusion: 05/12/21 08:32 Dose: 0 mls/hr Documented by: VALENTINA Lactated Ringer's (Lr) 1,000 mls @ 80 mls/hr IVCONT .[id number] [facility] Last Admin: 05/12/21 05:45 Dose: 80 mls/hr Documented by: AMARILIS Lorazepam (Lorazepam 0.5 Mg Tablet) 0.5 mg PO Q8H PRN PRN Reason: Anxiety Last Admin: 05/10/21 19:41 Dose: 0.5 mg Documented by: ALLI Ondansetron HCl (Ondansetron Hcl 4 Mg/2 Ml Vial) 4 mg IVPUSH Q8H PRN PRN Reason: Nausea and Vomiting Last Admin: 05/11/21 12:15 Dose: 4 mg Documented by: VALENTINA Oxycodone HCl (Oxycodone Hcl Immed Release 5 Mg Tablet) 5 mg PO Q6H PRN PRN Reason: Pain, Moderate (Pain Scale 4-6 Oxycodone HCl (Oxycodone Hcl Immed Release 5 Mg Tablet) 10 mg PO Q6H PRN PRN Reason: Pain, Severe (Pain Scale 7-10) Last Admin: 05/10/21 12:37 Dose: 10 mg Documented by: CYNTHIA Sodium Chloride (0.9 % Sodium Chloride Flush 3 Ml Syringe) 3 ml IVFLUSH [facility] Last Admin: 05/12/21 07:32 Dose: 3 ml Documented by: VALENTINA Labs CBC & Chem 7: 05/09/21 00:36 05/10/21 06:01 Microbiology Microbiology Results: Microbiology 05/09/21 07:46 Blood Culture - Preliminary Blood - Venous No growth after 48 hours. 05/09/21 07:45 Blood Culture - Preliminary Blood - Venous No growth after 48 hours. 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 Patient is stable with no evidence of sepsis at this time. She is tolerating regular diet. Current plan is for patient to undergo revision of her colorectal anastomosis with closure of the colovaginal fistula; patient added on to OR schedule for Thursday. Fall Risk Details Current Medications: Current Medications Acetaminophen (Acetaminophen 325 Mg Tablet) 650 mg PO Q6H PRN PRN Reason: (Pain Scale 1-3), fever Heparin Sodium (Porcine) (Heparin Sodium,Porcine 5,000 Unit/Ml Vial) 5,000 unit SUBCUT Q8H [facility] Last Admin: 05/12/21 00:02 Dose: Not Given Documented by: Hydromorphone HCl (Hydromorphone Hcl 1 Mg/Ml Syringe) 0.5 mg IVPUSH Q3H PRN; Protocol PRN Reason: Pain, Severe (Pain Scale 7-10) Last Admin: 05/12/21 07:48 Dose: 0.5 mg Documented by: Levofloxacin (Levaquin) 500 mg in 100 mls @ 100 mls/hr IV Q24H [facility] Last Infusion: 05/12/21 08:32 Dose: Infused Documented by: Lactated Ringer's (Lr) 1,000 mls @ 80 mls/hr IVCONT .[id number] [facility] Last Admin: 05/12/21 05:45 Dose: 80 mls/hr Documented by: Lorazepam (Lorazepam 0.5 Mg Tablet) 0.5 mg PO Q8H PRN PRN Reason: Anxiety Last Admin: 05/10/21 19:41 Dose: 0.5 mg Documented by: Ondansetron HCl (Ondansetron Hcl 4 Mg/2 Ml Vial) 4 mg IVPUSH Q8H PRN PRN Reason: Nausea and Vomiting Last Admin: 05/11/21 12:15 Dose: 4 mg Documented by: Oxycodone HCl (Oxycodone Hcl Immed Release 5 Mg Tablet) 5 mg PO Q6H PRN PRN Reason: Pain, Moderate (Pain Scale 4-6 Oxycodone HCl (Oxycodone Hcl Immed Release 5 Mg Tablet) 10 mg PO Q6H PRN PRN Reason: Pain, Severe (Pain Scale 7-10) Last Admin: 05/10/21 12:37 Dose: 10 mg Documented by: Sodium Chloride (0.9 % Sodium Chloride Flush 3 Ml Syringe) 3 ml IVFLUSH QSHIFT [facility] Last Admin: 05/12/21 07:32 Dose: 3 ml Documented by: Time Spent With Patient Time: Total time spent is greater than 50% in coordination of care (as documented) at patient's floor/unit and/or counseling patient: Time with patient: less than 15 minutes Quality Stroke Does the patient have a stroke diagnosis?: No VTE Prior VTE?: No VTE Risk Level:: Medical - low VTE Device Contraindication: N/A - Device Ordered VTE Drug Contraindication: N/A - Med Ordered
--- NOTE | 2021-05-12 19:30 | PC.NURSE ---
Pt requested to shower. Supplies given for shower and for colostomy bag. IV wrapped. Pt took a shower independently. She changed her colostomy bag on her own. Pt emptied colostomy as needed on her own throughout shift. Medicated as needed.
[2021-05-13] VITALS (22 sets, daily range): BP systolic 148–192; BP diastolic 54–96; PULSE 59–86; RESP 12–20; TEMP 36.3–38.1; O2SAT 81–100
[2021-05-13] MEDS: HYDROmorphone HCl 1 MG/ML SYRINGE 0.5 MG IVPUSH ×5 (00:44→23:39)
[2021-05-13] MEDS: Heparin Sodium,Porcine 5,000 UNIT/ML VIAL 5000 UNIT SUBCUT (00:45)
[2021-05-13] MEDS: oxyCODONE HCl Immed Release 5 MG TABLET 10 MG PO (06:42)
[2021-05-13] MEDS: Lactated Ringers 1,000 ML 80 ML IVCONT (06:43)
[2021-05-13] MEDS: levoFLOXacin/D5W 500 MG/100 ML PIGGYBACK 100 MG IV (06:43)
--- NOTE | 2021-05-13 08:13 | P.PNGS_ITS ---
Subjective Subjective Date of Service: 05/13/21 Interval history: Feels well Says drainage from the vagina has improved significantly over the weekend No new complaints Physical Exam Vital Signs: Vital Signs: Last Vital Signs Temp 97.8 F 05/13/21 07:13 Pulse 60 05/13/21 07:13 Resp 20 05/13/21 07:13 BP 186/77 H 05/13/21 07:13 Pulse Ox 96 05/13/21 07:13 BMI result Body Mass Index 25.4 Const: General: comfortable and no acute distress Resp: Effort & Inspection: normal respiratory effort Cardio: Rhythm: regular rhythm GI: Other: Stoma functioning Palpation (GI): Soft to palpation and nontender Objective Data Active Medications Acetaminophen (Acetaminophen 325 Mg Tablet) 650 mg PO Q6H PRN PRN Reason: (Pain Scale 1-3), fever Heparin Sodium (Porcine) (Heparin Sodium,Porcine 5,000 Unit/Ml Vial) 5,000 unit SUBCUT Q8H [facility] Last Admin: 05/13/21 00:45 Dose: 5,000 unit Documented by: NICKIE Hydromorphone HCl (Hydromorphone Hcl 1 Mg/Ml Syringe) 0.5 mg IVPUSH Q3H PRN; Protocol PRN Reason: Pain, Severe (Pain Scale 7-10) Last Admin: 05/13/21 04:08 Dose: 0.5 mg Documented by: NICKIE Levofloxacin (Levaquin) 500 mg in 100 mls @ 100 mls/hr IV Q24H [facility] Last Admin: 05/13/21 06:43 Dose: 100 mls/hr Documented by: CYNTHIA Lactated Ringer's (Lr) 1,000 mls @ 80 mls/hr IVCONT .[id number] [facility] Last Admin: 05/13/21 06:43 Dose: 80 mls/hr Documented by: CYNTHIA Lorazepam (Lorazepam 0.5 Mg Tablet) 0.5 mg PO Q8H PRN PRN Reason: Anxiety Last Admin: 05/10/21 19:41 Dose: 0.5 mg Documented by: ALLI Ondansetron HCl (Ondansetron Hcl 4 Mg/2 Ml Vial) 4 mg IVPUSH Q8H PRN PRN Reason: Nausea and Vomiting Last Admin: 05/11/21 12:15 Dose: 4 mg Documented by: VALENTINA Oxycodone HCl (Oxycodone Hcl Immed Release 5 Mg Tablet) 5 mg PO Q6H PRN PRN Reason: Pain, Moderate (Pain Scale 4-6 Oxycodone HCl (Oxycodone Hcl Immed Release 5 Mg Tablet) 10 mg PO Q6H PRN PRN Reason: Pain, Severe (Pain Scale 7-10) Last Admin: 05/13/21 06:42 Dose: 10 mg Documented by: CYNTHIA Sodium Chloride (0.9 % Sodium Chloride Flush 3 Ml Syringe) 3 ml IVFLUSH [facility] Last Admin: 05/13/21 06:43 Dose: Not Given Documented by: CYNTHIA Non-Admin Reason: IV Running Labs CBC & Chem 7: 05/09/21 00:36 05/10/21 06:01 Procedures Date of Service Date of Service: 05/13/21 Progress Note: A&P Assessment and plan (1) Colovaginal fistula: Status: Acute Assessment and Plan: Plan is to proceed with laparotomy, revision of anastomosis, closure of the vaginal fistula Explained this to the patient I had a long discussion with her about the risks including but not limited to bleeding, infection, injury to bowel, injury to bladder, injury to vessels, abscesses, postop pain, as well as the benefits and alternatives She understands that she will likely continue to have an ileostomy for diversion postop She understands that this vaginal drainage is unlikely to resolve completely and that we will be unable to reverse her ileostomy without revision of this anastomosis due to the fistula she has given consent Discussed with son Rk as well Discussed with OBGYN - Dr. Harvey Fall Risk Details Current Medications: Current Medications Acetaminophen (Acetaminophen 325 Mg Tablet) 650 mg PO Q6H PRN PRN Reason: (Pain Scale 1-3), fever Heparin Sodium (Porcine) (Heparin Sodium,Porcine 5,000 Unit/Ml Vial) 5,000 unit SUBCUT Q8H [facility] Last Admin: 05/13/21 00:45 Dose: 5,000 unit Documented by: Hydromorphone HCl (Hydromorphone Hcl 1 Mg/Ml Syringe) 0.5 mg IVPUSH Q3H PRN; Protocol PRN Reason: Pain, Severe (Pain Scale 7-10) Last Admin: 05/13/21 04:08 Dose: 0.5 mg Documented by: Levofloxacin (Levaquin) 500 mg in 100 mls @ 100 mls/hr IV Q24H [facility] Last Admin: 05/13/21 06:43 Dose: 100 mls/hr Documented by: Lactated Ringer's (Lr) 1,000 mls @ 80 mls/hr IVCONT .[id number] [facility] Last Admin: 05/13/21 06:43 Dose: 80 mls/hr Documented by: Lorazepam (Lorazepam 0.5 Mg Tablet) 0.5 mg PO Q8H PRN PRN Reason: Anxiety Last Admin: 05/10/21 19:41 Dose: 0.5 mg Documented by: Ondansetron HCl (Ondansetron Hcl 4 Mg/2 Ml Vial) 4 mg IVPUSH Q8H PRN PRN Reason: Nausea and Vomiting Last Admin: 05/11/21 12:15 Dose: 4 mg Documented by: Oxycodone HCl (Oxycodone Hcl Immed Release 5 Mg Tablet) 5 mg PO Q6H PRN PRN Reason: Pain, Moderate (Pain Scale 4-6 Oxycodone HCl (Oxycodone Hcl Immed Release 5 Mg Tablet) 10 mg PO Q6H PRN PRN Reason: Pain, Severe (Pain Scale 7-10) Last Admin: 05/13/21 06:42 Dose: 10 mg Documented by: Sodium Chloride (0.9 % Sodium Chloride Flush 3 Ml Syringe) 3 ml IVFLUSH QSHIFT [facility] Last Admin: 05/13/21 06:43 Dose: Not Given Documented by: Time Spent With Patient Time: Total time spent is greater than 50% in coordination of care (as documented) at patient's floor/unit and/or counseling patient: Time with patient: 15 - 24 minutes Quality Stroke Does the patient have a stroke diagnosis?: No VTE Prior VTE?: No VTE Risk Level:: Medical - low VTE Device Contraindication: N/A - Device Ordered VTE Drug Contraindication: N/A - Med Ordered
[2021-05-13] MEDS: Lactated Ringers 1,000 ML 100 ML IVCONT ×2 (10:00→18:10)
--- NOTE | 2021-05-13 10:06 | P.CONAN_ITS ---
HPI - Anesthesia Eval Consult details Narrative: 61 yo female patient for repair of colovaginal fistula, partial c olectomy. S/p sigmoid colon resection with diverting loop ileostomy. S/p flexible sigmoidoscopy 05/10/21- Revealed colovaginal fistula PMFSH Active Problems Active Problems: All Active Problems (Updated 05/09/21 @ 07:19 by Trudy Lee MD) UTI (urinary tract infection) (Acute) Ileostomy present (Acute) Colostomy in place (Acute) Colovaginal fistula (Acute) Fistula involving female genital tract (Acute) Hypokalemia (Acute) S/P colon resection (Acute) Chronic pain (Acute) Diverticulitis of large intestine with abscess (Acute) Hypertension (Acute) Diverticulosis of colon (Acute) Depression (Acute) Hx of diverticulitis of colon (Acute) Colon cancer screening (Acute) Past Medical History Medical History Chronic pain Current vaping on some days History of urinary tract infection Ileostomy present Kidney stones Medullary sponge kidney Family History Family History Father HTN (hypertension) Cancer of kidney Mother Dementia Age related osteoporosis Family history of problems with anesthesia: No Surgical History Surgical History History of arthroplasty of right knee (~01/2018) History of colon resection (~01/2021) Hx of colonoscopy Hx of cystoscopy Status post appendectomy Status post bunionectomy (~09/2011) Status post hysterectomy Status post tonsillectomy History of Problems with Anesthesia: No Social History Social History Household Members: Children Housing: Apartment Do you presently have visiting nurse or other home services: Yes ([employer]) Alcohol intake: never Patient Tobacco Use Status: Current someday Tobacco user Tobacco use type: Cigarette Cigarettes Per Day: 1 e-Cigarette/Vaping Use: Currently Using Second Hand Smoke Exposure: No Substance Use Type: Marijuana service: No Current occupational status: unemployed Meds Allergies Allergy/AdvReac Type Severity Reaction Status Date / Time Penicillins Allergy Severe ANAPHYLAXIS Verified 04/24/21 11:37 morphine [MORPHINE] Allergy Intermediate TACHYCARDIA, Verified 04/24/21 11:37 HIVES, ITCHING Active Medications: Current Medications Acetaminophen (Acetaminophen 325 Mg Tablet) 650 mg PO Q6H PRN PRN Reason: (Pain Scale 1-3), fever Heparin Sodium (Porcine) (Heparin Sodium,Porcine 5,000 Unit/Ml Vial) 5,000 unit SUBCUT Q8H [facility] Last Admin: 05/13/21 08:20 Dose: Not Given Documented by: Hydromorphone HCl (Hydromorphone Hcl 1 Mg/Ml Syringe) 0.5 mg IVPUSH Q3H PRN; Protocol PRN Reason: Pain, Severe (Pain Scale 7-10) Last Admin: 05/13/21 08:30 Dose: 0.5 mg Documented by: Levofloxacin (Levaquin) 500 mg in 100 mls @ 100 mls/hr IV Q24H [facility] Last Infusion: 05/13/21 07:43 Dose: Infused Documented by: Lactated Ringer's (Lr) 1,000 mls @ 80 mls/hr IVCONT .[id number] [facility] Last Admin: 05/13/21 06:43 Dose: 80 mls/hr Documented by: Lorazepam (Lorazepam 0.5 Mg Tablet) 0.5 mg PO Q8H PRN PRN Reason: Anxiety Last Admin: 05/10/21 19:41 Dose: 0.5 mg Documented by: Ondansetron HCl (Ondansetron Hcl 4 Mg/2 Ml Vial) 4 mg IVPUSH Q8H PRN PRN Reason: Nausea and Vomiting Last Admin: 05/11/21 12:15 Dose: 4 mg Documented by: Oxycodone HCl (Oxycodone Hcl Immed Release 5 Mg Tablet) 5 mg PO Q6H PRN PRN Reason: Pain, Moderate (Pain Scale 4-6 Oxycodone HCl (Oxycodone Hcl Immed Release 5 Mg Tablet) 10 mg PO Q6H PRN PRN Reason: Pain, Severe (Pain Scale 7-10) Last Admin: 05/13/21 06:42 Dose: 10 mg Documented by: Sodium Chloride (0.9 % Sodium Chloride Flush 3 Ml Syringe) 3 ml IVFLUSH QSHIFT [facility] Last Admin: 05/13/21 06:43 Dose: Not Given Documented by: Home Medications Medication Instructions Recorded Confirmed Last Taken Type oxycodone 5 mg tablet 5 - 10 mg PO QID PRN 01/03/21 05/09/21 05/09/21 History 10 mg Exam Exam Date and Time: May 13, 2021 1006 Height,Weight and Vital Signs: Height 5 ft 5 in Weight 69.4 kg Last Vital Signs Temp 98.0 F 05/13/21 09:19 Pulse 66 05/13/21 09:19 Resp 18 05/13/21 09:19 BP 192/96 H 05/13/21 09:19 Pulse Ox 99 05/13/21 09:19 Pertinent Lab Results Pertinent Lab Results: Laboratory Tests 05/09/21 05/09/21 05/09/21 00:36 00:36 06:41 WBC 11.5 H RBC 5.06 Hgb 14.3 Hct 42.7 MCV 84.4 MCH 28.3 MCHC 33.5 RDW 14.5 Plt Count 338 MPV 9.3 L Immature Gran % (Auto) 0.3 Neut % (Auto) 60.6 Lymph % (Auto) 31.1 [place] % (Auto) 5.4 Eos % (Auto) 2.3 Baso % (Auto) 0.3 Lymph # (Auto) 3.6 [place] # (Auto) 0.6 Eos # (Auto) 0.3 Baso # (Auto) 0.0 Abs Immat Gran (auto) 0.03 Absolute Neuts (auto) 7.0 Absolute Nucleated RBC 0.000 Nucleated RBC % (auto) 0.0 Sodium 140 Potassium 3.5 Chloride 106 Carbon Dioxide 25 Anion Gap 13 BUN 12 Creatinine 0.81 Estim Creat Clear Calc 73.1 Estimated GFR > 60 POC Glucose Random Glucose 118 H Fasting Glucose Calcium 9.8 D Total Bilirubin 1.5 H Direct Bilirubin 0.4 AST 13 ALT 12 Alkaline Phosphatase 103 Total Protein 8.3 H Albumin 4.4 Lipase 13 Urine Color YELLOW Urine Appearance HAZY Urine pH 5.5 Ur Specific [place] 1.025 Urine Protein 1+ H Urine Glucose (UA) NEG Urine Ketones NEG Urine Blood 2+ H Urine Nitrite NEG Ur Leukocyte Esterase 1+ H Urine RBC 5-9 H Urine WBC 10-14 H Ur Squamous Epith Cells 1+ Urine Bacteria 2+ Urine Mucus 1+ COVID-19 ([facility]) COVID-19 Clin Com Blood Type Antibody Screen 05/09/21 05/09/21 05/10/21 07:42 13:30 06:01 WBC RBC Hgb Hct MCV MCH MCHC RDW Plt Count MPV Immature Gran % (Auto) Neut % (Auto) Lymph % (Auto) [place] % (Auto) Eos % (Auto) Baso % (Auto) Lymph # (Auto) [place] # (Auto) Eos # (Auto) Baso # (Auto) Abs Immat Gran (auto) Absolute Neuts (auto) Absolute Nucleated RBC Nucleated RBC % (auto) Sodium 140 Potassium 3.5 Chloride 110 H Carbon Dioxide 21 L Anion Gap 13 BUN 11 Creatinine 0.72 Estim Creat Clear Calc 82.3 Estimated GFR > 60 POC Glucose 85 Random Glucose Fasting Glucose 92 Calcium 9.2 D Total Bilirubin Direct Bilirubin AST ALT Alkaline Phosphatase Total Protein Albumin Lipase Urine Color Urine Appearance Urine pH Ur Specific [place] Urine Protein Urine Glucose (UA) Urine Ketones Urine Blood Urine Nitrite Ur Leukocyte Esterase Urine RBC Urine WBC Ur Squamous Epith Cells Urine Bacteria Urine Mucus COVID-19 ([facility]) Negative COVID-19 Clin Com See Note Blood Type Antibody Screen 05/13/21 08:11 WBC RBC Hgb Hct MCV MCH MCHC RDW Plt Count MPV Immature Gran % (Auto) Neut % (Auto) Lymph % (Auto) [place] % (Auto) Eos % (Auto) Baso % (Auto) Lymph # (Auto) [place] # (Auto) Eos # (Auto) Baso # (Auto) Abs Immat Gran (auto) Absolute Neuts (auto) Absolute Nucleated RBC Nucleated RBC % (auto) Sodium Potassium Chloride Carbon Dioxide Anion Gap BUN Creatinine Estim Creat Clear Calc Estimated GFR POC Glucose Random Glucose Fasting Glucose Calcium Total Bilirubin Direct Bilirubin AST ALT Alkaline Phosphatase Total Protein Albumin Lipase Urine Color Urine Appearance Urine pH Ur Specific [place] Urine Protein Urine Glucose (UA) Urine Ketones Urine Blood Urine Nitrite Ur Leukocyte Esterase Urine RBC Urine WBC Ur Squamous Epith Cells Urine Bacteria Urine Mucus COVID-19 ([facility]) COVID-19 Clin Com Blood Type A Positive Antibody Screen NEGATIVE Airway Mallampati Class: III TM Dist: >3cm Neck ROM: Full Loose/Missing/Broken Teeth: Yes (Broken top front) Heart: RRR Lungs: CTAB Assessment and Plan Assessment Anesthesia Assessment: Anesthesia Plan Discussed and Chart Reviewed Final Anesthetic Review Family History of Problems with Anesthesia: No History of Problems with Anesthesia: No NPO: Yes ASA Class: III Final Preanesthetic Review: No Changes in Pt Med Stat, Meds/Allgs Chart Re viewed, Consent Obtained/Reviewed and Anes Risks/Benef Reviewed Patient Risk: Intermediate Procedure Risk: Intermediate Assessment/Block/Sedation in SS: Assess/Block/Sedation-SS Anesthetic Plan Anesthetic Plan: GA Disposition: Standard PACU
--- NOTE | 2021-05-13 15:01 | PM.GYNCN ---
TIME STUDY OBSERVER - CN: HPI Data of Consult Consult date: 05/13/21 Requesting Physician: Brianda Lawson PA-C Primary Care Provider: Yudelka Jain Consult Narrative Narrative: I was consulted intraoperatively regarding Arpita Park who is a 61 year old female with a colovaginal fistula. Intraoperative findings: Sigmoid colon adherent to the vaginal cuff with dense adhesions in addition to bladder adherent to the vaginal cuff cc:: CC: Brianda Lawson PA-C OB PMFSH Past Medical History Medical History Chronic pain Current vaping on some days History of urinary tract infection Ileostomy present Kidney stones Medullary sponge kidney Family History Family History Father HTN (hypertension) Cancer of kidney Mother Dementia Age related osteoporosis Surgical History Surgical History History of arthroplasty of right knee (~01/2018) History of colon resection (~01/2021) Hx of colonoscopy Hx of cystoscopy Status post appendectomy Status post bunionectomy (~09/2011) Status post hysterectomy Status post tonsillectomy Social History Social History Household Members: Children Housing: Apartment Do you presently have visiting nurse or other home services: Yes ([employer]) Alcohol intake: never Patient Tobacco Use Status: Current someday Tobacco user Tobacco use type: Cigarette Cigarettes Per Day: 1 e-Cigarette/Vaping Use: Currently Using Second Hand Smoke Exposure: No Substance Use Type: Marijuana service: No Current occupational status: unemployed Meds Allergies Allergy/AdvReac Type Severity Reaction Status Date / Time Penicillins Allergy Severe ANAPHYLAXIS Verified 04/24/21 11:37 morphine [MORPHINE] Allergy Intermediate TACHYCARDIA, Verified 04/24/21 11:37 HIVES, ITCHING Active Medications: Current Medications Acetaminophen (Acetaminophen 325 Mg Tablet) 650 mg PO Q6H PRN PRN Reason: (Pain Scale 1-3), fever Fentanyl (Fentanyl Citrate/Pf 100 Mcg/2 Ml Vial) 25 mcg IVPUSH Q5M PRN; Protocol PRN Reason: Pain, Moderate (Pain Scale 4-6 Heparin Sodium (Porcine) (Heparin Sodium,Porcine 5,000 Unit/Ml Vial) 5,000 unit SUBCUT Q8H [facility] Last Admin: 05/13/21 08:20 Dose: Not Given Documented by: Hydromorphone HCl (Hydromorphone Hcl 1 Mg/Ml Syringe) 0.5 mg IVPUSH Q3H PRN; Protocol PRN Reason: Pain, Severe (Pain Scale 7-10) Last Admin: 05/13/21 08:30 Dose: 0.5 mg Documented by: Hydromorphone HCl (Hydromorphone Hcl 0.5 Mg/0.5 Ml Syringe) 0.25 mg IVPUSH Q5M PRN; Protocol PRN Reason: Pain, Severe (Pain Scale 7-10) Levofloxacin (Levaquin) 500 mg in 100 mls @ 100 mls/hr IV Q24H [facility] Last Infusion: 05/13/21 07:43 Dose: Infused Documented by: Lactated Ringer's (Lr) 1,000 mls @ 80 mls/hr IVCONT .[id number] [facility] Last Admin: 05/13/21 06:43 Dose: 80 mls/hr Documented by: Lactated Ringer's (Lr) 1,000 mls @ 100 mls/hr IVCONT .Q10H [facility] Last Admin: 05/13/21 10:00 Dose: 100 mls/hr Documented by: Promethazine HCl 6.25 mg/ (Sodium Chloride) 50.25 mls @ 201 mls/hr IV ONCE PRN PRN Reason: Nausea and Vomiting Lorazepam (Lorazepam 0.5 Mg Tablet) 0.5 mg PO Q8H PRN PRN Reason: Anxiety Last Admin: 05/10/21 19:41 Dose: 0.5 mg Documented by: Ondansetron HCl (Ondansetron Hcl 4 Mg/2 Ml Vial) 4 mg IVPUSH Q8H PRN PRN Reason: Nausea and Vomiting Last Admin: 05/11/21 12:15 Dose: 4 mg Documented by: Ondansetron HCl (Ondansetron Hcl 4 Mg/2 Ml Vial) 4 mg IVPUSH ONCE PRN PRN Reason: Nausea and Vomiting Oxycodone HCl (Oxycodone Hcl Immed Release 5 Mg Tablet) 5 mg PO Q6H PRN PRN Reason: Pain, Moderate (Pain Scale 4-6 Oxycodone HCl (Oxycodone Hcl Immed Release 5 Mg Tablet) 10 mg PO Q6H PRN PRN Reason: Pain, Severe (Pain Scale 7-10) Last Admin: 05/13/21 06:42 Dose: 10 mg Documented by: Sodium Chloride (0.9 % Sodium Chloride Flush 3 Ml Syringe) 3 ml IVFLUSH QSHIFT [facility] Last Admin: 05/13/21 06:43 Dose: Not Given Documented by: Home Medications Medication Instructions Recorded Confirmed Last Taken Type oxycodone 5 mg tablet 5 - 10 mg PO QID PRN 01/03/21 05/09/21 05/09/21 History 10 mg TIME STUDY OBSERVER Physical Exam Vitals Vital signs: Temp Pulse Resp BP Pulse Ox 98.0 F 66 18 192/96 H 99 05/13/21 09:19 05/13/21 09:19 05/13/21 09:19 05/13/21 09:19 05/13/21 09:19 BMI result Body Mass Index 25.4 TIME STUDY OBSERVER - Results Labs CBC & Chem 7: 05/09/21 00:36 05/10/21 06:01 Labs: Urine 05/09/21 Range/Units 06:41 Urine Color YELLOW Urine Appearance HAZY Urine pH 5.5 (5.0-8.0) Ur Specific [place] 1.025 (1.005-1.025) Urine Protein 1+ H (NEG-TRACE) MG/DL Urine Glucose (UA) NEG (NEG) MG/DL Antibody Screen Antibody Screen NEGATIVE 05/13/21 08:11 Assessment and Plan (1) Colovaginal fistula: Status: Acute Speculum exam was done under general anesthesia and revealed a left vaginal apex 1-1.5 cm fistula in diameter , I was able to probe the fistula vaginally, and the tip of the probe was felt by Dr. Goss abdominally inside the sigmoid. I recommended to dissect the distal sigmoid and the bladder off of the vaginal cuff; Once this step is completed, I will be able to approximate the perform the vaginal cuff fistula closure in a multi layer fashion using delayed absorbable sutures. if the sigmoid and the bladder could not be completely dissected off the vaginal cuff, because of the extensiveness of the adhesions, the fistulous tract closure could not be performed at the time of this procedure.
--- NOTE | 2021-05-13 15:28 | P.BOP_ITS ---
Brief Operative Note Date of Service: 05/13/21 Pre-op diagnosis: Colovaginal fistula Post-op diagnosis: same ( fistula from vaginal stump to the sigmoid at the staple line) Surgeon: Jerel Goss MD Anesthesia: GETA Was an Service Observer Chief used for this Procedure?: No Service Observer Chief: Feliz Roach Estimated blood loss (mL): 150 Pathology: none sent Condition: stable Disposition: PACU
[2021-05-13] MEDS: HYDROmorphone HCl 0.5 MG/0.5 ML SYRINGE IVPUSH (15:37)
[2021-05-13] MEDS: HYDROmorphone HCl 0.5 MG/0.5 ML SYRINGE 0.25 MG IVPUSH ×5 (15:45→17:00)
--- NOTE | 2021-05-13 16:06 | P.OP_ITS ---
Operative Note Operative Note Date of Service: 05/13/21 Narrative: Preop diagnosis: Colovaginal fistula Postop diagnosis: [place] vaginal fistula, involving the vaginal cuff through the end of the sigmoid at the staple line Extensive adhesions, involving the abdominal wall small bowel loops, as well as surrounding the sigmoid and the Kiko's pouch in the deep pelvis Procedure: Exploratory laparotomy, extensive lysis of adhesions, intraop consultation with gynecology Dr. Harvey Surgeon: Jerel Goss MD zoning assistant: Feliz Roach MD The patient is a 61 year old female admitted because of vaginal discharge with stool. She had undergone urgent sigmoid resection, anastomosis, with a diverting loop ileostomy last January, because of an intramural abscess her disease with worsening pain. She was actually admitted about 10 days postop because of what she described as stool drainage from her vagina consistent with a colovaginal fistula. This resolved and had been seeing her in the office the past 2 months. She stated that she has had further drainage from her vagina. She admitted however last May 09 because of recurrence of her vaginal drainage. I did a flexible sigmoidoscopy last May 10 and I did not see any fistulous opening in the remaining rectum and sigmoid. It therefore appeared that her fistula was from the sigmoid to the vaginal cuff the staple line. I therefore had a talk with her and scheduled her for laparotomy to revise anastomosis. I had discussed the plan with gynecology as well to be involved during the procedure. The patient had given consent. She was brought to the operating room placed in modified lithotomy position under general anesthesia via endotracheal tube and the perineum were prepped and draped in the usual sterile fashion. A Wayne catheter was inserted. A surgical time-out was done. The patient had been on scheduled antibiotics. I closed the efferent and afferent limbs of the loop ileostomy with Prolene 3-0 running sutures to seal this and prevent this from leaking during the procedure. I also covered this with Tegaderm. A generous midline incision from just above the umbilicus all the way to the suprapubic area was made using a blade 10. And this was carried down through the full-thickness of the skin subcutaneous fat with electrocautery. There was note of significant fibrotic changes in the subcutaneous fat from the previous incision. Since the CT scan showed what appeared to be a bowel loops under the incision in the lower abdomen, a be decided to open the she a on the area above the umbilicus were it was free of adhesions. I carefully extended this fascial incision the cautery with care being taken so as to examined the underside to make sure that there were no bowel loops adherent to the abdominal wall as we ex tended the incision. However, in the lower abdomen, we encountered extensively adherent bowel loops to both the left and right side of the incision. We had to therefore carefully this up with sharp dissection using Metzenbaum scissors. We continued to extend in incision as we were able to clear up the fascia of adherent small bowel loops carefully. We continued to do extensive lysis of adhesions as we incision all the way to the suprapubic margin to optimize the length of the skin incision. This lysis of adhesions took and long period of time in view of the intensely adherent bowel loops. Eventually were able to free up all the small bowel loops from the abdominal wall and we had good visualization of the peritoneal cavity in the lower abdomen. There were is note of a lot more small bowel loops adherent to the pelvis which we had to carefully by dividing hands with electrocautery and Metzenbaum scissors. We had to proceed very slowly to free up all the bowel loops from the pelvis in view of the amount of adhesions. Again, this part of the procedure took an extended period of time because of the densely adherent small bowel loops pelvis. Eventually were able to free this up and was able to retract this superiorly. I applied the Bookwalter retractors to allow good retraction and visualization. We packed the small bowel loops away from the pelvis. It was difficult to actually define of the planes of the bowel loops in the low pelvis in view of the dense adhesions. We had to proceed slowly with fine dissection with Metzenbaum scissors blunt dissection, with traction countertraction of all the identifiable bowel loops in the pelvis. Eventually, as able to visualize if I what appeared to this sigmoid we followed this down and further define this by carefully dissecting the surrounding areas to free this up and isolate the sigmoid. It went all the way down into the area behind the bladder. Again because of the extensively adherent bladder the sigmoid, we had to carefully separate this with care being taken so as to make sure that we were not going the sigmoid nor the bladder itself. We did find dissection with the Metzenbaum scissors, as well as blunt dissection to try to define planes. We could not actually identify the vaginal cuff cause of appeared to be very dense and fibrotic adhesions surrounding the planes between the bladder and the sigmoid colon. This point, since we could clearly identify these pelvic organs safely, I proceeded to do an intraop flexible sigmoidoscopy. I first examined the vagina and inserted the scope through this. There was no significant amount of stool seen in the vaginal vault. However, by carefully navigating and examining the entire vault, I was able to see what appeared to be the able to see the fistulous opening with what was likely to be sigmoid goes a past this. I withdrew the scope and proceeded to insert the flexible sigmoidoscope through the anal opening. This was gently advanced insufflation. This appeared to be very tortuous and it was difficult to advance the scope. However, I was able to advance his all way to a level 20 cm and the 1st respiratory equipment assistant was able to see this Kiko's pouch. I therefore the scope completely at this point. Since we were able to now localize where the Kiko's pouch was, we proceeded to continue to try to dissect this by the rest of appeared to be small bowel loops and densely adherent visual fat in bladder. Despite the fact that we could see what appeared to be the end of the Kiko's pouch, we could not clearly mobilized this nor expose a good segment of this because of these dense adhesions with none defined plane surrounding this. He continued to also try to define more of the distal sigmoid. We followed this and gently this from the urinary bladder with fine dissection using Metzenbaum scissors as well as with the dissection with the tip of the finger. Continue to try to follow this more distally to see if we can actually identify the vaginal cuff. At this point, we had the performance improvement specialist Dr. Harvey examined the patient. His part of the procedure would be dictated separately, but he was able to advance the probe through the fistulous opening in the vagina with speculum examination, and I could feel the probe in the distal sigmoid. This confirmed our earlier assumption that it was actually the vaginal cuff itself this was involved with the fistula to the distal sigmoid via the staple line that had been placed last January. The plan therefore was to try to expose more of the distal sigmoid and the vaginal cuff. Ideally, if we could achieve this, we would be able to detach the sigmoid from the vaginal cuff and closed the vaginal cuff itself. However, we could not identify any plane past the distal sigmoid and we could not safely separate the bladder as well to expose the vaginal cuff. Furthermore, we proceeded to continue to free up the Kiko's pouch to we can at least expose the good meant to create an anastomosis but again in view of the poor planes, we did not have much success. At this point in view of the very dense adhesions, it appeared that we would have a high risk of injuring the bladder and even the distal sigmoid as well as the Kiko's pouch without a realistic chance of being able to detach the sigmoid safely on the vaginal cuff end to end anastomosis to the Kiko's pouch itself. At this point therefore, I felt that because of the significant risk with proceeding more aggressively with dissection, it would be better to close the abdomen and refer the patient eventually to a tertiary care center. I therefore coughs irrigated. I examined the small bowel loops easily on the area where we had released these from adhesions abdominal wall. We did not see any skin injury after reading the small bowel loops. We repeated irrigation. Once hemostasis was ensured, proceeded to pull down some omentum into the lower abdomen. I then closed the fascia with a running Maxon 1 stitch. I irrigated the thick subcutaneous layer and closed the skin with skin oly. I released the sutures on the ileostomy to open this up again and applied the s bonilla appliance. I infiltrated the incision with Marcaine 0.5% for postop analgesia. Dressings were applied. The procedure was completed . The patient tolerated procedure well. There were no immediate complications. Estimated blood loss was about 125-150 cc. The patient was extubated without difficulty and transferred to the recovery room with stable vital signs. The plan therefore is to eventually refer the patient to tertiary care center for another attempt at repair.
[2021-05-13] MEDS: Ketorolac Tromethamine 30 MG/ML VIAL 15 MG IVPUSH ×2 (16:43→21:14)
--- NOTE | 2021-05-13 18:23 | PM.EVENT ---
Event Note Date of Service: 05/13/21 Event Note: seen postop c/o incisional pain stable VS good UO explained to her intraop findings - in view of very dense adhesions in pelvis, unable to safely dissect sigmoid, vaginal cuff and Kiko's pouch pain mgt adwoa Beckman also updated plan referral to tertiary center down the line
[2021-05-14] VITALS (7 sets, daily range): BP systolic 155–194; BP diastolic 75–95; PULSE 61–85; RESP 18–20; TEMP 36.4–37.4; O2SAT 94–98
[2021-05-14] MEDS: ondansetron HCL 4 MG/2 ML VIAL IVPUSH (02:41)
[2021-05-14] MEDS: Lactated Ringers 1,000 ML 100 ML IVCONT ×2 (02:41→20:15)
[2021-05-14] MEDS: HYDROmorphone HCl 1 MG/ML SYRINGE 0.5 MG IVPUSH ×2 (03:37→08:08)
[2021-05-14] MEDS: Ketorolac Tromethamine 30 MG/ML VIAL 15 MG IVPUSH ×4 (04:07→21:14)
[2021-05-14] MEDS: levoFLOXacin/D5W 500 MG/100 ML PIGGYBACK 100 MG IV (07:52)
[2021-05-14] MEDS: Heparin Sodium,Porcine 5,000 UNIT/ML VIAL 5000 UNIT SUBCUT (07:52)
[2021-05-14] MEDS: 0.9 % Sodium Chloride Flush 3 ML SYRINGE IVFLUSH ×2 (08:02→16:57)
--- NOTE | 2021-05-14 08:48 | PM.PNGS ---
Subjective Subjective Date of Service: 05/14/21 <Brianda Lawson PA-C - Last Filed: 05/14/21 08:55> 05/15/21 <Jerel Goss MD - Last Filed: 05/15/21 12:09> Interval history: Discouraged from operation. C/o severe pain. Takes edge off pain but not able to move due to pain. Wears off quickly. Tolerating diet. Wants full liquids- does not feel ready for solids. <Brianda Lawson PA-C - Last Filed: 05/14/21 08:55> Physical Exam Vital Signs: Vital Signs: Last Vital Signs Temp 97.5 F 05/14/21 08:00 Pulse 70 05/14/21 08:00 Resp 20 05/14/21 08:00 BP 194/86 H 05/14/21 08:00 Pulse Ox 96 05/14/21 08:00 BMI result Body Mass Index 25.4 <Brianda Lawson PA-C - Last Filed: 05/14/21 08:55> Const: General: no acute distress, alert and other (tearful) <Brianda Lawson PA-C - Last Filed: 05/14/21 08:55> Orientation/consciousness: patient oriented x3 <GENA Younger Last Filed: 05/14/21 08:55> Resp: Effort & Inspection: normal respiratory effort <Brianda Lawson PA-C - Last Filed: 05/14/21 08:55> GI: Other: ileostomy with bilious output, appliance in place <GENA Younger Last Filed: 05/14/21 08:55> Inspection: No distended and Yes incision (dressing intact) <GENA Younger Last Filed: 05/14/21 08:55> Palpation (GI): Soft to palpation, Tenderness to palpation present (GI), no guarding and not rigid <GENA Younger Last Filed: 05/14/21 08:55> Skin: General skin exam: no rashes or lesions noted <GENA Younger Last Filed: 05/14/21 08:55> Neuro: General: patient oriented x3 <Brianda Lawson PA-C - Last Filed: 05/14/21 08:55> Extrem: General: Yes no clubbing, cyanosis or edema <Brianda Lawson PA-C - Last Filed: 05/14/21 08:55> Objective Data Active Medications Acetaminophen (Acetaminophen 325 Mg Tablet) 650 mg PO Q6H PRN PRN Reason: (Pain Scale 1-3), fever Heparin Sodium (Porcine) (Heparin Sodium,Porcine 5,000 Unit/Ml Vial) 5,000 unit SUBCUT Q8H [facility] Last Admin: 05/14/21 07:52 Dose: 5,000 unit Documented by: JJ Hydromorphone HCl (Hydromorphone Hcl 2 Mg Tablet) 2 mg PO Q4H PRN PRN Reason: Pain, Moderate (Pain Scale 4-6 Hydromorphone HCl (Hydromorphone Hcl 4 Mg Tablet) 4 mg PO Q4H PRN PRN Reason: Pain, Severe (Pain Scale 7-10) Hydromorphone HCl (Hydromorphone Hcl 1 Mg/Ml Syringe) 1 mg IVPUSH Q3H PRN; Protocol PRN Reason: Pain, Severe (Pain Scale 7-10) Levofloxacin (Levaquin) 500 mg in 100 mls @ 100 mls/hr IV Q24H [facility] Last Admin: 05/14/21 07:52 Dose: 100 mls/hr Documented by: JJ Lactated Ringer's (Lr) 1,000 mls @ 100 mls/hr IVCONT .Q10H [facility] Last Admin: 05/14/21 02:41 Dose: 100 mls/hr Documented by: JENN Acetaminophen (Ofirmev) 1,000 mg in 100 mls @ 400 mls/hr IV Q6H [facility] Ketorolac Tromethamine (Ketorolac Tromethamine 30 Mg/Ml Vial) 15 mg IVPUSH Q6H [facility] Last Admin: 05/14/21 04:07 Dose: 15 mg Documented by: JENN Lorazepam (Lorazepam 0.5 Mg Tablet) 0.5 mg PO Q8H PRN PRN Reason: Anxiety Last Admin: 05/10/21 19:41 Dose: 0.5 mg Documented by: ALLI Ondansetron HCl (Ondansetron Hcl 4 Mg/2 Ml Vial) 4 mg IVPUSH Q8H PRN PRN Reason: Nausea and Vomiting Last Admin: 05/14/21 02:41 Dose: 4 mg Documented by: JENN Sodium Chloride (0.9 % Sodium Chloride Flush 3 Ml Syringe) 3 ml IVFLUSH QSHIFT [facility] Last Admin: 05/14/21 08:02 Dose: 3 ml Documented by: JJ <Brianda Lawson PA-C - Last Filed: 05/14/21 08:55> Labs CBC & Chem 7: : 05/09/21 00:36 05/10/21 06:01 <Brianda Lawson PA-C - Last Filed: 05/14/21 08:55> Labs: Laboratory Results - last 24 hr 05/13/21 08:11 Blood Type A Positive Antibody Screen NEGATIVE <Brianda Lawson PA-C - Last Filed: 05/14/21 08:55> Procedures Date of Service Date of Service: 05/14/21 <Brianda Lawson PA-C - Last Filed: 05/14/21 08:55> Progress Note: A&P Assessment and plan (1) UTI (urinary tract infection): Status: Acute <Brianda Lawson PA-C - Last Filed: 05/14/21 08:55> (2) Ileostomy present: Status: Acute <Brianda Lawson PA-C - Last Filed: 05/14/21 08:55> (3) Colovaginal fistula: Status: Acute <Brianda Lawson PA-C - Last Filed: 05/14/21 08:55> (4) S/P exploratory laparotomy: Status: Acute <Brianda Lawson PA-C - Last Filed: 05/14/21 08:55> Assessment and Plan: She has incisional pain Otherwise she feels well A little depressed I reviewed with her findings I told her that eventually plan is to send her tertiary center for another attempt at revision She seems to understand the plan Slowly advance diet as tolerated Pain management Incentive spirometry Seen and examined independently <Jerel Goss MD - Last Filed: 05/15/21 12:09> Assessment and Plan: 61 year old female with hx of sigmoid resection, diverting loop ileostomy for diverticular abscess. Developed colovaginal fistula. Underwent exploratory laparotomy, extensive lysis of adhesions, intraop flexible sigmoidoscopy yesterday for potential revision of anastomosis. However, in view of very dense adhesions in pelvis, unable to safely dissect sigmoid, vaginal cuff and Kiko's pouch. Procedure therefore aborted. Patient is having difficulty with pain this morning. VSS- hypertensive. Abd exam benign- dressing intact, ileostomy with bilious output. Will increase dilaudid dose, add PO PRN analgesics. Change ofirmev to q6h instead of scheduled. Advance diet to fulls. D/c mauricio. Encouraged OOB. Eventual referral to tertiary center. ?Timing. Following recovery or on outpatient basis. <Brianda Lawson PA-C - Last Filed: 05/14/21 08:55> Fall Risk Details Current Medications: Current Medications Acetaminophen (Acetaminophen 325 Mg Tablet) 650 mg PO Q6H PRN PRN Reason: (Pain Scale 1-3), fever Heparin Sodium (Porcine) (Heparin Sodium,Porcine 5,000 Unit/Ml Vial) 5,000 unit SUBCUT Q8H [facility] Last Admin: 05/14/21 07:52 Dose: 5,000 unit Documented by: Hydromorphone HCl (Hydromorphone Hcl 2 Mg Tablet) 2 mg PO Q4H PRN PRN Reason: Pain, Moderate (Pain Scale 4-6 Hydromorphone HCl (Hydromorphone Hcl 4 Mg Tablet) 4 mg PO Q4H PRN PRN Reason: Pain, Severe (Pain Scale 7-10) Hydromorphone HCl (Hydromorphone Hcl 1 Mg/Ml Syringe) 1 mg IVPUSH Q3H PRN; Protocol PRN Reason: Pain, Severe (Pain Scale 7-10) Levofloxacin (Levaquin) 500 mg in 100 mls @ 100 mls/hr IV Q24H [facility] Last Admin: 05/14/21 07:52 Dose: 100 mls/hr Documented by: Lactated Ringer's (Lr) 1,000 mls @ 100 mls/hr IVCONT .Q10H [facility] Last Admin: 05/14/21 02:41 Dose: 100 mls/hr Documented by: Acetaminophen (Ofirmev) 1,000 mg in 100 mls @ 400 mls/hr IV Q6H [facility] Ketorolac Tromethamine (Ketorolac Tromethamine 30 Mg/Ml Vial) 15 mg IVPUSH Q6H [facility] Last Admin: 05/14/21 04:07 Dose: 15 mg Documented by: Lorazepam (Lorazepam 0.5 Mg Tablet) 0.5 mg PO Q8H PRN PRN Reason: Anxiety Last Admin: 05/10/21 19:41 Dose: 0.5 mg Documented by: Ondansetron HCl (Ondansetron Hcl 4 Mg/2 Ml Vial) 4 mg IVPUSH Q8H PRN PRN Reason: Nausea and Vomiting Last Admin: 05/14/21 02:41 Dose: 4 mg Documented by: Sodium Chloride (0.9 % Sodium Chloride Flush 3 Ml Syringe) 3 ml IVFLUSH QSHIFT [facility] Last Admin: 05/14/21 08:02 Dose: 3 ml Documented by: <Brianda Lawson PA-C - Last Filed: 05/14/21 08:55> Time Spent With Patient Time: Total time spent is greater than 50% in coordination of care (as documented) at patient's floor/unit and/or counseling patient: <Brianda Lawson PA-C - Last Filed: 05/14/21 08:55> Time with patient: 15 - 24 minutes <Brianda Lawson PA-C - Last Filed: 05/14/21 08:55> Quality Stroke Does the patient have a stroke diagnosis?: No <Brianda Lawson PA-C - Last Filed: 05/14/21 08:55> VTE Prior VTE?: No <Brianda Lawson PA-C - Last Filed: 05/14/21 08:55> VTE Risk Level:: Medical - low <GENA Younger Last Filed: 05/14/21 08:55> VTE Device Contraindication: N/A - Device Ordered <GENA Younger Last Filed: 05/14/21 08:55> VTE Drug Contraindication: N/A - Med Ordered <GENA Younger Last Filed: 05/14/21 08:55>
[2021-05-14] MEDS: HYDROmorphone HCl 1 MG/ML SYRINGE IVPUSH ×3 (14:29→23:07)
--- NOTE | 2021-05-14 14:58 | HO.POSTANES ---
Post Anesthesia Evaluation Post Anesthesia Evaluation Vital Signs: Vital Signs Temp Pulse Resp BP Pulse Ox 05/14/21 11:26 98.5 F 63 20 155/75 H 97 05/14/21 10:33 98 05/14/21 08:00 97.5 F 70 20 194/86 H 96 05/14/21 03:51 99.0 F 85 18 176/82 H 94 Anesthesia: General Endotracheal-GETA Mental Status: Awake Pain Control: Satisfactory Nausea/Vomiting: None Hydration: Adequate Anesthesia-Related Issues: No Anes. Related Issues
[2021-05-14] MEDS: LORazepam 0.5 MG TABLET PO (21:23)
[2021-05-15] VITALS (7 sets, daily range): BP systolic 141–197; BP diastolic 62–93; PULSE 58–86; RESP 16–20; TEMP 36–37.4; O2SAT 93–98
[2021-05-15] MEDS: Ketorolac Tromethamine 30 MG/ML VIAL 15 MG IVPUSH ×4 (03:28→22:50)
[2021-05-15] MEDS: Lactated Ringers 1,000 ML 100 ML IVCONT ×2 (05:45→15:35)
[2021-05-15] MEDS: HYDROmorphone HCl 1 MG/ML SYRINGE IVPUSH ×4 (05:48→21:06)
[2021-05-15] MEDS: Heparin Sodium,Porcine 5,000 UNIT/ML VIAL 5000 UNIT SUBCUT ×2 (08:28→17:01)
[2021-05-15] MEDS: 0.9 % Sodium Chloride Flush 3 ML SYRINGE IVFLUSH ×3 (08:30→20:56)
--- NOTE | 2021-05-15 12:09 | P.PNGS_ITS ---
Subjective Subjective Date of Service: 05/16/21 Interval history: Complaints of incisional pain although better Happens when she moves her torso Stoma functioning well Was hungry and wanted to have real food Physical Exam Vital Signs: Vital Signs: Last Vital Signs Temp 98.7 F 05/15/21 11:44 Pulse 75 05/15/21 11:44 Resp 20 05/15/21 11:44 BP 141/62 H 05/15/21 11:44 Pulse Ox 93 05/15/21 11:44 BMI result Body Mass Index 25.4 Const: General: comfortable and no acute distress Resp: Effort & Inspection: normal respiratory effort GI: Other: Dressings dry, tender on incision, stoma with good output Palpation (GI): Soft to palpation Objective Data Active Medications Acetaminophen (Acetaminophen 325 Mg Tablet) 650 mg PO Q6H PRN PRN Reason: (Pain Scale 1-3), fever Heparin Sodium (Porcine) (Heparin Sodium,Porcine 5,000 Unit/Ml Vial) 5,000 unit SUBCUT Q8H [facility] Last Admin: 05/15/21 08:28 Dose: 5,000 unit Documented by: VIRGIL Hydromorphone HCl (Hydromorphone Hcl 2 Mg Tablet) 2 mg PO Q4H PRN PRN Reason: Pain, Moderate (Pain Scale 4-6 Hydromorphone HCl (Hydromorphone Hcl 4 Mg Tablet) 4 mg PO Q4H PRN PRN Reason: Pain, Severe (Pain Scale 7-10) Last Admin: 05/14/21 12:14 Dose: 4 mg Documented by: JJ Hydromorphone HCl (Hydromorphone Hcl 1 Mg/Ml Syringe) 1 mg IVPUSH Q3H PRN; Protocol PRN Reason: Pain, Severe (Pain Scale 7-10) Last Admin: 05/15/21 05:48 Dose: 1 mg Documented by: JENN Lactated Ringer's (Lr) 1,000 mls @ 100 mls/hr IVCONT .Q10H [facility] Last Admin: 05/15/21 05:45 Dose: 100 mls/hr Documented by: JENN Acetaminophen (Ofirmev) 1,000 mg in 100 mls @ 400 mls/hr IV Q6H [facility] Last Infusion: 05/15/21 08:56 Dose: 0 mls/hr Documented by: VIRGIL Ketorolac Tromethamine (Ketorolac Tromethamine 30 Mg/Ml Vial) 15 mg IVPUSH Q6H [facility] Last Admin: 05/15/21 08:28 Dose: 15 mg Documented by: VIRGIL Lorazepam (Lorazepam 0.5 Mg Tablet) 0.5 mg PO Q8H PRN PRN Reason: Anxiety Last Admin: 05/14/21 21:23 Dose: 0.5 mg Documented by: JENN Ondansetron HCl (Ondansetron Hcl 4 Mg/2 Ml Vial) 4 mg IVPUSH Q8H PRN PRN Reason: Nausea and Vomiting Last Admin: 05/14/21 02:41 Dose: 4 mg Documented by: JENN Sodium Chloride (0.9 % Sodium Chloride Flush 3 Ml Syringe) 3 ml IVFLUSH QSHIFT [facility] Last Admin: 05/15/21 08:30 Dose: 3 ml Documented by: VIRGIL Labs CBC & Chem 7: 05/09/21 00:36 05/16/21 06:55 Microbiology Microbiology Results: Microbiology 05/09/21 07:46 Blood Culture - Final Blood - Venous No growth after 5 days. 05/09/21 07:45 Blood Culture - Final Blood - Venous No growth after 5 days. Procedures Date of Service Date of Service: 05/15/21 Progress Note: A&P Assessment and plan (1) S/P exploratory laparotomy: Status: Acute Assessment and Plan: She looks well Incisional pain appropriate to postop status Stoma functioning well Diet advanced Encourage ambulation Incentive spirometry Pain management Voiding freely No vaginal drainage Fall Risk Details Current Medications: Current Medications Acetaminophen (Acetaminophen 325 Mg Tablet) 650 mg PO Q6H PRN PRN Reason: (Pain Scale 1-3), fever Heparin Sodium (Porcine) (Heparin Sodium,Porcine 5,000 Unit/Ml Vial) 5,000 unit SUBCUT Q8H [facility] Last Admin: 05/15/21 08:28 Dose: 5,000 unit Documented by: Hydromorphone HCl (Hydromorphone Hcl 2 Mg Tablet) 2 mg PO Q4H PRN PRN Reason: Pain, Moderate (Pain Scale 4-6 Hydromorphone HCl (Hydromorphone Hcl 4 Mg Tablet) 4 mg PO Q4H PRN PRN Reason: Pain, Severe (Pain Scale 7-10) Last Admin: 05/14/21 12:14 Dose: 4 mg Documented by: Hydromorphone HCl (Hydromorphone Hcl 1 Mg/Ml Syringe) 1 mg IVPUSH Q3H PRN; Protocol PRN Reason: Pain, Severe (Pain Scale 7-10) Last Admin: 05/15/21 05:48 Dose: 1 mg Documented by: Lactated Ringer's (Lr) 1,000 mls @ 100 mls/hr IVCONT .Q10H [facility] Last Admin: 05/15/21 05:45 Dose: 100 mls/hr Documented by: Acetaminophen (Ofirmev) 1,000 mg in 100 mls @ 400 mls/hr IV Q6H [facility] Last Infusion: 05/15/21 08:56 Dose: Infused Documented by: Ketorolac Tromethamine (Ketorolac Tromethamine 30 Mg/Ml Vial) 15 mg IVPUSH Q6H [facility] Last Admin: 05/15/21 08:28 Dose: 15 mg Documented by: Lorazepam (Lorazepam 0.5 Mg Tablet) 0.5 mg PO Q8H PRN PRN Reason: Anxiety Last Admin: 05/14/21 21:23 Dose: 0.5 mg Documented by: Ondansetron HCl (Ondansetron Hcl 4 Mg/2 Ml Vial) 4 mg IVPUSH Q8H PRN PRN Reason: Nausea and Vomiting Last Admin: 05/14/21 02:41 Dose: 4 mg Documented by: Sodium Chloride (0.9 % Sodium Chloride Flush 3 Ml Syringe) [facility] Last Admin: 05/15/21 08:30 Dose: 3 ml Documented by: Time Spent With Patient Time: Total time spent is greater than 50% in coordination of care (as documented) at patient's floor/unit and/or counseling patient: Time with patient: 15 - 24 minutes Quality Stroke Does the patient have a stroke diagnosis?: No VTE Prior VTE?: No VTE Risk Level:: Medical - low VTE Device Contraindication: N/A - Device Ordered VTE Drug Contraindication: N/A - Med Ordered
--- NOTE | 2021-05-15 12:31 | MHC.CM.PN ---
EMR REVIEWED, PER SURGICAL PLAN TO REFER PT TO TERTIARY FACILITY FOR ANOTHER ATTEMPT AT REVISION, CM WILL CONT TO FOLLOW D/C NEEDS.
[2021-05-16] VITALS (7 sets, daily range): BP systolic 126–182; BP diastolic 57–82; PULSE 59–67; RESP 16–20; TEMP 36.2–37; O2SAT 93–97
[2021-05-16] MEDS: HYDROmorphone HCl 1 MG/ML SYRINGE IVPUSH ×5 (01:26→19:50)
[2021-05-16] MEDS: Lactated Ringers 1,000 ML 100 ML IVCONT (03:07)
[2021-05-16] MEDS: Ketorolac Tromethamine 30 MG/ML VIAL 15 MG IVPUSH ×2 (04:16→12:23)
[2021-05-16 07:30] LABS: Anion Gap 12 (12-20); Blood Urea Nitrogen 13 mg/dL (9-16); Carbon Dioxide 24 mmol/L (22-29); Chloride 109 mmol/L (96-108); Creatinine Clr Calc Pharmacy 97.1; Estimated Glomerular Filt Rate > 60; Glucose Random 107 mg/dL (60-115); Potassium 3.8 mmol/L (3.3-5.1); Sodium 141 mmol/L (135-145)
[2021-05-16] MEDS: Heparin Sodium,Porcine 5,000 UNIT/ML VIAL 5000 UNIT SUBCUT ×2 (08:25→16:01)
--- NOTE | 2021-05-16 10:00 | P.PNGS_ITS ---
Subjective Subjective Date of Service: 05/16/21 <Brianda Lawson PA-C - Last Filed: 05/16/21 10:05> 05/17/21 <Jerel Goss MD - Last Filed: 05/17/21 15:52> Interval history: Feels ok- pain now around ostomy and feels like burning on inside kelin when she moves. Tolerating diet. OOB and ambulating. <Brianda Lawson PA-C - Last Filed: 05/16/21 10:05> Physical Exam Vital Signs: Vital Signs: Last Vital Signs Temp 97.9 F 05/16/21 07:32 Pulse 63 05/16/21 07:32 Resp 20 05/16/21 07:32 BP 182/82 H 05/16/21 07:32 Pulse Ox 97 05/16/21 07:32 BMI result Body Mass Index 25.4 <Brianda Lawson PA-C - Last Filed: 05/16/21 10:05> Const: General: comfortable, no acute distress and alert <Brianda Lawson PA-C - Last Filed: 05/16/21 10:05> Orientation/consciousness: patient oriented x3 <Brianda Lawson PA-C - Last Filed: 05/16/21 10:05> Resp: Effort & Inspection: normal respiratory effort <GENA Younger Last Filed: 05/16/21 10:05> GI: Other: soft stool in appliance <Brianda Lawson PA-C - Last Filed: 05/16/21 10:05> Inspection: No distended and Yes incision (clean) <Brianda Lawson PA-C - Last Filed: 05/16/21 10:05> Palpation (GI): Soft to palpation, Tenderness to palpation present (GI) (incision, surrounding ostomy), no guarding and not rigid <GENA Younger Last Filed: 05/16/21 10:05> Percussion: Yes normal to percussion <GENA Younger Last Filed: 05/16/21 10:05> Skin: General skin exam: no rashes or lesions noted <GENA Younger Last Filed: 05/16/21 10:05> Neuro: General: patient oriented x3 <Brianda Lawson PA-C - Last Filed: 05/16/21 10:05> Extrem: General: Yes no clubbing, cyanosis or edema <Brianda Lawson PA-C - Last Filed: 05/16/21 10:05> Objective Data Active Medications Acetaminophen (Acetaminophen 325 Mg Tablet) 650 mg PO Q6H PRN PRN Reason: (Pain Scale 1-3), fever Heparin Sodium (Porcine) (Heparin Sodium,Porcine 5,000 Unit/Ml Vial) 5,000 unit SUBCUT Q8H [facility] Last Admin: 05/16/21 08:25 Dose: 5,000 unit Documented by: HADLEY Hydromorphone HCl (Hydromorphone Hcl 2 Mg Tablet) 2 mg PO Q4H PRN PRN Reason: Pain, Moderate (Pain Scale 4-6 Hydromorphone HCl (Hydromorphone Hcl 4 Mg Tablet) 4 mg PO Q4H PRN PRN Reason: Pain, Severe (Pain Scale 7-10) Last Admin: 05/14/21 12:14 Dose: 4 mg Documented by: JJ Hydromorphone HCl (Hydromorphone Hcl 1 Mg/Ml Syringe) 1 mg IVPUSH Q3H PRN; Protocol PRN Reason: Pain, Severe (Pain Scale 7-10) Last Admin: 05/16/21 09:24 Dose: 1 mg Documented by: HADLEY Lactated Ringer's (Lr) 1,000 mls @ 100 mls/hr IVCONT .Q10H [facility] Last Admin: 05/16/21 03:07 Dose: 100 mls/hr Documented by: FRANKI Acetaminophen (Ofirmev) 1,000 mg in 100 mls @ 400 mls/hr IV Q6H [facility] Last Admin: 05/16/21 08:24 Dose: 400 mls/hr Documented by: HADLEY Ketorolac Tromethamine (Ketorolac Tromethamine 30 Mg/Ml Vial) 15 mg IVPUSH Q6H [facility] Last Admin: 05/16/21 04:16 Dose: 15 mg Documented by: FRANKI Lorazepam (Lorazepam 0.5 Mg Tablet) 0.5 mg PO Q8H PRN PRN Reason: Anxiety Last Admin: 05/14/21 21:23 Dose: 0.5 mg Documented by: JENN Ondansetron HCl (Ondansetron Hcl 4 Mg/2 Ml Vial) 4 mg IVPUSH Q8H PRN PRN Reason: Nausea and Vomiting Last Admin: 05/14/21 02:41 Dose: 4 mg Documented by: JENN Sodium Chloride (0.9 % Sodium Chloride Flush 3 Ml Syringe) 3 ml IVFLUSH QSHIFT [facility] Last Admin: 05/15/21 20:56 Dose: 3 ml Documented by: FRANKI <Brianda Lawson PA-C - Last Filed: 05/16/21 10:05> Labs CBC & Chem 7: : 05/09/21 00:36 05/16/21 06:55 <Brianda Lawson PA-C - Last Filed: 05/16/21 10:05> Labs: Laboratory Results - last 24 hr 05/16/21 06:55 Anion Gap 12 Estim Creat Clear Calc 97.1 Estimated GFR > 60 Random Glucose 107 Calcium 9.0 <Brianda Lawson PA-C - Last Filed: 05/16/21 10:05> Procedures Date of Service Date of Service: 05/16/21 <Brianda Lawson PA-C - Last Filed: 05/16/21 10:05> Progress Note: A&P Assessment and plan (1) S/P exploratory laparotomy: Status: Acute <Brianda Lawson PA-C - Last Filed: 05/16/21 10:05> Assessment and Plan: Complaints of burning pains on the stoma Otherwise tolerating diet well Good stoma function Not getting out of bed as much but improving Encouraged to get out of bed more Pain management Overall seems to be doing well No vaginal drainage Stoma care Seen and examined independently <Jerel Goss MD - Last Filed: 05/17/21 15:52> (2) Ileostomy present: Status: Acute <Brianda Lawson PA-C - Last Filed: 05/16/21 10:05> (3) Colovaginal fistula: Status: Acute <Brianda Lawson PA-C - Last Filed: 05/16/21 10:05> Assessment and Plan: 61 year old female with hx of sigmoid resection, diverting loop ileostomy for diverticular abscess. Developed colovaginal fistula. Underwent exploratory laparotomy, extensive lysis of adhesions, intraop flexible sigmoidoscopy yesterday for potential revision of anastomosis. However, in view of very dense adhesions in pelvis, unable to safely dissect sigmoid, vaginal cuff and Kiko's pouch. Procedure therefore aborted. Pain surrounding ostomy. VSS- remains hypertensive. Abd exam benign- incision clean, ileostomy with soft stool output. Continue pain management. Ostomy appliance change today. Encouraged OOB. ?HTN due to pain. D/c IVF. May need initiation of antihypertensives if does not improve. Will need eventual referral to tertiary center for anastomosis revision. ? <rBianda Lawson PA-C - Last Filed: 05/16/21 10:05> Fall Risk Details Current Medications: Current Medications Acetaminophen (Acetaminophen 325 Mg Tablet) 650 mg PO Q6H PRN PRN Reason: (Pain Scale 1-3), fever Heparin Sodium (Porcine) (Heparin Sodium,Porcine 5,000 Unit/Ml Vial) 5,000 unit SUBCUT Q8H [facility] Last Admin: 05/16/21 08:25 Dose: 5,000 unit Documented by: Hydromorphone HCl (Hydromorphone Hcl 2 Mg Tablet) 2 mg PO Q4H PRN PRN Reason: Pain, Moderate (Pain Scale 4-6 Hydromorphone HCl (Hydromorphone Hcl 4 Mg Tablet) 4 mg PO Q4H PRN PRN Reason: Pain, Severe (Pain Scale 7-10) Last Admin: 05/14/21 12:14 Dose: 4 mg Documented by: Hydromorphone HCl (Hydromorphone Hcl 1 Mg/Ml Syringe) 1 mg IVPUSH Q3H PRN; Protocol PRN Reason: Pain, Severe (Pain Scale 7-10) Last Admin: 05/16/21 09:24 Dose: 1 mg Documented by: Lactated Ringer's (Lr) 1,000 mls @ 100 mls/hr IVCONT .Q10H [facility] Last Admin: 05/16/21 03:07 Dose: 100 mls/hr Documented by: Acetaminophen (Ofirmev) 1,000 mg in 100 mls @ 400 mls/hr IV Q6H [facility] Last Admin: 05/16/21 08:24 Dose: 400 mls/hr Documented by: Ketorolac Tromethamine (Ketorolac Tromethamine 30 Mg/Ml Vial) 15 mg IVPUSH Q6H [facility] Last Admin: 05/16/21 04:16 Dose: 15 mg Documented by: Lorazepam (Lorazepam 0.5 Mg Tablet) 0.5 mg PO Q8H PRN PRN Reason: Anxiety Last Admin: 05/14/21 21:23 Dose: 0.5 mg Documented by: Ondansetron HCl (Ondansetron Hcl 4 Mg/2 Ml Vial) 4 mg IVPUSH Q8H PRN PRN Reason: Nausea and Vomiting Last Admin: 05/14/21 02:41 Dose: 4 mg Documented by: Sodium Chloride (0.9 % Sodium Chloride Flush 3 Ml Syringe) 3 ml IVFLUSH QSHIFT [facility] Last Admin: 05/15/21 20:56 Dose: 3 ml Documented by: <Brianda Lawson PA-C - Last Filed: 05/16/21 10:05> Time Spent With Patient Time: Total time spent is greater than 50% in coordination of care (as documented) at patient's floor/unit and/or counseling patient: <Brianda Lawson PA-C - Last Filed: 05/16/21 10:05> Time with patient: 15 - 24 minutes <Brianda Lawson PA-C - Last Filed: 05/16/21 10:05> Quality Stroke Does the patient have a stroke diagnosis?: No <Brianda Lawson PA-C - Last Filed: 05/16/21 10:05> VTE Prior VTE?: No <GENA Younger Last Filed: 05/16/21 10:05> VTE Risk Level:: Medical - low <GENA Younger Last Filed: 05/16/21 10:05> VTE Device Contraindication: N/A - Device Ordered <GENA Younger Last Filed: 05/16/21 10:05> VTE Drug Contraindication: N/A - Med Ordered <GENA Younger Last Filed: 05/16/21 10:05>
[2021-05-16] MEDS: 0.9 % Sodium Chloride Flush 3 ML SYRINGE IVFLUSH (21:21)
[2021-05-16] MEDS: LORazepam 0.5 MG TABLET PO (21:22)
[2021-05-17] VITALS (8 sets, daily range): BP systolic 172–188; BP diastolic 79–93; PULSE 56–69; RESP 18–19; TEMP 36.4–37.3; O2SAT 94–97
[2021-05-17] MEDS: HYDROmorphone HCl 1 MG/ML SYRINGE IVPUSH ×2 (03:27→07:33)
[2021-05-17] MEDS: 0.9 % Sodium Chloride Flush 3 ML SYRINGE IVFLUSH ×3 (07:33→19:18)
[2021-05-17] MEDS: ondansetron HCL 4 MG/2 ML VIAL IVPUSH (07:41)
--- NOTE | 2021-05-17 10:56 | P.PNGS_ITS ---
Subjective Subjective Date of Service: 05/17/21 <Brianda Lawson PA-C - Last Filed: 05/17/21 11:02> 05/17/21 <Jerel Goss MD - Last Filed: 05/17/21 15:52> Interval history: Had appliance change yesterday, burning pain around ostomy a little better. Tolerating diet. Stoma functioning well. <Brianda Lawson PA-C - Last Filed: 05/17/21 11:02> Physical Exam Vital Signs: Vital Signs: Last Vital Signs Temp 98.3 F 05/17/21 10:45 Pulse 56 05/17/21 10:45 Resp 18 05/17/21 10:45 BP 186/81 H 05/17/21 10:45 Pulse Ox 95 05/17/21 10:45 BMI result Body Mass Index 25.4 <Brianda Lawson PA-C - Last Filed: 05/17/21 11:02> Const: General: comfortable, no acute distress and well developed <Jaquelin Lawson PA-C - Last Filed: 05/17/21 11:02> Orientation/consciousness: patient oriented x3 <Brianda Lawson PA-C - Last Filed: 05/17/21 11:02> Resp: Effort & Inspection: normal respiratory effort <Brianda Lawson PA-C - Last Filed: 05/17/21 11:02> GI: Other: ostomy with appliance <Brianda Lawson PA-C - Last Filed: 05/17/21 11:02> Inspection: No distended and Yes incision (clean) <Brianda Lawson PA-C - Last Filed: 05/17/21 11:02> Palpation (GI): Soft to palpation, Tenderness to palpation present (GI) (incisional), no guarding and not rigid <Brianda Lawson PA-C - Last Filed: 05/17/21 11:02> Skin: General skin exam: no rashes or lesions noted <GENA Younger Last Filed: 05/17/21 11:02> Neuro: General: patient oriented x3 <GENA Younger Last Filed: 05/17/21 11:02> Extrem: General: Yes no clubbing, cyanosis or edema <Brianda Lawson PA-C - Last Filed: 05/17/21 11:02> Objective Data Active Medications Acetaminophen (Acetaminophen 325 Mg Tablet) 650 mg PO Q6H PRN PRN Reason: (Pain Scale 1-3), fever Heparin Sodium (Porcine) (Heparin Sodium,Porcine 5,000 Unit/Ml Vial) 5,000 unit SUBCUT Q8H [facility] Last Admin: 05/17/21 07:34 Dose: Not Given Documented by: TATYANA Non-Admin Reason: Patient Refused Hydromorphone HCl (Hydromorphone Hcl 2 Mg Tablet) 2 mg PO Q4H PRN PRN Reason: Pain, Moderate (Pain Scale 4-6 Hydromorphone HCl (Hydromorphone Hcl 4 Mg Tablet) 4 mg PO Q4H PRN PRN Reason: Pain, Severe (Pain Scale 7-10) Last Admin: 05/14/21 12:14 Dose: 4 mg Documented by: JJ Hydromorphone HCl (Hydromorphone Hcl 1 Mg/Ml Syringe) 1 mg IVPUSH Q3H PRN; Protocol PRN Reason: Pain, Severe (Pain Scale 7-10) Last Admin: 05/17/21 07:33 Dose: 1 mg Documented by: COTEMA Acetaminophen (Ofirmev) 1,000 mg in 100 mls @ 400 mls/hr IV Q6H [facility] Last Infusion: 05/17/21 10:06 Dose: 0 mls/hr Documented by: ELAINEEMA Ketorolac Tromethamine (Ketorolac Tromethamine 30 Mg/Ml Vial) 15 mg IVPUSH Q6H PRN PRN Reason: pain, severe Lorazepam (Lorazepam 0.5 Mg Tablet) 0.5 mg PO Q8H PRN PRN Reason: Anxiety Last Admin: 05/16/21 21:22 Dose: 0.5 mg Documented by: ISRA Losartan Potassium (Losartan Potassium 25 Mg Tablet) 25 mg PO DAILY [facility]; Aneta col Ondansetron HCl (Ondansetron Hcl 4 Mg/2 Ml Vial) 4 mg IVPUSH Q8H PRN PRN Reason: Nausea and Vomiting Last Admin: 05/17/21 07:41 Dose: 4 mg Documented by: TATYANA Sodium Chloride (0.9 % Sodium Chloride Flush 3 Ml Syringe) 3 ml IVFLUSH [facility] Last Admin: 05/17/21 07:33 Dose: 3 ml Documented by: TATYANA <Brianda Lawson PA-C - Last Filed: 05/17/21 11:02> Labs CBC & Chem 7: : 05/09/21 00:36 05/16/21 06:55 <Brianda Lawson PA-C - Last Filed: 05/17/21 11:02> Procedures Date of Service Date of Service: 05/17/21 <Brianda Lawson PA-C - Last Filed: 05/17/21 11:02> Progress Note: A&P Assessment and plan (1) S/P exploratory laparotomy: Status: Acute <Brianda Lawson PA-C - Last Filed: 05/17/21 11:02> (2) Ileostomy present: Status: Acute <Brianda Lawosn PA-C - Last Filed: 05/17/21 11:02> (3) Colovaginal fistula: Status: Acute <Brianda Lawson PA-C - Last Filed: 05/17/21 11:02> Assessment and Plan: Better today Good oral intake Stoma functioning well Was feeling down earlier because IV getting infiltrated I was able to insert a new IV on the left wrist I had a long discussion with her - plan is to achieve good pain control with oral pain meds Eventually will refer if her to tertiary care center for another attempt at r evision of anastomosis She also says family members at home are positive for COVID She does not think therefore that she will be able to go home this weekend Overall, doing better She understands plan Encouraged to ambulate <Jerel Goss MD - Last Filed: 05/17/21 15:52> Assessment and Plan: 61 year old female with hx of sigmoid resection, diverting loop ileostomy for diverticular abscess 02/14. Developed colovaginal fistula. Admitted for UTI, feculent vaginal drainage. Underwent exploratory laparotomy, extensive lysis of adhesions, intraop flexible sigmoidoscopy 05/13/21 for revi kj of anastomosis. However, in view of very dense adhesions in pelvis, unable to safely dissect sigmoid, vaginal cuff and Kiko's pouch. Procedure therefore aborted. Her pain is slowly improving but she is still not very active VSS- remains hypertensive. Abd exam benign with appropriate post op tenderness- incision clean, ileostomy with soft stool output, appliance changed yesterday. Continue pain management. Increase activity- strongly encouraged to get OOB and ambulating. Hopefully discharge to home over the weekend. Remains hypertensive. Was on losartan 25mg PO daily but this was reportedly discontinued. Will resume. F/u with PCP regarding further management. Will need eventual referral to tertiary center for anastomosis revision.? <Brianda Lawson PA-C - Last Filed: 05/17/21 11:02> Fall Risk Details Current Medications: Current Medications Acetaminophen (Acetaminophen 325 Mg Tablet) 650 mg PO Q6H PRN PRN Reason: (Pain Scale 1-3), fever Heparin Sodium (Porcine) (Heparin Sodium,Porcine 5,000 Unit/Ml Vial) 5,000 unit SUBCUT Q8H [facility] Last Admin: 05/17/21 07:34 Dose: Not Given Documented by: Hydromorphone HCl (Hydromorphone Hcl 2 Mg Tablet) 2 mg PO Q4H PRN PRN Reason: Pain, Moderate (Pain Scale 4-6 Hydromorphone HCl (Hydromorphone Hcl 4 Mg Tablet) 4 mg PO Q4H PRN PRN Reason: Pain, Severe (Pain Scale 7-10) Last Admin: 05/14/21 12:14 Dose: 4 mg Documented by: Hydromorphone HCl (Hydromorphone Hcl 1 Mg/Ml Syringe) 1 mg IVPUSH Q3H PRN; Protocol PRN Reason: Pain, Severe (Pain Scale 7-10) Last Admin: 05/17/21 07:33 Dose: 1 mg Documented by: Acetaminophen (Ofirmev) 1,000 mg in 100 mls @ 400 mls/hr IV Q6H [facility] Last Infusion: 05/17/21 10:06 Dose: Infused Documented by: Ketorolac Tromethamine (Ketorolac Tromethamine 30 Mg/Ml Vial) 15 mg IVPUSH Q6H PRN PRN Reason: pain, severe Lorazepam (Lorazepam 0.5 Mg Tablet) 0.5 mg PO Q8H PRN PRN Reason: Anxiety Last Admin: 05/16/21 21:22 Dose: 0.5 mg Documented by: Losartan Potassium (Losartan Potassium 25 Mg Tablet) 25 mg PO DAILY [facility]; Protocol Ondansetron HCl (Ondansetron Hcl 4 Mg/2 Ml Vial) 4 mg IVPUSH Q8H PRN PRN Reason: Nausea and Vomiting Last Admin: 05/17/21 07:41 Dose: 4 mg Documented by: Sodium Chloride (0.9 % Sodium Chloride Flush 3 Ml Syringe) 3 ml IVFLUSH QSHIFT [facility] Last Admin: 05/17/21 07:33 Dose: 3 ml Documented by: <Brianda Lawson PA-C - Last Filed: 05/17/21 11:02> Time Spent With Patient Time: Total time spent is greater than 50% in coordination of care (as documented) at patient's floor/unit and/or counseling patient: <Brianda Lawson PA-C - Last Filed: 05/17/21 11:02> Time with patient: 15 - 24 minutes <Brianda Lawson PA-C - Last Filed: 05/17/21 11:02> Quality Stroke Does the patient have a stroke diagnosis?: No <Brianda Lawson PA-C - Last Filed: 05/17/21 11:02> VTE Prior VTE?: No <Brianda Lawson PA-C - Last Filed: 05/17/21 11:02> VTE Risk Level:: Medical - low <GENA Younger Last Filed: 05/17/21 11:02> VTE Device Contraindication: N/A - Device Ordered <GENA Younger Last Filed: 05/17/21 11:02> VTE Drug Contraindication: N/A - Med Ordered <GENA Younger Last Filed: 05/17/21 11:02>
--- NOTE | 2021-05-17 11:53 | MHC.CM.PN ---
EMR REVIEWED, PER SURGICAL PT IS NO LONGER BEING TRANSFERRED TO TERTIARY FACILITY AND ANTIC PT WILL D/C HOME OVER W/E, CM TO CONT TO FOLLOW D/C NEEDS.
[2021-05-17] MEDS: Losartan Potassium 25 MG TABLET PO (12:16)
[2021-05-17] MEDS: oxyCODONE HCl Immed Release 5 MG TABLET 10 MG PO (13:10)
[2021-05-17] MEDS: Acetaminophen 325 MG TABLET 650 MG PO (13:11)
[2021-05-17] MEDS: HYDROmorphone HCl 1 MG/ML SYRINGE 0.5 MG IVPUSH ×3 (16:22→23:47)
[2021-05-18] VITALS (8 sets, daily range): BP systolic 167–200; BP diastolic 78–89; PULSE 60–75; RESP 18–20; TEMP 36.8–36.9; O2SAT 94–98
[2021-05-18] MEDS: HYDROmorphone HCl 1 MG/ML SYRINGE 0.5 MG IVPUSH ×6 (04:53→22:46)
[2021-05-18] MEDS: Losartan Potassium 25 MG TABLET PO (08:46)
[2021-05-18] MEDS: 0.9 % Sodium Chloride Flush 3 ML SYRINGE IVFLUSH ×2 (12:42→19:18)
[2021-05-18] MEDS: Heparin Sodium,Porcine 5,000 UNIT/ML VIAL 5000 UNIT SUBCUT (12:43)
--- NOTE | 2021-05-18 14:39 | P.PNGS_ITS ---
Subjective Subjective Date of Service: 05/18/21 Interval history: pt feeling tired today and abdo pain - she ordered [place] food last night delivered and ate it here in the hospital and felt worse with abdo pain and cramping. no vomit but passing stool in ostomy. not feeling to eat today, feels a little nauseated Physical Exam Vital Signs: Vital Signs: Last Vital Signs Temp 98.5 F 05/18/21 11:32 Pulse 60 05/18/21 11:32 Resp 20 05/18/21 11:32 BP 188/84 H 05/18/21 11:32 Pulse Ox 94 05/18/21 11:32 BMI result Body Mass Index 25.4 GI: Other: abdo is soft nondistended ostomy working Objective Data Active Medications Acetaminophen (Acetaminophen 325 Mg Tablet) 650 mg PO Q6H PRN PRN Reason: (Pain Scale 1-3), fever Last Admin: 05/17/21 13:11 Dose: 650 mg Documented by: COTELIANE Diphenhydramine HCl (Diphenhydramine Hcl 25 Mg Tablet) 25 mg PO BEDTIME PRN PRN Reason: insomnia Heparin Sodium (Porcine) (Heparin Sodium,Porcine 5,000 Unit/Ml Vial) 5,000 unit SUBCUT Q8H [facility] Last Admin: 05/18/21 12:43 Dose: 5,000 unit Documented by: MIGUELANGEL Hydromorphone HCl (Hydromorphone Hcl 1 Mg/Ml Syringe) 0.5 mg IVPUSH Q3H PRN; Protocol PRN Reason: Pain, Severe (Pain Scale 7-10) Last Admin: 05/18/21 12:40 Dose: 0.5 mg Documented by: MIGUELANGEL Lorazepam (Lorazepam 0.5 Mg Tablet) 0.5 mg PO Q8H PRN PRN Reason: Anxiety Last Admin: 05/16/21 21:22 Dose: 0.5 mg Documented by: ISRA Losartan Potassium (Losartan Potassium 25 Mg Tablet) 25 mg PO DAILY [facility]; Protocol Last Admin: 05/18/21 08:46 Dose: 25 mg Documented by: MIGUELANGEL Ondansetron HCl (Ondansetron Odt 8 Mg Tab.Rapdis) 8 mg TRANSLINGU Q8H PRN PRN Reason: Nausea and Vomiting Oxycodone HCl (Oxycodone Hcl Immed Release 5 Mg Tablet) 5 mg PO Q4H PRN PRN Reason: Pain, Moderate (Pain Scale 4-6 Oxycodone HCl (Oxycodone Hcl Immed Release 5 Mg Tablet) 10 mg PO Q4H PRN PRN Reason: Pain, Severe (Pain Scale 7-10) Last Admin: 05/17/21 13:10 Dose: 10 mg Documented by: COTEMA Sodium Chloride (0.9 % Sodium Chloride Flush 3 Ml Syringe) 3 ml IVFLUSH QSHIFT [facility] Last Admin: 05/18/21 12:42 Dose: 3 ml Documented by: MIGUELANGEL Labs CBC & Chem 7: 05/09/21 00:36 05/16/21 06:55 Procedures Date of Service Date of Service: 05/18/21 Progress Note: A&P Assessment and plan (1) S/P exploratory laparotomy: Status: Acute Assessment and Plan: pt with colovaginal fistula and sp exploration to repair but unable to do - she is stable but ate something last night which i think has made her feel worse today. plan to just do liquids, ivf bolus for a little dehydration, ostomy is wo rking she wants to go home but son who she was going to go home to now feeling ill - going to get tested for covid. if pt has a safe place to go to that is free from active covid will d/c her tomorrow - she says her other son was going to get tested on thursday. will reassess tomorrow re dc plans. she should be ok to go home soon. pt also with increasing hypertension - med team to manage her meds (2) Colovaginal fistula: Status: Acute Fall Risk Details Current Medications: Current Medications Acetaminophen (Acetaminophen 325 Mg Tablet) 650 mg PO Q6H PRN PRN Reason: (Pain Scale 1-3), fever Last Admin: 05/17/21 13:11 Dose: 650 mg Documented by: Diphenhydramine HCl (Diphenhydramine Hcl 25 Mg Tablet) 25 mg PO BEDTIME PRN PRN Reason: insomnia Heparin Sodium (Porcine) (Heparin Sodium,Porcine 5,000 Unit/Ml Vial) 5,000 unit SUBCUT Q8H [facility] Last Admin: 05/18/21 12:43 Dose: 5,000 unit Documented by: Hydromorphone HCl (Hydromorphone Hcl 1 Mg/Ml Syringe) 0.5 mg IVPUSH Q3H PRN; Protocol PRN Reason: Pain, Severe (Pain Scale 7-10) Last Admin: 05/18/21 12:40 Dose: 0.5 mg Documented by: Lorazepam (Lorazepam 0.5 Mg Tablet) 0.5 mg PO Q8H PRN PRN Reason: Anxiety Last Admin: 05/16/21 21:22 Dose: 0.5 mg Documented by: Losartan Potassium (Losartan Potassium 25 Mg Tablet) 25 mg PO DAILY [facility]; Protocol Last Admin: 05/18/21 08:46 Dose: 25 mg Documented by: Ondansetron HCl (Ondansetron Odt 8 Mg Tab.Rapdis) 8 mg TRANSLINGU Q8H PRN PRN Reason: Nausea and Vomiting Oxycodone HCl (Oxycodone Hcl Immed Release 5 Mg Tablet) 5 mg PO Q4H PRN PRN Reason: Pain, Moderate (Pain Scale 4-6 Oxycodone HCl (Oxycodone Hcl Immed Release 5 Mg Tablet) 10 mg PO Q4H PRN PRN Reason: Pain, Severe (Pain Scale 7-10) Last Admin: 05/17/21 13:10 Dose: 10 mg Documented by: Sodium Chloride (0.9 % Sodium Chloride Flush 3 Ml Syringe) 3 ml IVFLUSH [facility] Last Admin: 05/18/21 12:42 Dose: 3 ml Documented by: Time Spent With Patient Time: Total time spent is greater than 50% in coordination of care (as documented) at patient's floor/unit and/or counseling patient: Time with patient: 15 - 24 minutes Quality Stroke Does the patient have a stroke diagnosis?: No VTE Prior VTE?: No VTE Risk Level:: Medical - low VTE Device Contraindication: N/A - Device Ordered VTE Drug Contraindication: N/A - Med Ordered
[2021-05-18] MEDS: Lactated Ringers 1,000 ML 500 ML IV (16:18)
[2021-05-18] MEDS: amLODIPine Besylate 5 MG TABLET PO (22:02)
[2021-05-19] VITALS (7 sets, daily range): BP systolic 139–160; BP diastolic 69–85; PULSE 58–76; RESP 17–20; TEMP 36.4–37.3; O2SAT 94–96
[2021-05-19] MEDS: HYDROmorphone HCl 1 MG/ML SYRINGE 0.5 MG IVPUSH ×5 (02:21→20:40)
--- NOTE | 2021-05-19 03:14 | PC.NURSE ---
05/18/202014 BP-200/89 notified.ordered norvasc 5mg given at 2200.2330 bp-167/78
[2021-05-19] MEDS: Losartan Potassium 50 MG TABLET PO (08:52)
[2021-05-19] MEDS: 0.9 % Sodium Chloride Flush 3 ML SYRINGE IVFLUSH ×2 (08:52→16:41)
--- NOTE | 2021-05-19 13:59 | PM.PNGS ---
Subjective Subjective Date of Service: 05/19/21 Interval history: feels better than yesterday - gi function good less abdo pain and cramping after eating the amharic food Physical Exam Vital Signs: Vital Signs: Last Vital Signs Temp 97.9 F 05/19/21 12:00 Pulse 64 05/19/21 12:00 Resp 20 05/19/21 12:00 BP 160/74 H 05/19/21 12:00 Pulse Ox 94 05/19/21 12:00 BMI result Body Mass Index 25.4 GI: Other: abdo soft nontender mild distension - ostomy working with good stool present Objective Data Active Medications Acetaminophen (Acetaminophen 325 Mg Tablet) 650 mg PO Q6H PRN PRN Reason: (Pain Scale 1-3), fever Last Admin: 05/17/21 13:11 Dose: 650 mg Documented by: COTEMA Diphenhydramine HCl (Diphenhydramine Hcl 25 Mg Tablet) 25 mg PO BEDTIME PRN PRN Reason: insomnia Heparin Sodium (Porcine) (Heparin Sodium,Porcine 5,000 Unit/Ml Vial) 5,000 unit SUBCUT Q8H [facility] Last Admin: 05/19/21 08:52 Dose: Not Given Documented by: ROSELIA Non-Admin Reason: Patient Refused Hydromorphone HCl (Hydromorphone Hcl 1 Mg/Ml Syringe) 0.5 mg IVPUSH Q3H PRN; Protocol PRN Reason: Pain, Severe (Pain Scale 7-10) Last Admin: 05/19/21 13:01 Dose: 0.5 mg Documented by: ROSELIA Lorazepam (Lorazepam 0.5 Mg Tablet) 0.5 mg PO Q8H PRN PRN Reason: Anxiety Last Admin: 05/16/21 21:22 Dose: 0.5 mg Documented by: ISRA Losartan Potassium (Losartan Potassium 50 Mg Tablet) 50 mg PO DAILY [facility]; Protocol Last Admin: 05/19/21 08:52 Dose: 50 mg Documented by: ROSELIA Ondansetron HCl (Ondansetron Odt 8 Mg Tab.Rapdis) 8 mg TRANSLINGU Q8H PRN PRN Reason: Nausea and Vomiting Oxycodone HCl (Oxycodone Hcl Immed Release 5 Mg Tablet) 5 mg PO Q4H PRN PRN Reason: Pain, Moderate (Pain Scale 4-6 Oxycodone HCl (Oxycodone Hcl Immed Release 5 Mg Tablet) 10 mg PO Q4H PRN PRN Reason: Pain, Severe (Pain Scale 7-10) Last Admin: 05/17/21 13:10 Dose: 10 mg Documented by: COTEMA Sodium Chloride (0.9 % Sodium Chloride Flush 3 Ml Syringe) 3 ml IVFLUSH QSHIFT [facility] Last Admin: 05/19/21 08:52 Dose: 3 ml Documented by: LYSLina Labs CBC & Chem 7: 05/09/21 00:36 05/16/21 06:55 Procedures Date of Service Date of Service: 05/19/21 Progress Note: A&P Assessment and plan (1) S/P exploratory laparotomy: Status: Acute Assessment and Plan: pt recovering well from her exploratory surgery - one person in her sons family tested postitive for covid so she cant go there today- there is more testing tomorrow and she is hoping to go to one of the sons homes tomorrow and stay there until she can be ready for her next referal to a tertiary center. cont with po diet and po pain meds as needed. - ostomy care. (2) Colovaginal fistula: Status: Acute Fall Risk Details Current Medications: Current Medications Acetaminophen (Acetaminophen 325 Mg Tablet) 650 mg PO Q6H PRN PRN Reason: (Pain Scale 1-3), fever Last Admin: 05/17/21 13:11 Dose: 650 mg Documented by: Diphenhydramine HCl (Diphenhydramine Hcl 25 Mg Tablet) 25 mg PO BEDTIME PRN PRN Reason: insomnia Heparin Sodium (Porcine) (Heparin Sodium,Porcine 5,000 Unit/Ml Vial) 5,000 unit SUBCUT Q8H [facility] Last Admin: 05/19/21 08:52 Dose: Not Given Documented by: Hydromorphone HCl (Hydromorphone Hcl 1 Mg/Ml Syringe) 0.5 mg IVPUSH Q3H PRN; Protocol PRN Reason: Pain, Severe (Pain Scale 7-10) Last Admin: 05/19/21 13:01 Dose: 0.5 mg Documented by: Lorazepam (Lorazepam 0.5 Mg Tablet) 0.5 mg PO Q8H PRN PRN Reason: Anxiety Last Admin: 05/16/21 21:22 Dose: 0.5 mg Documented by: Losartan Potassium (Losartan Potassium 50 Mg Tablet) 50 mg PO DAILY [facility]; Protocol Last Admin: 05/19/21 08:52 Dose: 50 mg Documented by: Ondansetron HCl (Ondansetron Odt 8 Mg Tab.Rapdis) 8 mg TRANSLINGU Q8H PRN PRN Reason: Nausea and Vomiting Oxycodone HCl (Oxycodone Hcl Immed Release 5 Mg Tablet) 5 mg PO Q4H PRN PRN Reason: Pain, Moderate (Pain Scale 4-6 Oxycodone HCl (Oxycodone Hcl Immed Release 5 Mg Tablet) 10 mg PO Q4H PRN PRN Reason: Pain, Severe (Pain Scale 7-10) Last Admin: 05/17/21 13:10 Dose: 10 mg Documented by: Sodium Chloride (0.9 % Sodium Chloride Flush 3 Ml Syringe) [address] [facility] Last Admin: 05/19/21 08:52 Dose: 3 ml Documented by: Time Spent With Patient Time: Total time spent is greater than 50% in coordination of care (as documented) at patient's floor/unit and/or counseling patient: Time with patient: less than 15 minutes Quality Stroke Does the patient have a stroke diagnosis?: No VTE Prior VTE?: No VTE Risk Level:: Medical - low VTE Device Contraindication: N/A - Device Ordered VTE Drug Contraindication: N/A - Med Ordered
[2021-05-20] VITALS (7 sets, daily range): BP systolic 120–141; BP diastolic 59–78; PULSE 58–84; RESP 17–20; TEMP 36.2–37; O2SAT 94–97
[2021-05-20] MEDS: 0.9 % Sodium Chloride Flush 3 ML SYRINGE IVFLUSH ×2 (00:22→08:49)
[2021-05-20] MEDS: HYDROmorphone HCl 1 MG/ML SYRINGE 0.5 MG IVPUSH ×4 (00:28→13:26)
[2021-05-20] MEDS: Losartan Potassium 50 MG TABLET PO (08:44)
--- NOTE | 2021-05-20 09:03 | P.PNGS_ITS ---
Subjective Subjective Date of Service: 05/21/21 Interval history: Feels well Says she wants to go home today but is worried because 1 of his sons has tested positive for COVID Eating well no events over the weekend Physical Exam Vital Signs: Vital Signs: Last Vital Signs Temp 97.4 F 05/20/21 08:00 Pulse 63 05/20/21 08:00 Resp 20 05/20/21 08:00 BP 131/59 L 05/20/21 08:00 Pulse Ox 95 05/20/21 08:00 BMI result Body Mass Index 25.4 Const: General: comfortable and no acute distress Resp: Effort & Inspection: normal respiratory effort Cardio: Rhythm: regular rhythm GI: Other: Stoma functioning well Palpation (GI): Soft to palpation, not firm and nontender Objective Data Active Medications Acetaminophen (Acetaminophen 325 Mg Tablet) 650 mg PO Q6H PRN PRN Reason: (Pain Scale 1-3), fever Last Admin: 05/17/21 13:11 Dose: 650 mg Documented by: TATYANA Diphenhydramine HCl (Diphenhydramine Hcl 25 Mg Tablet) 25 mg PO BEDTIME PRN PRN Reason: insomnia Heparin Sodium (Porcine) (Heparin Sodium,Porcine 5,000 Unit/Ml Vial) 5,000 unit SUBCUT Q8H [facility] Last Admin: 05/20/21 08:39 Dose: Not Given Documented by: JENNIFER Non-Admin Reason: Patient Refused Hydromorphone HCl (Hydromorphone Hcl 1 Mg/Ml Syringe) 0.5 mg IVPUSH Q3H PRN; Protocol PRN Reason: Pain, Severe (Pain Scale 7-10) Last Admin: 05/20/21 08:44 Dose: 0.5 mg Documented by: JENNIFER Losartan Potassium (Losartan Potassium 50 Mg Tablet) 50 mg PO DAILY [facility]; Protocol Last Admin: 05/20/21 08:44 Dose: 50 mg Documented by: JENNIFER Ondansetron HCl (Ondansetron Odt 8 Mg Tab.Rapdis) 8 mg TRANSLINGU Q8H PRN PRN Reason: Nausea and Vomiting Oxycodone HCl (Oxycodone Hcl Immed Release 5 Mg Tablet) 5 mg PO Q4H PRN PRN Reason: Pain, Moderate (Pain Scale 4-6 Oxycodone HCl (Oxycodone Hcl Immed Release 5 Mg Tablet) 10 mg PO Q4H PRN PRN Reason: Pain, Severe (Pain Scale 7-10) Last Admin: 05/17/21 13:10 Dose: 10 mg Documented by: COTEMA Sodium Chloride (0.9 % Sodium Chloride Flush 3 Ml Syringe) [facility] Last Admin: 05/20/21 08:49 Dose: 3 ml Documented by: JENNIFER Labs CBC & Chem 7: 05/09/21 00:36 05/16/21 06:55 Procedures Date of Service Date of Service: 05/20/21 Progress Note: A&P Assessment and plan (1) Colovaginal fistula: Status: Acute Assessment and Plan: No vaginal drainage Good p.o. intake Pain well controlled She wants to go home today Will need to see in the office for follow-up Her son actually has tested positive for COVID She is awaiting for another test today before going home Fall Risk Details Current Medications: Current Medications Acetaminophen (Acetaminophen 325 Mg Tablet) 650 mg PO Q6H PRN PRN Reason: (Pain Scale 1-3), fever Last Admin: 05/17/21 13:11 Dose: 650 mg Documented by: Diphenhydramine HCl (Diphenhydramine Hcl 25 Mg Tablet) 25 mg PO BEDTIME PRN PRN Reason: insomnia Heparin Sodium (Porcine) (Heparin Sodium,Porcine 5,000 Unit/Ml Vial) 5,000 unit SUBCUT Q8H [facility] Last Admin: 05/20/21 08:39 Dose: Not Given Documented by: Hydromorphone HCl (Hydromorphone Hcl 1 Mg/Ml Syringe) 0.5 mg IVPUSH Q3H PRN; Protocol PRN Reason: Pain, Severe (Pain Scale 7-10) Last Admin: 05/20/21 08:44 Dose: 0.5 mg Documented by: Losartan Potassium (Losartan Potassium 50 Mg Tablet) 50 mg PO DAILY [facility]; Protocol Last Admin: 05/20/21 08:44 Dose: 50 mg Documented by: Ondansetron HCl (Ondansetron Odt 8 Mg Tab.Rapdis) 8 mg TRANSLINGU Q8H PRN PRN Reason: Nausea and Vomiting Oxycodone HCl (Oxycodone Hcl Immed Release 5 Mg Tablet) 5 mg PO Q4H PRN PRN Reason: Pain, Moderate (Pain Scale 4-6 Oxycodone HCl (Oxycodone Hcl Immed Release 5 Mg Tablet) 10 mg PO Q4H PRN PRN Reason: Pain, Severe (Pain Scale 7-10) Last Admin: 05/17/21 13:10 Dose: 10 mg Documented by: Sodium Chloride (0.9 % Sodium Chloride Flush 3 Ml Syringe) 3 ml IVFLUSH [facility] Last Admin: 05/20/21 08:49 Dose: 3 ml Documented by: Time Spent With Patient Time: Total time spent is greater than 50% in coordination of care (as documented) at patient's floor/unit and/or counseling patient: Time with patient: 15 - 24 minutes Quality Stroke Does the patient have a stroke diagnosis?: No VTE Prior VTE?: No VTE Risk Level:: Medical - low VTE Device Contraindication: N/A - Device Ordered VTE Drug Contraindication: N/A - Med Ordered
--- NOTE | 2021-05-20 13:07 | MHC.CM.PN ---
Addendum entered by Alysia Stevenson RN 05/20/21 13:19: CM MET W/PT WHO HAS NO PREFERENCE OF [facility], REFERRAL SENT TO [facility]. Original Note: EMR REVIEWED, PER SURGICAL ANTIC PT WILL D/C TO [facility] FOR THE [facility], PT CURRENTLY AWAITING SON TO BE COVID TESTED, PT WILL FOLLOW UP OUPT W/REFERRAL TO [facility] AT [facility] THE [facility]. CM WILL DISCUSS [facility] W/PT, [facility].
[2021-05-20] MEDS: oxyCODONE HCl Immed Release 5 MG TABLET 10 MG PO ×2 (16:50→22:24)
[2021-05-20] MEDS: Acetaminophen 325 MG TABLET 650 MG PO (22:23)
[2021-05-20] MEDS: diphenhydrAMINE HCL 25 MG TABLET PO (22:24)
[2021-05-21] MEDS: oxyCODONE HCl Immed Release 5 MG TABLET 10 MG PO ×3 (02:22→13:01)
[2021-05-21 03:48] VITALS: BP 121/58; PULSE 64; RESP 17; TEMP 36.7; O2SAT 97
[2021-05-21 07:25] VITALS: BP 119/54; PULSE 60; RESP 17; TEMP 36.4; O2SAT 97
[2021-05-21] MEDS: Losartan Potassium 50 MG TABLET PO (07:48)
[2021-05-21 10:00] VITALS: O2SAT 97
--- NOTE | 2021-05-21 10:47 | PM.PNGS ---
Subjective Subjective Date of Service: 05/21/21 Interval history: Feels well Has been looking forward to going home since yesterday Says COVID test for son at home was negative last night Denies complaints Physical Exam Vital Signs: Vital Signs: Last Vital Signs Temp 97.5 F 05/21/21 07:25 Pulse 60 05/21/21 07:25 Resp 17 05/21/21 07:25 BP 119/54 L 05/21/21 07:25 Pulse Ox 97 05/21/21 10:00 BMI result Body Mass Index 25.4 Const: General: comfortable and no acute distress Resp: Effort & Inspection: normal respiratory effort Cardio: Rate: regular rate Rhythm: regular rhythm GI: Other: Stoma functioning well, incision clean and dry Palpation (GI): Soft to palpation, not firm and no guarding Objective Data Active Medications Acetaminophen (Acetaminophen 325 Mg Tablet) 650 mg PO Q6H PRN PRN Reason: (Pain Scale 1-3), fever Last Admin: 05/20/21 22:23 Dose: 650 mg Documented by: FRANKI Diphenhydramine HCl (Diphenhydramine Hcl 25 Mg Tablet) 25 mg PO BEDTIME PRN PRN Reason: insomnia Last Admin: 05/20/21 22:24 Dose: 25 mg Documented by: FRANKI Heparin Sodium (Porcine) (Heparin Sodium,Porcine 5,000 Unit/Ml Vial) 5,000 unit SUBCUT Q8H [facility] Last Admin: 05/21/21 07:49 Dose: Not Given Documented by: BRICE Non-Admin Reason: Patient Refused Hydromorphone HCl (Hydromorphone Hcl 1 Mg/Ml Syringe) 0.5 mg IVPUSH Q3H PRN; Protocol PRN Reason: Pain, Severe (Pain Scale 7-10) Last Admin: 05/20/21 13:26 Dose: 0.5 mg Documented by: JENNIFER Losartan Potassium (Losartan Potassium 50 Mg Tablet) 50 mg PO DAILY [facility]; Protocol Last Admin: 05/21/21 07:48 Dose: 50 mg Documented by: BRICE Ondansetron HCl (Ondansetron Odt 8 Mg Tab.Rapdis) 8 mg TRANSLINGU Q8H PRN PRN Reason: Nausea and Vomiting Oxycodone HCl (Oxycodone Hcl Immed Release 5 Mg Tablet) 5 mg PO Q4H PRN PRN Reason: Pain, Moderate (Pain Scale 4-6 Oxycodone HCl (Oxycodone Hcl Immed Release 5 Mg Tablet) 10 mg PO Q4H PRN PRN Reason: Pain, Severe (Pain Scale 7-10) Last Admin: 05/21/21 07:47 Dose: 10 mg Documented by: BRICE Sodium Chloride (0.9 % Sodium Chloride Flush 3 Ml Syringe) 3 ml IVFLUSH QSHIFT [facility] Last Admin: 05/21/21 09:56 Dose: Not Given Documented by: BRICE Non-Admin Reason: No Access Labs CBC & Chem 7: 05/09/21 00:36 05/16/21 06:55 Procedures Date of Service Date of Service: 05/21/21 Progress Note: A&P Assessment and plan (1) S/P exploratory laparotomy: Status: Acute Assessment and Plan: Feels well Says she has been looking for to going home Okay to DC home today Vaginal drainage currently Had a long discussion with her about what to expect for care after discharge Her that she may have periodic drainage of residual stool from her colon to the fistula Good oral intake Will need to see in the office next week Fall Risk Details Current Medications: Current Medications Acetaminophen (Acetaminophen 325 Mg Tablet) 650 mg PO Q6H PRN PRN Reason: (Pain Scale 1-3), fever Last Admin: 05/20/21 22:23 Dose: 650 mg Documented by: Diphenhydramine HCl (Diphenhydramine Hcl 25 Mg Tablet) 25 mg PO BEDTIME PRN PRN Reason: insomnia Last Admin: 05/20/21 22:24 Dose: 25 mg Documented by: Heparin Sodium (Porcine) (Heparin Sodium,Porcine 5,000 Unit/Ml Vial) 5,000 unit SUBCUT Q8H [facility] Last Admin: 05/21/21 07:49 Dose: Not Given Documented by: Hydromorphone HCl (Hydromorphone Hcl 1 Mg/Ml Syringe) 0.5 mg IVPUSH Q3H PRN; Protocol PRN Reason: Pain, Severe (Pain Scale 7-10) Last Admin: 05/20/21 13:26 Dose: 0.5 mg Documented by: Losartan Potassium (Losartan Potassium 50 Mg Tablet) 50 mg PO DAILY [facility]; Protocol Last Admin: 05/21/21 07:48 Dose: 50 mg Documented by: Ondansetron HCl (Ondansetron Odt 8 Mg Tab.Rapdis) 8 mg TRANSLINGU Q8H PRN PRN Reason: Nausea and Vomiting Oxycodone HCl (Oxycodone Hcl Immed Release 5 Mg Tablet) 5 mg PO Q4H PRN PRN Reason: Pain, Moderate (Pain Scale 4-6 Oxycodone HCl (Oxycodone Hcl Immed Release 5 Mg Tablet) 10 mg PO Q4H PRN PRN Reason: Pain, Severe (Pain Scale 7-10) Last Admin: 05/21/21 07:47 Dose: 10 mg Documented by: Sodium Chloride (0.9 % Sodium Chloride Flush 3 Ml Syringe) 3 ml IVFLUSH [facility] Last Admin: 05/21/21 09:56 Dose: Not Given Documented by: Time Spent With Patient Time: Total time spent is greater than 50% in coordination of care (as documented) at patient's floor/unit and/or counseling patient: Time with patient: 15 - 24 minutes Quality Stroke Does the patient have a stroke diagnosis?: No VTE Prior VTE?: No VTE Risk Level:: Medical - low VTE Device Contraindication: N/A - Device Ordered VTE Drug Contraindication: N/A - Med Ordered
--- NOTE | 2021-05-21 10:59 | P.DS_ITS ---
DS: Providers Provider Date of Service: 05/21/21 Date of admission: 05/09/21 08:08 Primary care physician: Yudelka Jain Attending physician on admission: Jerel Goss DS: Diagnosis Discharge Diagnosis (1) S/P exploratory laparotomy: Status: Acute (2) Ileostomy present: Status: Acute (3) Colovaginal fistula: Status: Acute DS: Summary Hospital Course Hospital Course: BRIEF HPI: Arpita Park is a 61 year old who presents with pelvic pain and burning on urination. She had a sigmoid resection with colorectal anastomosis and diverting loop ileostomy on 01/31/21 for sigmoid diverticulitis with intramural abscess. 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 The drainage improved and she had been doing well at home since. Plans were made for a flexible sigmoidoscopy with Dr. Goss to evaluate the anastomosis and fistula. She however now presents with pelvic pain and dysuria and feculent vaginal drainage which began a 4-5 days ago. She denies nausea, vomiting, fever, chills, change in ileostomy output. She is otherwise feeling well. She has a history of medullary sponge kidney and frequent UTIs. Work up in the ED included a CT scan abd/pelvis which redemonstrated the colovaginal fistula with with stool present within the vagina. She had a leukocytosis of 11.5. Urinalysis was positive for bacteria and leukocyte esterase. HOSPITAL COURSE: She is admitted to the surgical service for further treatment of the UTI with plan for flexible sigmoidoscopy for further evaluation of the anastomosis and fistula. She was started on levaquin for the UTI. On 05/10/21, a flexible sigmoidoscopy to 20 cm was performed by Dr. Goss. Unfortunately, large amounts of stool was encountered at this level and the exam was generally unrevealing as the staple line could not be visualized. It was therefore thought that the anastomosis involved the vaginal cuff and sigmoid at the level of the staple line. This was discussed with the patient and the need to revise the anastomosis. The patient wanted it done this admission given the recurrence of drainage. It was therefore decided to proceed with hand assisted laparoscopic revision of the anastomosis, possible laparotomy. This was added onto the schedule for the following week. On 05/13/21, an exploratory laparotomy, extensive lysis of adhesions, intraop consultation with gynecology Dr. Harvey was performed by Dr. Goss. The colovaginal fistula was identified and involved the vaginal cuff through the end of the sigmoid at the staple line. She also had extensive adhesions, involving the abdominal wall, small bowel loops, as well as surrounding the sigmoid and the Kiko's pouch in the deep pelvis. It was deemed unsafe to dissect the sigmoid, vaginal cuff and Kiko's pouch in the view of the adhesions. The procedure was therefore aborted. The patient tolerated the procedure well. The findings and procedure were discussed with the patient and need for eventual referral to a tertiary center for revision following her recovery from this operation. She expressed her understanding. The patient had a slow recovery course. She had difficulty with post operative incisional pain and required IV analgesics for multiple days. Her activity was limited at first due to the pain. Her mauricio was discontinued. Her diet was advanced to solid and she was tolerating this. Her ostomy began to function well. Her feculent vaginal drainage ceased. She was ambulated and her activity was gradually increased. She was transitioned to PO analgesics. She was ready for discharge however her daughter and family who she lives with, tested positive for Covid. She was awaiting her son's test results to return to his home and he tested negative. She was discharged on 05/21/21 in stable condition with resumption of her home services. She is to follow up with Dr. Goss in office. She remained hypertensive throughout her stay. Her previously discontinued losartan was restarted. She is to follow up with her PCP regarding further hypertension management. She completed a 5 day course of levaquin for treatment of her UTI. Status at Discharge Functional status at discharge: independent ambulation Overall status at discharge: patient is progressing back to baseline Time Spent with Patient Time attestation: Total time spent providing and/or coordinating discharge services: Discharge coordination time: Greater than 30 minutes Quality: Stroke Does the patient have a stroke diagnosis?: No Physical Exam Verdana 4l Vital Signs: Verdana 4d Verdana 4d Vital Signs: Verdana 4d Verdana 4Bd Last Vital Signs Verdana 4d Research/Program Director New 4d Research/Program Director New 4d Temp 98.3 F 05/17/21 10:45 Research/Program Director New 4d Pulse 56 05/17/21 10:45 Research/Program Director NewNew 4d Resp 18 05/17/21 10:45 BP 186/81 H 05/17/21 10:45 Pulse Ox 95 05/17/21 10:45 BMI result Body Mass Index 25.4 Const: General: no acute distress and alert Orientation/consciousness: patient oriented x3 GI: Other: ostomy with soft stool, appliance in place Inspection: No distended and Yes incision (clean) Palpation (GI): Soft to palpation and Tenderness to palpation present (GI) (incisional) Skin: General skin exam: no rashes or lesions noted Neuro: General: patient oriented x3 DS: Data Data Completed and Pending Completed studies during hospitalization [Text1]: Procedures Bypass Ileum to Cutaneous, Open Approach (01/27/21) Excision of Sigmoid Colon, Open Approach (01/27/21) Release Peritoneum, Open Approach (01/27/21) Discharge Plan Discharge Patient Disposition: Home Health Service Discharge Diagnosis: colovaginal fistula Referrals: Yudelka Jain [Primary Care Provider] - 1 Week Jerel Goss MD [Physician] - 1 Week Discharge Medications: New losartan 25 mg tablet 25 mg PO DAILY Qty: 30 RF: 1 oxycodone 5 mg tablet 5 mg PO Q4H PRN (Reason: pain (scale score 7-10)) Qty: 30 RF: 0 Continued (DME) ostomy wafer #[id number] See Rx Instructions .Route .MEDSUPPLY Qty: 20 RF: 4 (DME) ostomy supplies-skin barrier 6 X 6 wafer See Rx Instructions .Route Qty: 20 RF: 3 (DME) ostomy bag #[id number] See Rx Instructions .Route .MEDSUPPLY Qty: 20 RF: 4 Discontinued oxycodone 5 mg tablet 5 - 10 mg PO QID PRN (Reason: severe pain) RF: 0 Discharge Orders: Discharge Order (Routine); Ordered 05/21/21 Ordered By: Brianda Lawson Diet: advance to usual diet Activity on Discharge: No heavy lifting Stand Alone Forms: Patient Portal Discharge page Activity Restrictions/Additional Instructions: If the incision area is tender, you may apply an ice pack for short intervals (No more than 20 minutes on, followed by at least 20 minutes off). Do not apply heat. Do not use creams, lotions, or topical antibiotics unless instructed to do so by your surgeon. These can cause infection or allergic reaction. Ok to shower. You have oly closing your incision and these will be removed approximately 10-14 days after surgery. NO HEAVY LIFTING (>10lbs). Follow up in office. ([phone]) Call Your Doctor If: -Your temperature exceeds 101.5? F -You experience excessive pain or swelling -You have an unexpected reaction to medication -You have excessive bleeding -You experience continued vomiting/nausea -Your incision begins to separate -Your incision shows signs of infection such as increased redness, swelling, excessive pain, drainage (light blood or clear fluid is normal) or heat Care Plan Goals: Return to baseline health and gradual return to activity following recovery period. Health Concerns: h/o sigmoid resection with diverting loop ileostomy for diverticular abscess colovaginal fistula medullary sponge kidney Plan of Treatment: Discharge to home F/u in office post op Referral to tertiary center for anastomosis revision Assessment: Doing well post op
--- NOTE | 2021-05-21 11:20 | MHC.CM.PN ---
PT DISHARGING HOME W/HVNA FOR SHELTER, PT'S SON WILL ANTENNA SPECIALIST PT AT 1PM FOR TRANSPORT
[2021-05-21 11:35] VITALS: BP 120/67; PULSE 72; RESP 17; TEMP 36.8; O2SAT 96
--- NOTE | 2021-05-21 11:57 | W.MHC.F2F ---
Service Date Service Date: 05/21/21 Encounter Date of encounter: 05/21/21 Reasons for Services Signs and symptoms assessed: stoma functioning wel incision clean and dry abd soft Reason for detention: wound care MD Overseeing Care: Jerel Goss Homebound: Leaving the home is medically contraindicated at this time without the asist of a device and/or another person due th the listed conditions above and below. Reason homebound: pain with ambulation Certification: Based on the above findings, I certify that this patient is confined to the home and needs intermittent detention care, physical therapy and/or speech therapy, or continues to need occupational therapy. The patient is under my care, and I have initiated the establishment of the plan of care. The patient will be followed by a physician who will periodically review the plan of care.
== END 2021-05-21 13:15 | disposition home health service (06) | DRG 394 ==
LOC: HO.ED 05-09 08:20 → HO.EDOVER 05-09 08:36 → HO.S3 05-09 19:36
PROVIDERS: Emergency Medicine; Admitting Provider Surgery; Emergency Provider Emergency Medicine; PCP Nurse Practitioner; Visit Provider Physician Assistant Surgical
PROC: 0DJD8ZZ Inspection of Lower Intestinal Tract, Via Natural or Artificial Opening Endoscopic (ICD-10-PCS; CPT 45330; principal; 2021-05-10 10:30)
PROC: (CPT 49000; principal; 2021-05-13 10:50)
DX: N82.3 Fistula of vagina to large intestine (principal); N39.0 Urinary tract infection, site not specified; Z93.2 Ileostomy status; F17.210 Nicotine dependence, cigarettes, uncomplicated; Z71.6 Tobacco abuse counseling; Z20.822 Contact with and (suspected) exposure to COVID-19; Z87.442 Personal history of urinary calculi; Z88.0 Allergy status to penicillin; Z88.5 Allergy status to narcotic agent; Z79.899 Other long term (current) drug therapy
CPT/HCPCS: 36415; 74177; 80048; 80053; 81001; 82248; 82947; 83690; 85025; 86850; 86900; 86901; 87040; 87086; 87635; 96361; 96374; 96375; 99024; 99284; 99285; J0131; J1100; J1170; J1885; J1956; J2250; J2405; J2550; J3010; Q0163; Q9967

== ENCOUNTER → 2021-05-27 09:16 | Outpatient (BNVA) | payer OTHER, SELFPAY | PROVIDERS: PCP Nurse Practitioner; Referring Provider Nurse Practitioner; Visit Provider Surgery | DX: Z48.89 Encounter for other specified surgical aftercare (principal); N82.4 Other female intestinal-genital tract fistulae | CPT/HCPCS: 99212 ==

== ENCOUNTER → 2021-06-19 13:47 | Outpatient (BNVA) | payer OTHER, SELFPAY | PROVIDERS: PCP Nurse Practitioner; Referring Provider Nurse Practitioner; Visit Provider Surgery | DX: N82.4 Other female intestinal-genital tract fistulae (principal); Z98.890 Other specified postprocedural states | CPT/HCPCS: 99202; 99212 ==

== ENCOUNTER → 2021-07-17 08:46 | Outpatient (BNVA) | payer OTHER, SELFPAY | PROVIDERS: PCP Nurse Practitioner; Referring Provider Nurse Practitioner; Visit Provider Surgery | DX: N82.4 Other female intestinal-genital tract fistulae (principal); Z93.2 Ileostomy status; Z98.890 Other specified postprocedural states | CPT/HCPCS: 99212 ==

== ENCOUNTER 2021-11-04 10:16 | Outpatient (REF) | payer OTHER, SELFPAY ==
--- NOTE | 2021-11-04 10:26 | ECG_ITS ---
Test Reason : PREOP Blood Pressure : / mmHG Vent. Rate : 081 BPM Atrial Rate : 081 BPM P-R Int : 144 ms QRS Dur : 092 ms QT Int : 384 ms P-R-T Axes : 067 -28 052 degrees QTc Int : 446 ms Normal sinus rhythm Nonspecific T wave abnormality Abnormal ECG When compared with ECG of 15-OCT-2020 20:23, No significant change was found Referred By: Ann-Marie Miranda Electronically Signed By:NIKHIL GARCIA MD
[2021-11-04 10:38] LABS: MANUAL DIFF FLAG NO
[2021-11-04 10:55] LABS: Basophils Absolute Auto 0.1 X10*3/uL (0.0-0.2); Basophils Percent Auto 0.5 % (0-2); Eosinophils Absolute Auto 0.4 X10*3/uL (0.0-0.4); Eosinophils Percent Auto 3.3 % (0-4); Hematocrit 42.6 % (37.0-47.0); Hemoglobin 14.2 g/dl (12.0-16.0); Imm Gran Abs Auto 0.04 X10*3/uL (0.00-0.03); Imm Gran Pct Auto 0.4 % (0.0-0.4); Lymphocytes Absolute Auto 3.5 X10*3/uL (1.2-4.9); Lymphocytes Percent Auto 32.3 % (20-40); Mean Corpuscular HGB Conc 33.3 g/dl (31.0-35.0); Mean Corpuscular Hemoglobin 28.3 pg (27.0-33.0); Mean Corpuscular Volume 84.9 fL (80.0-98.0); Mean Platelet Volume 9.3 fL (9.4-12.3); Monocytes Absolute Auto 0.5 X10*3/uL (0.1-1.2); Monocytes Percent Auto 4.8 % (2-11); Neutrophils Absolute Auto 6.4 x10*3/uL (2.0-8.3); Neutrophils Percent Auto 58.7 % (45-73); Platelet Count 323 X10*3/uL (160-400); Red Blood Count 5.02 X10*6/uL (4.20-5.50); White Blood Count 10.9 X10*3/uL (4.8-10.8)
[2021-11-04 10:59] LABS: Prothrombin Time 11.3 SEC (10.0-13.1)
[2021-11-04 11:02] LABS: Partial Thromboplastin Time 28.1 SEC (24.1-38.0)
[2021-11-04 11:44] LABS: Alanine Aminotransferase 14 U/L (0-31); Albumin Level 4.6 g/dL (3.5-5.0); Alkaline Phosphatase 121 U/L (39-117); Anion Gap 14 (12-20); Aspartate Amino Transferase 12 U/L (5-31); Bilirubin Total 0.5 mg/dL (0.0-1.0); Blood Urea Nitrogen 15 mg/dL (9-16); Calcium 9.7 mg/dL (8.4-10.2); Carbon Dioxide 20 mmol/L (22-29); Chloride 109 mmol/L (96-108); Estimated Glomerular Filt Rate > 60; Glucose Random 99 mg/dL (60-115); Potassium 3.9 mmol/L (3.3-5.1); Sodium 139 mmol/L (135-145); Total Protein 8.2 g/dL (6.5-8.0)
== END 2021-11-04 10:17 | disposition home or self-care (01) ==
LOC: HO.LAB 10:16
PROVIDERS: PCP Nurse Practitioner; Visit Provider Surgery
DX: N82.4 Other female intestinal-genital tract fistulae (principal)
CPT/HCPCS: 36415; 80053; 85025; 85610; 85730; 93005

== ENCOUNTER 2023-07-09 17:52 | Outpatient (REF) | payer OTHER, SELFPAY ==
[2023-07-09 18:38] LABS: Appearance Urine Turbid; Color Urine Yellow; Glucose Urine UA Negative (Negative); Leukocyte Esterase Urine Moderate (2+) (Negative); Nitrite Urine Negative (Negative); PH 5.5 (5.0-9.0); UMIC TRIGGER UACC YES; Urine Blood Moderate (2+) (Negative); Urine Ketones Negative (Negative); Urine Protein Trace mg/dL (Neg-Trace)
[2023-07-09 18:48] LABS: Bacteria Urine 2+ (None Seen); Hyaline Casts Urine 0-2 /LPF (0-2); UACC Culture Trigger YES; WBC Urine >50 /HPF (0-5)
== END 2023-07-09 17:53 | disposition home or self-care (01) ==
LOC: HO.HHCLNP 17:52
PROVIDERS: Visit Provider Internal Medicine Geriatric Medicine
DX: R30.0 Dysuria (principal); R35.0 Frequency of micturition
CPT/HCPCS: 81001; 87086

== ENCOUNTER 2024-06-27 10:19 | Outpatient (REF) | payer OTHER, SELFPAY ==
[2024-06-27 11:39] LABS: Appearance Urine Clear; Color Urine Yellow; Glucose Urine UA Negative (Negative); Leukocyte Esterase Urine Large (3+) (Negative); Nitrite Urine Negative (Negative); UMIC TRIGGER UACC YES; Urine Blood Moderate (2+) (Negative); Urine Ketones Negative (Negative); Urine Protein 30 (1+) mg/dL (Neg-Trace)
[2024-06-27 11:44] LABS: Bacteria Urine 1+ (None Seen); Hyaline Casts Urine 0-2 /LPF (0-2); UACC Culture Trigger YES; WBC Urine >50 /HPF (0-5)
--- OUTSIDE RECORDS SUMMARY | 2024-06-27 11:55 | XMS_ITS | Encounter Summary ---
Author Organization [employer] Address [address] [address] Care Team Providers Care Drier Operator Head Name Role Phone Name, Qamar GUARDADO Primary Care Provider [phone] Reason for Visit * Reason Onset Date Comments Oxycodone change 06/15/2024 Encounter Details Date Type Department Care Team ([facility] st Contact Info) Description 06/15/2024 Telephone [facility] [address] [place], [place] [phone] Anna Ochoa RN Oxycodone change Social History Tobacco Use Types Packs/Day Years Used Date Smoking Tobacco: Every Day Cigarettes Smokeless Tobacco: Never Alcohol Use Standard Drinks/Week Comments Never 0 (1 standard drink = 0.6 oz pur e alcohol) Depression Answer Date Recorded Patient Health Questionnaire-9 Score 7 06/07/2024 Patient Health Questionnaire-9 Score 7 06/07/2024 Last PHQ-9: Questionnaire Data Not on file 0 06/07/2024 Housing Stability Answer Date Recorded What is your housing situation today? I have claire prieto 07/09/[address] you li ve. Do you have problems with any of the following? None of the above 07/09/2023 Food Insecurity Answer Date Recorded Within the past 12 months, y ou worried that your food would run out before you got money to buy more: Never True 07/09/2023 Within the past 12 months,th e food you bought just didn't last and you didn't have enough money to get more: Never True Transportation Answer Date Recorded In the past 12 months, has l ack of transportation kept you from medical appts, meetings, work or from getting things needed for daily living? No 07/09/2023 Utilities Answer Date Recorded In the past 12 months, has t he electric, gas, oil or water company threatened to shut off services in your home? No 07/09/2023 Depression Answer Date Recorded Patient Health Questionnaire-2 Score 3 06/07/2024 Comments Unknown Sex and Gender Information Value Date Recorded Sex Assigned at Female 02/24/2022 10:18 AM EDT Legal Sex Female 10:18 AM EDT Gender Identity Female 02/24/2022 10:18 AM EDT Sexual Orientation Choose not to disclose 2021 10:18 AM EDT documented as of this encounter Miscellaneous Notes * Addendum Note - Qamar Neves MD - 06/16/2024 8:57 AM ESTAddended by: QAMAR NEVES on: 06/16/2024 08:57 AM Modules accepted: Orders * Addendum Note - Anna Ochoa RN - 06/16/2024 8:52 AM ESTAddended by: ANNA OCHOA on: 06/16/2024 08:52 AM Modules accepted: Orders * Telephone Encounter - Anna Ochoa RN - 06/16/2024 8:45 AM EST Return TC to patient. Patient said she needs her pain medication and can't wait for a prior auth, is agreeable to Q8hr until her prior auth can be obtained for Q6hr frequency as she has been taking. TC to [facility], spoke with jose armando Mckeon is approving Oxycodone 10mg 0.5-1 tablets Q6hr PRN. Requested 5mg RX be cancelled. TC to patient, notified of above dosing change and said she understands. * Telephone Encounter - Pati Harper - 06/15/2024 4:23 PM EST Tc from pt returning call requesting to speak to BLOOD BANK TECHNICIAN nurse. * Telephone Encounter - Anna Ochoa RN - 06/15/2024 3:51 PM EST Received the following message from PCP today: TC from [facility] pharmacy, they state Oxycodone q 6 hours will not be covered by insurance, they are requesting order be changed to q 8 hours. Can she go down in the dose? PA will take time to get TC to patient, no answer. L/M asking her to call me back regarding her oxycodone refill. documented in this encounter Plan of Treatment Upcoming Encounters Date Type Department Care Team (Late st Contact Info) Description 07/05/2024 11:00 AM EDT Office Visit [facility] [address] [place] [id number] 09/07/2024 4:00 PM EDT Office Visit [address] [address] Name, MD Qamar [address] [place] [phone] documented as of this encounter Visit Diagnoses Diagnosis Chronic right-sided low back pain, unspecified whether sciatica present- Primary documented in this encounter Additional Health Concerns Assessment Noted Time PHQ-9 Depression Total Score: 7 06/07/19 25 1:15 PM EST documented as of this encounter Care Teams Drier Operator Head Relationship Specialty Start Date End Date Name, MD Qamar [address] [place] [phone] PCP - General Internal Medicine 05/02/22 documented as of this encounter
--- OUTSIDE RECORDS SUMMARY | 2024-06-27 11:55 | XMS_ITS | Clinical Summary ---
Author Organization [employer] Address [address] [place] [address] Care Team Providers Care Rebrander Name Role Phone Name, Qamar GUARDADO Primary Care Provider [phone] Allergies Active Allergy Reactions Criticality Noted Date Comments Morphine Anaphylaxis,Rash High 05/28/2009 Pt reports, from childhood Other reaction(s): Facial swelling, itchy, visual Patient has tolerated Dilaudid in past. Takes oxycodone chronically Penicillins Anaphylaxis High 04/27/1969 Pt reports, from childhood Other reaction(s): Other (See Comments) Hard time breathing Other reaction(s): Other (See Comments) Hard time breathing Tolerated Ceftriaxone 12/23/2022 Medications * This document contains information received from the source organization and may not represent a complete record from that organization. acetaminophen (Tylenol) 325 MG tablet Take 2 tablets (650 mg total) by mouth every 6 (six) hours as needed for mild pain or 1-3 (on a general 0-10 scale). 02/11/20 22 Active hydrOXYzine HCl (Atarax) 25 MG tablet take 1 tablet by oral route every 8 hours as needed for anxiety 10/26/19 22 Active tamsulosin (Flomax) 0.4 MG 24 hr capsule TAKE 1 CAPSULE BY MOUTH EVERY DAY FOR 3 DOSES 02/11/20 22 Active Blood Pressure kitIndications:Es sential hypertension Use once a day 1 kit 05/15/19 23 Active orphenadrine (Norflex) 100 MG 12 hr tablet TAKE 1 TABLET BY MOUTH TWICE DAILY NEEDED FOR MUSCLE SPASMS OR PAIN Active losartan (Cozaar) 25 MG tabletIndications :Essential hypertension Take 1 tablet (25 mg) by mouth Once per day. 90 tablet 3 03/22/20 24 Active Diclofenac Sodium 1 % gel APPLY 2 grams TO affected KNEE 100 g 1 03/22/20 Active cetirizine (ZyrTEC) 10 MG tablet Take 1 tablet by mouth Once per day. 02/23/20 Active ciprofloxacin (Cipro) 500 MG tablet Take 500 mg by mouth 2 times daily. 02/23/20 Active oxyCODONE (Roxicodone) 10 MG immediate release tabletIndications :Chronic right-sided low back pain, unspecified whether sciatica present Take 1 tablet (10 mg) by mouth every 6 (six) hours if needed for severe pain for up to 17 days. Take 0.5-1 tablets Q6hrs as needed for severe pain. 68 tablet 06/16/19 25 025 Active oxyCODONE (Roxicodone) 5 MG immediate release tabletIndications :Medullary sponge kidney Take 1-2 tablets (5-10 mg) by mouth every 6 (six) hours if needed for severe pain for up to 17 days. Do not start before May 13, 2024. 135 tablet 05/13/19 25 025 Discontinued(R eorder (will not trigger notification to Pharmacy)) oxyCODONE (Roxicodone) 5 MG immediate release tabletIndications :Osteoarthritis, unspecified osteoarthritis type, unspecified site,Long-term current use of opiate analgesic Take 1-2 tablets (5-10 mg) by mouth every 6 (six) hours if needed for severe pain for up to 17 days. 135 tablet 05/30/19 25 025 Discontinued(R eorder (will not trigger notification to Pharmacy)) oxyCODONE (Roxicodone) 5 MG immediate release tabletIndications :Osteoarthritis, unspecified osteoarthritis type, unspecified site,Long-term current use of opiate analgesic Take 1-2 tablets (5-10 mg) by mouth every 6 (six) hours if needed for severe pain for up to 17 days. 135 tablet 06/15/19 25 025 Discontinued(D uplicate order (will not trigger notification to Pharmacy)) Active Problems Problem Noted Date Diagnosed Date Long-term current use of opiate analgesic 2023 Overview (06/09/2024): Dx: chronic abdominal pain and right-sided low back pain, knee OA Rx: oxycodone 5-10 mg every 6 hours as needed Last SKI TOW OPERATOR agreement: 03/22/24 Tier II (visit every 3 months) Additional considerations: pain frequently intertwined with chronic kidney issues Diverticulitis 03/23/2024 Assessment & Plan (03/23/2024 1:39 PM EST): Pt is PCN allergic, so will treat with Flagyl and Bactrim, as the Bactrim will also cover urinary symptoms, and she was on Cipro < 30 days ago Pyelonephritis 02/20/2024 Chronic right-sided low back pain 10/21/2023 Assessment & Plan (03/23/2024 1:38 PM EST): Utox and pill count as expected Pt participated in chronic pain group to the extent that she wanted She will followup in one month, and with her PCP as needed. Assessment & Plan (10/21/2023 7:08 AM EDT): Utox and pill count as expected Pt participated in chronic pain group to the greatest extent that she wanted, around the topic of chair yoga. She will followup in one month, and with her PCP as needed. Chronic abdominal pain 10/09/2022 Overview (07/09/2023): Numerous abdominal surgeries. 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 EXPLORATORY LAPAROTOMYREDO RESECTION ANTERIOR, TAKEDOWN COLOVAGINAL FISTULA, SMALL BOWEL [place] [facility] [place]2021 lleostomy closure 02/15 at [facility] She has small intra-abdominal abscess 02/16. Responded to bowel rest and antibiotics. No IR or surgery required Assessment & Plan (07/21/2023 12:09 PM EDT): Urine tox and pill count as expected Continue followup in group pain mgmt Assessment & Plan (06/24/2023 10:15 AM EST): Urine tox and pill count as expected Continue followup in group pain mgmt H/O abdominal hysterectomy 10/09/2022 Mixed anxiety and depressive disorder 05/07/2022 Calculus of kidney 02/11/2018 Other abnormalities of gait and mobility 018 Presence of right artificial knee joint 02/12/20 Unspecified osteoarthritis, unspecified site Assessment & Plan (06/09/2024 5:21 PM EST): - Pt attended and participated in chronic pain group today - good engagement with group model of care - continue to use combination of non-pharmacological modalities to address pain Assessment & Plan (05/30/2024 12:13 PM EST): Pt attended and participated in chronic pain group today - good engagement with group model of care - continue to use combination of non-pharmacological modalities to address pain - followup in one month for theme stress and pain Weakness 02/11/2018 Essential hypertension 06/14/2015 Assessment & Plan (03/23/2024 1:30 PM EST): Restart Rafisebas, has been out for some time Medullary sponge kidney 06/14/2015 Overweight 06/14/2015 Resolved Problems Problem Noted Date Diagnosed Date Resolved Date Anastomotic leak of intestine 12/20/2022 02/06/2023 07/09/2023 Intra-abdominal abscess 12/20/2022 02/06/2023 0307/2023 Ileostomy present 02/05/2022 07/09/2023 Overview (06/12/2022): [place] [facility] [place]/2022 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 Date Type Department Care Team Description 06/27/2024 Travel 06/21/2024 Telephone [facility] [place] [address] Qamar Solitario MD July06/15/2024 Telephone [facility] [place] [address] Anna Ochoa RN Oxycodone change 06/15/[address] [address] Qamar Solitario MD change in med frequency 06/15/2024 Refill [facility] [address] [place] [phone] Qamar Solitario MD Osteoarthritis, unspecified osteoarthritis type, unspecified site; Long-term current use of opiate analgesic 06/07/2024 11:00 AM EST Office Visit [address] [address] Terrie Paiz FNP Osteoarthritis, unspecified osteoarthritis type, unspecified site (Primary Dx); Long-term current use of opiate analgesic; Chronic right-sided low back pain, unspecified whether sciatica present; Urinary symptom or sign 06/07/2024 Travel 06/06/2024 11:00 AM EST Office Visit [facility] [address] Tavia Brooke MD Long-term current use of opiate analgesic (Primary Dx); Medullary sponge kidney; Chronic abdominal pain 06/06/2024 Travel 05/30/2024 11:00 AM EST Office Visit [address] [address] Tavia Brooke MD Osteoarthritis, unspecified osteoarthritis type, unspecified site (Primary Dx); Medullary sponge kidney; Long-term current use of opiate analgesic 05/30/2024 Patient Outreach [facility] [address] [place] [phone] Branden Carranza Recovery Supports 05/30/2024 Travel 05/12/2024 Refill [facility] [address] [place] [phone] Qamar Solitario MD Medullary sponge kidney 04/25/[address] [address] Name, MD Qamar Medullary sponge kidney 04/07/2024 Refill [facility] [address] [place] [address] Name, MD Qamar Medullary sponge kidney from Last 3 Months Immunizations Name Administration Dates Next Due Influenza Injectable Quadriv alant Preservative Free IIV4 MDCK 01/02/2022,01/17/2021,02/07/2020 Influenza injectable quadriv alent IIV4 with preservative 01/22/2018,02/06/2017,03/25/2016,01/16 Influenza injectable quadriv alent preservative free 01/09/2023,02/08/2019 Influenza, IIV3, injectable 01/28/2018, 4,01/11/2010 Influenza, Split (incl. jose fied surface antigen) 12/30/2012,01/06/2012 Influenza, seasonal, injecta ble, preservative free 01/07/2024 PPD Test 02/19/2018 Pneumococcal Polysaccharide PPSV23 01/25/2015,,05/02/2007 Pneumococcal, Unspecified 05/02/2007 Tdap 01/06/2012 Social History Tobacco Use Types Packs/Day Years Used Date Smoking Tobacco: Every Day Cigarettes Smokeless Tobacco: Never Tobacco Cessation:Ready to Q uit: Not Asked; Counseling Given: Not Answered Alcohol Use Standard Drinks/Week Comments Never 0 [...] not to disclose 2021 10:18 AM EDT Last Filed Vital Signs Vital Sign Reading Time Taken Comments Blood Pressure 177/97 03/22/2024 9:43 AM EST Pulse 99 03/22/2024 9:43 AM EST Temperature 36.5 ??C (97.7 ??F) 03/22/2024 9:43 AM ES T Respiratory Rate 18 03/22/2024 9:43 AM EST Oxygen Saturation 98% 07/09/2023 9:00 AM EDT Inhaled Oxygen Concentration - - Weight 74.9 kg (165 lb 3.2 oz) 03/22/2024 9:43 A M EST Height 165.1 cm (5' 5 ) 03/22/2024 9:43 AM EST Body Mass Index 27.49 03/22/2024 9:43 AM EST Plan of Treatment Upcoming Encounters Date Type Department Care Team (Late st Contact Info) Description 07/05/2024 11:00 AM EDT Office Visit [facility] [address] [place] [phone] 09/07/2024 4:00 PM EDT Office Visit [facility] [address] [place] [phone] Name, MD Qamar [address] [place] [phone] Health Maintenance Due Date Last Done Comments CT Colonography 1962 Colonoscopy 1962 Colorectal Cancer Screening 1962 FIT DNA/Cologuard 1962 FIT 1962 FOBT 1962 Sigmoidoscopy 1962 Alcohol/Substance Use Screening 1974 Mammogram 2002 Zoster Vaccines (1 of 2) 2012 Pneumococcal Vaccine: 50+ Years (2 of 2 - PCV) 01/26/2016 01/25/2015, 10/07/2014, 05/02/2007, Additional history exists DTaP/Tdap/Td Vaccines (2 - Td or Tdap) 01/05/2022 01/06/2012 Pap Smear 08/24/2023 08/23/2020 COVID-19 Vaccine ( season) 2023 SDOH Screening 07/08/2024 07/09/2023 Tobacco Screening 06/06/2025 06/06/2024 Depression Screening 06/07/2025 06/07/2024, 06/07/19 25 Cervical Cancer Screening 08/23/2025 HPV/Cotest 08/23/2025 08/23/2020 Lipid Panel 04/01/2026 04/01/2021 RSV Patients and Patients Aged 60 years or older (1 - 1-dose 75+ series) 2037 HIV Screening Completed 04/01/2021 Hepatitis C Screening Completed 04/01/2021 Influenza Vaccine Completed 01/07/2024, , 01/02/2022, Additional history exists HIB Vaccines Aged Out No longer eligi ble based on patient's age to complete this topic HPV Vaccines Aged Out No longer eligi ble based on patient's age to complete this topic Hepatitis A Vaccines Aged Out No long er eligible based on patient's age to complete this topic Hepatitis B Vaccines Aged Out No long er eligible based on patient's age to complete this topic IPV Vaccines Aged Out No longer eligi ble based on patient's age to complete this topic Meningococcal Vaccine Aged Out No adeline tyrel eligible based on patient's age to complete this topic RSV under 20 months Aged Out No longe r eligible based on patient's age to complete this topic Rotavirus Vaccines Aged Out No longer eligible based on patient's age to complete this topic Procedures Procedure Name Priority Date/Time Associated Diagnosis Comments URINALYSIS, COMPLETE, WITH REFLEX TO CULTURE Routine 06/27/2024 10:22 AM EST Dysuria POCT SANYA-14 URINE DRUG SCREEN Routine 06/07/2024 2:19 PM EST Long-term current use of opiate analgesic ZZZ HISTORICAL HEPATITIS C AB W/REFL TO HCV RNA, QN, PCR Routine 04/01/2021 8:51 AM EST HIV 1/2 ANTIGEN/ANTIBODY, FOURTH GENERATION W/RFL Routine 04/01/2021 8:51 AM EST LIPID PANEL, STANDARD Routine 04/01/2021 8:51 AM EST HPV MRNA E6/E7 Routine 08/23/2020 9:31 AM EDT THINPREP IMAGING SYSTEM PAP Routine 08/23/2020 9:31 AM EDT from Last 3 Months or Most Recently Relevant to Health Maintenance Results * (ABNORMAL) Urinalysis, Complete, with Reflex to Culture (06/27/2024 10:22 AM EST) Color Urine Yellow [facility] Appearance Urine Clear [facility] PH 6.0 5.0 - 9.0 [facility] Glucose Urine UA Negative Negative mg/dL [facility] Urine Blood Moderate (2+)(A) Negative [facility] Specific [place] - Urine 1.020 1.005 - 1.025 [facility] Urine Protein 30 (1+)(A) Neg-Trace mg/dL [facility] Urine Ketones Negative Negative mg/dL [facility] Nitrite Urine Negative Negative [facility] Leukocyte Esterase Urine Large (3+)(A) Negative [facility] RBC Urine 6-10(A) 0 - 2 /HPF [facility] Urine WBC >50(A) 0 - 5 /HPF [facility] Urine Squamous Epithelial Cell 6-10 0 - 2 /HPF [facility] Urine Bacteria 1+ None Seen [facility] Hyaline Casts, Urine 0-2 0 - 2 /LPF [facility] Urine 06/27/2024 10:2 2 AM EST 06/27/2024 11:32 AM EST Narrative [facility] - 06/27/2024 11:45 AM EST Urine, Clean Catch Tavia Brooke MD LAB URINE ORDERABLES Final Res ult [facility] [address] [place] [phone] * POCT SANYA-14 Urine Drug Screen (06/07/2024 2:19 PM EST) THC Positive Oxycodone Screen, Urine Positive Urine Urine specimen obtained by clean catch procedure / Unknown 06/07/2024 2:19 PM EST Narrative Gely Wolfe RN - 06/07/2024 2:19 PM EST .UTOX cup Lot#[id number] Exp. 01/19/26 Internal Pass Control Terrie Paiz YOUTH NUTRITIONAL MONITOR POINT OF CARE TEST ENTER/EDIT ORDERABLES Final Result * HEPATITIS C AB W/REFL TO HCV RNA, QN, PCR (04/01/2021 8:51 AM EST) HEPATITIS C ANTIBODY NON-REACT [place] NON-REACT [place] [facility] INDEX 0.05 <1.00 [facility] Comment: ?? HCV antibody was non-reactive. There is no laboratory ?? evidence of HCV infection. ?? In most cases, no further action is required. However, if recent HCV exposure is suspected, a test for HCV RNA (test code 15692) is suggested. ?? For additional information please refer to http://education.UmBio/faq/FGT68r1 (This link is being provided for informational/ educational purposes only.) ?? 04/01/2021 8:51 AM EST us Yudelka Jain SUPERVISOR [employer] PLANT HISTORICAL/NON ORDERABLE LABS F inal Result Performing Organization Address [facility] Co de Phone Number [facility] [address] [place] [address], * HIV 1/2 ANTIGEN/ANTIBODY,FOURTH GENERATION W/RFL (04/01/2021 8:51 AM EST) Pathologist [facility] HIV-1/2 ANTIGEN AND ANTIBODIES, 4TH GENERATION W/ REFLEX NON-REACT [place] NON-REACT [place] [facility] Comment: HIV-1 antigen and HIV-1/HIV-2 antibodies were not detected. There is no laboratory evidence of HIV infection. ?? PLEASE NOTE: This information has been disclosed to you from records whose confidentiality may be protected by state law. ??If your state requires such protection, then the state law prohibits you from making any further disclosure of the information without the specific written consent of the person to whom it pertains, or as otherwise permitted by law. A general authorization for the release of medical or other information is NOT sufficient for this purpose. ? For additional information please refer to http://education.UmBio/faq/HZJ940 (This link is being provided for informational/ educational purposes only.) ? The performance of this assay has not been clinically validated in patients less than 2 years old. ?? 04/01/2021 8:51 AM EST Yudelka Jain SUPERVISOR [employer] LAB BLOOD ORDERABLES Final Resu lt Performing Organization Address [facility] de Phone Number [facility] [address] * (ABNORMAL) LIPID PANEL, STANDARD (04/01/2021 8:51 AM EST) Pathologist [facility] Chol/HDLC Ratio 3.1 <5.0 (calc) [facility] Cholesterol, Total 162 <200 mg/dL [facility] HDL Cholesterol 52 > OR = 50 mg/dL [facility] LDL Cholesterol 84 mg/dL (calc) [facility] Comment: Reference range: <100 ?? Desirable range <100 mg/dL for primary prevention; ?? <70 mg/dL for patients with CHD or diabetic patients ?? with > or = 2 CHD risk factors. ?? LDL-C is now calculated using the Roni-Cunningham ?? calculation, which is a validated novel method providing ?? better accuracy than the Friedewald equation in the ?? estimation of LDL-C. ?? Roni ALLEN et al. KENNETH. 2013;310(19): 6659-1920 ?? (http://education.[employer]/faq/TYI711) Non-HDL Cholesterol 110 <130 mg/dL (calc) [facility] Comment: For patients with diabetes plus 1 major ASCVD risk ?? factor, treating to a non-HDL-C goal of <100 mg/dL ?? (LDL-C of <70 mg/dL) is considered a therapeutic ?? option. Triglycerides 164(H) <150 mg/dL [facility] 04/01/2021 8:51 AM EST us Yudelka Jain SUPERVISOR [employer] PLANT LAB BLOOD ORDERABLES Final Resu lt [facility] [address] * THINPREP TIS PAP (08/23/2020 9:31 AM EDT) Clinical Information: Hysterectomy [facility] COMMENT SEE COMMENT [facility] Comment: EXPLANATORY NOTE: ? The Pap is a screening test for cervical cancer. It is ?? not a diagnostic test and is subject to false negative ?? and false positive results. It is most reliable when a ?? satisfactory sample, regularly obtained, is submitted ?? with relevant clinical findings and history, and when ?? the Pap result is evaluated along with historic and ?? current clinical information. ?? COMMENT: This Pap test has been evaluated with computer assisted technology. [facility] Data Center Engineer : SEE COMMENT [facility] Comment: NSS, CT(ASCP) CT screening location: [address] ??[address] Interpretation/R esult: Negative for intraepithelial lesion or malignancy. [facility] LMP: [id number] [facility] Prev. BX: NONE GIVEN [facility] Prev. PAP: NONE GIVEN [facility] SOURCE: Vaginal cuff [facility] Statement Of Adequacy: SEE COMMENT [facility] Comment: Satisfactory for evaluation. Endocervical/transformation zone component absent. 08/23/2020 9:31 AM EDT Velvet Blandon MD LAB PATHOLOGY ORDERABLES Elena l Result Performing Organization Address [facility] Co de Phone Number [facility] [address] * HPV mRNA E6/E7 (08/23/2020 9:31 AM EDT) HPV nRNA E6/E7 Not Detected Not Detected [facility] Comment: Methodology: Product Marketing Engineer-Mediated Amplification This assay detects E6/E7 viral messenger RNA (mRNA) from 14 high-risk HPV types (16,18,31,33,35,39,45,51,52,56,58,59,66,68). ? The analytical performance characteristics of this assay have been determined by [employer]. The modifications have not been cleared or approved by the FDA. This assay has been validated pursuant to the CLIA regulations and is used for clinical purposes. ?? For additional information, please refer to http://education.[employer]/faq/DDR228e6 (This link if provided for information/ educational purposes only.) 08/23/2020 9:31 AM EDT Velvet Blandon MD LAB BLOOD ORDERABLES Final Re sult Performing Organization Address [facility] de Phone Number [facility] [address] from Last 3 Months or Most Recently Relevant to Health Maintenance Insurance [facility] Care Teams Rebrander Relationship Specialty Start Date End Date Name, MD Qamar [address] [place] [address] ALEC Suarez [phone] PCP - General Internal Medicine 05/02/22
--- OUTSIDE RECORDS SUMMARY | 2024-06-27 11:56 | XMS_ITS | Encounter Summary ---
Author Organization [employer] Address [address] [place] [address] Care Team Providers Care Gift Shop Manager Name Role Phone Name, Qamar GUARDADO Primary Care Provider [phone] Encounter Details Date Type Department Care Team (Latest Contact Info) Description 06/27/2024 Travel Social History Tobacco Use Types Packs/Day Years [...] AM EDT documented as of this encounter Plan of Treatment Upcoming Encounters Date Type Department Care Team (Late st Contact Info) Description 07/05/2024 11:00 AM EDT Office Visit [facility] [address] [place] [phone] 09/07/2024 4:00 PM EDT Office Visit [address] [address] Name, MD Qamar [address] [place] [phone] documented as of this encounter Visit Diagnoses Not on filedocumented in this encounter Additional Health Concerns Assessment Noted Time PHQ-9 Depression Total Score: 7 06/07/19 25 1:15 PM EST documented as of this encounter Care Teams Gift Shop Manager Relationship Specialty Start Date End Date Name, MD Qamar [address] [place] [phone] PCP - General Internal Medicine 05/02/22 documented as of this encounter
--- OUTSIDE RECORDS SUMMARY | 2024-06-27 11:56 | XMS_ITS | Encounter Summary ---
Author Organization [employer] Address [address] [facility] 7t [place] [address] Care Team Providers Care Ambulette Driver Name Role Phone Name, Qamar GUARDADO Primary Care Provider [phone] Encounter Details Date Type Department Care Team (Latest Contact Info) Description 05/30/2024 11:00 AM EST Office Visit [facility] MEDICINE [address] [place], [place] [phone] Tavia Brooke MD [address] [place], [place] [phone] Osteoarthritis, unspecified osteoarthritis type, unspecified site (Primary Dx); Medullary sponge kidney; Long-term current use of opiate analgesic Social History Tobacco Use Types Packs/Day Years Used Date Smoking Tobacco: Every Day Cigarettes Smokeless Tobacco: Never Alcohol Use Standard Drinks/Week Comments Never 0 (1 standard drink = 0.6 oz pur e alcohol) Depression Answer Date Recorded Patient Health Questionnaire-9 Score 0 07/09/2023 Patient Health Questionnaire-9 Score 0 07/09/2023 Last PHQ-9: Questionnaire Data Not on file 0 07/09/2023 Housing Stability Answer Date Recorded What is [...] Answer Date Recorded Patient Health Questionnaire-2 Score 0 07/09/2023 Comments Unknown Sex and Gender Information Value Date Recorded Sex Assigned at Female 02/24/2022 10:18 AM EDT Legal Sex Female 10:18 AM EDT Gender Identity Female 02/24/2022 10:18 AM EDT Sexual Orientation Choose not to disclose 2021 10:18 AM EDT documented as of this encounter Progress Notes * Tavia Brooke MD - 05/30/2024 11:00 AM EST Subjective: Arpita Park is a 63 y.o. female w/ PMH HTN, medullary sponge kidney, OA of bilateral knees, who presents to the office for - Chronic Pain Clinic Group visits. Initial Group visit: 06/23/23 Group Visit Number: 5 Last PCP visit: 07/09/23, Dr Name Group Confidentiality last signed: 06/23/23 Group Topic: Uses of Teas (Last UDS 03/22/25 normal, will perform UDS at next visit) Chronic Pain History: Associated Diagnosis: chronic abdominal pain, chronic knee pain Relevant Imaging: CT abd/pelvis 03/2023 Lower Chest: No consolidation or pleural effusion. Liver: No focal lesions. Biliary: No biliary ductal dilatation. Spleen: No splenomegaly or focal lesions. Pancreas: No masses or ductal dilatation. Adrenal Glands: No nodules. Kidneys/Ureters: No hydronephrosis. Bilateral nonobstructing stones. Bowel: No distention or wall thickening. Similar anastomoses. Moderate colonic stool. Peritoneum/Retroperitoneum: No masses, pneumoperitoneum, or fluid. Lymph Nodes: No lymphadenopathy. Pelvic Organs/Bladder: No mass. Vessels: No abdominal aortic aneurysm. Bones/Soft Tissues: No destructive osseous lesions. Current pharm tx: oxycodone 5-10 mg every 6 hours as needed Medication: States taking medication as prescribed. Past ineffective med trials: muscle relaxers including Orphedrine Non-pharm tx: marijuana Related Specialists: therapist Functional Goals: keep going every day Other substance use: Tobacco: yes, quarter pack daily Marijuana: yes Alcohol: denies Illicit substances: denies Review of Systems Constitutional: Negative. Respiratory: Negative. Cardiovascular: Negative. Gastrointestinal: Positive for abdominal pain. Musculoskeletal: Positive for arthralgias. Skin: Negative. Physical Exam Constitutional: Appearance: Normal appearance. HENT: Head: Normocephalic and atraumatic. Skin: General: Skin is warm and dry. Capillary Refill: Capillary refill takes less than 2 seconds. Neurological: General: No focal deficit present. Mental Status: She is alert and oriented to person, place, and time. Psychiatric: Mood and Affect: Mood normal. Behavior: Behavior normal. Problem List Items Addressed This Visit Medullary sponge kidney Unspecified osteoarthritis, unspecified site - Primary Current Assessment & Plan Pt attended and participated in chronic pain group today - good engagement with group model of care - continue to use combination of non-pharmacological modalities to address pain - followup in one month for theme stress and pain Relevant Medications oxyCODONE (Roxicodone) 5 MG immediate release tablet Long-term current use of opiate analgesic Overview Dx: chronic right-sided low back pain Rx: oxycodone 5-10 mg every 6 hours as needed Last ROADWAY TECHNICIAN agreement: Tier II (visit every 3 months) Additional considerations: pain frequently intertwined with chronic kidney issues Timeline: Relevant Medications oxyCODONE (Roxicodone) 5 MG immediate release tablet Follow up: 1 week for Group Chronic [facility]. Follow up as scheduled with PCP, sooner as needed. documented in this encounter Miscellaneous Notes * Assessment & Plan Note - Tavia Brooke MD - 05/30/2024 12:13 PM EST Associated Problem(s): Unspecified osteoarthritis, unspecified site Pt attended and participated in chronic pain group today - good engagement with group model of care - continue to use combination of non-pharmacological modalities to address pain - followup in one month for theme stress and pain documented in this encounter Plan of Treatment Upcoming Encounters Date Type Department Care Team (Late st Contact Info) Description 07/05/2024 11:00 AM EDT Office Visit [facility] [place] [address] 09/07/2024 4:00 PM EDT Office Visit [facility] [place] [place] [address] Name, [place] [address] documented as of this encounter Visit Diagnoses Diagnosis Osteoarthritis, unspecified osteoarthritis type, unspecified site- Primary Medullary sponge kidney Congenital medullary sponge kidney Long-term current use of opiate analgesic Encounter for long-term (current) use of other medications documented in this encounter Additional Health Concerns Assessment Noted Time PHQ-9 Depression Total Score: 0 07/09/19 24 9:05 AM EDT documented as of this encounter Care Teams Ambulette Driver Relationship Specialty Start Date End Date Name, [place] [address] PCP - General Internal Medicine 05/02/22 documented as of this encounter
--- OUTSIDE RECORDS SUMMARY | 2024-06-27 11:56 | XMS_ITS | Encounter Summary ---
Author Organization [employer] Address 75 [facility] 7 [place] [address] Care Team Providers Care Games Manager Name Role Phone Name, Qamar GUARDADO Primary Care Provider [phone] Reason for Visit * Reason Onset Date Comments Reschedule 05/12/2023 Encounter Details Date Type Department Care Team ([facility] Contact Info) Description 05/12/2023 Telephone [facility] MEDICINE [address] [place], [place] [phone] Name, MD Qamar [address] [place], [place] [phone] Reschedule Social History Tobacco Use Types Packs/Day Years Used Date Smoking Tobacco: Every Day Cigarettes Smokeless Tobacco: Never Alcohol Use Standard Drinks/Week Comments Never 0 (1 standard drink = 0.6 oz pur e alcohol) PHQ-2 Answer Date Recorded Patient Health Questionnaire-2 Score 0 06/12/2022 Housing Stability Answer Date Recorded What is your housing situation today? I have claire prieto 02/09/[address] you li ve. Do you have problems with any of the following? None of the above 02/09/2023 Food Insecurity Answer Date Recorded Within the past 12 months, y ou worried that your food would run out before you got money to buy more: Never True 02/09/2023 Within the past 12 months,th e food you bought just didn't last and you didn't have enough money to get more: Never True Transportation Answer Date Recorded In the past 12 months, has l ack of transportation kept you from medical appts, meetings, work or from getting things needed for daily living? No 02/09/2023 Utilities Answer Date Recorded In the past 12 months, has t he electric, gas, oil or water company threatened to shut off services in your home? No 02/09/2023 Depression Answer Date Recorded Patient Health Questionnaire-2 Score 0 06/12/2022 Comments Unknown Sex and Gender Information Value Date Recorded Sex Assigned at Female 02/24/2022 10:18 AM EDT Legal Sex Female 10:18 AM EDT Gender Identity Female 02/24/2022 10:18 AM EDT Sexual Orientation Choose not to disclose 2021 10:18 AM EDT documented as of this encounter Miscellaneous Notes * Telephone Encounter - Yodit Rome - 05/12/2023 9:21 AM EST Tc from pt requesting r/s 05/12/2022 appt. documented in this encounter Plan of Treatment Upcoming Encounters Date Type Department Care Team (Late st Contact Info) Description 07/05/2024 11:00 AM EDT Office Visit [facility] MEDICINE [address] [place] [address] 09/07/2024 4:00 PM EDT Office Visit [facility] MEDICINE [address] [place] [address] NameQamar MD [address] [place] [address] documented as of this encounter Visit Diagnoses Not on filedocumented in this encounter Care Teams Games Manager Relationship Specialty Start Date End Date NameQamar MD [address] [place] [address] PCP - General Internal Medicine 05/02/22 documented as of this encounter
--- OUTSIDE RECORDS SUMMARY | 2024-06-27 11:56 | XMS_ITS ---
Author Organization [facility] Address Unknown Allergies, Adverse Reactions, Alerts Substance Reaction Status Noted Date Resolved Date Penicillin active 02/11/2018 Morphine active 02/11/2018 Problems Problem Status Start Date End Date PRESENCE OF RIGHT ARTIFICIAL KNEE JOINT (Primary) (Z96.651 - ICD-10-CM) ACTIVE 02/11/2018 UNILATERAL PRIMARY OSTEOARTH RITIS, RIGHT KNEE (M17.11 - ICD-10-CM) ACTIVE 02/11/2018 MUSCLE WEAKNESS (GENERALIZED) (M62.81 - ICD-10-CM) ACT [place] 02/11/2018 OTHER ABNORMALITIES OF GAIT AND MOBILITY (R26.89 - ICD-10-CM) ACTIVE 02/11/2018 WEAKNESS (R53.1 - ICD-10-CM) ACTIVE 02/11/2018 OTHER LACK OF COORDINATION (R27.8 - ICD-10-CM) ACTIVE 02/11/2018 ESSENTIAL (PRIMARY) HYPERTENSION (I10 - ICD-10-CM) ACT [place] 02/11/2018 UNSPECIFIED OSTEOARTHRITIS, UNSPECIFIED SITE (M19.90 - ICD-10-CM) ACTIVE 02/11/2018 CALCULUS OF KIDNEY (N20.0 - ICD-10-CM) ACTIVE MEDULLARY CYSTIC KIDNEY (Q61.5 - ICD-10-CM) ACTIVE 02/11/2018 Encounters Encounter Performer Performer Role Encounter Diagnoses Location Date Discharge - Home - Private home/apt. with home health services [facility] 02/11/2018 01:34 pm EDT - 02/25/2018 10:30 am EDT Immunizations Vaccine Date Influenza 01/28/2018 12:00 am EDT TB 2 Step Mantoux Skin Test 02/19/2018 0 8:00 pm EDT PPSV23 (Previous Pneumococcal Polysaccha ride)Vaccine 01/25/2015 12:00 am EDT Annual Mantoux Screening 02/12/2018 12:0 0 pm EDT Social History
--- OUTSIDE RECORDS SUMMARY | 2024-06-27 11:56 | XMS_ITS | Encounter Summary ---
Author Organization [employer] Address [address] [facility] 7t [place] [address] Care Team Providers Care Alternative Energy Technician Name Role Phone Name, Qamar GUARDADO Primary Care Provider [phone] Reason for Visit * Reason Onset Date Comments Durable Medical Equipment 07/16/2022 Encounter Details Date Type Department Care Team ([facility] st Contact Info) Description 07/16/2022 Telephone [facility] MEDICINE [address] [place], [place] [phone] Name, MD Qamar [address] [place], [place] [phone] Durable Medical Equipment Social History Tobacco Use Types Packs/Day Years Used Date Smoking Tobacco: Every Day Cigarettes Smokeless Tobacco: Never Alcohol Use Standard Drinks/Week Comments Never 0 (1 standard drink = 0.6 oz pur e alcohol) PHQ-2 Answer Date Recorded Patient Health Questionnaire-2 Score 0 06/12/2022 Depression Answer Date Recorded Patient Health Questionnaire-2 Score 0 06/12/2022 Comments Unknown Sex and Gender Information Value Date Recorded Sex Assigned at Female 02/24/2022 10:18 AM EDT Legal Sex Female 10:18 AM EDT Gender Identity Female 02/24/2022 10:18 AM EDT Sexual Orientation Choose not to disclose 2021 10:18 AM EDT COVID-19 Exposure Response Date Recorded In the last 10 days, have yo u been in contact with someone who was confirmed or suspected to have Coronavirus/COVID-19? No / Unsure 06/26/2022 9:04 AM EST documented as of this encounter Miscellaneous Notes * Telephone Encounter - Deb Colon - 07/18/2022 9:44 AM EDT SWO for wipes received and faxed to [facility] * Telephone Encounter - Peter Matt - 07/16/2022 11:10 AM EDT Tc from pt requesting status on script for wipes and incontinence pads Please contact pt at [phone] documented in this encounter Plan of Treatment Upcoming Encounters Date Type Department Care Team (Late st Contact Info) Description 07/05/2024 11:00 AM EDT Office Visit [address] [address] 09/07/2024 4:00 PM EDT Office Visit [address] [address] Name, MD Qamar [address] [place] [address] documented as of this encounter Visit Diagnoses Not on filedocumented in this encounter Care Teams Alternative Energy Technician Relationship Specialty Start Date End Date Name, MD Qamar [address] [place] [address] PCP - General Internal Medicine 05/02/22 documented as of this encounter
--- OUTSIDE RECORDS SUMMARY | 2024-06-27 11:56 | XMS_ITS | Encounter Summary ---
Author Organization [employer] Address [address] [facility] [address] 7t [place] [address] Care Team Providers Care Scroll Saw Operator Name Role Phone Name, Qamar GUARDADO Primary Care Provider [phone] Encounter Details Date Type Department Care Team (Latest Contact Info) Description 06/07/2024 11:00 AM EST Office Visit [facility] MEDICINE [address] [place] [address] Terrie Paiz, ABHI [address] [place] [address] Osteoarthritis, unspecified osteoarthritis type, unspecified site (Primary Dx); Long-term current use of opiate analgesic; Chronic right-sided low back pain, unspecified whether sciatica present; Urinary symptom or sign Social History Tobacco Use Types Packs/Day Years [...] as of this encounter Progress Notes * Gely Wolfe RN - 06/07/2024 11:00 AM EST .GRAIN SHIPPER acute coordinator: PDMP reviewed today. (Oxycodone 5mg 1-2tab qid PRN) count was (64), anticipated (60) to be remaining. .UTOX completed. Positive for (OXY, THC), Negative for AMP, BAR, BUP, BZO, RABIA, FTY, MDMA, MET, MOP, MTD, PCP, TCA. UTOX as expected. * ABHI Love - 06/07/2024 11:00 AM EST Subjective: Arpita Park is a 63 y.o. female w/ PMH HTN, medullary sponge kidney, OA of bilateral knees, who presents to the office for - Chronic Pain Clinic Group visits. Initial Group visit: 06/23/23 Last PCP visit: 07/09/23, Name Group Topic: Rito Collins Chronic Pain History: Associated Diagnosis: chronic abdominal [...] Illicit substances: denies Review of Systems Constitutional: Negative for chills and fever. Respiratory: Negative for wheezing. Cardiovascular: Negative for chest pain and palpitations. Gastrointestinal: Negative for diarrhea and vomiting. Musculoskeletal: Positive for arthralgias. Physical Exam Constitutional: Appearance: Normal appearance. Pulmonary: Effort: Pulmonary effort is normal. Neurological: Mental Status: She is alert and oriented to person, place, and time. Psychiatric: Mood and Affect: Mood normal. Behavior: Behavior normal. Problem List Items Addressed This Visit Musculoskeletal Unspecified osteoarthritis, unspecified site - Primary Current Assessment & Plan - Pt attended and participated in chronic pain group today - good engagement with group model of care - continue to use combination of non-pharmacological modalities to address pain Other Chronic right-sided low back pain Long-term current use of opiate analgesic Overview Dx: chronic abdominal pain and right-sided low back pain, knee OA Rx: oxycodone 5-10 mg every 6 hours as needed Last GRAIN SHIPPER agreement: 03/22/24 Tier II (visit every 3 months) Additional considerations: pain frequently intertwined with chronic kidney issues Relevant Orders POCT SANYA-14 Urine Drug Screen (Completed) Other Visit Diagnoses Urinary symptom or sign - Reports mild urinary malodor on intake, no dysuria. Hx of medullary sponge kidney. UA w/ reflex UC ordered. Relevant Orders Urinalysis, Complete, with Reflex to Culture Follow up: 1-3 months for GRAIN SHIPPER visit. Follow up as scheduled with PCP, sooner as needed. documented in this encounter Miscellaneous Notes * Assessment & Plan Note - ABHI Love - 06/09/2024 5:21 PM ESTAssociated Problem(s): Unspecified osteoarthritis, unspecified site - Pt attended and participated in chronic pain group today - good engagement with group model of care - continue to use combination of non-pharmacological modalities to address pain documented in this encounter Plan of Treatment Upcoming Encounters Date Type Department Care Team (Late st Contact Info) Description 07/05/2024 11:00 AM EDT Office Visit [address] [address] 09/07/2024 4:00 PM EDT Office Visit [address] [address] Name, MD Qamar [address] [place] [address] Scheduled Orders Name Type Priority Associated Diagnoses Orde r Schedule Urinalysis, Complete, with Reflex to Culture Lab Routine Urinary symptom or sign Expected: 06/07/2024 (Approximate), Expires: 06/07/2025 documented as of this encounter Procedures Procedure Name Priority Date/Time Associated Diagnosis Comments POCT SANYA-14 URINE DRUG SCREEN Routine 06/07/2024 2:19 PM EST Long-term current use of opiate analgesic documented in this encounter Results * POCT SANYA-14 Urine Drug Screen (06/07/2024 2:19 PM EST) THC Positive Oxycodone Screen, Urine Positive Urine Urine specimen obtained by clean catch procedure / Unknown 06/07/2024 2:19 PM EST Narrative Gely Wolfe RN - 06/07/2024 2:19 PM EST .UTOX cup Lot#[id number] Exp. 01/19/26 Internal Pass Control Terrie Paiz CV/CVN CV TSC SYSTEM OPERATOR POINT OF CARE TEST ENTER/EDIT ORDERABLES Final Result documented in this encounter Visit Diagnoses Diagnosis Osteoarthritis, unspecified osteoarthritis type, unspecified site- Primary Long-term current use of opiate analgesic Encounter for long-term (current) use of other medications Chronic right-sided low back pain, unspecified whether sciatica present Urinary symptom or sign documented in this encounter Additional Health Concerns Assessment Noted Time PHQ-9 Depression Total Score: 7 06/07/19 25 1:15 PM EST documented as of this encounter Care Teams Scroll Saw Operator Relationship Specialty Start Date End Date Name, MD Qamar [address] [place] [address] PCP - General Internal Medicine 05/02/22 documented as of this encounter
--- OUTSIDE RECORDS SUMMARY | 2024-06-27 11:56 | XMS_ITS | Encounter Summary ---
Author Organization [employer] Address [address] [place] [address] 7 [place] [address] Care Team Providers Care Coffee Roaster Name Role Phone Name, Qamar GUARDADO Primary Care Provider [phone] Reason for Visit * Reason Comments Med Refill Encounter Details Date Type Department Care Team (Late Contact Info) Description 01/23/2023 Refill [facility] MEDICINE [address] [place] [phone] Name, MD Qamar [address] [place] [address] Medullary sponge kidney Social History Tobacco Use Types Packs/Day Years [...] Encounters Date Type Department Care Team (Late Contact Info) Description 07/05/2024 11:00 AM EDT Office Visit [facility] MEDICINE [address] [place] [phone] 09/07/2024 4:00 PM EDT Office Visit [address] [phone] Name, MD Qamar [address] [place] [address] documented as of this encounter Visit Diagnoses Diagnosis Medullary sponge kidney Congenital medullary sponge kidney documented in this encounter Care Teams Coffee Roaster Relationship Specialty Start Date End Date Name, MD Qamar [address] [place] [address] PCP - General Internal Medicine 05/02/22 documented as of this encounter
--- OUTSIDE RECORDS SUMMARY | 2024-06-27 11:56 | XMS_ITS | Encounter Summary ---
Author Organization [employer] Address [address] [facility] 7t [place] [address] Care Team Providers Care Video Surveillance Technician Name Role Phone Name, Qamar GUARDADO Primary Care Provider [phone] Reason for Visit * Reason Onset Date Comments change in med frequency 06/15/2024 Encounter Details Date Type Department Care Team ([facility] Contact Info) Description 06/15/2024 Telephone [facility] MEDICINE [address] [place], [place] [phone] Name, MD Qamar [address] [place] [address] change in med frequency Social History Tobacco Use Types Packs/Day Years [...] encounter Miscellaneous Notes * Telephone Encounter - Opal Sánchez RN - 06/15/2024 3:26 PM EST TC from [facility] pharmacy, they state Oxycodone q 6 hours will not be covered by insurance, they are requesting order be changed to q 8 hours. documented in this encounter Plan of Treatment Upcoming Encounters Date Type Department Care Team (Late st Contact Info) Description 07/05/2024 11:00 AM EDT Office Visit [facility] MEDICINE [address] [place] [address] 09/07/2024 4:00 PM EDT Office Visit [address] [address] Name, MD Qamar [address] [place] [address] documented as of this encounter Visit Diagnoses Not on filedocumented in this encounter Additional Health Concerns Assessment Noted Time PHQ-9 Depression Total Score: 7 06/07/19 25 1:15 PM EST documented as of this encounter Care Teams Video Surveillance Technician Relationship Specialty Start Date End Date Qamar Solitario MD [address] [place] [address] PCP - General Internal Medicine 05/02/22 documented as of this encounter
--- OUTSIDE RECORDS SUMMARY | 2024-06-27 11:56 | XMS_ITS | Encounter Summary ---
Author Organization [employer] Address [address] [facility] 7t [place] [address] Care Team Providers Care Instrument Specialist Name Role Phone Name, Qamar GUARDADO Primary Care Provider [phone] Reason for Visit * Reason Comments Med Refill Encounter Details Date Type Department Care Team ([facility] Contact Info) Description 07/17/2022 Refill [facility] MEDICINE [address] [place], [place] [phone] Name, MD Qamar [address] [place] [address] Medullary sponge kidney Social History Tobacco Use [...] AM EST documented as of this encounter Plan of Treatment Upcoming Encounters Date Type Department Care Team ([facility] Contact Info) Description 07/05/2024 11:00 AM EDT Office Visit [facility] MEDICINE [address] [place] [address] 09/07/2024 4:00 PM EDT Office Visit [facility] MEDICINE [address] [place] [address] [place], [place] [address] documented as of this encounter Visit Diagnoses Diagnosis Medullary sponge kidney Congenital medullary sponge kidney documented in this encounter Care Teams Instrument Specialist Relationship Specialty Start Date End [place] [address] PCP - General Internal Medicine 05/02/22 documented as of this encounter
--- OUTSIDE RECORDS SUMMARY | 2024-06-27 11:56 | XMS_ITS | Encounter Summary ---
Author Organization [employer] Address [address] [facility] [address] 7[address] [place] [address] Care Team Providers Care Wrap Checker Name Role Phone Name, Qamar GUARDADO Primary Care Provider [phone] Encounter Details Date Type Department Care Team (Latest Contact Info) Description 05/30/2024 Travel Social History Tobacco Use Types Packs/Day [...] Description 07/05/2024 11:00 AM EDT Office Visit [facility] MEDICINE [address] [place] [address] 09/07/2024 4:00 PM EDT Office Visit [address] [address] Name, MD Qamar [address] [place] [address] documented as of this encounter Visit Diagnoses Not on filedocumented in this encounter Additional Health Concerns Assessment Noted Time PHQ-9 Depression Total Score: 0 07/09/19 24 9:05 AM EDT documented as of this encounter Care Teams Wrap Checker Relationship Specialty Start Date End Date Name, MD Qamar [address] [place] [address] PCP - General Internal Medicine 05/02/22 documented as of this encounter
--- OUTSIDE RECORDS SUMMARY | 2024-06-27 11:56 | XMS_ITS | Encounter Summary ---
Author Organization [employer] Address [address] [facility] 7t [place] [address] Care Team Providers Care Dental Scheduling Coordinator Name Role Phone Name, Qamar GUARDADO Primary Care Provider [phone] Encounter Details Date Type Department Care Team ([facility] st Contact Info) Description 02/04/2023 Abstract [facility] [address] [place], [place] [phone] Name, MD Qamar [address] [place], [place] [phone] Social History Tobacco Use Types Packs/Day Years Used Date Smoking Tobacco: Every Day Cigarettes Smokeless Tobacco: Never Alcohol Use Standard Drinks/Week Comments Never 0 (1 standard drink = 0.6 oz pur e alcohol) PHQ-2 Answer Date Recorded Patient Health Questionnaire-2 Score 0 06/12/2022 Housing Stability Answer Date Recorded What is your housing situation today? I have clairedamian prieto 02/02/[address] you li ve. Do you have problems with any of the following? None of the above 02/02/2023 Food Insecurity Answer Date Recorded Within the past 12 months, y ou worried that your food would run out before you got money to buy more: Never True 02/02/2023 Within the past 12 months,th e food you bought just didn't last and you didn't have enough money to get more: Never True 12/2022 Transportation Answer Date Recorded In the past 12 months, has l ack of transportation kept you from medical appts, meetings, work or from getting things needed for daily living? No 02/02/2023 Utilities Answer Date Recorded In the past 12 months, has t he [employer] oil or water Campus Sponsorship threatened to shut off services in your home? No 02/02/2023 Depression Answer Date Recorded Patient Health Questionnaire-2 [...] Description 07/05/2024 11:00 AM EDT Office Visit [facility] [address] [place] [address] 09/07/2024 4:00 PM EDT Office Visit [facility] [address] [place] [address] Name, MD Qamar [address] [place] [phone] documented as of this encounter Visit Diagnoses Not on filedocumented in this encounter Care Teams Dental Scheduling Coordinator Relationship Specialty Start Date End Date Name, MD Qamar [address] [place] [phone] PCP - General Internal Medicine 05/02/22 documented as of this encounter
--- OUTSIDE RECORDS SUMMARY | 2024-06-27 11:56 | XMS_ITS | Encounter Summary ---
Author Organization [employer] Address [address] [facility] 7t [place] [address] Care Team Providers Care Straw Boss Name Role Phone Name, Qamar GUARDADO Primary Care Provider [phone] Reason for Visit * Reason Onset Date Comments July06/21/2024 Encounter Details Date Type Department Care Team ([facility] [address] Contact Info) Description 06/21/2024 Telephone [facility] [address] [place], [place] [phone] Name, MD Qamar [address] [place], [place] [phone] July Social History Tobacco Use Types Packs/Day Years [...] encounter Miscellaneous Notes * Telephone Encounter - Rin Dorsey [place] - 06/21/2024 3:41 PM EST Telephone call to patient to schedule the following recall: Visit type: Office visit Appointment notes: meds Patient agree to appointment on 09/07/24 at 4:00 PM with Name. documented in this encounter Plan of Treatment Upcoming Encounters Date Type Department Care Team (Late st Contact Info) Description 07/05/2024 11:00 AM EDT Office Visit [facility] [address] [place] [address] 09/07/2024 4:00 PM EDT Office Visit [address] [address] NameQamar MD [address] [place] [address] documented as of this encounter Visit Diagnoses Not on filedocumented in this encounter Additional Health Concerns Assessment Noted Time PHQ-9 Depression Total Score: 7 06/07/19 25 1:15 PM EST documented as of this encounter Care Teams Straw Boss Relationship Specialty Start Date End Date Qamar Solitario MD [address] [place] [address] PCP - General Internal Medicine 05/02/22 documented as of this encounter
--- OUTSIDE RECORDS SUMMARY | 2024-06-27 11:56 | XMS_ITS | Encounter Summary ---
Author Organization [employer] Address [address] [facility] [address] 7[address] [place] [address] Care Team Providers Care Cattle Alley Worker Name Role Phone Name, Qamar GUARDADO Primary Care Provider [phone] Encounter Details Date Type Department Care Team (Latest Contact Info) Description 06/06/2024 Travel Social History Tobacco Use Types Packs/Day [...] Description 07/05/2024 11:00 AM EDT Office Visit [facility] [address] [place] [address] 09/07/2024 4:00 PM EDT Office Visit [address] [address] Name, MD Qamar [address] [place] [address] documented as of this encounter Visit Diagnoses Not on filedocumented in this encounter Additional Health Concerns Assessment Noted Time PHQ-9 Depression Total Score: 0 07/09/19 24 9:05 AM EDT documented as of this encounter Care Teams Cattle Alley Worker Relationship Specialty Start Date End Date Name, MD Qamar [address] [place] [phone] PCP - General Internal Medicine 05/02/22 documented as of this encounter
--- OUTSIDE RECORDS SUMMARY | 2024-06-27 11:56 | XMS_ITS | Encounter Summary ---
Author Organization [employer] Address [address] [facility] 7t [place] [address] Care Team Providers Care Hand Printed Circuit Board Assembler Name Role Phone Name, Qamar GUARDADO Primary Care Provider [phone] Reason for Visit * Reason Comments [facility] Recovery Supports Encounter Details Date Type Department Care Team (Late st Contact Info) Description 05/30/2024 Patient Outreach [facility] MEDICINE [address] [place], [place] [phone] Branden Carranza Recovery Supports Social History Tobacco Use Types Packs/Day Years [...] as of this encounter Progress Notes * Branden Carranza - 05/30/2024 11:59 PM EST I met with Arpita today. Setting: in person at [facility] Recovery Wellness Goals worked on: Social Stability Action taken/next steps: Offered person centered recovery support and Attended alcohol and drug free activity Additional comments: Center participation Branden Carranza documented in this encounter Plan of Treatment Upcoming Encounters Date Type Department Care Team (Late st Contact Info) Description 07/05/2024 11:00 AM EDT Office Visit [facility] [address] [place] [address] 09/07/2024 4:00 PM EDT Office Visit [facility] [address] [place] [address] Name, MD Qamar [address] [place] [address] documented as of this encounter Visit Diagnoses Not on filedocumented in this encounter Additional Health Concerns Assessment Noted Time PHQ-9 Depression Total Score: 0 07/09/19 24 9:05 AM EDT documented as of this encounter Care Teams Hand Printed Circuit Board Assembler Relationship Specialty Start Date End Date Name, MD Qamar [address] [place] [address] PCP - General Internal Medicine 05/02/22 documented as of this encounter
--- OUTSIDE RECORDS SUMMARY | 2024-06-27 11:56 | XMS_ITS | Encounter Summary ---
Author Organization [employer] Address [address] [facility] 7t [place] [address] Care Team Providers Care Cna Gna Name Role Phone Name, Qamar GUARDADO Primary Care Provider [phone] Encounter Details Date Type Department Care Team ([facility] st Contact Info) Description 06/06/2024 11:00 AM EST Office Visit [facility] 230 [place], [place] [phone] Tavia Brooke MD [address] [place], [place] [phone] Long-term current use of opiate analgesic (Primary Dx); Medullary sponge kidney; Chronic abdominal pain Social History Tobacco Use Types Packs/Day Years [...] Progress Notes * Tavia Brooke MD - 06/06/2024 11:00 AM EST Subjective: Arpita Park is a 63 y.o. female w/ PMH HTN, medullary sponge kidney, OA of bilateral knees, who presents to the office for - [facility] visits. Initial Group visit: 06/23/23 Group Visit Number: 6 Last PCP visit: 07/09/23, Dr Name Group Confidentiality last signed: 06/23/23 Group Topic: Daily small exercises (Last UDS 03/22/24 normal, will perform UDS at next visit) [...] normal. Problem List Items Addressed This Visit Problem List Items Addressed This Visit Medullary sponge kidney Chronic abdominal pain Overview Numerous abdominal surgeries. 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 EXPLORATORY LAPAROTOMYREDO RESECTION ANTERIOR, TAKEDOWN COLOVAGINAL FISTULA, SMALL BOWEL RESECTION [place] [facility] 10/2021 lleostomy closure 02/15 at [facility] She has small intra-abdominal abscess 02/16. Responded to bowel rest and antibiotics. No IR or surgery required Long-term current use of opiate analgesic - Primary Overview Dx: chronic right-sided low back pain Rx: oxycodone 5-10 mg every 6 hours as needed Last INVENTORY CONTROL SPECIALIST agreement: Tier II (visit every 3 months) Additional considerations: pain frequently intertwined with chronic kidney issues Timeline: Follow up: tomorrow for INVENTORY CONTROL SPECIALIST [facility]. Bring medications and be prepared for utox. Follow up as scheduled with PCP, sooner as needed. documented in this encounter Plan of Treatment Upcoming Encounters Date Type Department Care Team (Late st Contact Info) Description 07/05/2024 11:00 AM EDT Office Visit [facility] [address] [place] [address] 09/07/2024 4:00 PM EDT Office Visit [address] [phone] Name, MD Qamar [address] [place] [address] documented as of this encounter Visit Diagnoses Diagnosis Long-term current use of opiate analgesic- Primary Encounter for long-term (current) use of other medications Medullary sponge kidney Congenital medullary sponge kidney Chronic abdominal pain Abdominal pain, unspecified site documented in this encounter Additional Health Concerns Assessment Noted Time PHQ-9 Depression Total Score: 0 07/09/19 24 9:05 AM EDT documented as of this encounter Care Teams Cna Gna Relationship Specialty Start Date End Date Name, [place] [address] PCP - General Internal Medicine 05/02/22 documented as of this encounter
--- OUTSIDE RECORDS SUMMARY | 2024-06-27 11:56 | XMS_ITS | Encounter Summary ---
Author Organization [employer] Address [address] [facility] 7 [place] [address] Care Team Providers Care Nurseryperson Name Role Phone Name, Qamar GUARDADO Primary Care Provider Reason for Visit * Reason Onset Date Comments Med Refill 06/15/2024 Encounter Details Date Type Department Care Team ([facility] st Contact Info) Description 06/15/2024 Refill [facility] [address] [place], [place] [phone] Name, MD Qamar [address] [place] [address] Osteoarthritis, unspecified osteoarthritis type, unspecified site; Long-term current use of opiate analgesic Social [...] is your housing situation today? I have lcaire prieto 07/09/[address] you [...] encounter Miscellaneous Notes * Telephone Encounter - Kirk Moreira - 06/15/2024 12:20 PM EST TC from pt requesting medication refill. Medications needing refill : oxyCODONE (Roxicodone) 5 MG immediate release tablet To be sent to: [facility] - [place], [place] - [address] [place] [address] documented in this encounter Plan of Treatment Upcoming Encounters Date Type Department Care Team ([facility] st Contact Info) Description 07/05/2024 11:00 AM EDT Office Visit [address] [address] 09/07/2024 4:00 PM EDT Office Visit [address] [address] Qamar Solitario MD [address] [place] [address] documented as of this encounter Visit Diagnoses Diagnosis Osteoarthritis, unspecified osteoarthritis type, unspecified site Long-term current use of opiate analgesic Encounter for long-term (current) use of other medications documented in this encounter Additional Health Concerns Assessment Noted Time PHQ-9 Depression Total Score: 7 06/07/19 25 1:15 PM EST documented as of this encounter Care Teams Nurseryperson Relationship Specialty Start Date End Date Qamar Solitario MD [address] [place] [address] PCP - General Internal Medicine 05/02/22 documented as of this encounter
--- OUTSIDE RECORDS SUMMARY | 2024-06-27 11:56 | XMS_ITS | Encounter Summary ---
Author Organization [employer] Address [address] [facility] [address] 7t [place] [address] Care Team Providers Care Rock Crusher Name Role Phone Name, Qamar GUARDADO Primary Care Provider [phone] Encounter Details Date Type Department Care Team (Latest Contact Info) Description 06/07/2024 Travel Social History Tobacco Use Types Packs/Day [...] 07/05/2024 11:00 AM EDT Office Visit [facility] [address] [place] [phone] 09/07/2024 4:00 PM EDT Office Visit [address] [address] Name, MD Qamar [address] [place] [address] documented as of this encounter Visit Diagnoses Not on filedocumented in this encounter Additional Health Concerns Assessment Noted Time PHQ-9 Depression Total Score: 7 06/07/19 25 1:15 PM EST documented as of this encounter Care Teams Rock Crusher Relationship Specialty Start Date End Date Name, MD Qamar [address] [place] [address] PCP - General Internal Medicine 05/02/22 documented as of this encounter
== END 2024-06-27 10:20 | disposition home or self-care (01) ==
LOC: HO.HHCL 10:19
PROVIDERS: General Practice; Visit Provider Registered Nurse
DX: R30.0 Dysuria (principal)
CPT/HCPCS: 81001; 87086

== ENCOUNTER 2024-07-19 13:34 | Outpatient (REF) | payer OTHER, SELFPAY ==
[2024-07-25 13:37] LABS: Benzoylecgonine 3359
== END 2024-07-19 13:35 | disposition home or self-care (01) ==
LOC: HO.HHCLNP 13:34
PROVIDERS: Visit Provider Registered Nurse
DX: M54.50 Low back pain, unspecified (principal); G89.29 Other chronic pain; Z79.891 Long term (current) use of opiate analgesic; Z51.81 Encounter for therapeutic drug level monitoring
CPT/HCPCS: 36415; 80353

== ENCOUNTER 2024-11-03 12:18 | Outpatient (REF) | payer OTHER, SELFPAY ==
[2024-11-03 14:15] LABS: MANUAL DIFF FLAG NO
[2024-11-03 14:27] LABS: Appearance Urine Clear; Glucose Urine UA Negative (Negative); PH 5.5 (5.0-9.0); Specific Gravity - Urine 1.020 (1.005-1.025); UMIC TRIGGER UACC YES
[2024-11-03 14:33] LABS: Hematocrit 44.0 % (37.0-47.0); Hemoglobin 14.7 g/dl (12.0-16.0); Imm Gran Abs Auto 0.04 X10*3/uL (0.00-0.03); Imm Gran Pct Auto 0.3 % (0.0-0.4); Lymphocytes Absolute Auto 3.4 X10*3/uL (1.2-4.9); Mean Corpuscular HGB Conc 33.4 g/dl (31.0-35.0); Mean Corpuscular Hemoglobin 28.8 pg (27.0-33.0); Mean Corpuscular Volume 86.3 fL (80.0-98.0); NRBC Abs Auto 0.000 X10*3/uL (0.0-0.012); NRBC Pct Auto 0.0 /100WBC (0.0-0.2); Platelet Count 331 X10*3/uL (160-400); Red Blood Count 5.10 X10*6/uL (4.20-5.50); White Blood Count 13.0 X10*3/uL (4.8-10.8)
[2024-11-03 15:05] LABS: UACC Culture Trigger YES
== END 2024-11-03 12:19 | disposition home or self-care (01) ==
LOC: HO.HHCL 12:18
PROVIDERS: PCP Internal Medicine Geriatric Medicine; Visit Provider Internal Medicine Geriatric Medicine
DX: R10.32 Left lower quadrant pain (principal)
CPT/HCPCS: 36415; 81001; 85025; 87086

== ENCOUNTER 2024-12-28 12:02 | Outpatient (REF) | payer OTHER, SELFPAY ==
--- OUTSIDE RECORDS SUMMARY | 2024-12-28 11:00 | XMS_ITS | Encounter Summary ---
Author Organization [employer] Address [address] [facility] [address] [place] [address] Care Team Providers Care Truck Cleaner Name Role Phone Name, Qamar GUARDADO Primary Care Provider [phone] Reason for Visit * Reason Comments UTI Encounter Details Date Type Department Care Team ([facility] st Contact Info) Description 12/28/2024 11:00 AM EDT Office Visit [facility] [address] [place], [place] [phone] [facility] [address], [place] [phone] Essential hypertension (Primary Dx); UTI symptoms Social History Tobacco Use Types Packs/Day Years [...] housing situation today? I have claire prieto 08/31/[address] you li ve. Do you have problems with any of the following? None of the above 08/31/2024 Food Insecurity Answer Date Recorded Within the past 12 months, y ou worried that your food would run out before you got money to buy more: Never True 08/31/2024 Within the past 12 months,th e food you bought just didn't last and you didn't have enough money to get more: Never True 10/2024 Transportation Answer Date Recorded In the past 12 months, has l ack of transportation kept you from medical appts, meetings, work or from getting things needed for daily living? No 08/31/2024 Utilities Answer Date Recorded In the past 12 months, has t he electric, gas, oil or water company threatened to shut off services in your home? No 08/31/2024 Depression Answer Date Recorded Patient Health Questionnaire-2 Score 3 06/07/2024 Internet Access Answer Date Recorded Internet Access Q1 Yes 08/31/2024 Internet Access Q2 Not on file 08/31/2024 Comments Unknown Sex and Gender Information Value Date Recorded Sex Assigned at Female 02/24/2022 10:18 AM EDT Legal Sex Female 10:18 AM EDT Gender Identity Female 02/24/2022 10:18 AM EDT Sexual Orientation Choose not to disclose 2021 10:18 AM EDT documented as of this encounter Last Filed Vital Signs Vital Sign Reading Time Taken Comments Blood Pressure 160/100 12/28/2024 11:42 AM EDT Pulse 97 12/28/2024 11:14 AM EDT Temperature 36.7 C (98.1 F) 12/28/2024 11:14 AM EDT Respiratory Rate 16 12/28/2024 11:14 AM EDT Oxygen Saturation 96% 12/28/2024 11:14 AM EDT Inhaled Oxygen Concentration - - Weight 75.3 kg (166 lb) 12/28/2024 11:14 AM EDT Height - - Body Mass Index 27.62 11/03/2024 11:25 AM EDT documented in this encounter Progress Notes * Margarito Mora MA - 12/28/2024 11:00 AM EDT * [facility]00 AM [facility]T SUBJECTIVE: Arpita Park is a 64 y.o. year old female with HTN, hx of diverticulitis, medullary sponge kidney and hx of recurrent UTI, who presents for evaluation of UTI sx HPI Pt reports mild dysuria, urethral spasm, LBP x 2 days. Notes passing multiple stones. Has a hx of recurrent UTI/pylenonephritis with medullary sponge kidney--last episode end of October 2024 tx'd with levaquin with sx resolution. Urine culture contaminated at this time. Follows with urology at [facility]-on flomax Denies fever/chills/hematuria Of note patient is traveling out of state on Thursday Problem List[1] Review of Systems Constitutional: Negative for fatigue, fever and unexpected weight change. Eyes: Negative for visual disturbance. Respiratory: Negative for apnea, chest tightness and shortness of breath. Cardiovascular: Negative for chest pain, palpitations and leg swelling. Genitourinary: Positive for dysuria and flank pain. Negative for hematuria, pelvic pain and urgency. Neurological: Negative for dizziness, light-headedness and headaches. OBJECTIVE: Vitals: 12/28/24 1114 12/28/24 1142 BP: (!) 176/101 (!) 160/100 BP Location: Left arm Patient Position: Sitting BP Cuff Size: Adult Pulse: 97 Resp: 16 Temp: 98.1 ??F (36.7 ??C) TempSrc: Temporal SpO2: 96% Weight: 166 lb (75.3 kg) Physical Exam Constitutional: General: She is not in acute distress. Appearance: Normal appearance. HENT: Head: Normocephalic and atraumatic. Right Ear: External ear normal. Left Ear: External ear normal. Nose: Nose normal. Eyes: Conjunctiva/sclera: Conjunctivae normal. Cardiovascular: Rate and Rhythm: Normal rate and regular rhythm. Heart sounds: Normal heart sounds. Pulmonary: Effort: Pulmonary effort is normal. Breath sounds: Normal breath sounds. Abdominal: Tenderness: There is left CVA tenderness. Skin: General: Skin is warm and dry. Neurological: General: No focal deficit present. Mental Status: She is alert and oriented to person, place, and time. Psychiatric: Mood and Affect: Mood normal. Behavior: Behavior normal. ASSESSMENT/PLAN UTI SX - UA + blood, trace leukocytes. Nitrites negative - Sx may be s/t stone passage and not true UTI - Patient unable to leave urine for culture during visit--agrees to return to lab later today to leave sample for send out - Will also check CBC - Follow up pending results (if suggestive of UTI will plan to send levaquin given prior successfulresponse) Office Visit on 12/28/2024 Component Date Value Ref Range Status Color, UA 12/28/2024 Yellow Final Clarity, UA 12/28/2024 Clear Final Glucose, UA 12/28/2024 Negative Final Bilirubin, UA 12/28/2024 Few 15 Final Ketones, UA 12/28/2024 Negative Final Spec Grav, UA 12/28/2024 1.025 Final Blood, UA 12/28/2024 Positive (A) Negative, None Detected Final Moderate pH, UA 12/28/2024 6.0 Final Protein, UA 12/28/2024 2+ 125++ Final 100Mg Urobilinogen, UA 12/28/2024 0.2 Final Leukocytes, UA 12/28/2024 Trace Negative, Rare, Trace Final Nitrite, UA 12/28/2024 Negative Negative, None Detected Final Appearance, UA 12/28/2024 OK Final HTN - BP with significant elevation in office. Pt asx. Previously on multiple BP medications, pt reports discontinuing d/t home readings well controlled - Will RESTART amlodipine 5mg once daily - Pt to monitor home BP; follow up with PCP within 1 month - Reviewed ED precautions to include chest pain, shortness of breath, severe headache, sudden vision changes or BP >=180/>=120 mmHg. Contact HC if three or more BP readings >140/90. 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 Blood Pressure kit Use once a day 1 kit 0 capsaicin (Capzasin-HP) 0.1 % cream Apply thin layer by topical route up to 4 times daily for pain.45 g 3 cetirizine (ZyrTEC) 10 MG tablet Take 1 tablet by mouth Once per day. Diclofenac Sodium 1 % gel APPLY 2 grams TO affected KNEE 100 g 1 Diclofenac Sodium 1 % gel APPLY A THIN LAYER TO AFFECTED AREA(S) THREE TIMES DAILY NEEDED FOR PAIN 100 g 1 hydrOXYzine HCl (Atarax) 25 MG tablet take 1 tablet by oral route every 8 hours as needed for anxiety lidocaine (Xylocaine) 5 % ointment Apply topically if needed in the morning, at noon, and at bedtime (pain). 30 g 3 losartan (Cozaar) 25 MG tablet Take 1 tablet (25 mg) by mouth Once per day. 90 tablet 3 orphenadrine (Norflex) 100 MG 12 hr tablet TAKE 1 TABLET BY MOUTH TWICE DAILY NEEDED FOR MUSCLE SPASMS OR PAIN [START ON 12/30/2024] oxyCODONE (Roxicodone) 10 MG immediate release tablet Take 1 tablet (10 mg) by mouth every 6 (six) hours if needed for severe pain for up to 28 days. Do not start before 2024. 112 tablet 0 tamsulosin (Flomax) 0.4 MG 24 hr capsule TAKE 1 CAPSULE BY MOUTH EVERY DAY FOR 3 DOSES [DISCONTINUED] oxyCODONE (Roxicodone) 10 MG immediate release tablet Take 1 tablet (10 mg) by mouthevery 6 (six) hours if needed for severe pain for up to 28 days. 112 tablet 0 No current facility-administered medications on file prior to visit. documented in this encounter Plan of Treatment Upcoming Encounters Date Type Department Care Team (Late st Contact Info) Description 01/19/2025 9:00 AM EDT Clinical Support [address] [address] Anna Ochoa RN 01/31/2025 11:15 AM EDT Office Visit [address] [address] Name, MD Qamar [address] [place] [address] Scheduled Orders Name Type Priority Associated Diagnoses Orde r Schedule Culture, Urine, Routine Microbiology Routine UTI symptoms Expected: 12/28/2024 (Approximate), Expires: 12/28/2025 documented as of this encounter Procedures Procedure Name Priority Date/Time Associated Diagnosis Comments CBC WITH AUTO DIFFERENTIAL Routine 12/28/2024 12:22 PM EDT UTI symptoms POCT URINALYSIS DIPSTICK Routine 12/28/2024 11:31 AM EDT UTI symptoms documented in this encounter Results * (ABNORMAL) CBC auto differential (12/28/2024 12:22 PM EDT) White Blood Count 11.5(H) 4.8 - 10.8 X10*3/uL [facility] Red Blood Count 5.41 4.20 - 5.50 X10*6/uL [facility] Hemoglobin 15.6 12.0 - 16.0 g/dl [facility] Hematocrit 45.6 37.0 - 47.0 % [facility] Mean Corpuscular Volume 84.3 80.0 - 98.0 fL [facility] Mean Corpuscular Hemoglobin 28.8 27.0 - 33.0 pg [facility] Mean Corpuscular HGB Conc 34.2 31.0 - 35.0 g/dl [facility] Red Cell Distribution Width 14.3 11.0 - 16.0 % [facility] Platelet Count 354 160 - 400 X10*3/uL [facility] Mean Platelet Volume 9.7 9.4 - 12.3 fL [facility] Neutrophils Percent Auto 69.2 45 - 73 % [facility] Imm Gran Pct Auto 0.3 0.0 - 0.4 % [facility] Lymphocytes Percent Auto 23.1 20 - 40 % [facility] Monocytes Percent Auto 5.1 2 - 11 % [facility] Eosinophils Percent Auto 1.9 0 - 4 % [facility] Basophils Percent Auto 0.4 0 - 2 % [facility] NRBC Pct Auto 0.0 0.0 - 0.2 /100WBC [facility] Neutrophils Absolute Auto 7.9 2.0 - 8.3 x10*3/uL [facility] Imm Gran Abs Auto 0.03 0.00 - 0.03 X10*3/uL [facility] Lymphocytes Absolute Auto 2.7 1.2 - 4.9 X10*3/uL [facility] Monocytes Absolute Auto 0.6 0.1 - 1.2 X10*3/uL [facility] Eosinophils Absolute Auto 0.2 0.0 - 0.4 X10*3/uL [facility] Basophils Absolute Auto 0.1 0.0 - 0.2 X10*3/uL [facility] NRBC Abs Auto 0.000 0.0 - 0.012 X10*3/uL [facility] Blood Venous blood specimen / Unknown 12/28/2024 12:22 PM EDT 12/28/2024 1:16 PM EDT [facility] LAB BLOOD ORDERABLES Final Re sult [facility] [address] [place] [address] [phone] * (ABNORMAL) POCT urinalysis dipstick manually resulted (12/28/2024 11:31 AM EDT) Color, UA Yellow Clarity, UA Clear Glucose, UA Negative Bilirubin, UA Few 15 Ketones, UA Negative Spec Grav, UA 1.025 Blood, UA Positive(A) Negative, None Detected Comment:Moderate pH, UA 6.0 Protein, UA 2+ 125++ Comment:100Mg Urobilinogen, UA 0.2 Leukocytes, UA Trace Negative, Rare, Trace Nitrite, UA Negative Negative, None Detected Appearance, UA OK Urine 12/28/2024 11:3 1 AM EDT [facility] POINT OF CARE TEST ENTER/EDIT ORDERABLES Final Result documented in this encounter Visit Diagnoses Diagnosis Essential hypertension- Primary Unspecified essential hypertension UTI symptoms documented in this encounter Additional Health Concerns Assessment Noted Time PHQ-9 Depression Total Score: 7 06/07/19 25 1:15 PM EST documented as of this encounter Care Teams Truck Cleaner Relationship Specialty Start Date End Date Name, MD Qamar [address] [place] [address] PCP - General Internal Medicine 05/02/22 documented as of this encounter
[2024-12-28 13:20] LABS: MANUAL DIFF FLAG NO
[2024-12-28 13:24] LABS: Hematocrit 45.6 % (37.0-47.0); Hemoglobin 15.6 g/dl (12.0-16.0); Imm Gran Abs Auto 0.03 X10*3/uL (0.00-0.03); Imm Gran Pct Auto 0.3 % (0.0-0.4); Lymphocytes Absolute Auto 2.7 X10*3/uL (1.2-4.9); Mean Corpuscular HGB Conc 34.2 g/dl (31.0-35.0); Mean Corpuscular Hemoglobin 28.8 pg (27.0-33.0); Mean Corpuscular Volume 84.3 fL (80.0-98.0); NRBC Abs Auto 0.000 X10*3/uL (0.0-0.012); NRBC Pct Auto 0.0 /100WBC (0.0-0.2); Platelet Count 354 X10*3/uL (160-400); Red Blood Count 5.41 X10*6/uL (4.20-5.50); White Blood Count 11.5 X10*3/uL (4.8-10.8)
--- OUTSIDE RECORDS SUMMARY | 2024-12-28 14:42 | XMS_ITS | Encounter Summary ---
Author Organization [employer] Address [address] [place] [address] 7 [place] [address] Care Team Providers Care Rag Willow Operator Name Role Phone Name, Qamar GUARDADO Primary Care Provider [phone] Reason for Visit * Reason Onset Date Comments Nurse Triage 12/27/2024 Encounter Details Date Type Department Care Team ([facility] st Contact Info) Description 12/27/2024 Telephone [facility] MEDICINE [address] [place], [place] [phone] Name, MD Qamar [address] [place], [place] [phone] Nurse Triage Social History Tobacco Use Types Packs/Day Years [...] encounter Miscellaneous Notes * Telephone Encounter - Judy Herr RN - 12/28/2024 10:53 AM EDT Call returned to pt who states she is leaving for [place] 12/31/24 and is not sure of return date at this time. States she will be gone for 2 weeks at the most. Requesting early refill for Oxycodone. Advised rx has been sent to pharmacy will fill date of 12/30/24. Advised RN will return call if there is any issue. Pt c/o passing urinary stones not yesterday but for the two days prior to this. Pt denies fever. Pt c/o increased urinary frequency, urinary urgency and dysuria at the end of urination. Recommended evaluation in the [facility]. Pt states she is in [facility] now. T/C to [facility] pharmacy who confirms pt will be able to fill Oxycodone on 12/30/24. Call returned to pt. Advised of message from [facility] pharmacy. Pt expressed gratitude for update. * Telephone Encounter - Sherita Zuniga RN - 12/27/2024 9:50 AM EDT Called pt to triage, spoke to pt. Pt declines triage or need for appt at this time. Pt calling today as she is leaving [facility] in about a week and needs a script. Pt states called the pharmacy and was told she would need a waiver from her PCP as the medication is not due until 01/05. Advised to pt thatthis process usually goes through the pharmacy and she would need an exception/override. Pt states was told she needs a letter from her PCP. Pt concerned as she is traveling soon and needs the medication. Also advised when the refill is due they could send it to a local pharmacy.near where she willbe. Will task to team nurses to follow up and call pt back. Pt understands and agrees with plan. Pthas no other questions or concerns at this time. * Telephone Encounter - Alma Salmeron - 12/27/2024 9:18 AM EDT Symptom: Urination Pain Outcome: Schedule a same-day appointment or talk to a nurse or provider today Reason: Caller denied all higher acuity questions The caller accepted this outcome. Contact pt at [phone] documented in this encounter Plan of Treatment Upcoming Encounters Date Type Department Care Team (Late st Contact Info) Description 01/19/2025 9:00 AM EDT Clinical Support [facility] [address] [place] [address] Anna Ochoa RN 01/31/2025 11:15 AM EDT Office Visit [facility] [address] [place] [address] NameQamar MD [address] [place] [phone] documented as of this encounter Visit Diagnoses Not on filedocumented in this encounter Additional Health Concerns Assessment Noted Time PHQ-9 Depression Total Score: 7 06/07/19 25 1:15 PM EST documented as of this encounter Care Teams Rag Willow Operator Relationship Specialty Start Date End Date Qamar Solitario MD [address] [place] [address] PCP - General Internal Medicine 05/02/22 documented as of this encounter
--- OUTSIDE RECORDS SUMMARY | 2024-12-28 14:42 | XMS_ITS | Encounter Summary ---
Author Organization [facility] Address [address] [employer] [facility] [address] [place] [address] Phone Care Team Providers Care Nnps Name Role Phone Velvet Blandon MD Primary Care Provider [phone] Yudelka Jain NP Primary Care Provider U ashleynievesfrieda Marienanithin Vipul DO Unavailable [phone] Qamar Solitario MD Primary Care Provider [phone] Encounter Details Date Type Department Care Team (Late st Contact Info) Description 07/30/2021 Procedure Pass MRI, [facility] - [address], [address] [place] [address] Social History Tobacco Use Types Packs/Day Years Used Date Smoking Tobacco: Some Days Cigarettes Smokeless Tobacco: Never Comments:1-2 cigs/days; last cigarette yesterday Alcohol Use Standard Drinks/Week Comments Not Currently 0 (1 standard drink = 0.6 oz pur e alcohol) Comments No Sex and Gender Information Value Date Recorded Sex Assigned at Female 05/19/2019 4:01 PM EST Legal Sex Female 9:24 AM EDT Gender Identity Female 05/19/2019 4:01 PM EST Sexual Orientation Straight 10/16/2022 10 :39 PM EDT documented as of this encounter Plan of Treatment Not on file documented as of this encounter Visit Diagnoses Not on filedocumented in this encounter Additional Health Concerns Infection Onset Date Last Indicated Resolved Time CoV-Risk Comment:Per note documentation 12/19/2022 12/19/2022 3:35 PM EDT CoV-Risk Comment:Per note documentation 02/20/2024 02/20/2024 11:37 AM EDT documented as of this encounter Care Teams Nnps Relationship Specialty Start Date End Date Velvet Blandon MD [address] [place] [address] PCP - General Family Medicine 09/03/20 10/31/21 Yudelka Jain NP PCP - General Family Medicine 11/01/21 10/15/22 Qamar Solitario MD [address] [place] [address] PCP - General Internal Medicine 10/16/22 Vipul Schneider DO [address] [place] [address] Cardiology 01/17/22 documented as of this encounter Additional Source Comments The information contained in this document represents components of the legal health record. It is not the complete legal health record.[facility]
--- OUTSIDE RECORDS SUMMARY | 2024-12-28 14:42 | XMS_ITS | Encounter Summary ---
Author Organization [facility] Address [address] [facility] [address] [place] [address] Phone Care Team Providers Care Diesel Engine Ii Pipe Fitter Name Role Phone Yudelka Jain NP Primary Care Provider Anna Marie Schneider Vipul DO Unavailable [phone] Name, Qamar GUARDADO Primary Care Provider [phone] Encounter Details Date Type Department Care Team (Late st Contact Info) Description 02/26/2022 Procedure Pass [facility], Jose Luis [address] [facility], [address] [place] [address] Social History Tobacco Use Types Packs/Day Years Used Date Smoking Tobacco: Some Days Cigarettes 0.3 20 Smokeless Tobacco: Never Comments:1-2 cigs/days Alcohol Use Standard Drinks/Week Comments Not Currently [...] Time CoV-Risk Comment:Per note documentation 12/19/2022 12/19/2022 3 3:35 PM EDT CoV-Risk Comment:Per note documentation 02/20/2024 02/20/2024 4 11:37 AM EDT documented as of this encounter Care Teams Diesel Engine Ii Pipe Fitter Relationship Specialty Start Date End Date Yudelka Jain NP PCP - General Family Medicine 11/01/21 10/15/22 Name, MD Qamar [address] [place] [address] PCP - General Internal Medicine 10/16/22 Vipul Schneider DO [address] [place] [address] Cardiology 01/17/22 documented as of this encounter Additional Source Comments The information contained in this document represents components of the legal health record. It is not the complete legal health record.[facility]
--- OUTSIDE RECORDS SUMMARY | 2024-12-28 14:42 | XMS_ITS | Encounter Summary ---
Author Organization [facility] Address [address] [employer] [facility] [address] [place] [address] Phone Care Team Providers Care Juvenile Counselor Name Role Phone Aroldo Vergara MD Primary Care Provider + Velvet Blandon MD Primary Care Provider [phone] Yudelka Jain NP Primary Care Provider U Vipul Brown DO Unavailable [phone] Qamar Solitario MD Primary Care Provider [phone] Encounter Details Date Type Department Care Team (Late st Contact Info) Description 05/06/2019 Procedure Pass [facility] DEPT [address] [place] [phone] Social History Tobacco Use Types Packs/Day Years [...] documented as of this encounter Care Teams Juvenile Counselor Relationship Specialty Start Date End Date Aroldo Vergara MD [address] [address] PCP - General Internal Medicine 08/05/18 09/02/20 Velvet Blandno MD [address] [place] [address] PCP - General Family Medicine 09/03/20 10/31/21 Yudelka Jain NP PCP - General Family Medicine 11/01/21 10/15/22 Qamar Solitario MD [address] [place] [address] PCP - General Internal Medicine 10/16/22 Vipul Schneider DO [address] [place] [address] Cardiology 01/17/22 documented as of this encounter Additional Source Comments The information contained in this document represents components of the legal health record. It is not the complete legal health record.[facility]
--- OUTSIDE RECORDS SUMMARY | 2024-12-28 14:42 | XMS_ITS | Encounter Summary ---
Author Organization [facility] Address [address] [facility] [address] [place] [address] Phone Care Team Providers Care Manager Implementation Name Role Phone Yudelka Jain NP Primary Care Provider U Vipul Brown DO Unavailable [phone] Name, Qamar GUARDADO Primary Care Provider [phone] Encounter Details Date Type Department Care Team (Late st Contact Info) Description 11/06/2021 Procedure Pass [facility] PER[facility]OPER[facility]IVE DEPT [address] [place] [phone] Social History Tobacco Use Types Packs/Day Years [...] PM EDT documented as of this encounter Functional Status * Calculated C-SSRS Risk Score (Lifetime/Recent) Answer Date of Assessment Author No Risk Indicated 11/06/2021 7:00 PM EDT Sadia Gilmore RN * [place] Suicide Severity Rating Scale (Screener/Recent Self-Report) Question Answer Date of Assessment Author 1. Wish to be (Past 1 Month) No 11/06/2021 7:00 PM Sadia Hamilton RN 2. Non-Specific Active Suici carolina Thoughts (Past 1 Month) No 11/06/2021 7:00 PM EDT Jackie Gilmore RN 6. Suicidal Behavior (Lifetime) No 7:00 PM EDT Sadia Gilmore RN documented as of this encounter Plan of Treatment Not on file documented as of this encounter Visit Diagnoses Not on filedocumented in this encounter Additional Health Concerns Infection Onset Date Last Indicated Resolved Time CoV-Risk Comment:Per note documentation 12/19/2022 12/19/2022 3 3:35 PM EDT CoV-Risk Comment:Per note documentation 02/20/2024 02/20/2024 4 11:37 AM EDT documented as of this encounter Care Teams Manager Implementation Relationship Specialty Start Date End Date Yudelka Jain NP PCP - General Family Medicine 11/01/21 10/15/22 Name, MD Qamar [address] [place] [address] PCP - General Internal Medicine 10/16/22 Vipul Schneider DO [address] [place] [address] Cardiology 01/17/22 documented as of this encounter Additional Source Comments The information contained in this document represents components of the legal health record. It is not the complete legal health record.[facility]
--- OUTSIDE RECORDS SUMMARY | 2024-12-28 14:42 | XMS_ITS | Encounter Summary ---
Author Organization [facility] Address [address] [facility] [address] [place] [address] Phone Care Team Providers Care News Wire Photo Operator Name Role Phone Yudelka Jain NP Primary Care Provider U ashleyallen JennieVipul churchill DO Unavailable [phone] Name, Qamar GUARDADO Primary Care Provider [phone] Encounter Details Date Type Department Care Team (Late st Contact Info) Description 04/28/2022 Procedure Pass [facility], Ct Scan - [facility] [address] [place] [address] Social History Tobacco Use Types Packs/Day Years [...] Date of Assessment Author No Risk Indicated 04/28/2022 12:51 PM Alysia Garcia RN * Power Suicide Severity Rating Scale (Screener/Recent Self-Report) Question Answer Date of Assessment Author 1. Wish to be (Past 1 Month) No 04/28/2022 12:51 PM Alysia Tee RN 2. Non-Specific Active Suicidal Thoughts (Past 1 Month) No 04/28/2022 12:51 PM Alysia Tee RN 6. Suicidal Behavior (Lifetime) No 04/28/2022 12:51 PM Alysia Tee RN documented as of this encounter Plan of Treatment Not on file documented as of this encounter Visit Diagnoses Not on filedocumented in this encounter Additional Health Concerns Infection Onset Date Last Indicated Resolved Time CoV-Risk Comment:Per note documentation 12/19/2022 12/19/2022 3 3:35 PM EDT CoV-Risk Comment:Per note documentation 02/20/2024 02/20/2024 4 11:37 AM EDT documented as of this encounter Care Teams News Wire Photo Operator Relationship Specialty Start Date End Date Yudelka Jain NP PCP - General Family Medicine 11/01/21 10/15/22 Altaf, MD Qamar [address] [place] [address] PCP - General Internal Medicine 10/16/22 Vipul Schneider DO [address] [place] [address] Cardiology 01/17/22 documented as of this encounter Additional Source Comments The information contained in this document represents components of the legal health record. It is not the complete legal health record.[facility]
--- OUTSIDE RECORDS SUMMARY | 2024-12-28 14:42 | XMS_ITS | Encounter Summary ---
Author Organization [facility] Address [address] [facility] [address] [place] [address] Phone Care Team Providers Care Meeting/Event Planner Name Role Phone Aroldo Vergara MD Primary Care Provider + Velvet Blandon MD Primary Care Provider [phone] Yudelka Jain NP Primary Care Provider U Vipul Brown DO Unavailable [phone] Qamar Solitario MD Primary Care Provider [phone] Encounter Details Date Type Department Care Team (Late st Contact Info) Description 11/02/2018 Procedure Pass [facility] PERIOPERATIVE DEPT [address] [place] [address] Social History Tobacco Use Types Packs/Day Years Used Date Smoking Tobacco: Never Assessed Comments Unknown Sex and Gender Information Value [...] documented as of this encounter Care Teams Meeting/Event Planner Relationship Specialty Start Date End Date Aroldo Vergara MD [address] [address] PCP - General Internal Medicine 08/05/18 09/02/20 Velvet Blandon MD [address] [place] [address] PCP - General Family Medicine 09/03/20 10/31/21 Yudelka Jain NP PCP - General Family Medicine 11/01/21 10/15/22 Qamar Solitario MD [address] [place] [address] PCP - General Internal Medicine 10/16/22 Vipul Schneider DO [address] [place] [address] Cardiology 01/17/22 documented as of this encounter Additional Source Comments The information contained in this document represents components of the legal health record. It is not the complete legal health record.[facility]
--- OUTSIDE RECORDS SUMMARY | 2024-12-28 14:42 | XMS_ITS | Encounter Summary ---
Author Organization [employer] Address [address] [place] [address] 7 [place] [address] Care Team Providers Care Operations Support Professionals Name Role Phone Name, Qamar GUARDADO Primary Care Provider [phone] Reason for Visit * Reason Onset Date Comments Medication Question 11/07/2024 Med Refill 11/07/2024 Encounter Details Date Type Department Care Team ([facility] st Contact Info) Description 11/07/2024 Refill [facility] [address] [place], [place] [id number] Name, MD Qamar [address] [place] [address] Chronic right-sided low back pain, unspecified whether sciatica present Social History Tobacco Use Types Packs/Day Years [...] encounter Miscellaneous Notes * Telephone Encounter - Anna Ochoa RN - 11/07/2024 11:18 AM EDT Pt cancelled chronic pain group appt 11/15/24. TC to patient, pt scheduled for INFORMATICIST RV 11/22/24 @ 11:30am. * Telephone Encounter - Qamar Jauregui - 11/07/2024 10:02 AM EDT Tc from pt reporting that she was supposed to receive her Oxycodone today but pharmacy didn't have it. Pt would like a call back in regards to her medication. Contact pt at [phone] documented in this encounter Plan of Treatment Upcoming Encounters Date Type Department Care Team (Late st Contact Info) Description 01/19/2025 9:00 AM EDT Clinical Support [facility] [address] [place] [phone] Anna Ochoa RN 01/31/2025 11:15 AM EDT Office Visit [facility] [address] [place] [address] Name, MD Qamar [address] [place] [address] documented as of this encounter Visit Diagnoses Diagnosis Chronic right-sided low back pain, unspecified whether sciatica present documented in this encounter Additional Health Concerns Assessment Noted Time PHQ-9 Depression Total Score: 7 06/07/19 25 1:15 PM EST documented as of this encounter Care Teams Operations Support Professionals Relationship Specialty Start Date End Date Name, MD Qamar [address] [place] [address] PCP - General Internal Medicine 05/02/22 documented as of this encounter
--- OUTSIDE RECORDS SUMMARY | 2024-12-28 14:42 | XMS_ITS | Encounter Summary ---
Author Organization [facility] Address [address] [facility] [address] [place] [address] Phone Care Team Providers Care Haircutter Name Role Phone Vipul Schneider Unavailable [phone] NameQamar MD Primary Care Provider [phone] Encounter Details Date Type Department Care Team (Late st Contact Info) Description 04/07/2023 Procedure Pass [facility], Ct Scan - [address] [address] Social History Tobacco Use Types Packs/Day Years Used Date Smoking Tobacco: Some Days Cigarettes 0.3 20 Smokeless Tobacco: Never Comments:Vapes 3x/day, previ ously smoked a cigarette per day Alcohol Use Standard Drinks/Week Comments Not Currently 0 (1 standard drink = 0.6 oz pur e alcohol) Education Answer Date Recorded Are you interested in more education? Not on carmen e 08/22/2022 Are you concerned about learning? Not on file 08/22/2022 No 08/22/2022 No 08/22/2022 Digital Access Answer Date Recorded No 09/23/2022 No 09/23/2022 Reliable internet access at home? Not on file 09/23/2022 Device with a working camera? Not on file Comments No Sex and Gender Information Value Date Recorded Sex Assigned at Female 05/19/2019 4:01 PM EST Legal Sex Female 9:24 AM EDT Gender Identity Female 05/19/2019 4:01 PM EST Sexual Orientation Straight 10/16/2022 10 :39 PM EDT documented as of this encounter Functional Status * Calculated C-SSRS Risk Score (Lifetime/Recent) Answer Date of Assessment Author No Risk Indicated 04/07/2023 3:52 PM Maddy Smith RN * [place] Suicide Severity Rating Scale (Screener/Recent Self-Report) Question Answer Date of Assessment Author 1. Wish to be (Past 1 Month) No 023 3:52 PM Maddy Smith RN 2. Non-Specific Active Suici [place] Thoughts (Past 1 Month) No 04/07/2023 3:52 PM Maddy Smith RN 6. Suicidal Behavior (Lifetime) No 3 3:52 PM Maddy Smith RN documented as of this encounter Plan of Treatment Not on file documented as of this encounter Visit Diagnoses Not on filedocumented in this encounter Additional Health Concerns Infection Onset Date Last Indicated Resolved Time CoV-Risk Comment:Per note documentation 02/20/2024 02/20/2024 11:37 AM EDT documented as of this encounter Care Teams Haircutter Relationship Specialty Start Date End Date Name, MD Qamar [address] [place] [address] PCP - General Internal Medicine 10/16/22 Vipul Schneider DO [address] [place] [address] Cardiology 01/17/22 documented as of this encounter Additional Source Comments The information contained in this document represents components of the legal health record. It is not the complete legal health record.[facility]
--- OUTSIDE RECORDS SUMMARY | 2024-12-28 14:42 | XMS_ITS | Encounter Summary ---
Author Organization [facility] Address [address] [facility] [address] [place] [address] Phone Care Team Providers Care Gate Attendant Name Role Phone Vipul Schneider Unavailable [phone] NameQamar MD Primary Care Provider [phone] Encounter Details Date Type Department Care Team (Late st Contact Info) Description 02/20/2024 Procedure Pass [facility], Ct Scan - [address] [address] Social History Tobacco Use Types Packs/Day Years [...] with a working camera? Not on file Intimate Partner Violence Answer Date R ecorded Are you denied basic needs s uch as food, clothing, or medical care? No 02/20/2024 In the past 12 months have y ou been in a relationship with a person who hurts, threatens, or tries to control you? No 02/20/2024 Are you denied basic needs s uch as food, clothing, or medical care? No 02/20/2024 In the past 12 months have y ou been in a relationship with a person who hurts, threatens, or tries to control you? No 02/20/2024 Comments No Sex and Gender Information Value Date Recorded Sex Assigned at Female 05/19/2019 4:01 PM EST Legal Sex Female 9:24 AM EDT Gender Identity Female 05/19/2019 4:01 PM EST Sexual Orientation Straight 10/16/2022 10 :39 PM EDT documented as of this encounter Functional Status * Calculated C-SSRS Risk Score (Lifetime/Recent) Answer Date of Assessment Author No Risk Indicated 02/20/2024 9:08 AM EDT Chiara Mckeon RN * [place] Suicide Severity Rating Scale (Screener/Recent Self-Report) Question Answer Date of Assessment Author 1. Wish to be (Past 1 Month) No 024 9:08 AM YASMANYT Chiara Montoya RN 2. Non-Specific Active Suici carol[place] Thoughts (Past 1 Month) No 02/20/2024 9:08 AM EDT Shanae Montoya RN 6. Suicidal Behavior (Lifetime) No 4 9:08 AM EDT Chiara Montoya RN documented as of this encounter Plan of Treatment Not on file documented as of this encounter Visit Diagnoses Not on filedocumented in this encounter Additional Health Concerns Infection Onset Date Last Indicated Resolved Time CoV-Risk Comment:Per note documentation 02/20/2024 02/20/2024 4 11:37 AM EDT documented as of this encounter Care Teams Gate Attendant Relationship Specialty Start Date End Date Name, MD Qamar [address] [place] [address] PCP - General Internal Medicine 10/16/22 Vipul Schneider DO [address] [place] [address] Cardiology 01/17/22 documented as of this encounter Additional Source Comments The information contained in this document represents components of the legal health record. It is not the complete legal health record.[facility]
--- OUTSIDE RECORDS SUMMARY | 2024-12-28 14:42 | XMS_ITS | Encounter Summary ---
Author Organization [facility] Address [address] [facility] [address] [place] [address] Phone Care Team Providers Care Mason Helper Name Role Phone Aroldo Vergara MD Primary Care Provider + Velvet Blandon MD Primary Care Provider [phone] Yudelka Jain NP Primary Care Provider U Viplu Brown DO Unavailable [phone] Qamar Solitario MD Primary Care Provider [phone] Encounter Details Date Type Department Care Team (Late st Contact Info) Description 12/02/2018 Procedure Pass [facility] PERIOPERATIVE DEPT [address] [place] [id number] Social History Tobacco Use Types Packs/Day [...] documented as of this encounter Care Teams Mason Helper Relationship Specialty Start Date End Date Aroldo Vergara MD [address] [address] PCP - General Internal Medicine 08/05/18 09/02/20 Velvet Blandon MD [address] [place] [address] PCP - General Family Medicine 09/03/20 10/31/21 Yudelka Jain NP PCP - General Family Medicine 11/01/21 10/15/22 Qamar Solitario MD [address] [place] [address] PCP - General Internal Medicine 10/16/22 Vipul Schneider DO [address] [place] [address] Cardiology 01/17/22 documented as of this encounter Additional Source Comments The information contained in this document represents components of the legal health record. It is not the complete legal health record.[facility]
--- OUTSIDE RECORDS SUMMARY | 2024-12-28 14:42 | XMS_ITS | Encounter Summary ---
Author Organization [employer] Address [address] [place] [address] 7 [place] [address] Care Team Providers Care Oracle Fusion Middleware Developer Name Role Phone Name, Qamar GUARDADO Primary Care Provider [phone] Reason for Visit * Reason Onset Date Comments Durable Medical Equipment 07/16/2022 Encounter Details Date Type Department Care Team ([facility] st Contact Info) Description 07/16/2022 Telephone [facility] [address] [place], [place] [phone] Name, MD Qamar [address] [place] [address] Durable Medical Equipment Social History Tobacco Use [...] to Med[employer] * Telephone Encounter - Peter Gutierrez - 07/16/2022 11:10 AM EDT Tc from pt requesting status on script for wipes and incontinence pads Please contact pt at [phone] documented in this encounter Plan of Treatment Upcoming Encounters Date Type Department Care Team (Late st Contact Info) Description 01/19/2025 9:00 AM EDT Clinical Support [address] [address] Anna Ochoa, RN 01/31/2025 11:15 AM EDT Office Visit [address] [address] Name, MD Qamar [address] [place] [address] documented as of this encounter Visit Diagnoses Not on filedocumented in this encounter Care Teams Oracle Fusion Middleware Developer Relationship Specialty Start Date End Date Qamar Solitario MD [address] [place] [address] PCP - General Internal Medicine 05/02/22 documented as of this encounter
--- OUTSIDE RECORDS SUMMARY | 2024-12-28 14:42 | XMS_ITS | Clinical Summary ---
Author Organization [facility] Address [address] [place] [address] Care Team Providers Care Demurrage Worker Name Role Phone Name, Qamar GUARDADO Primary Care Provider [phone] Allergies Active Allergy Reactions Criticality Noted Date [...] 3 DOSES 02/11/20 22 Active Blood Pressure kitIndications: Essential hypertension Use once a day 1 kit 05/15/19 23 Active orphenadrine (Norflex) 100 MG 12 hr tablet TAKE 1 TABLET BY MOUTH TWICE DAILY NEEDED FOR MUSCLE SPASMS OR PAIN Active losartan (Cozaar) 25 MG tabletIndicatio ns:Essential hypertension Take 1 tablet (25 mg) by mouth Once per day. 90 tablet 3 03/22/20 24 025 Active Diclofenac Sodium 1 % gel APPLY 2 grams TO affected KNEE 100 g 1 03/22/20 24 Active cetirizine (ZyrTEC) 10 MG tablet Take 1 tablet by mouth Once per day. 02/23/20 24 Active lidocaine (Xylocaine) 5 % ointmentIndicat ions:Chronic right-sided low back pain, unspecified whether sciatica present Apply topically if needed in the morning, at noon, and at bedtime (pain). 30 g 10/19/19 25 026 Active capsaicin (Capzasin-HP) 0.1 % creamIndication s:Chronic right-sided low back pain, unspecified whether sciatica present Apply thin layer by topical route up to 4 times daily for pain. 45 g 10/19/19 25 Active Diclofenac Sodium 1 % gelIndications: Chronic right-sided low back pain, unspecified whether sciatica present APPLY A THIN LAYER TO AFFECTED AREA(S) THREE TIMES DAILY NEEDED FOR PAIN 100 g 1 11/17/19 25 Active oxyCODONE (Roxicodone) 10 MG immediate release tabletIndicatio ns:Chronic right-sided low back pain, unspecified whether sciatica present Take 1 tablet (10 mg) by mouth every 6 (six) hours if needed for severe pain for up to 28 days. Do not start before December 30, 2024. 112 tablet 12/31/19 25 025 Active amLODIPine (Norvasc) 5 MG tabletIndicatio ns:Essential hypertension Take 1 tablet (5 mg) by mouth Once per day. 30 tablet 12/29/19 25 026 Active oxyCODONE (Roxicodone) 10 MG immediate release tabletIndicatio ns:Chronic right-sided low back pain, unspecified whether sciatica present Take 1 tablet (10 mg) by mouth every 6 (six) hours if needed for severe pain for up to 28 days. 112 tablet 11/08/19 25 025 Discontinued(Re order (will not trigger notification to Pharmacy)) oxyCODONE (Roxicodone) 10 MG immediate release tabletIndicatio ns:Chronic right-sided low back pain, unspecified whether sciatica present Take 1 tablet (10 mg) by mouth every 6 (six) hours if needed for severe pain for up to 28 days. 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 Overview (10/18/2024): Dx: chronic abdominal pain and right-sided low back pain, knee OA Rx: oxycodone 5-10 mg every 6 hours as needed Last VERTICAL BORER agreement: 03/22/24 Tier II (visit every 3 months) Additional considerations: pain frequently intertwined with chronic kidney issues Assessment & Plan (10/18/2024 2:02 PM EDT): Timeline: 10/18/24: Group - utox/pill count as expected Diverticulitis 03/23/2024 Assessment & Plan (03/23/2024 1:39 PM EST): Pt is PCN allergic, so will treat with Flagyl and Bactrim, as the Bactrim will also cover urinary symptoms, and she was on Cipro < 30 days ago Pyelonephritis 02/20/2024 Chronic right-sided low back pain 10/21/2023 Assessment & Plan (10/18/2024 2:01 PM EDT): -Good engagement and participation with Group Medical Visit model -Encouraged multifactorial approach to pain control including pharm and non- pharm modalities -Utox and pill count as expected Assessment & Plan (07/19/2024 1:57 PM EDT): -Good engagement and participation with Group Medical Visit model -Encouraged multifactorial approach to pain control including pharm and non- pharm modalities -Pill count as expected, utox positive jordyn. Confirmatory testing sent to lab. F/up pending results. Assessment & Plan (03/23/2024 1:38 PM EST): [...] [place] with an [place] [facility] [place]PLORATORY LAPAROTOMYREDO RESECTION ANTERIOR, TAKEDOWN COLOVAGINAL FISTULA, SMALL BOWEL [place] [facility] [place]21 lleostomy closure 02/15 at [facility] [place] She has small intra-abdominal abscess 02/16. Responded to bowel rest and antibiotics. No IR or surgery required Assessment & Plan (06/29/2024 9:13 AM EST): Pt attended and participated in chronic pain group today - good engagement with group model of care - continue to use combination of non-pharmacological modalities to address pain - followup in one month Assessment & Plan (07/21/2023 12:09 PM EDT): [...] Presence of right artificial knee joint 02/12/20 18 Unspecified osteoarthritis, unspecified site Assessment & Plan [...] Assessment & Plan (03/23/2024 1:30 PM EST): Wiley Palomino, has been out for some time Medullary sponge kidney 06/14/2015 Overweight 06/14/2015 Resolved Problems Problem Noted Date Diagnosed Date Resolved Date Anastomotic leak of intestine 12/20/2022 02/06/2023 07/09/2023 Intra-abdominal abscess 12/20/2022 02/06/202306/25 Ileostomy present 02/05/2022 07/09/2023 Overview (06/12/2022): Taken down at [facility] [place] 01/2022 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 Date Type Department Care Team Description 12/28/2024 11:00 AM EDT Office Visit [facility] [address] [place] [address] [facility] Essential hypertension (Primary Dx); UTI symptoms 12/27/2024 Refill [facility] [address] [place] [address] Qamar Solitario MD Chronic right-sided low back pain, unspecified whether sciatica present 12/27/2024 Telephone [facility] [address] [place] [address] Qamar Solitario MD Nurse Triage 12/27/2024 Refill [facility] [address] [place], [place] [phone] Qamar Solitario MD Chronic right-sided low back pain, unspecified whether sciatica present 12/05/2024 Refill [facility] [address] [place] [address] Qamar Solitario MD Chronic right-sided low back pain, unspecified whether sciatica present 11/22/2024 11:30 AM EDT Clinical Support [address] [phone] Anna Ochoa RN 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 (Primary Dx) 11/22/2024 Travel 11/16/2024 Refill [facility] [address] [place] [address] Terrie Paiz, ABHI Chronic right-sided low back pain, unspecified whether sciatica present 11/07/2024 Refill [facility] [address] [place] [phone] Qamar Solitario MD Chronic right-sided low back pain, unspecified whether sciatica present 11/07/[address] [address] Qamar Solitario MD Nurse Triage 11/03/2024 11:30 AM EDT Office Visit [address] [address] Qamar Solitario MD LLQ pain (Primary Dx) 11/03/2024 Orders Only [address] [address] Qamar Solitario MD 11/03/2024 Results Follow-Up [address] [address] Qamar Solitario MD CBC auto differential, Urinalysis, Complete, with Reflex to Culture 11/03/2024 Travel 11/02/2024 Telephone [facility] [address] [place] [phone] Suni Aparicio MA chart prep 10/26/2024 Telephone [facility] [address] [place], [place] [phone] Qamar Solitario MD Prior Authorization 10/25/2024 Refill [facility] [address] [place] [phone] Qamar Solitario MD Chronic right-sided low back pain, unspecified whether sciatica present 10/18/2024 9:45 AM EDT Office Visit [facility] [address] [place] [phone] Terrie Paiz, [employer] Chronic right-sided low back pain, unspecified whether sciatica present (Primary Dx); 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; Chronic abdominal pain 10/18/2024 Telephone [facility] [address] [place] [phone] Anna Ochoa, RN VERTICAL BORER Tier 1; BPI Scoring 10/18/2024 Travel 10/18/2024 Telephone [facility] [address] [place] [phone] Anna Ochoa, NICOLLE Error (VOID this visit) 10/10/2024 Refill [facility] [address] [place] [phone] Qamar Solitario MD Chronic right-sided low back pain, unspecified whether sciatica present 10/10/2024 Refill [facility] [address] [place] [phone] Anna Ochoa RN Chronic right-sided low back pain, unspecified whether sciatica present 10/10/[address] [address] Qamar Solitario MD Med Refill 10/10/[address] [address] Qamar Solitario MD Chronic right-sided low back pain, unspecified whether sciatica present 10/06/2024 Telephone [facility] [address] [place] [phone] Qamar Solitario MD Call Back Request 09/29/2024 Refill [facility] [address] [place] [phone] Qamar Solitario MD Chronic right-sided low back pain, unspecified whether sciatica present from Last 3 Months Immunizations Immunization Administration Dates Next Due Influenza Injectable Quadriv [...] (166 lb) 12/28/2024 11:14 AM EDT Height 165.1 cm (5' 5 ) 11/03/2024 11:25 AM EDT Body Mass Index 27.62 11/03/2024 11:25 AM EDT Plan of Treatment Upcoming Encounters Date Type Department Care Team (Late st Contact Info) Description 01/19/2025 9:00 AM EDT Clinical Support [facility] [address] [place] [phone] Anna Ochoa, RN 01/31/2025 11:15 AM EDT Office Visit [facility] [address] [place] [phone] Name, MD Qamar [address] [place] [phone] Health Maintenance Due Date Last Done Comments CT Colonography 1962 Colonoscopy 1962 Colorectal Cancer Screening 1962 FIT DNA/Cologuard 1962 FIT 1962 FOBT 1962 Sigmoidoscopy 1962 Mammogram 2002 Zoster Vaccines (1 of 2) 2012 Pneumococcal Vaccine: 50+ Years (2 of 2 - PCV) 01/26/2016 01/25/2015, 10/07/2014, 05/02/2007, Additional history exists DTaP/Tdap/Td Vaccines (2 - Td or Tdap) 01/05/2022 01/06/2012 Pap Smear 08/24/2023 08/23/2020 COVID-19 Vaccine (1 - season) 2024 Influenza Vaccine (#1) 2024 , 01/09/2023, 01/02/2022, Additional history exists Depression Screening 06/07/2025 06/07/2024, 06/07/19 Cervical Cancer Screening 08/23/2025 HPV/Cotest 08/23/2025 08/23/2020 SDOH Screening 08/31/2025 08/31/2024 Alcohol/Substance Use Screening 11/03/2025 11/03/2024 Disability Screening 11/03/2025 11/03/2024 Tobacco Screening 12/28/2025 12/28/2024 Lipid Panel 04/01/2026 04/01/2021 RSV Patients and Patients Aged 60 years or older (1 - 1-dose 75+ series) 2037 HIV Screening Completed 04/01/2021 Hepatitis C Screening Completed 04/01/2021 HIB Vaccines Aged Out No longer eligi [...] patient's age to complete this topic Meningococcal B Vaccine Aged Out No l onger eligible based on patient's age to complete [...] Routine 12/28/2024 11:31 AM EDT UTI symptoms POCT SANYA-14 URINE DRUG SCREEN Routine 11/22/2024 9:15 AM EDT 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 White Blood Count 11.5(H) 4.8 - 10.8 X10*3/uL [facility] Red Blood Count 5.41 4.20 - 5.50 X10*6/uL [facility] Hemoglobin 15.6 12.0 - 16.0 g/dl [facility] Hematocrit 45.6 37.0 - 47.0 % [facility] Mean Corpuscular Volume 84.3 80.0 - 98.0 fL [facility] Mean Corpuscular Hemoglobin 28.8 27.0 - 33.0 pg [facility] Mean Corpuscular HGB Conc 34.2 31.0 - 35.0 g/dl [facility] Red Cell Distribution Width 14.3 11.0 - 16.0 % [facility] Platelet Count 354 160 - 400 X10*3/uL [facility] Mean Platelet Volume 9.7 9.4 - 12.3 fL [facility] Neutrophils Percent Auto 69.2 45 - 73 % [facility] Imm Gran Pct Auto 0.3 0.0 - 0.4 % [facility] Lymphocytes Percent Auto 23.1 20 - 40 % [facility] Monocytes Percent Auto 5.1 2 - 11 % [facility] Eosinophils Percent Auto 1.9 0 - 4 % [facility] Basophils Percent Auto 0.4 0 - 2 % [facility] NRBC Pct Auto 0.0 0.0 - 0.2 /100WBC [facility] Neutrophils Absolute Auto 7.9 2.0 - 8.3 x10*3/uL [facility] Imm Gran Abs Auto 0.03 0.00 - 0.03 X10*3/uL [facility] Lymphocytes Absolute Auto 2.7 1.2 - 4.9 X10*3/uL [facility] Monocytes Absolute Auto 0.6 0.1 - 1.2 X10*3/uL [facility] Eosinophils Absolute Auto 0.2 0.0 - 0.4 X10*3/uL [facility] Basophils Absolute Auto 0.1 0.0 - 0.2 X10*3/uL [facility] NRBC Abs Auto 0.000 0.0 - 0.012 X10*3/uL [facility] Blood Venous blood specimen / Unknown 12/28/2024 12:22 PM EDT 12/28/2024 1:16 PM EDT [facility] LAB BLOOD ORDERABLES Final Re sult [facility] [address] [place] [phone] * (ABNORMAL) POCT urinalysis dipstick manually [...] OK Urine 12/28/2024 11:3 1 AM EDT [facility] POINT OF CARE TEST ENTER/EDIT ORDERABLES Final Result * POCT SANYA-14 Urine Drug Screen (11/22/2024 9:15 AM EDT) Only the most recent of2 resultswithin the time period is included. THC Positive Negative Cocaine Screen, Urine Negative Negative Opiate Screen, Urine Negative Negative Methamphetamine Screen Urine Negative Negative Amphetamine Screen, Urine Negative Negative Benzodiazepines Screen, Urine Negative Negative Barbiturate Screen, Urine Negative Negative Methadone Screen, Urine Negative Negative Buprenophine Screen, Urine Negative Negative TCA, Urine Negative Negative MDMA Urine Negative Negative ng/mL Oxycodone Screen, Urine Positive Negative Phencyclidine (PCP), Urine Negative Negative Propoxyphene, Urine Negative Negative Fentanyl, Urine Negative Negative Urine Urine specimen obtained by clean catch procedure / Unknown 11/22/2024 9:15 AM EDT Anna Armando RN - 11/22/2024 9:15 AM EDT UTOX cup Lot#[id number] Exp. 01/31/26 Internal Pass Control us Foote Name POINT OF CARE TEST ENTER/EDIT OR DERABLES Final Result * Culture, Urine, Routine (11/03/2024 4:07 PM EDT) Urine Urine specimen obtained by clean catch procedure / Unknown 11/03/2024 4:07 PM EDT 11/03/2024 4:07 PM EDT Comment:UACC Narrative [facility] - 11/05/2024 10:54 AM EDT Urine Culture Report Result Urine Culture 10,000 to 50,000 cfu/ml Urine Culture Mixed bacterial denia characteristic of Urine Culture urogenital contamination. Specimen Source: Urine clean catch us Foote Name LAB MICROBIOLOGY - GENERAL ORDER MEGAN Final Result [facility] [address] [place] [phone] * (ABNORMAL) Urinalysis, Complete, with Reflex to Culture (11/03/2024 12:24 PM EDT) Color Urine Yellow [facility] Appearance Urine Clear [facility] PH 5.5 5.0 - 9.0 [facility] Glucose Urine UA Negative Negative mg/dL [facility] Urine Blood Moderate (2+)(A) Negative [facility] Specific [place] - Urine 1.020 1.005 - 1.025 [facility] Urine Protein 30 (1+)(A) Neg-Trace mg/dL [facility] Urine Ketones Trace Negative mg/dL [facility] Nitrite Urine Negative Negative [facility] Leukocyte Esterase Urine Moderate (2+)(A) Negative [facility] RBC Urine 6-10(A) 0 - 2 /HPF [facility] Urine WBC 21-50(A) 0 - 5 /HPF [facility] Urine Squamous Epithelial Cell 3-5 0 - 2 /HPF [facility] CALCIUM OXALATE CRYSTAL, UR Present [facility] Urine Bacteria None Seen None Seen [facility] Hyaline Casts, Urine 0-2 0 - 2 /LPF [facility] Urine Yeast Present [facility] Urine 11/03/2024 12:2 4 PM EDT 11/03/2024 2:02 PM EDT Narrative [facility] - 11/03/2024 3:18 PM EDT Urine, Clean Catch us Qamar Solitario MD LAB URINE ORDERABLES Final Resul t [facility] [address] [place] [address] [phone] * HEPATITIS C AB W/REFL TO HCV RNA, QN, PCR (04/01/2021 8:51 AM EST) HEPATITIS C ANTIBODY NON-REACT LESLEY NON-REACT LESLEY [facility] INDEX 0.05 <1.00 [facility] Comment: HCV antibody was non-reactive. There is no laboratory evidence of HCV infection. In most cases, no further action is required. However, if recent HCV exposure is suspected, a test for HCV RNA (test code 72939) is suggested. For additional information please refer to http://education.GoFish/faq/ZCI68l1 (This link is being provided for informational/ educational purposes only.) 04/01/2021 8:51 AM EST Yudelka Jain NP HISTORICAL/NON ORDERABLE LABS F inal Result [facility] [address] * HIV 1/2 ANTIGEN/ANTIBODY,FOURTH GENERATION W/RFL (04/01/2021 8:51 AM EST) HIV-1/2 ANTIGEN AND ANTIBODIES, 4TH GENERATION W/ REFLEX NON-REACT LESLEY NON-REACT LESLEY [facility] Comment: HIV-1 antigen and HIV-1/HIV-2 antibodies were not detected. There is no laboratory evidence of HIV infection. PLEASE NOTE: This information has been disclosed to you from records whose confidentiality may be protected by state law. If your state requires such protection, then the state law prohibits you from making any further disclosure of the information without the specific written consent of the person to whom it pertains, or as otherwise permitted by law. A general authorization for the release of medical or other information is NOT sufficient for this purpose. For additional information please refer to http://FlatBurger.GoFish/faq/BAH173 (This link is being provided for informational/ educational purposes only.) The performance of this assay has not been clinically validated in patients less than 2 years old. 04/01/2021 8:51 AM EST us Yudelka Jain NP LAB BLOOD ORDERABLES Final Resu lt [facility] [address] * (ABNORMAL) LIPID PANEL, STANDARD (04/01/2021 8:51 AM EST) Chol/HDLC Ratio 3.1 <5.0 (calc) [facility] Cholesterol, Total 162 <200 mg/dL [facility] HDL Cholesterol 52 > OR = 50 mg/dL [facility] LDL Cholesterol 84 mg/dL (calc) [facility] Comment: Reference range: <100 Desirable range <100 mg/dL for primary prevention; <70 mg/dL for patients with CHD or diabetic patients with > or = 2 CHD risk factors. LDL-C is now calculated using the Roni-Cunningham calculation, which is a validated novel method providing better accuracy than the Friedewald equation in the estimation of LDL-C. Roni ALLEN et al. KENNTEH. 2013;310(19): 0420-4554 (http://education.DanceTrippin.Yatango Mobile/faq/AII892) Non-HDL Cholesterol 110 <130 mg/dL (calc) [facility] Comment: For patients with diabetes plus 1 major ASCVD risk factor, treating to a non-HDL-C goal of <100 mg/dL (LDL-C of <70 mg/dL) is considered a therapeutic option. Triglycerides 164(H) <150 mg/dL [facility] 04/01/2021 8:51 AM EST us Yudelka Jain TENNIS RACKET REPAIRER LAB BLOOD ORDERABLES Final Resu lt Performing Organization Address [facility] Co de Phone Number [facility] [address] [place] [address], * THINPREP TIS PAP (08/23/2020 9:31 AM EDT) Clinical Information: Hysterectomy [facility] COMMENT SEE COMMENT [facility] Comment: EXPLANATORY NOTE: The Pap is a screening test for cervical cancer. It is not a diagnostic test and is subject to false negative and false positive results. It is most reliable when a satisfactory sample, regularly obtained, is submitted with relevant clinical findings and history, and when the Pap result is evaluated along with historic and current clinical information. COMMENT: This Pap test has been evaluated with computer assisted technology. [facility] Harness Placer : SEE COMMENT [facility] Comment: NSS, CT(ASCP) CT screening location: [place] [address] Interpretation/R esult: Negative for intraepithelial lesion or malignancy. [facility] LMP: [id number] [facility] Prev. BX: NONE GIVEN [facility] Prev. PAP: NONE GIVEN [facility] SOURCE: Vaginal cuff [facility] Statement Of Adequacy: SEE COMMENT [facility] Comment: Satisfactory for evaluation. Endocervical/transformation zone component absent. 08/23/2020 9:31 AM EDT Velvet Blandon MD LAB PATHOLOGY ORDERABLES Elena l Result Performing Organization Address [facility] Co de Phone Number [facility] [address] [place] [address], * HPV mRNA E6/E7 (08/23/2020 9:31 AM EDT) HPV nRNA E6/E7 Not Detected Not Detected [facility] Comment: Methodology: Electronic Instrument Trades Worker-Mediated Amplification This assay detects E6/E7 viral messenger RNA (mRNA) from 14 high-risk HPV types (16,18,31,33,35,39,45,51,52,56,58,59,66,68). The analytical performance characteristics of this assay have been determined by [employer]. The modifications have not been cleared or approved by the FDA. This assay has been validated pursuant to the CLIA regulations and is used for clinical purposes. For additional information, please refer to http://education.Saffron Technology.Yatango Mobile/faq/YKS842r4 (This link if provided for information/ educational purposes only.) 08/23/2020 9:31 AM EDT us Velvet Blandon MD LAB BLOOD ORDERABLES Final Re sult [facility] [address] from Last 3 Months or Most Recently Relevant to Health Maintenance Insurance TIFFANIE ODONNELL [phone] * Guarantor: [place] Account Type Relation to Patient Date of Phone Billing Address Personal/Family Self [address] Leila Suarez [place] Care Teams Demurrage Worker Relationship Specialty Start Date End Date Name, MD Qamar [address] [place] [address] ALEC Suarez PCP - General Internal Medicine 05/02/22
--- OUTSIDE RECORDS SUMMARY | 2024-12-28 14:42 | XMS_ITS | Encounter Summary ---
Author Organization [facility] Address [address] [employer] [facility] [address] [place] [address] Phone Care Team Providers Care Computer Systems Designer Name Role Phone Vipul Schneider Unavailable [phone] NameQamar MD Primary Care Provider Encounter Details Date Type Department Care Team (Late st Contact Info) Description 10/16/2022 Procedure Pass [facility], Ct Scan - [address] [address] Social History Tobacco Use Types Packs/Day Years [...] Date of Assessment Author No Risk Indicated 10/16/2022 10:37 PM EDT Bonita Syed RN * [place] Suicide Severity Rating Scale (Screener/Recent Self-Report) Question Answer Date of Assessment Author 1. Wish to be (Past 1 Month) No 10/16/2022 10:37 PM EDT Evelyne Boone RN 2. Non-Specific Active Suicidal Thoughts (Past 1 Month) No 10/16/2022 10:37 PM EDT Evelyne Boone RN 6. Suicidal Behavior (Lifetime) No 10/16/2022 10:37 PM EDT Evelyne Boone RN documented as of this encounter Plan of Treatment Not on file documented as of this encounter Visit Diagnoses Not on filedocumented in this encounter Additional Health Concerns Infection Onset Date Last Indicated Resolved Time CoV-Risk Comment:Per note documentation 12/19/2022 12/19/2022 3 3:35 PM EDT CoV-Risk Comment:Per note documentation 02/20/2024 02/20/2024 4 11:37 AM EDT documented as of this encounter Care Teams Computer Systems Designer Relationship Specialty Start Date End Date Name, MD Qamar [address] [place] [address] PCP - General Internal Medicine 10/16/22 Vipul Schneider DO [address] [place] [address] Cardiology 01/17/22 documented as of this encounter Additional Source Comments The information contained in this document represents components of the legal health record. It is not the complete legal health record.[facility]
--- OUTSIDE RECORDS SUMMARY | 2024-12-28 14:42 | XMS_ITS | Encounter Summary ---
Author Organization [facility] Address [address] [address] [place] [address] Phone Care Team Providers Care Testing Consultant Name Role Phone Vipul Schneider DO Unavailable [phone] NameQamar MD Primary Care Provider [phone] Encounter Details Date Type Department Care Team (Late st Contact Info) Description 12/22/2022 Procedure Pass [facility] Imaging - RF/IR [address] [place] [address] Social History Tobacco Use Types Packs/Day Years [...] Date of Assessment Author No Risk Indicated 12/22/2022 12:08 PM EDT Minnie Ortiz, NICOLLE * [place] Suicide Severity Rating Scale (Screener/Recent Self-Report) Question Answer Date of Assessment Author 1. Wish to be (Past 1 Month) No 023 12:08 PM EDT Minnie Ortiz, NICOLLE 2. Non-Specific Active Suici carolina Thoughts (Past 1 Month) No 12/22/2022 12:08 PM EDT Minnie Ortiz RN 6. Suicidal Behavior (Lifetime) No 3 12:08 PM EDT Minnie Ortiz RN documented as of this encounter Plan of Treatment Not on file documented as of this encounter Visit Diagnoses Not on filedocumented in this encounter Additional Health Concerns Infection Onset Date Last Indicated Resolved Time CoV-Risk Comment:Per note documentation 02/20/2024 02/20/2024 4 11:37 AM EDT documented as of this encounter Care Teams Testing Consultant Relationship Specialty Start Date End Date Name, MD Qamar [address] [place] [address] PCP - General Internal Medicine 10/16/22 Vipul Schneider DO [address] [place] [address] Cardiology 01/17/22 documented as of this encounter Additional Source Comments The information contained in this document represents components of the legal health record. It is not the complete legal health record.[facility]
--- OUTSIDE RECORDS SUMMARY | 2024-12-28 14:42 | XMS_ITS | Encounter Summary ---
Author Organization [employer] Address [address] [employer] [address] [place] [address] Care Team Providers Care Space Systems Operations Superintendent Name Role Phone Name, Qamar GUARDADO Primary Care Provider [phone] Reason for Visit * Reason Comments Med Refill Encounter Details Date Type Department Care Team ([facility] st Contact Info) Description 12/27/2024 Refill [facility] MED[facility]INE [address] [place], [place] [phone] Name, MD Qamar [address] [place] [address] Chronic right-sided low back pain, unspecified whether [...] Description 01/19/2025 9:00 AM EDT Clinical Support [facility] [address] [place] [address] Anna Ochoa, NICOLLE 01/31/2025 11:15 AM EDT Office Visit [address] [address] Name, MD Qamar [address] [place] [address] documented as of this encounter Visit Diagnoses Diagnosis Chronic right-sided low back pain, unspecified whether sciatica present documented in this encounter Additional Health Concerns Assessment Noted Time PHQ-9 Depression Total Score: 7 06/07/19 25 1:15 PM EST documented as of this encounter Care Teams Space Systems Operations Superintendent Relationship Specialty Start Date End Date Name, MD Qamar [address] [place] [address] PCP - General Internal Medicine 05/02/22 documented as of this encounter
--- OUTSIDE RECORDS SUMMARY | 2024-12-28 14:42 | XMS_ITS | Encounter Summary ---
Author Organization [employer] Address [address] [place] [address] 7 [place] [address] Care Team Providers Care Electric Motor Repairer Name Role Phone Name, Qamar GUARDADO Primary Care Provider [phone] Reason for Visit * Reason Comments Med Refill Encounter Details Date Type Department Care Team ([facility] Contact Info) Description 07/17/2022 Refill [facility] [address] [place], [place] [phone] Name, MD Qamar [address] [place] [address] Medullary sponge kidney Social History Tobacco Use [...] Upcoming Encounters Date Type Department Care Team ([facility] Contact Info) Description 01/19/2025 9:00 AM EDT Clinical Support [address] [address] Anna Ochoa, NICOLEL 01/31/2025 11:15 AM EDT Office Visit [address] [address] Name, [place] [address] documented as of this encounter Visit Diagnoses Diagnosis Medullary sponge kidney Congenital medullary sponge kidney documented in this encounter Care Teams Electric Motor Repairer Relationship Specialty Start Date End Date Name, MD Qamar [address] [place] [address] PCP - General Internal Medicine 05/02/22 documented as of this encounter
--- OUTSIDE RECORDS SUMMARY | 2024-12-28 14:42 | XMS_ITS | Clinical Summary ---
Author Organization [facility] Address [address] [facility] [facility] [address] [place] [address] Phone Care Team Providers Care Full Stack Java Developer Name Role Phone Vipul Schneider DO Unavailable [phone] NameQamar MD Primary Care Provider Allergies Active Allergy Reactions Criticality Noted Date Comments Morphine Rash High 08/16/2018 Patient has tolerated Dilaudid in past. Takes oxycodone chronically Penicillins Other (See Comments) High 08/16/2018 Hard time breathing Tolerated Ceftriaxone 12/23/2022 Medications oxyCODONE HCl 10 mg Tab Take 10 mg by mouth 3 (three) times a day. Partial fill ok Active oxyCODONE 5 MG immediate release tablet Take 5 mg by mouth nightly at bedtime. Partial fill ok Active Active Problems Problem Noted Date Diagnosed Date Nasal congestion 02/22/2024 Assessment & Plan (02/22/2024 10:46 AM EDT): Likely has viral uri Flonase Cetirazine sudafed Pyelonephritis 02/20/2024 Assessment & Plan (02/22/2024 10:46 AM EDT): Patient presents with severe bilateral CVA tenderness, nausea, delirium, fevers, leukocytosis. No improvement in symptoms today CT A/P No acute CT abnormality in the abdomen or pelvis. Kidneys: Numerous nonobstructing renal stones bilaterally. No hydronephrosis. Similar small cysts. - Follows with Dr. Devries Urology at [facility] for Medullary sponge kidney, Nephrolithiasis - Urology consulted discussed with Dr. Wilson: plan to continue hydration, pain meds if severe pain persists possible intervention 02/21 pending clinical course. - UA: 3+ blood, trace leuk esterase, 2+ protein, 1+ bacteria, 11-20 WBC, 11-20 RBC, +ketones - Rocephin started 02/19 - Encourage PO hydration - Monitor renal function and leukocytosis - Pain and nausea medication PRN - Cr 0.8 prior Cr 0.4-0.7, monitor closely for ASH Urine cultures contaminated, however with downtrending WBCs will continue ceftriaxone with plans to d/c on quinolone Will add toradol for pain control Medullary sponge kidney 02/20/2024 Assessment & Plan (02/20/2024 6:52 PM EDT): Causing chronic pain takes oxycodone 10 mg TID at home with an additional 5 mg nightly for chronic R CVA tenderness. -Urology consulted discussed with Dr. Wilson. -Continue pain medication and hydration. 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 No 07/15/2024 In the past 12 months have y ou been in a relationship with a person who hurts, threatens, or tries to control you? No 07/15/2024 Are you denied basic needs s uch as food, clothing, or medical care? No 07/15/2024 In the past 12 months have y ou been in a relationship with a person who hurts, threatens, or tries to control you? No 07/15/2024 Comments No Sex and Gender Information Value Date Recorded Sex Assigned at Female 05/19/2019 4:01 PM EST Legal Sex Female 9:24 AM EDT Gender Identity Female 05/19/2019 4:01 PM EST Sexual Orientation Straight 10/16/2022 10 :39 PM EDT Last Filed Vital Signs Vital Sign Reading Time Taken Comments Blood Pressure 114/83 07/16/2024 2:00 AM EDT Pulse 86 07/16/2024 1:38 AM EDT Temperature 36.3 C (97.3 F) 07/16/2024 1:38 AM EDT Respiratory Rate 14 07/16/2024 1:38 AM EDT Oxygen Saturation 98% 07/16/2024 2:00 AM EDT Inhaled Oxygen Concentration - - Weight 74.3 kg (163 lb 12.8 oz) 02/23/2024 6:41 AM EDT Height 167.6 cm (5' 6 ) 07/15/2024 7:33 PM EDT Body Mass Index 26.44 02/20/2024 6:19 PM EDT Plan of Treatment Health Maintenance Due Date Last Done Comments DEPRESSION SCREENING 1974 HEPATITIS C SCREENING 1980 HIV ONE-TIME SCREENING (18-65 YEARS) 1980 PAP SMEAR 1983 MAMMOGRAM 2002 COLOGUARD 2007 COLONOSCOPY 2007 COLORECTAL CANCER SCREENING 2007 FIT TEST 2007 FOBT 2007 SIGMOIDOSCOPY 2007 VIRTUAL COLONOSCOPY 2007 ZOSTER VACCINES (1 of 2) 2012 PNEUMOCOCCAL VACCINES (50+ years) (2 of 2 - PCV) 01/26/2016 01/25/2015, 10/07/2014, 05/02/2007 Adult Td,Tdap Booster 01/05/2022 01/06/2012 INFLUENZA VACCINE (#1) 2024 3, 01/02/2022, 01/17/2021, Additional history exists COVID-19 VACCINE (2023- season) 2024 SMOKING Hx and SMOKELESS TOBACCO SCREENING 07/15/2025 07/15/2024 LIPID PANEL 04/01/2026 04/01/2021 SCREENING FOR DIABETES 07/16/2027 5, 02/21/2024, 08/03/2018 RSV VACCINE (1 - 1-dose 75+ series) 2037 HEPATITIS A VACCINES Aged Out No long er eligible based on patient's age to complete this topic HIB VACCINES Aged Out No longer eligi ble based on patient's age to complete this topic MENINGOCOCCAL VACCINES (ACWY) Aged Out No longer eligible based on patient's age to complete this topic MENINGOCOCCAL VACCINES (B) Aged Out N o longer eligible based on patient's age to complete this topic Medical Devices Implanted Type Area Metal Cabinet Finisher Device Identifier Shelf Expiration Date Model / Serial / Lot Stent Urological 8fr 24cm Double Pigtail Taper Tip Threaded Hydroplus Coated Percuflex Radiopaque Y - [id number] Implanted:Qty: 1 on 11/06/2021 by Chel Mayers MD at [facility] Ureteral Stent Left: Ureter [employer] 06/18/2024 [id number] / / [id number] Stent Urological 5sgu10ar Double Pigtail Taper Tip Threaded Hydroplus Coated Percuflex Radiopaque Y - [id number] Implanted:Qty: 1 on 11/06/2021 by Chel Mayers MD at [facility] Ureteral Stent Right: Ureter [employer] 07/10/2024 [id number] / / [id number] Tkr Explanted Type Area Metal Cabinet Finisher Device Identifier Shelf Expiration Date Model / Serial / Lot Kit Stent 22 30cm 4.8fr Urolgcl Dbl Pigtl Thred Guidwr Hydrpl Cotd Percuflex Postnr Radiopq Y Contur - [id number] Implanted:Qty: 1 on 05/06/2019 by Peter Devries MD at [facility] Ureteral Stent Left: Ureter [employer] 12/02/2021 [id number] / / [id number] Description:Explanted in 202 0 per pt Insurance [facility] MEDICARE REPLACEMENT [facility] MEDICARE REPLACEMENT [facility] MEDICARE REPLACEMENT [facility] MEDICARE REPLACEMENT [facility] MEDICARE REPLACEMENT [facility] MEDICARE REPLACEMENT [place] [address] [place] [address] [place] [address] [place] [address] MEDICARE REPLACEMENT [facility] MEDICARE REPLACEMENT Advance Directives For more information, please contact: [phone] (9AM - 5PM [facility], Thursday-Thursday) Documents on File Type Date Recorded Patient Litigation Secretary Expl [employer] Proxy 11/18/2021 4:33 PM * Full Code (Latest Code Status on File) Date Activated Date Inactivated Comments 02/20/2024 5:59 PM Question Answer Comments Code Status Confirmed With: Patient * Full Code Date Activated Date Inactivated Comments 12/20/2022 11:45 PM 02/20/2024 5:59 PM Question Answer Comments Code Status Confirmed With: Patient * Full Code Date Activated Date Inactivated Comments 02/05/2022 2:19 PM 12/20/2022 11:45 PM Question Answer Comments Code Status Confirmed With: Patient * Full Code Date Activated Date Inactivated Comments 11/06/2021 3:23 PM 02/05/2022 2:19 PM Question Answer Comments Code Status Confirmed With: Patient Care Teams Full Stack Java Developer Relationship Specialty Start Date End Date Name, MD Qamar [address] [place] [address] PCP - General Internal Medicine 10/16/22 Vipul Schneider DO [address] [place] [address] Cardiology 01/17/22 Additional Source Comments The information contained in this document represents components of the legal health record. It is not the complete legal health record.[facility]
--- OUTSIDE RECORDS SUMMARY | 2024-12-28 14:42 | XMS_ITS | Encounter Summary ---
Author Organization [facility] Address [address] [facility] [address] [place] [address] Phone Care Team Providers Care Insole Taper Name Role Phone Vipul Schneider Unavailable [phone] NameQamar MD Primary Care Provider [phone] Encounter Details Date Type Department Care Team (Late st Contact Info) Description 07/15/2024 Procedure Pass [facility], Ct Scan - [address] [address] Social History Tobacco Use Types Packs/Day Years [...] Date of Assessment Author No Risk Indicated 07/15/2024 7:32 PM EDT Rayna Duarte, NICOLLE * [place] Suicide Severity Rating Scale (Screener/Recent Self-Report) Question Answer Date of Assessment Author 1. Wish to be (Past 1 Month) No 025 7:32 PM EDT Rayna Stanford, NICOLLE 2. Non-Specific Active Suici carolina Thoughts (Past 1 Month) No 07/15/2024 7:32 PM EDT Rayna Stanford, NICOLLE 6. Suicidal Behavior (Lifetime) No 5 7:32 PM EDT Rayna Stanford, NICOLLE documented as of this encounter Plan of Treatment Not on file documented as of this encounter Visit Diagnoses Not on filedocumented in this encounter Care Teams Insole Taper Relationship Specialty Start Date End Date Name, MD Qamar [address] [place] [address] PCP - General Internal Medicine 10/16/22 Vipul Schneider DO [address] [place] [address] Cardiology 01/17/22 documented as of this encounter Additional Source Comments The information contained in this document represents components of the legal health record. It is not the complete legal health record.[facility]"
--- OUTSIDE RECORDS SUMMARY | 2024-12-28 14:42 | XMS_ITS | Encounter Summary ---
Author Organization [facility] Address [address] [employer] [facility] [address] [place] [address] Phone Care Team Providers Care Education And Development Manager Name Role Phone Vipul Schneider Unavailable [phone] NameQamar MD Primary Care Provider [phone] Encounter Details Date Type Department Care Team (Late st Contact Info) Description 12/19/2022 Procedure Pass [facility], Ct Scan - [address] [address] Social History Tobacco Use Types Packs/Day Years [...] Risk Indicated 12/22/2022 12:08 PM EDT Minnie Ortiz RN * [place] Suicide Severity Rating Scale (Screener/Recent Self-Report) Question Answer Date of Assessment Author 1. Wish to be (Past 1 Month) No 023 12:08 PM EDT Minnie Ortiz RN 2. Non-Specific Active Suici carolina Thoughts [...] documented as of this encounter Care Teams Education And Development Manager Relationship Specialty Start Date End Date Name, MD Qamar [address] [place] [address] PCP - General Internal Medicine 10/16/22 Vipul Schneider DO [address] [place] [address] Cardiology 01/17/22 documented as of this encounter Additional Source Comments The information contained in this document represents components of the legal health record. It is not the complete legal health record.[facility]
--- OUTSIDE RECORDS SUMMARY | 2024-12-28 14:42 | XMS_ITS | Encounter Summary ---
Author Organization [facility] Address [address] [employer] [facility] [address] [place] [address] Phone Care Team Providers Care Sales Representative Public Utilities Name Role Phone Aroldo Vergara MD Primary Care Provider + Velvet Blandon MD Primary Care Provider [phone] Yudelka Jain NP Primary Care Provider U Vipul Brown DO Unavailable [phone] Qamar Solitario MD Primary Care Provider [phone] Encounter Details Date Type Department Care Team (Late st Contact Info) Description 07/07/2019 Procedure Pass [facility] PERIOPERATIVE DEPT [address] [place] [phone] Social History Tobacco Use Types Packs/Day [...] documented as of this encounter Care Teams Sales Representative Public Utilities Relationship Specialty Start Date End Date Aroldo Vergara MD [address] [address] PCP - General Internal Medicine 08/05/18 09/02/20 Velvet Blandon MD [address] [place] [address] PCP - General Family Medicine 09/03/20 10/31/21 Yudelka Jain NP PCP - General Family Medicine 11/01/21 10/15/22 Qamar Solitario MD [address] [place] [address] PCP - General Internal Medicine 10/16/22 Vipul Schneider DO [address] [place] [address] Cardiology 01/17/22 documented as of this encounter Additional Source Comments The information contained in this document represents components of the legal health record. It is not the complete legal health record.[facility]
--- OUTSIDE RECORDS SUMMARY | 2024-12-28 14:42 | XMS_ITS | Encounter Summary ---
Author Organization [employer] Address [address] [place] [address] 7 [place] [address] Care Team Providers Care Orthodontist Vice President Name Role Phone Name, Qamar GUARDADO Primary Care Provider [phone] Reason for Visit * Reason Onset Date Comments Med Refill 12/27/2024 Encounter Details Date Type Department Care Team ([facility] st Contact Info) Description 12/27/2024 Refill [facility] MEDICINE [address] [place], [place] [phone] Name, MD Qamar [address] [place] [address] Chronic right-sided low back pain, unspecified whether [...] Telephone Encounter - Anna Ochoa RN - 12/27/2024 10:19 AM EDT Per Bertha, pt last picked up Oxycodone on 12/05/24 for a 28 day supply. Refill due 01/02/25. * Telephone Encounter - Alma Salmeron - 12/27/2024 9:14 AM EDT TC from pt requesting medication refill. Medications needing refill : - oxyCODONE (Roxicodone) 10 MG immediate release tablet To be sent to: - [facility] - [place], [place] - [address] [place] [address] Pt is leaving out of town on Thursday documented in this encounter Plan of Treatment Upcoming Encounters Date Type Department Care Team ([facility] st Contact Info) Description 01/19/2025 9:00 AM EDT Clinical Support [address] [address] Anna Ochoa RN 01/31/2025 11:15 AM EDT Office Visit [facility]INE [address] [place] [address] Name, MD Qamar [address] [place] [address] documented as of this encounter Visit Diagnoses Diagnosis Chronic right-sided low back pain, unspecified whether sciatica present documented in this encounter Additional Health Concerns Assessment Noted Time PHQ-9 Depression Total Score: 7 06/07/19 25 1:15 PM EST documented as of this encounter Care Teams Orthodontist Vice President Relationship Specialty Start Date End Date Name, MD Qamar [address] [place] [address] PCP - General Internal Medicine 05/02/22 documented as of this encounter
--- OUTSIDE RECORDS SUMMARY | 2024-12-28 14:43 | XMS_ITS | Encounter Summary ---
Author Organization [facility] Address [address] [employer] [facility] [address] [place] [address] Phone Care Team Providers Care Metal Casket Assembler Name Role Phone Yudelka Jain NP Primary Care Provider U Vipul Brown DO Unavailable [phone] Name, Qamar GUARDADO Primary Care Provider [phone] Encounter Details Date Type Department Care Team (Late st Contact Info) Description 02/05/2022 Procedure Pass [facility] PERIOPERATIVE DEPT [address] [place] [phone] Social History Tobacco Use Types Packs/Day Years [...] Date of Assessment Author No Risk Indicated 02/05/2022 5:00 PM EDT Radha Fink RN * [place] Suicide Severity Rating Scale (Screener/Recent Self-Report) Question Answer Date of Assessment Author 1. Wish to be (Past 1 Month) No 022 5:00 PM EDT Radha Lin, NICOLLE 2. Non-Specific Active Suici carolina Thoughts (Past 1 Month) No 02/05/2022 5:00 PM EDT Ginger Lin RN 6. Suicidal Behavior (Lifetime) No 5:00 PM EDT Radha Lin RN documented as of this encounter Plan of Treatment Not on file documented as of this encounter Visit Diagnoses Not on filedocumented in this encounter Additional Health Concerns Infection Onset Date Last Indicated Resolved Time CoV-Risk Comment:Per note documentation 12/19/2022 12/19/2022 3 3:35 PM EDT CoV-Risk Comment:Per note documentation 02/20/2024 02/20/2024 4 11:37 AM EDT documented as of this encounter Care Teams Metal Casket Assembler Relationship Specialty Start Date End Date Yudelka Jain NP PCP - General Family Medicine 11/01/21 10/15/22 Name, MD Qamar [address] [place] [address] PCP - General Internal Medicine 10/16/22 Vipul Schneider DO [address] [place] [address] Cardiology 01/17/22 documented as of this encounter Additional Source Comments The information contained in this document represents components of the legal health record. It is not the complete legal health record.[facility]
--- OUTSIDE RECORDS SUMMARY | 2024-12-28 14:43 | XMS_ITS | Encounter Summary ---
Author Organization [employer] Address [address] [facility] 7t [place] [address] Care Team Providers Care Project Buyer Name Role Phone Name, Qamar GUARDADO Primary Care Provider [phone] Reason for Visit * Reason Comments Med Refill Encounter Details Date Type Department Care Team ([facility] st Contact Info) Description 10/10/2024 Refill [facility] MEDICINE [address] [place], [place] [phone] Name, MD Qamar 230 [place] [address] Chronic right-sided low back pain, unspecified whether [...] Description 01/19/2025 9:00 AM EDT Clinical Support [facility] MEDICINE [address] [place] [address] Anna Ochoa, NICOLLE 01/31/2025 11:15 AM EDT Office Visit [address] [address] Name, MD Qamar [address] [place] [address] documented as of this encounter Visit Diagnoses Diagnosis Chronic right-sided low back pain, unspecified whether sciatica present documented in this encounter Additional Health Concerns Assessment Noted Time PHQ-9 Depression Total Score: 7 06/07/19 25 1:15 PM EST documented as of this encounter Care Teams Project Buyer Relationship Specialty Start Date End Date Name, MD Qamar [address] [place] [address] PCP - General Internal Medicine 05/02/22 documented as of this encounter
--- OUTSIDE RECORDS SUMMARY | 2024-12-28 14:43 | XMS_ITS | Encounter Summary ---
Author Organization [employer] Address [address] [place] [address] 7 [place] [address] Care Team Providers Care Theater Usher Name Role Phone Name, Qamar GUARDADO Primary Care Provider [phone] Reason for Visit * Reason Onset Date Comments Reschedule 05/12/2023 Encounter Details Date Type Department Care Team ([facility] Contact Info) Description 05/12/2023 Telephone [facility] MEDICINE [address] [place], [place] [phone] Name, MD Qamar [address] [place] [address] Reschedule Social History Tobacco Use Types Packs/Day [...] Description 01/19/2025 9:00 AM EDT Clinical Support [facility] MEDICINE [address] [place] [address] Anna Ochoa RN 01/31/2025 11:15 AM EDT Office Visit [facility] MEDICINE [address] [place] [address] Name, MD Qamar [address] [place] [address] documented as of this encounter Visit Diagnoses Not on filedocumented in this encounter Care Teams Theater Usher Relationship Specialty Start Date End Date NameQamar MD [address] [place] [address] PCP - General Internal Medicine 05/02/22 documented as of this encounter
--- OUTSIDE RECORDS SUMMARY | 2024-12-28 14:43 | XMS_ITS | Encounter Summary ---
Author Organization [employer] Address [address] [facility] 7 [place] [address] Care Team Providers Care Heavy Antiarmor Weapons Infantryman Name Role Phone Name, Qamar GUARDADO Primary Care Provider [phone] Reason for Visit * Reason Onset Date Comments Call Back Request 07/04/2024 Encounter Details Date Type Department Care Team ([facility] Contact Info) Description 07/04/2024 Telephone [facility] MEDICINE 230 [place], [place] [phone] Name, MD Qamar 230 [place] [address] Call Back Request Social History Tobacco Use Types Packs/Day Years [...] encounter Miscellaneous Notes * Telephone Encounter - Anne Moody - 07/04/2024 11:34 AM EDT Tc from pt requesting a callback from provider as pt needs to discuss some information. Please return call to [phone] documented in this encounter Plan of Treatment Upcoming Encounters Date Type Department Care Team (Late st Contact Info) Description 01/19/2025 9:00 AM EDT Clinical Support [facility] MEDICINE [address] [place] [address] Anna Ochoa RN 01/31/2025 11:15 AM EDT Office Visit [facility] MEDICINE [address] [place] [phone] Name, MD Qamar [address] [place] [address] documented as of this encounter Visit Diagnoses Not on filedocumented in this encounter Additional Health Concerns Assessment Noted Time PHQ-9 Depression Total Score: 7 06/07/19 25 1:15 PM EST documented as of this encounter Care Teams Heavy Antiarmor Weapons Infantryman Relationship Specialty Start Date End Date Qamar Solitario MD [address] [place] [phone] PCP - General Internal Medicine 05/02/22 documented as of this encounter
--- OUTSIDE RECORDS SUMMARY | 2024-12-28 14:43 | XMS_ITS | Encounter Summary ---
Author Organization [employer] Address [address] [facility] 7t [place] [address] Care Team Providers Care Metal Engineering Process Worker Name Role Phone Name, Qamar GUARDADO Primary Care Provider [phone] Encounter Details Date Type Department Care Team ([facility] st Contact Info) Description 02/04/2023 Abstract [facility] MEDICINE 230 [place], [place] [phone] Name, MD Qamar 230 [place], [place] [phone] Social History Tobacco Use Types Packs/Day Years [...] the past 12 months, has t he [employer], oil or water company threatened to shut [...] Description 01/19/2025 9:00 AM EDT Clinical Support [facility] MEDICINE [address] [place] [address] Anna Ochoa RN 01/31/2025 11:15 AM EDT Office Visit [facility] MEDICINE [address] [place] [address] Name, MD Qamar [address] [place] [address] documented as of this encounter Visit Diagnoses Not on filedocumented in this encounter Care Teams Metal Engineering Process Worker Relationship Specialty Start Date End Date Name, MD Qamar [address] [place] [address] PCP - General Internal Medicine 05/02/22 documented as of this encounter
--- OUTSIDE RECORDS SUMMARY | 2024-12-28 14:43 | XMS_ITS | Encounter Summary ---
Author Organization [employer] Address [address] [facility] 7t [place] [address] Care Team Providers Care Inclusion Specialist Name Role Phone Name, Qamar GUARDADO Primary Care Provider [phone] Reason for Visit * Reason Comments Med Refill Encounter Details Date Type Department Care Team ([facility] st Contact Info) Description 06/27/2024 Refill [facility] MEDICINE 230 [place], [place] [phone] Name, MD Qamar 230 [place] [address] Chronic right-sided low back pain, unspecified whether [...] Description 01/19/2025 9:00 AM EDT Clinical Support [address] [address] nAna Ochoa RN 01/31/2025 11:15 AM EDT Office Visit [address] [address] Name, MD Qamar [address] [place] [address] documented as of this encounter Visit Diagnoses Diagnosis Chronic right-sided low back pain, unspecified whether sciatica present documented in this encounter Additional Health Concerns Assessment Noted Time PHQ-9 Depression Total Score: 7 06/07/19 25 1:15 PM EST documented as of this encounter Care Teams Inclusion Specialist Relationship Specialty Start Date End Date Name, MD Qamar [address] [place] [address] PCP - General Internal Medicine 05/02/22 documented as of this encounter
--- OUTSIDE RECORDS SUMMARY | 2024-12-28 14:43 | XMS_ITS | Encounter Summary ---
Author Organization [employer] [facility] Address [address] [place] [address] 7 [place] [address] Care Team Providers Care Technical Professional Name Role Phone Name, Qamar GUARDADO Primary Care Provider [phone] Reason for Visit * Reason Comments Med Refill Encounter Details Date Type Department Care Team ([facility] Contact Info) Description 01/23/[address] [phone] Name, MD Qamar [address] [place] [address] Medullary sponge kidney Social History Tobacco Use [...] Department Care Team (Late Contact Info) Description 01/19/2025 9:00 AM EDT Clinical Support [address] [address] Anna Ochoa RN 01/31/2025 11:15 AM EDT Office Visit [facility] [address] [place] [address] [place] [address] Name, MD Qamar 230 [place] [address] documented as of this encounter Visit Diagnoses Diagnosis Medullary sponge kidney Congenital medullary sponge kidney documented in this encounter Care Teams Technical Professional Relationship Specialty Start Date End Date Name, MD Qamar 230 [place] [address] PCP - General Internal Medicine 05/02/22 documented as of this encounter
== END 2024-12-28 12:03 | disposition home or self-care (01) ==
LOC: HO.HHCL 12:02
PROVIDERS: PCP Internal Medicine Geriatric Medicine; Visit Provider Registered Nurse
DX: R39.9 Unspecified symptoms and signs involving the genitourinary system (principal)
CPT/HCPCS: 36415; 85025; 87086

== ENCOUNTER 2025-01-31 11:44 | Outpatient (REF) | payer OTHER, SELFPAY ==
--- OUTSIDE RECORDS SUMMARY | 2025-01-26 09:00 | XMS_ITS | Encounter Summary ---
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 year old female who presents for DIAMOND SIZER RV Preferred language for medical information: Latvian Arpita Park does report adherence to Oxycodone 10 mg, take 1 tablet every 6 hours PRN, last refilled 12/30/2024. States she takes 3-4 doses a day. The patient last took Oxycodone on: 01/26/2025 Medication is: 50% % effective at alleviating pain. Pt shared her adult son in [place] is having significant health issues and she has been in [place] tryingto 'make memories' and plans on returning again. She also shared her father in [place] is having significant health issues and she plans on heading there next. OBJECTIVE: MACHINE GUNNER checked: 01/26/2025 Pill count completed for Oxycodone , count today is 47 , anticipated count should be 3, this is as expected. Pt stated she didn't take any Oxycodone for 2 days because she wanted her body to have a break. Stated she started to have stomach upset and resumed her oxycodone at that time. Vital Signs Pain Score: 9 Pain Loc: Abdomen Pain Education: Yes Additional pain site: left side of back Last PCP visit: 11/03/2024 Controlled substance agreement signed: Controlled Substance Agreement 03/22/2024 DIAMOND SIZER Tier: 1 Current Medications[1] Smoking status: Yes, 3-4 cigarettes daily ETOH use: Denies Illicit substances: Denies Marijuana use: Yes, smokes 3X a day , Marijuana card: No , Marijuana Acquired from: Dispensary Lab Results Component Value Date POCTHC Positive 01/26/2025 POCCOCAINEUR Negative 01/26/2025 POCOPIATEUR Negative 01/26/2025 DOAUR Negative 01/26/2025 POCAMPHETAMI Negative 01/26/2025 POCBENZODIUR Negative 01/26/2025 POCBARBSCRN Negative 01/26/2025 POCMETHADOUR Negative 01/26/2025 POCBUPSCRN Negative 01/26/2025 POCTCAUR Negative 01/26/2025 POCMDMAUR Negative 01/26/2025 POCOXYCODONE Positive 01/26/2025 POCPHENCYCUR Negative 01/26/2025 PROPOXUR Negative 01/26/2025 FENTANYLURIN Negative 01/26/2025 ASSESSMENT: Encounter Diagnosis Name 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 Also educated on withdrawal symptoms with abrupt stopping of her oxycodone. Advised to speak with her PCP if she ever wishes to to cut back on her oxycodone so she can avoid/minimize withdrawal symptoms Arpita Park will continue taking medication as prescribed and follow up at the next [facility] visit or sooner if needed. Arpita Park has verbalized understanding of care plan. Future Appointments Date Time Provider Department Center 01/26/2025 9:00 AM Anna Ochoa RN MEDICINE [facility] 01/31/2025 11:15 AM Qamar Solitario MD MEDICINE [facility] 02/21/2025 9:45 AM [facility] CHRONIC PAIN [facility] MEDICINE [facility] 03/02/2025 9:00 AM Anna Ochoa RN MEDICINE [facility] Anna Ochoa RN [1] Current Outpatient Medications: oxyCODONE (Roxicodone) 10 MG immediate release tablet, Take 1 tablet (10 mg) by mouth every 6 (six)hours if needed for severe pain for up to 28 days. Do not start before December 30, 2024., Disp: 112 tablet, Rfl: 0 acetaminophen (Tylenol) 325 MG tablet, Take 2 tablets (650 mg total) by mouth every 6 (six) hours as needed for mild pain or 1-3 (on a general 0-10 scale)., Disp: , Rfl: amLODIPine (Norvasc) 5 MG tablet, Take 1 tablet (5 mg) by mouth Once per day., Disp: 30 tablet, Rfl: 11 Blood Pressure kit, Use once a day, Disp: 1 kit, Rfl: 0 capsaicin (Capzasin-HP) 0.1 % cream, Apply thin layer by topical route up to 4 times daily for pain., Disp: 45 g, Rfl: 3 cetirizine (ZyrTEC) 10 MG tablet, Take 1 tablet by mouth Once per day., Disp: , Rfl: Diclofenac Sodium 1 % gel, APPLY 2 grams TO affected KNEE, Disp: 100 g, Rfl: 1 Diclofenac Sodium 1 % gel, APPLY A THIN LAYER TO AFFECTED AREA(S) THREE TIMES DAILY NEEDED FOR PAIN, Disp: 100 g, Rfl: 1 hydrOXYzine HCl (Atarax) 25 MG tablet, take 1 tablet by oral route every 8 hours as needed for anxiety, Disp: , Rfl: lidocaine (Xylocaine) 5 % ointment, Apply topically if needed in the morning, at noon, and at bedtime (pain)., Disp: 30 g, Rfl: 3 losartan (Cozaar) 25 MG tablet, Take 1 tablet (25 mg) by mouth Once per day., Disp: 90 tablet, Rfl:3 orphenadrine (Norflex) 100 MG 12 hr tablet, TAKE 1 TABLET BY MOUTH TWICE DAILY NEEDED FOR MUSCLESPASMS OR PAIN, Disp: , Rfl: tamsulosin (Flomax) 0.4 MG 24 hr capsule, TAKE 1 CAPSULE BY MOUTH EVERY DAY FOR 3 DOSES, Disp: , Rfl: documented in this encounter Plan of Treatment Upcoming Encounters Date Type Department Care Team (Late st Contact Info) Description 02/08/2025 11:00 AM EDT Clinical Support [facility] MEDICINE [address] [place] [address] 02/21/2025 9:45 AM EDT Office Visit [address] [address] 03/02/2025 8:30 AM EST Clinical Support [facility] MEDICINE [address] [place] [address] Anna Ochao, RN documented as of this encounter Procedures Procedure Name Priority Date/Time Associated Diagnosis Comments POCT SANYA-14 URINE DRUG SCREEN Routine 01/26/2025 8:56 AM EDT 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 01/31/26 Internal Pass Control Qamar Solitario MD POINT OF CARE TEST ENTER/EDIT OR DERABLES Final Result documented in this encounter Visit Diagnoses Diagnosis residential current use of opiate analgesic- Primary documented in this encounter Additional Health Concerns Assessment Noted Time PHQ-9 Depression Total Score: 7 06/07/19 25 1:15 PM EST documented as of this encounter Care Teams Ward Nurse Relationship Specialty Start Date End Date Name, MD Qamar 230 [place] [address] PCP - General Internal Medicine 05/02/22 documented as of this encounter
--- OUTSIDE RECORDS SUMMARY | 2025-01-31 11:15 | XMS_ITS | Encounter Summary ---
Author Organization [employer] Address [address] [place] [address] 7 [place] [address] Care Team Providers Care Multi Media Specialist Name Role Phone Name, Qamar GUARDADO Primary Care Provider [phone] Reason for Visit * Reason Comments Follow-up Encounter Details Date Type Department Care Team ([facility] [address] Contact Info) Description 01/31/2025 11:15 AM EDT Office Visit [facility] MEDICINE [address] [place], [place] [phone] Name, MD Qamar [address] [place], [place] [phone] Essential hypertension (Primary Dx); Sore throat; Dysuria Social History Tobacco Use Types Packs/Day Years [...] Sign Reading Time Taken Comments Blood Pressure 166/95 01/31/2025 12:29 PM EDT Pulse 74 01/31/2025 11:05 AM EDT Temperature 36.5 C (97.7 F) 01/31/2025 11:05 AM EDT Respiratory Rate 14 01/31/2025 11:05 AM EDT Oxygen Saturation 95% 01/31/2025 11:05 AM EDT Inhaled Oxygen Concentration - - Weight 76.7 kg (169 lb 3.2 oz) 01/31/2025 11:05 AM EDT Height 165.1 cm (5' 5 ) 01/31/2025 11:05 AM EDT Body Mass Index 28.16 01/31/2025 11:05 AM EDT documented in this encounter Progress Notes * Qamar Solitario MD - 01/31/2025 11:15 AM EDT Subjective Patient ID: Arpita Park is a 64 y.o. female who presents for Follow-up. Patient comes for a follow-up visit and she has several complaints. She complains of sore throat since the weekend. No fevers or chills, no headaches, ,no cough or shortness of breath. She had her flu vaccine last Thursday. She also complains of 2 to 3 days of dysuria, urinary frequency, suprapubic discomfort. She has a personal history of recurrent UTIs. She explains to me that she has not been using her BP medications. Her BP was quite high today and she was asymptomatic. Review of Systems Constitutional: Negative for chills and fever. HENT: Positive for sore throat. Negative for sinus pressure. Respiratory: Negative for cough, shortness of breath and wheezing. Cardiovascular: Negative for chest pain, palpitations and leg swelling. Gastrointestinal: Negative for abdominal pain. Genitourinary: Positive for dysuria and frequency. Objective Vitals: 01/31/25 1105 01/31/25 1106 BP: (!) 201/94 (!) 200/102 BP Location: Left arm Right arm Patient Position: Sitting Sitting BP Cuff Size: Adult Adult Pulse: 74 Resp: 14 Temp: 97.7 ??F (36.5 ??C) TempSrc: Temporal SpO2: 95% Weight: 169 lb 3.2 oz (76.7 kg) Height: 5' 5 (1.651 m) Physical Exam Constitutional: Appearance: Normal appearance. Cardiovascular: Rate and Rhythm: Normal rate and regular rhythm. Heart sounds: No murmur heard. No gallop. Pulmonary: Effort: Pulmonary effort is normal. No respiratory distress. Breath sounds: Normal breath sounds. No wheezing. Musculoskeletal: Right lower leg: No edema. Left lower leg: No edema. Neurological: Mental Status: She is alert. Assessment/Plan Diagnoses and all orders for this visit: Essential hypertension Comments: I restarted the patient's losartan and amlodipine. I encouraged the patient to use both medicationsdaily. Check blood pressure at home. Follow-up in person for blood pressure recheck next week. Orders: - amLODIPine (Norvasc) 5 MG tablet; Take 1 tablet (5 mg) by mouth Once per day. - losartan (Cozaar) 25 MG tablet; Take 1 tablet (25 mg) by mouth Once per day. Sore throat Comments: Patient rapid COVID and flu testing are negative. Physical exam is unremarkable. She is reassured. Recommended to drink plenty of fluids and warm water and salt gargles. Orders: - POCT Rapid Covid-19 BinaxNOW - POCT Rapid Influenza B OSOM - POCT Rapid Influenza A OSOM Dysuria Comments: I will start treatment empirically for possible UTI given history of recurrent UTI. She will check urine at the lab today prior to starting the antibiotic. Orders: - Urinalysis, Complete, with Reflex to Culture; Future - levoFLOXacin (Levaquin) 500 MG tablet; Take 1 tablet (500 mg) by mouth Once per day for 5 days. Future Appointments Date Time Provider Department Center 02/21/2025 9:45 AM [facility]RON[facility] MEDICINE [facility] 03/02/2025 8:30 AM Anna Ochoa RN [facility] documented in this encounter Plan of Treatment Upcoming Encounters Date Type Department Care Team (Late st Contact Info) Description 02/08/2025 11:00 AM EDT Clinical Support [address] [address] 02/21/2025 9:45 AM EDT Office Visit [address] [address] 03/02/2025 8:30 AM EST Clinical Support [address] [address] Anna Ochoa RN documented as of this encounter Procedures Procedure Name Priority Date/Time Associated Diagnosis Comments URINALYSIS, COMPLETE, WITH REFLEX TO CULTURE Routine 01/31/2025 11:49 AM EDT Dysuria POCT RAPID COVID ANTIGEN Routine 01/31/2025 11:35 AM EDT Sore throat POCT INFLUENZA B Routine 01/31/2025 11:3 5 AM EDT Sore throat POCT INFLUENZA A Routine 01/31/2025 11:3 5 AM EDT Sore throat documented in this encounter Results * (ABNORMAL) Urinalysis, Complete, with Reflex to Culture (01/31/2025 11:49 AM EDT) Color Urine Yellow [facility] Appearance Urine Clear [facility] PH 6.5 5.0 - 9.0 [facility] Glucose Urine UA Negative Negative mg/dL [facility] Urine Blood Small (1+)(A) Negative [facility] Specific [place] - Urine 1.020 1.005 - 1.025 [facility] Urine Protein 30 (1+)(A) Neg-Trace mg/dL [facility] Urine Ketones Negative Negative mg/dL [facility] Nitrite Urine Negative Negative [facility] Leukocyte Esterase Urine Small (1+)(A) Negative [facility] RBC Urine >20(A) 0 - 2 /HPF [facility] Urine WBC 6-10(A) 0 - 5 /HPF [facility] Urine Squamous Epithelial Cell 3-5 0 - 2 /HPF [facility] Urine Bacteria None Seen None Seen [facility] Hyaline Casts, Urine 0-2 0 - 2 /LPF [facility] Urine 01/31/2025 11:4 9 AM EDT 01/31/2025 1:11 PM EDT Narrative [facility] - 01/31/2025 1:28 PM EDT Urine, Clean Catch us Qamar Solitario MD LAB URINE ORDERABLES Final Resul t [facility] [address] [place] [phone] * POCT Rapid Influenza A OSOM (01/31/2025 11:35 AM EDT) Pathologist [facility] Rapid Influenza A Ag Negative Negative, Indeterminate QC Media Lot # [id number] Lot# Expiration Date Swab Nasopharyngeal structure / Unknown 01/31/2025 11:35 AM EDT us Qamar Solitario MD POINT OF CARE TEST ENTER/EDIT OR DERABLES Final Result * POCT Rapid Influenza B OSOM (01/31/2025 11:35 AM EDT) Pathologist [facility] Rapid Influenza B Ag Negative Negative, Indeterminate QC Media Lot # [id number] Lot# Expiration Date 13,127 Swab 01/31/2025 11:3 5 AM EDT us Qamar Solitario MD POINT OF CARE TEST ENTER/EDIT OR DERABLES Final Result * POCT Rapid Covid-19 BinaxNOW (01/31/2025 11:35 AM EDT) Rapid COVID Ag Negative QC Media Lot # [id number] Lot# Expiration Date [id number] Swab 01/31/2025 11:3 5 AM EDT us Qamar Soiltario MD POINT OF CARE TEST ENTER/EDIT OR DERABLES Final Result documented in this encounter Visit Diagnoses Diagnosis Essential hypertension- Primary Unspecified essential hypertension Sore throat Acute pharyngitis Dysuria documented in this encounter Additional Health Concerns Assessment Noted Time PHQ-9 Depression Total Score: 7 06/07/19 25 1:15 PM EST documented as of this encounter Care Teams Multi Media Specialist Relationship Specialty Start Date End Date Name, MD Qamar [address] [place] [address] PCP - General Internal Medicine 05/02/22 documented as of this encounter
[2025-01-31 13:20] LABS: Appearance Urine Clear; Glucose Urine UA Negative (Negative); PH 6.5 (5.0-9.0); Specific Gravity - Urine 1.020 (1.005-1.025); UMIC TRIGGER UACC YES
[2025-01-31 13:26] LABS: UACC Culture Trigger YES
--- OUTSIDE RECORDS SUMMARY | 2025-01-31 14:52 | XMS_ITS | Encounter Summary ---
Author Organization [employer] Address [address] [place] [address] 7 [place] [address] Care Team Providers Care Store Stock Associate Name Role Phone Name, Qamar GUARDADO Primary Care Provider [phone] Reason for Visit * Reason Onset Date Comments chart prep 01/30/2025 Encounter Details Date Type Department Care Team ([facility] Contact Info) Description 01/30/2025 Telephone [facility] MEDICINE [address], [place] [id number] Name, MD Qamar [address] [place], [place] [phone] chart prep Social History Tobacco Use Types Packs/Day Years [...] Telephone Encounter - Rin Dorsey MA - 01/30/2025 1:31 PM EDT Chart Prep Labs: not applicable Images: not applicable Referrals: not applicable Vaccines due: Covid, PCV20, and Zoster Screenings: not applicable Overdue care gaps: Not applicable documented in this encounter Plan of Treatment Upcoming Encounters Date Type Department Care Team (Late st Contact Info) Description 02/08/2025 11:00 AM EDT Clinical Support [address] [address] 02/21/2025 9:45 AM EDT Office Visit [address] [address] 03/02/2025 8:30 AM EST Clinical Support [address] [address] Anna Ochoa RN documented as of this encounter Visit Diagnoses Not on filedocumented in this encounter Additional Health Concerns Assessment Noted Time PHQ-9 Depression Total Score: 7 06/07/19 25 1:15 PM EST documented as of this encounter Care Teams Store Stock Associate Relationship Specialty Start Date End Date Name, MD Qamar [address] [place] [address] PCP - General Internal Medicine 05/02/22 documented as of this encounter
--- OUTSIDE RECORDS SUMMARY | 2025-01-31 14:52 | XMS_ITS | Encounter Summary ---
Author Organization [facility] Address [address] [employer] [facility] [address] [place] [address] Phone Care Team Providers Care Physical Chemistry Teacher Name Role Phone Yudelka Jain NP Primary Care Provider U ashleyallen JennieVipul churchill DO Unavailable [phone] Name, Qamar GUARDADO Primary Care Provider [phone] Encounter Details Date Type Department Care Team (Late st Contact Info) Description 04/28/2022 Procedure Pass [facility], Ct Scan - [facility] [address] [place] [address] Social History Tobacco Use Types Packs/Day Years [...] 04/28/2022 12:51 PM Alysia Garcia RN * [place] Suicide Severity Rating Scale (Screener/Recent Self-Report) Question [...] documented as of this encounter Care Teams Physical Chemistry Teacher Relationship Specialty Start Date End Date Yudelka Jain NP PCP - General Family Medicine 11/01/21 10/15/22 Altaf, MD Qamar [address] [place] [address] PCP - General Internal Medicine 10/16/22 Vipul Schneider DO [address] [place] [address] Cardiology 01/17/22 documented as of this encounter Additional Source Comments The information contained in this document represents components of the legal health record. It is not the complete legal health record.[facility]
--- OUTSIDE RECORDS SUMMARY | 2025-01-31 14:52 | XMS_ITS | Encounter Summary ---
Author Organization [facility] Address [address] [employer] [facility] [address] [place] [address] Phone Care Team Providers Care Procurement Cost Coordinator Name Role Phone Vipul Schneider Unavailable [phone] NameQamar MD Primary Care Provider [phone] Encounter Details Date Type Department Care Team (Late st Contact Info) Description 04/07/2023 Procedure Pass [facility], Ct Scan - [address] [address] Social History Tobacco Use Types Packs/Day Years [...] 04/07/2023 3:52 PM Maddy Smith RN * [place] Suicide Severity Rating Scale (Screener/Recent Self-Report) Question [...] documented as of this encounter Care Teams Procurement Cost Coordinator Relationship Specialty Start Date End Date Name, MD Qamar [address] [place] [address] PCP - General Internal Medicine 10/16/22 Vipul Schneider DO [address] [place] [address] Cardiology 01/17/22 documented as of this encounter Additional Source Comments The information contained in this document represents components of the legal health record. It is not the complete legal health record.[facility]
--- OUTSIDE RECORDS SUMMARY | 2025-01-31 14:52 | XMS_ITS | Encounter Summary ---
Author Organization [employer] Address [address] [place] [address] 7 [place] [address] Care Team Providers Care Smutter Name Role Phone Name, Qamar GUARDADO Primary Care Provider [phone] Reason for Visit * Reason Onset Date Comments Medication Question 11/07/2024 Med Refill 11/07/2024 Encounter Details Date Type Department Care Team ([facility] st Contact Info) Description 11/07/2024 Refill [facility] MEDICINE [address] [place], [place] [phone] Name, MD Qamar [address] [place] [address] Chronic right-sided low back pain, unspecified whether [...] 11/15/24. TC to patient, pt scheduled for CONTRACT NEGOTIATION SPECIALIST RV 11/22/24 @ 11:30am. * Telephone Encounter - Qamar Jauregui - 11/07/2024 10:02 AM EDT Tc from pt reporting that she was supposed to receive her Oxycodone today but pharmacy didn't have it. Pt would like a call back in regards to her medication. Contact pt at [phone] documented in this encounter Plan of Treatment Upcoming Encounters Date Type Department Care Team (Late st Contact Info) Description 02/08/2025 11:00 AM EDT Clinical Support [facility] [address] [place] [address] 02/21/2025 9:45 AM EDT Office Visit [facility] [address] [place] [address] 03/02/2025 8:30 AM EST Clinical Support [facility] [address] [place] [address] Anna Ochoa RN documented as of this encounter Visit Diagnoses Diagnosis Chronic right-sided low back pain, unspecified whether sciatica present documented in this encounter Additional Health Concerns Assessment Noted Time PHQ-9 Depression Total Score: 7 06/07/19 25 1:15 PM EST documented as of this encounter Care Teams Smutter Relationship Specialty Start Date End Date Name, MD Qamar [address] [facility] [place] [address] PCP - General Internal Medicine 05/02/22 documented as of this encounter
--- OUTSIDE RECORDS SUMMARY | 2025-01-31 14:52 | XMS_ITS | Encounter Summary ---
Author Organization [employer] Address [address] [facility] [address] [place] [address] Care Team Providers Care Supervisor Dehydrogenation Name Role Phone Name, Qamar GUARDADO Primary Care Provider [phone] Encounter Details Date Type Department Care Team (Latest Contact Info) Description 01/26/2025 Travel Social History Tobacco Use Types Packs/Day [...] Description 02/08/2025 11:00 AM EDT Clinical Support [address] [address] 02/21/2025 9:45 AM EDT Office Visit [address] [address] 03/02/2025 8:30 AM EST Clinical Support [address] [address] Anna Ochoa RN documented as of this encounter Visit Diagnoses Not on filedocumented in this encounter Additional Health Concerns Assessment Noted Time PHQ-9 Depression Total Score: 7 06/07/19 25 1:15 PM EST documented as of this encounter Care Teams Supervisor Dehydrogenation Relationship Specialty Start Date End Date Name, MD Qamar [address] [place] [address] PCP - General Internal Medicine 05/02/22 documented as of this encounter
--- OUTSIDE RECORDS SUMMARY | 2025-01-31 14:52 | XMS_ITS | Encounter Summary ---
Author Organization [facility] Address [address] [employer] [facility] [address] [place] [address] Phone Care Team Providers Care Glycerine Plant Operator Name Role Phone Vipul Schneider Unavailable NameQamar MD Primary Care Provider [phone] Encounter Details Date Type Department Care Team (Late st Contact Info) Description 12/19/2022 Procedure Pass [facility], Ct Scan - [address] [address] Social History Tobacco Use Types Packs/Day Years [...] 12:08 PM EDT Minnie Ortiz RN * [place] Suicide Severity Rating Scale (Screener/Recent Self-Report) Question [...] documented as of this encounter Care Teams Glycerine Plant Operator Relationship Specialty Start Date End Date Name, MD Qamar [address] [place] [address] PCP - General Internal Medicine 10/16/22 Vipul Schneider DO [address] [place] [address] Cardiology 01/17/22 documented as of this encounter Additional Source Comments The information contained in this document represents components of the legal health record. It is not the complete legal health record.[facility]
--- OUTSIDE RECORDS SUMMARY | 2025-01-31 14:52 | XMS_ITS | Encounter Summary ---
Author Organization [facility] Address [address] [employer] [facility] [address] [place] [address] Phone Care Team Providers Care Contract Runner Name Role Phone Vipul Schneider Unavailable [phone] NameQamar MD Primary Care Provider [phone] Encounter Details Date Type Department Care Team (Late st Contact Info) Description 07/15/2024 Procedure Pass [facility], Ct Scan - [address] [address] Social History Tobacco Use Types Packs/Day Years [...] 7:32 PM EDT Rayna Duarte, NICOLLE * [place] Suicide Severity Rating Scale (Screener/Recent Self-Report) Question [...] on filedocumented in this encounter Care Teams Contract Runner Relationship Specialty Start Date End Date Name, MD Qamar [address] [place] [address] PCP - General Internal Medicine 10/16/22 Vipul Schneider DO [address] [place] [address] Cardiology 01/17/22 documented as of this encounter Additional Source Comments The information contained in this document represents components of the legal health record. It is not the complete legal health record.[facility]
--- OUTSIDE RECORDS SUMMARY | 2025-01-31 14:52 | XMS_ITS | Encounter Summary ---
Author Organization [facility] Address [address] [employer] [facility] [address] [place] [address] Phone Care Team Providers Care Site Controller Name Role Phone Vipul Schneider DO Unavailable [phone] NameQamar MD Primary Care Provider [phone] Encounter Details Date Type Department Care Team (Late st Contact Info) Description 12/22/2022 Procedure Pass [facility] Imaging - RF/IR [address] [place] [address] Social History Tobacco Use Types Packs/Day Years [...] 12:08 PM EDT Minnie Ortiz, NICOLLE * [place] Suicide Severity Rating Scale (Screener/Recent Self-Report) Question Answer Date of Assessment Author 1. Wish to be (Past 1 Month) No 023 12:08 PM EDT Minnie Oritz, NICOLLE 2. Non-Specific Active Suici [place] Thoughts [...] documented as of this encounter Care Teams Site Controller Relationship Specialty Start Date End Date Name, MD Qamar [address] [place] [address] PCP - General Internal Medicine 10/16/22 Vipul Schneider DO [address] [place] [address] Cardiology 01/17/22 documented as of this encounter Additional Source Comments The information contained in this document represents components of the legal health record. It is not the complete legal health record.[facility]
--- OUTSIDE RECORDS SUMMARY | 2025-01-31 14:52 | XMS_ITS | Encounter Summary ---
Author Organization [facility] Address [address] [facility] [address] [place] [address] Phone Care Team Providers Care Drafting Clerk Name Role Phone Aroldo Vergara MD Primary Care Provider + Velvet Blandon MD Primary Care Provider [phone] Yudelka Jain NP Primary Care Provider U Vipul Brown DO Unavailable Qamar Solitario MD Primary Care Provider [phone] Encounter Details Date Type Department Care Team (Late st Contact Info) Description 11/02/2018 Procedure Pass [facility] DEPT [address] [place] [address] Social History Tobacco Use Types [...] documented as of this encounter Care Teams Drafting Clerk Relationship Specialty Start Date End Date Aroldo Vergara MD [address] [address] PCP - General Internal Medicine 08/05/18 09/02/20 Velvet Blandon MD [address] [place] [address] PCP - General Family Medicine 09/03/20 10/31/21 Yudelka Jain NP PCP - General Family Medicine 11/01/21 10/15/22 Qamar Solitario MD [address] [place] [address] PCP - General Internal Medicine 10/16/22 Vipul Schneider DO [address] [place] [address] Cardiology 01/17/22 documented as of this encounter Additional Source Comments The information contained in this document represents components of the legal health record. It is not the complete legal health record.[facility]
--- OUTSIDE RECORDS SUMMARY | 2025-01-31 14:52 | XMS_ITS | Clinical Summary ---
Author Organization [employer] Address [address] [facility] 7t [place] [address] Care Team Providers Care Sleep Scientist Name Role Phone Name, Qamar GUARDADO Primary Care Provider Allergies Active Allergy Reactions [...] NEEDED FOR MUSCLE SPASMS OR PAIN Active Diclofenac Sodium 1 % gel APPLY [...] and at bedtime (pain). 30 g 3 10/19/19 25 026 Active capsaicin (Capzasin-HP) 0.1 % creamIndication s:Chronic right-sided low back pain, unspecified whether sciatica present Apply thin layer by topical route up to 4 times daily for pain. 45 g 3 10/19/19 25 Active Diclofenac Sodium 1 % [...] December 30, 2024. 112 tablet 12/31/19 25 Active levoFLOXacin (Levaquin) 500 MG tabletIndicatio ns:Dysuria Take 1 tablet (500 mg) by mouth Once per day for 5 days. 5 tablet 02/01/20 25 025 Active amLODIPine (Norvasc) 5 MG tabletIndicatio ns:Essential hypertension Take 1 tablet (5 mg) by mouth Once per day. 90 tablet 3 02/01/20 25 026 Active losartan (Cozaar) 25 MG tabletIndicatio ns:Essential hypertension Take 1 tablet (25 mg) by mouth Once per day. 90 tablet 3 02/01/20 25 026 Active losartan (Cozaar) 25 MG tabletIndicatio ns:Essential hypertension Take 1 tablet (25 mg) by mouth Once per day. 90 tablet 3 03/22/20 24 025 Discontinued(Re order (will not trigger notification to Pharmacy)) amLODIPine (Norvasc) 5 MG tabletIndicatio ns:Essential hypertension Take 1 tablet (5 mg) by mouth Once per day. 30 tablet 11 12/29/19 025 Discontinued(Re order (will not trigger notification to Pharmacy)) levoFLOXacin (Levaquin) 750 MG tabletIndicatio ns:UTI symptoms Take 1 tablet (750 mg) by mouth Once per day for 7 days. 7 tablet 12/29/19 25 025 Active Problems Problem Noted Date Diagnosed Date [facility]FP current use of opiate analgesic 2023 Overview (10/18/2024): Dx: chronic abdominal pain and right-sided low back pain, knee OA Rx: oxycodone 5-10 mg every 6 hours as needed Last MANAGER UTILITY agreement: 03/22/24 Tier II (visit every 3 [...] of acute diverticulitis with an abscess at [facility]. EXPLORATORY LAPAROTOMYREDO RESECTION ANTERIOR, TAKEDOWN COLOVAGINAL FISTULA, SMALL BOWEL RESECTION at [facility] 10/2021 lleostomy closure 02/15 at [facility] She has small intra-abdominal abscess 02/16. 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 23 Overview (10/09/2022): Repaired at [facility] 11/15 Muscle weakness (generalized) 02/11/2018 10/09/2022 Unilateral primary osteoarthritis, right knee 02/12/20 18 10/09/2022 Other lack of coordination 02/11/2018 0 07/09/2023 Encounters Date Type Department Care Team Description 01/31/2025 11:15 AM EDT Office Visit [facility] [address] [place] [address] Qamar Solitario MD Essential hypertension (Primary Dx); Sore throat; Dysuria 01/31/2025 Travel 01/30/[address] [address] Qamar Solitario MD chart prep 01/26/2025 9:00 AM EDT Clinical Support [address] [address] Anna Ochoa RN [facility]FP current use of opiate analgesic (Primary Dx) 01/26/2025 Travel 01/18/2025 Telephone [facility] [address] [place] [address] Qamar Solitario MD 01/12/2025 Travel 12/28/2024 11:00 AM EDT Office Visit [facility] [address] [facility] [place] [address] [place], Alicia, IT APPLICATIONS MANAGER Essential hypertension (Primary Dx); UTI symptoms 12/27/2024 Refill [facility] [address] [place] [address] Qamar Solitario MD Chronic right-sided low back pain, unspecified whether sciatica present 12/27/2024 Telephone [facility] [address] [place] [address] Qamar Solitario MD Nurse Triage 12/27/2024 Refill [facility] [address] [place] [address] Qamar Solitario MD Chronic right-sided low back pain, unspecified whether sciatica present 12/05/2024 Refill [facility] [address] [place] [address] Qamar Solitario MD Chronic right-sided low back pain, unspecified whether sciatica present 11/22/2024 11:30 AM EDT Clinical Support [address] [address] Anna Ochoa RN [facility] current use of opiate analgesic (Primary Dx) 11/22/2024 Travel 11/16/2024 Refill [facility] [address] [place] [address] Terrie Paiz, IT APPLICATIONS MANAGER Chronic right-sided low back pain, unspecified whether sciatica present 11/07/2024 Refill [facility] [address] [place] [address] Qamar Solitario MD Chronic right-sided low back pain, unspecified whether sciatica present 11/07/2024 Telephone [facility] [address] [place] [address] Qamar Solitario MD Nurse Triage 11/03/2024 11:30 AM EDT Office Visit [facility] [address] [place] [address] Qamar Solitario MD LLQ pain (Primary Dx) 11/03/2024 Orders Only [facility] [place] [address] Qamar Solitario MD 11/03/2024 Results Follow-Up [facility] [place] [address] Qamar Solitario MD CBC auto differential, Urinalysis, Complete, with Reflex to Culture 11/03/2024 Travel 11/02/2024 Telephone [facility] [address] [place] [address] Suni Aparicio MA chart prep from Last 3 Months Immunizations Immunization Administration Dates Next Due Influenza Injectable Quadriv alant Preservative Free IIV4 MDCK 01/02/2022,01/17/2021,02/07/2020 Influenza injectable quadriv alent IIV4 with preservative 01/22/2018,02/06/2017,03/25/2016,01/16 Influenza injectable quadriv alent preservative free 01/09/2023,02/08/2019 Influenza, IIV3, injectable 01/28/2018, 4,01/11/2010 Influenza, Injectable, MDCK, preservative free 01/23/2025 Influenza, Split (incl. jose fied surface antigen) 12/30/2012,01/06/2012 Influenza, seasonal, injecta ble, preservative free 01/07/2024 PPD Test 02/19/2018,02/19/2018 Pneumococcal Polysaccharide PPSV23 01/25/2015,,05/02/2007 Pneumococcal, Unspecified 05/02/2007 [...] Mass Index 28.16 01/31/2025 11:05 AM EDT Plan of Treatment Upcoming Encounters Date Type Department Care Team (Late st Contact Info) Description 02/08/2025 11:00 AM EDT Clinical Support [address] [address] 02/21/2025 9:45 AM EDT Office Visit [address] [address] 03/02/2025 8:30 AM EST Clinical Support [address] [address] Anna Ochoa, NICOLLE Health Maintenance Due Date Last Done Comments [...] Smear 08/24/2023 08/23/2020 COVID-19 Vaccine ( season) 2024 Depression Screening 06/07/2025 06/07/2024, 06/07/19 Cervical Cancer Screening 08/23/2025 HPV/Cotest 08/23/2025 08/23/2020 SDOH Screening 08/31/2025 08/31/2024 Alcohol/Substance Use Screening 11/03/2025 11/03/2024 Disability Screening 01/12/2026 01/12/2025 Tobacco Screening 01/31/2026 01/31/2025 Lipid Panel 04/01/2026 04/01/2021 RSV Patients and Patients Aged 60 years or older (1 - 1-dose 75+ series) 2037 HIV Screening Completed 04/01/2021 Hepatitis C Screening Completed 04/01/2021 Influenza Vaccine Completed 01/23/2025, , 01/09/2023, Additional history exists HIB Vaccines Aged Out [...] Routine 01/31/2025 11:49 AM EDT Dysuria POCT INFLUENZA A Routine 01/31/2025 11:3 5 AM EDT Sore throat POCT INFLUENZA B Routine 01/31/2025 11:3 5 AM EDT Sore throat POCT RAPID COVID ANTIGEN Routine 01/31/2025 11:35 AM EDT Sore throat POCT SANYA-14 URINE DRUG SCREEN Routine 01/26/2025 8:56 AM EDT manager terminal current use of opiate analgesic CBC WITH AUTO DIFFERENTIAL Routine 12/28/2024 12:22 PM EDT UTI symptoms CULTURE, URINE, ROUTINE Routine 12/28/2024 12:22 PM EDT UTI symptoms POCT URINALYSIS DIPSTICK Routine 12/28/2024 11:31 AM EDT UTI symptoms POCT SANYA-14 URINE DRUG SCREEN Routine 11/22/2024 9:15 AM EDT manager terminal current use of opiate analgesic CULTURE, URINE, ROUTINE Routine 11/03/2024 4:07 PM EDT URINALYSIS, COMPLETE, WITH REFLEX TO CULTURE Routine 11/03/2024 12:24 PM EDT LLQ pain CBC WITH AUTO DIFFERENTIAL Routine 11/03/2024 12:24 PM EDT LLQ pain ZZZ HISTORICAL HEPATITIS C AB W/REFL TO [...] Reflex to Culture (01/31/2025 11:49 AM EDT) Only the most recent of2 resultswithin the time period is included. Color Urine Yellow [facility] Appearance Urine Clear [facility] PH 6.5 5.0 - 9.0 [facility] Glucose Urine UA Negative Negative mg/dL [facility] Urine Blood Small (1+)(A) Negative [facility] Specific [place] - Urine 1.020 1.005 - 1.025 [facility] Urine Protein 30 (1+)(A) Neg-Trace mg/dL [facility] Urine Ketones Negative Negative mg/dL [facility] Nitrite Urine Negative Negative [facility] Leukocyte Esterase Urine Small (1+)(A) Negative [facility] RBC Urine >20(A) 0 - 2 /HPF [facility] Urine WBC 6-10(A) 0 - 5 /HPF [facility] Urine Squamous Epithelial Cell 3-5 0 - 2 /HPF [facility] Urine Bacteria None Seen None Seen [facility] Hyaline Casts, Urine 0-2 0 - 2 /LPF [facility] Urine 01/31/2025 11:4 9 AM EDT 01/31/2025 1:11 PM EDT Narrative [facility] - 01/31/2025 1:28 PM EDT Urine, Clean Catch us Qamar Solitario MD LAB URINE ORDERABLES Final Resul t [facility] [address] [place] [phone] * POCT Rapid Covid-19 BinaxNOW (01/31/2025 11:35 AM EDT) Pathologist [facility] Rapid COVID Ag Negative QC Media Lot # [id number] Lot# Expiration Date [id number] Swab 01/31/2025 11:3 5 AM EDT us Qamar Solitario MD POINT OF CARE TEST ENTER/EDIT OR DERABLES Final Result * POCT Rapid Influenza B OSOM (01/31/2025 11:35 AM EDT) Pathologist [facility] Rapid Influenza B Ag Negative Negative, Indeterminate QC Media Lot # [id number] Lot# Expiration Date Swab 01/31/2025 11:3 5 AM EDT us Qamar Solitario MD POINT OF CARE TEST ENTER/EDIT OR DERABLES Final Result * POCT Rapid Influenza A OSOM (01/31/2025 11:35 AM EDT) [facility] Rapid Influenza A Ag Negative Negative, Indeterminate QC Media Lot # [id number] Lot# Expiration Date Swab Nasopharyngeal structure / Unknown 01/31/2025 11:35 AM EDT us Qamar Solitario MD POINT OF CARE TEST ENTER/EDIT OR DERABLES Final Result * POCT SANYA-14 Urine Drug Screen (01/26/2025 8:56 AM EDT) Only the most recent of2 [...] procedure / Unknown 01/26/2025 8:56 AM EDT Anna Armando RN - 01/26/2025 8:56 AM EDT UTOX cup Lot#[id number] Exp. 01/31/26 Internal Pass Control us Qamar Solitario MD POINT OF CARE TEST ENTER/EDIT OR DERABLES Final Result * (ABNORMAL) CBC auto differential (12/28/2024 12:22 PM EDT) Only the most recent of2 resultswithin the time period is included. White Blood Count 11.5(H) 4.8 - 10.8 X10*3/uL [facility] Red Blood Count 5.41 4.20 - 5.50 X10*6/uL [facility] Hemoglobin 15.6 12.0 - 16.0 g/dl [facility] Hematocrit 45.6 37.0 - 47.0 % [facility] Mean Corpuscular Volume 84.3 80.0 - 98.0 fL [facility] Mean Corpuscular Hemoglobin 28.8 27.0 - 33.0 pg [facility] Mean Corpuscular HGB Conc 34.2 31.0 - 35.0 g/dl [facility] Red Cell Distribution Width 14.3 11.0 - 16.0 % [facility] Platelet Count 354 160 - 400 X10*3/uL [facility] Mean Platelet Volume 9.7 9.4 - 12.3 fL [facility] Neutrophils Percent Auto 69.2 45 - 73 % [facility] Imm Gran Pct Auto 0.3 0.0 - 0.4 % [facility] Lymphocytes Percent Auto 23.1 20 - 40 % [facility] Monocytes Percent Auto 5.1 2 - 11 % [facility] Eosinophils Percent Auto 1.9 0 - 4 % [facility] Basophils Percent Auto 0.4 0 - 2 % [facility] NRBC Pct Auto 0.0 0.0 - 0.2 /100WBC [facility] Neutrophils Absolute Auto 7.9 2.0 - 8.3 x10*3/uL [facility] Imm Gran Abs Auto 0.03 0.00 - 0.03 X10*3/uL [facility] Lymphocytes Absolute Auto 2.7 1.2 - 4.9 X10*3/uL [facility] Monocytes Absolute Auto 0.6 0.1 - 1.2 X10*3/uL [facility] Eosinophils Absolute Auto 0.2 0.0 - 0.4 X10*3/uL [facility] Basophils Absolute Auto 0.1 0.0 - 0.2 X10*3/uL [facility] NRBC Abs Auto 0.000 0.0 - 0.012 X10*3/uL [facility] Blood Venous blood specimen / Unknown 12/28/2024 12:22 PM EDT 12/28/2024 1:16 PM EDT [facility] IT APPLICATIONS MANAGER LAB BLOOD ORDERABLES Final Re sult [facility] [address] [place] [address] [phone] * Culture, Urine, Routine (12/28/2024 12:22 PM EDT) Only the most recent of2 resultswithin the time period is included. Urine Urine specimen obtained by clean catch procedure / Unknown 12/28/2024 12:22 PM EDT 12/28/2024 12:50 PM EDT Comment:UACC Narrative [facility] - 12/29/2024 12:27 PM EDT Urine Culture No growth. Specimen Source: Urine clean catch [facility] LAB MICROBIOLOGY - GENERAL OR DERABLES Final Result [facility] [address] [place] [phone] * (ABNORMAL) POCT urinalysis dipstick manually [...] OK Urine 12/28/2024 11:3 1 AM EDT [facility] POINT OF CARE TEST ENTER/EDIT ORDERABLES Final Result * HEPATITIS C AB W/REFL TO HCV RNA, QN, PCR (04/01/2021 8:51 AM EST) HEPATITIS C ANTIBODY NON-REACT [place] NON-REACT [place] [facility] INDEX 0.05 <1.00 [facility] Comment: HCV antibody was non-reactive. There is no laboratory evidence of HCV infection. In most cases, no further action is required. However, if recent HCV exposure is suspected, a test for HCV RNA (test code 26995) is suggested. For additional information please refer to http://education.Meilleurs[employer]ents.com/faq/JWU45j8 (This link is being provided for informational/ educational purposes only.) 04/01/2021 8:51 AM EST Yudelka Jain NP HISTORICAL/NON ORDERABLE LABS F inal Result Performing Organization Address [facility] de Phone Number [facility] [address] [place] [address], * HIV 1/2 ANTIGEN/ANTIBODY,FOURTH GENERATION W/RFL (04/01/2021 8:51 AM EST) Pathologist [facility] HIV-1/2 ANTIGEN AND ANTIBODIES, 4TH GENERATION W/ REFLEX NON-REACT [place] NON-REACT [place] [facility] Comment: HIV-1 antigen and HIV-1/HIV-2 [...] purpose. For additional information please refer to http://education.GooseChase.Voiceit/faq/LNV773 (This link is being provided for informational/ educational purposes only.) The performance of this assay has not been clinically validated in patients less than 2 years old. 04/01/2021 8:51 AM EST us Yudelka Jain NP LAB BLOOD ORDERABLES Final Resu lt Performing Organization Address [facility] de Phone Number [facility] [address] [place] [address], * (ABNORMAL) LIPID PANEL, STANDARD (04/01/2021 8:51 [...] factors. LDL-C is now calculated using the Angeline calculation, which is a validated novel method providing better accuracy than the Friedewald equation in the estimation of LDL-C. Roni ALLEN et al. KENNETH. 2013;310(19): 3299-2883 (http://education.[employer]mo [employer] Services/faq/TSZ476) Non-HDL Cholesterol 110 <130 mg/dL (calc) [facility] Comment: For patients with diabetes plus 1 major ASCVD risk factor, treating to a non-HDL-C goal of <100 mg/dL (LDL-C of <70 mg/dL) is considered a therapeutic option. Triglycerides 164(H) <150 mg/dL [facility] 04/01/2021 8:51 AM EST us Yudelka Jain AMORTIZATION CLERK LAB BLOOD ORDERABLES Final Resu lt [facility] [address] [place] [address], * THINPREP TIS PAP (08/23/2020 9:31 AM [...] has been evaluated with computer assisted technology. [facility] Art History Professor : SEE COMMENT [facility] Comment: NSS, CT(ASCP) CT screening location: [place] [address] Interpretation/R esult: Negative for intraepithelial lesion or malignancy. [facility] LMP: [id number] [facility] Prev. BX: NONE GIVEN [facility] Prev. PAP: NONE GIVEN [facility] SOURCE: Vaginal cuff [facility] Statement Of Adequacy: SEE COMMENT [facility] Comment: Satisfactory for evaluation. Endocervical/transformation zone component absent. 08/23/2020 9:31 AM EDT us Velvet Blandon MD LAB PATHOLOGY ORDERABLES Elena l Result Performing Organization Address [facility] Co de Phone Number [facility] [address] * HPV mRNA E6/E7 (08/23/2020 9:31 AM EDT) HPV nRNA E6/E7 Not Detected Not Detected [facility] Comment: Methodology: Guard Driver-Mediated Amplification This assay detects E6/E7 viral messenger RNA (mRNA) from 14 high-risk HPV types (16,18,31,33,35,39,45,51,52,56,58,59,66,68). The analytical performance characteristics of this assay have been determined by [employer]. The modifications have not been cleared or approved by the FDA. This assay has been validated pursuant to the CLIA regulations and is used for clinical purposes. For additional information, please refer to http://education.MeilleursAgents.com/faq/DLK708v2 (This link if provided for information/ educational purposes only.) 08/23/2020 9:31 AM EDT us Velvet Blandon MD LAB BLOOD ORDERABLES Final Re sult Performing Organization Address [facility] de Phone Number [facility] [address] from Last 3 Months or Most Recently Relevant to Health Maintenance Insurance [facility] ONE CARE < 65 * Guarantor: Karley [place] Account Type Relation to Patient Date of Phone Billing Address Personal/Family Self [address] Leila Suarez [place] Care Teams Sleep Scientist Relationship Specialty Start Date End Date Name, MD Qamar [address] [place] [address] [place] [address] PCP - General Internal Medicine 05/02/22
--- OUTSIDE RECORDS SUMMARY | 2025-01-31 14:52 | XMS_ITS | Encounter Summary ---
Author Organization [facility] Address [address] [facility] [address] [place] [address] Phone Care Team Providers Care Caser In Name Role Phone Vipul Schneider Unavailable NameQamar MD Primary Care Provider [phone] Encounter Details Date Type Department Care Team (Late st Contact Info) Description 02/20/2024 Procedure Pass [facility], Ct Scan - [address] [address] Social History Tobacco Use Types Packs/Day Years [...] 9:08 AM EDT Chiara Mckeon RN * [place] Suicide Severity Rating Scale (Screener/Recent Self-Report) Question [...] documented as of this encounter Care Teams Caser In Relationship Specialty Start Date End Date Name, MD Qamar [address] [place] [address] PCP - General Internal Medicine 10/16/22 Vipul Schneider DO [address] [place] [address] Cardiology 01/17/22 documented as of this encounter Additional Source Comments The information contained in this document represents components of the legal health record. It is not the complete legal health record.[facility]
--- OUTSIDE RECORDS SUMMARY | 2025-01-31 14:52 | XMS_ITS | Encounter Summary ---
Author Organization [employer] Address [address] [facility] [address] [place] [address] Care Team Providers Care Hogshead Opener Name Role Phone Name, Qamar GUARDADO Primary Care Provider [phone] Encounter Details Date Type Department Care Team (Latest Contact Info) Description 01/31/2025 Travel Social History Tobacco Use Types Packs/Day [...] Description 02/08/2025 11:00 AM EDT Clinical Support [address] [address] 02/21/2025 9:45 AM EDT Office Visit [address] [address] 03/02/2025 8:30 AM EST Clinical Support [address] [address] Anna Ochoa RN documented as of this encounter Visit Diagnoses Not on filedocumented in this encounter Additional Health Concerns Assessment Noted Time PHQ-9 Depression Total Score: 7 06/07/19 25 1:15 PM EST documented as of this encounter Care Teams Hogshead Opener Relationship Specialty Start Date End Date Name, MD Qamar [address] [place] [address] PCP - General Internal Medicine 05/02/22 documented as of this encounter
--- OUTSIDE RECORDS SUMMARY | 2025-01-31 14:52 | XMS_ITS | Encounter Summary ---
Author Organization [facility] Address [address] [facility] [address] [place] [address] Phone Care Team Providers Care Track Equipment Operator Name Role Phone Vipul Schneider Unavailable [phone] NameQamar MD Primary Care Provider [phone] Encounter Details Date Type Department Care Team (Late st Contact Info) Description 10/16/2022 Procedure Pass [facility], Ct Scan - [address] [address] Social History Tobacco Use Types Packs/Day Years [...] 10:37 PM EDT Bonita Syed RN * [place] Suicide Severity Rating Scale (Screener/Recent Self-Report) Question [...] documented as of this encounter Care Teams Track Equipment Operator Relationship Specialty Start Date End Date Name, MD Qamar [address] [place] [address] PCP - General Internal Medicine 10/16/22 Vipul Schneider DO [address] [place] [address] Cardiology 01/17/22 documented as of this encounter Additional Source Comments The information contained in this document represents components of the legal health record. It is not the complete legal health record.[facility]
--- OUTSIDE RECORDS SUMMARY | 2025-01-31 14:52 | XMS_ITS | Encounter Summary ---
Author Organization [facility] Address [address] [facility] [address] [place] [address] Phone Care Team Providers Care Director Sterile Processing Name Role Phone Yudelka Jain NP Primary Care Provider Anna Marie arambulafrieda Jennie Vipul DO Unavailable [phone] Name, Qamar GUARDADO Primary Care Provider [phone] Encounter Details Date Type Department Care Team (Late st Contact Info) Description 02/26/2022 Procedure Pass [facility], Jose Luis [address] [facility], 2nd Floor, [address] [place] [address] Social History Tobacco Use Types Packs/Day Years [...] documented as of this encounter Care Teams Director Sterile Processing Relationship Specialty Start Date End Date Yudelka Jian NP PCP - General Family Medicine 11/01/21 10/15/22 Name, MD Qamar [address] [place] [address] PCP - General Internal Medicine 10/16/22 Vipul Schneider DO [address] [place] [phone] Cardiology 01/17/22 documented as of this encounter Additional Source Comments The information contained in this document represents components of the legal health record. It is not the complete legal health record.[facility]
--- OUTSIDE RECORDS SUMMARY | 2025-01-31 14:53 | XMS_ITS | Encounter Summary ---
Author Organization [facility] Address [address] [employer] [facility] [address] [place] [address] Phone Care Team Providers Care Team Leader/Research Psychologist Name Role Phone Yudelka Jain NP Primary Care Provider U Vipul Brown DO Unavailable [phone] Name, Qamar GUARDADO Primary Care Provider Encounter Details Date Type Department Care Team (Late st Contact Info) Description 11/06/2021 Procedure Pass [facility] [address] [place] [phone] Social History Tobacco Use Types Packs/Day Years [...] 7:00 PM EDT Sadia Gilmore RN * [place] Suicide Severity Rating Scale (Screener/Recent Self-Report) Question Answer Date of Assessment Author 1. Wish to be (Past 1 Month) No 11/06/2021 7:00 PM YASMANYT Sadia Gilmore RN 2. Non-Specific Active Suici [place] Thoughts [...] documented as of this encounter Care Teams Team Leader/Research Psychologist Relationship Specialty Start Date End Date Yudelka Jain NP PCP - General Family Medicine 11/01/21 10/15/22 Name, MD Qamar [address] [place] [address] PCP - General Internal Medicine 10/16/22 Vipul Schneider DO [address] [place] [address] Cardiology 01/17/22 documented as of this encounter Additional Source Comments The information contained in this document represents components of the legal health record. It is not the complete legal health record.[facility]
--- OUTSIDE RECORDS SUMMARY | 2025-01-31 14:53 | XMS_ITS | Encounter Summary ---
Author Organization [employer] Address 75 [facility] 7t [place] [address] Care Team Providers Care Information Assurance Analyst Name Role Phone Name, Qamar GUARDADO Primary Care Provider [phone] Encounter Details Date Type Department Care Team ([facility] st Contact Info) Description 02/04/2023 Abstract [facility] MEDICINE 230 [place], [place] [phone] Name, MD Qamar 230 [place], [place] [phone] Social History Tobacco Use Types Packs/Day Years [...] the past 12 months, has t he [employer] oil or water company threatened to shut [...] Description 02/08/2025 11:00 AM EDT Clinical Support [address] [address] 02/21/2025 9:45 AM EDT Office Visit [address] [address] 03/02/2025 8:30 AM EST Clinical Support [address] [address] Anna Ochoa RN documented as of this encounter Visit Diagnoses Not on filedocumented in this encounter Care Teams Information Assurance Analyst Relationship Specialty Start Date End Date Name, MD Qamar [address] [place] [address] PCP - General Internal Medicine 05/02/22 documented as of this encounter
--- OUTSIDE RECORDS SUMMARY | 2025-01-31 14:53 | XMS_ITS | Encounter Summary ---
Author Organization [employer] Address [address] [place] [address] 7 [place] [address] Care Team Providers Care Casting Trucker Name Role Phone Name, Qamar GUARDADO Primary Care Provider [phone] Reason for Visit * Reason Onset Date Comments Durable Medical Equipment 07/16/2022 Encounter Details Date Type Department Care Team ([facility] st Contact Info) Description 07/16/2022 Telephone [facility] MEDICINE 230 [place], [place] [phone] Name, MD Qamar 230 [place] [address] Durable Medical Equipment Social History Tobacco Use [...] and incontinence pads Please contact pt at [phone] documented in this encounter Plan of Treatment Upcoming Encounters Date Type Department Care Team (Late st Contact Info) Description 02/08/2025 11:00 AM EDT Clinical Support [address] [address] 02/21/2025 9:45 AM EDT Office Visit [address] [address] 03/02/2025 8:30 AM EST Clinical Support [address] [address] Anna Ochoa, RN documented as of this encounter Visit Diagnoses Not on filedocumented in this encounter Care Teams Casting Trucker Relationship Specialty Start Date End Date Name, MD Qamar [address] [place] [address] PCP - General Internal Medicine 05/02/22 documented as of this encounter
--- OUTSIDE RECORDS SUMMARY | 2025-01-31 14:53 | XMS_ITS | Encounter Summary ---
Author Organization [employer] Address 75 [facility] 7t [place] [address] Care Team Providers Care Drier Tender Naphthalene Name Role Phone Name, Qamar GUARDADO Primary Care Provider [phone] Reason for Visit * Reason Comments Med Refill Encounter Details Date Type Department Care Team ([facility] st Contact Info) Description 06/27/2024 Refill [facility] MEDICINE 230 [place], [place] [phone] Name, MD Qamar 230 [place] [address] Chronic right-sided low back pain, unspecified whether [...] Description 02/08/2025 11:00 AM EDT Clinical Support [address] [address] 02/21/2025 9:45 AM EDT Office Visit [address] [address] 03/02/2025 8:30 AM EST Clinical Support [address] [address] Anna Ochoa RN documented as of this encounter Visit Diagnoses Diagnosis Chronic right-sided low back pain, unspecified whether sciatica present documented in this encounter Additional Health Concerns Assessment Noted Time PHQ-9 Depression Total Score: 7 06/07/19 25 1:15 PM EST documented as of this encounter Care Teams Drier Tender Naphthalene Relationship Specialty Start Date End Date Name, MD Qamar [address] [place] [address] PCP - General Internal Medicine 05/02/22 documented as of this encounter
--- OUTSIDE RECORDS SUMMARY | 2025-01-31 14:53 | XMS_ITS | Encounter Summary ---
Author Organization [employer] Address 75 [facility] 7t [place] [address] Care Team Providers Care Table Worker Packager Name Role Phone Name, Qamar GUARDADO Primary Care Provider [phone] Reason for Visit * Reason Comments Med Refill Encounter Details Date Type Department Care Team ([facility] st Contact Info) Description 10/10/2024 Refill [facility] MEDICINE 230 [place], [place] [phone] Name, MD Qamar 230 [place] [address] Chronic right-sided low back pain, unspecified whether [...] Description 02/08/2025 11:00 AM EDT Clinical Support [address] [address] 02/21/2025 9:45 AM EDT Office Visit [address] [address] 03/02/2025 8:30 AM EST Clinical Support [address] [address] Anna Ochoa RN documented as of this encounter Visit Diagnoses Diagnosis Chronic right-sided low back pain, unspecified whether sciatica present documented in this encounter Additional Health Concerns Assessment Noted Time PHQ-9 Depression Total Score: 7 06/07/19 25 1:15 PM EST documented as of this encounter Care Teams Table Worker Packager Relationship Specialty Start Date End Date Name, MD Qamar [address] [place] [address] PCP - General Internal Medicine 05/02/22 documented as of this encounter
--- OUTSIDE RECORDS SUMMARY | 2025-01-31 14:53 | XMS_ITS | Encounter Summary ---
Author Organization [facility] Address [address] [employer] [facility] [address] [place] [address] Phone Care Team Providers Care Scoop Driver Name Role Phone Yudelka Jain NP Primary Care Provider U Vipul Brown DO Unavailable [phone] Name, Qamar GUARDADO Primary Care Provider [phone] Encounter Details Date Type Department Care Team (Late st Contact Info) Description 02/05/2022 Procedure Pass [facility] [address] [place] [phone] Social History Tobacco Use Types Packs/Day Years [...] 5:00 PM EDT Radha Fink RN * [place] Suicide Severity Rating Scale (Screener/Recent Self-Report) Question [...] documented as of this encounter Care Teams Scoop Driver Relationship Specialty Start Date End Date Yudelka Jain NP PCP - General Family Medicine 11/01/21 10/15/22 Name, MD Qamar [address] [place] [address] PCP - General Internal Medicine 10/16/22 Vipul Schneider DO [address] [place] [address] Cardiology 01/17/22 documented as of this encounter Additional Source Comments The information contained in this document represents components of the legal health record. It is not the complete legal health record.[facility]
--- OUTSIDE RECORDS SUMMARY | 2025-01-31 14:53 | XMS_ITS | Encounter Summary ---
Author Organization [employer] Address [address] [place] [address] 7t [place] [address] Care Team Providers Care Network Intern Name Role Phone Name, Qamar GUARDADO Primary Care Provider [phone] Reason for Visit * Reason Comments Med Refill Encounter Details Date Type Department Care Team ([facility] Contact Info) Description 07/17/2022 Refill [facility] MEDICINE 230 [place], [place] [phone] Name, MD Qamar 230 [place] [address] Medullary sponge kidney Social History Tobacco Use [...] Upcoming Encounters Date Type Department Care Team ([facility] Contact Info) Description 02/08/2025 11:00 AM EDT Clinical Support [address] [address] 02/21/2025 9:45 AM EDT Office Visit [address] [address] 03/02/2025 8:30 AM EST Clinical Support [address] [address] Anna Ochoa RN documented as of this encounter Visit Diagnoses Diagnosis Medullary sponge kidney Congenital medullary sponge kidney documented in this encounter Care Teams Network Intern Relationship Specialty Start Date End Date Name, MD Qamar [address] [place] [address] PCP - General Internal Medicine 05/02/22 documented as of this encounter
--- OUTSIDE RECORDS SUMMARY | 2025-01-31 14:53 | XMS_ITS | Encounter Summary ---
Author Organization [employer] Address [address] [place] [address] 7 [place] [address] Care Team Providers Care Traffic Engineering Director Name Role Phone Name, Qamar GUARDADO Primary Care Provider [phone] Reason for Visit * Reason Onset Date Comments Reschedule 05/12/2023 Encounter Details Date Type Department Care Team ([facility] Contact Info) Description 05/12/2023 Telephone [facility] MEDICINE 230 [place], [place] [phone] Name, MD Qamar 230 [place] [address] Reschedule Social History Tobacco Use Types Packs/Day [...] Description 02/08/2025 11:00 AM EDT Clinical Support [address] [address] 02/21/2025 9:45 AM EDT Office Visit [address] [address] 03/02/2025 8:30 AM EST Clinical Support [address] [address] Anna Ochoa RN documented as of this encounter Visit Diagnoses Not on filedocumented in this encounter Care Teams Traffic Engineering Director Relationship Specialty Start Date End Date Name, MD Qamar [address] [place] [address] PCP - General Internal Medicine 05/02/22 documented as of this encounter
--- OUTSIDE RECORDS SUMMARY | 2025-01-31 14:53 | XMS_ITS | Encounter Summary ---
Author Organization [facility] Address 399 [facility] [address] [place] [address] Phone Care Team Providers Care Forming Roll Operator Name Role Phone Aroldo Vergara MD Primary Care Provider + Velvet Blandon MD Primary Care Provider [phone] Yudelka Jain NP Primary Care Provider U Vipul Brown DO Unavailable [phone] Qamar Solitario MD Primary Care Provider [phone] Encounter Details Date Type Department Care Team (Late st Contact Info) Description 12/02/[address] [facility] DEPT [address] [place] [phone] Social History Tobacco Use Types Packs/Day [...] documented as of this encounter Care Teams Forming Roll Operator Relationship Specialty Start Date End Date Aroldo Vregara MD [address] [address] PCP - General Internal Medicine 08/05/18 09/02/20 Velvet Blandon MD 34 [place] [address] PCP - General Family Medicine 09/03/20 10/31/21 Yudelka Jain NP PCP - General Family Medicine 11/01/21 10/15/22 Qamar Solitario MD [address] [place] [address] PCP - General Internal Medicine 10/16/22 Vipul Schneider DO [address] [place] [address] Cardiology 01/17/22 documented as of this encounter Additional Source Comments The information contained in this document represents components of the legal health record. It is not the complete legal health record.[facility]
--- OUTSIDE RECORDS SUMMARY | 2025-01-31 14:53 | XMS_ITS | Encounter Summary ---
Author Organization [employer] Address 75 [facility] 7 [place] [address] Care Team Providers Care Dietary Aid Name Role Phone Name, Qamar GUARDADO Primary Care Provider [phone] Reason for Visit * Reason Onset Date Comments Call Back Request 07/04/2024 Encounter Details Date Type Department Care Team ([facility] Contact Info) Description 07/04/2024 Telephone [facility] MEDICINE 230 [place], [place] [phone] Name, MD Qamar 230 [place] [address] Call Back Request Social History Tobacco Use [...] discuss some information. Please return call to [phone] documented in this encounter Plan of Treatment Upcoming Encounters Date Type Department Care Team (Late st Contact Info) Description 02/08/2025 11:00 AM EDT Clinical Support [address] [address] 02/21/2025 9:45 AM EDT Office Visit [address] [address] 03/02/2025 8:30 AM EST Clinical Support [address] [address] Anna Ochoa, RN documented as of this encounter Visit Diagnoses Not on filedocumented in this encounter Additional Health Concerns Assessment Noted Time PHQ-9 Depression Total Score: 7 06/07/19 25 1:15 PM EST documented as of this encounter Care Teams Dietary Aid Relationship Specialty Start Date End Date Name, MD Qamar [address] [place] [address] PCP - General Internal Medicine 05/02/22 documented as of this encounter
--- OUTSIDE RECORDS SUMMARY | 2025-01-31 14:53 | XMS_ITS | Encounter Summary ---
Author Organization [facility] Address [address] [facility] [address] [place] [address] Phone Care Team Providers Care Travel Agent Name Role Phone Aroldo Vergara MD Primary Care Provider + Velvet Blandon MD Primary Care Provider [phone] Yudelka Jain NP Primary Care Provider U Vipul Brown DO Unavailable [phone] Qamar Solitario MD Primary Care Provider [phone] Encounter Details Date Type Department Care Team (Late st Contact Info) Description 05/06/2019 Procedure Pass [facility] [address] [place] [phone] Social History Tobacco Use Types Packs/Day [...] documented as of this encounter Care Teams Travel Agent Relationship Specialty Start Date End Date Aroldo Vergara MD [address] [address] PCP - General Internal Medicine 08/05/18 09/02/20 Velvet Blandon MD 34 [place] [address] PCP - General Family Medicine 09/03/20 10/31/21 Yudelka Jain NP PCP - General Family Medicine 11/01/21 10/15/22 Qamar Solitario MD 230 [place] [address] PCP - General Internal Medicine 10/16/22 Vipul Schneider DO [address] [place] [address] Cardiology 01/17/22 documented as of this encounter Additional Source Comments The information contained in this document represents components of the legal health record. It is not the complete legal health record.[facility]
--- OUTSIDE RECORDS SUMMARY | 2025-01-31 14:53 | XMS_ITS | Encounter Summary ---
Author Organization [facility] Address [address] [employer] [facility] [address] [place] [address] Phone Care Team Providers Care Cartridge Loader Name Role Phone Aroldo Vergara MD Primary Care Provider + Velvet Blandon MD Primary Care Provider [phone] Yudelka Jain NP Primary Care Provider U Vipul Brown DO Unavailable [phone] Qamar Solitario MD Primary Care Provider [phone] Encounter Details Date Type Department Care Team (Late st Contact Info) Description 07/07/2019 Procedure Pass [facility] [address] [place] [phone] Social History Tobacco Use Types Packs/Day [...] documented as of this encounter Care Teams Cartridge Loader Relationship Specialty Start Date End Date Aroldo Vergara MD [address] [address] PCP - General Internal Medicine 08/05/18 09/02/20 Velvet Blandon MD 34 [place] [address] PCP - General Family Medicine 09/03/20 10/31/21 Yudelka Jain NP PCP - General Family Medicine 11/01/21 10/15/22 Qamar Solitario MD 230 [place] [address] PCP - General Internal Medicine 10/16/22 iVpul Schneider DO [address] [place] [address] Cardiology 01/17/22 documented as of this encounter Additional Source Comments The information contained in this document represents components of the legal health record. It is not the complete legal health record.[facility]
--- OUTSIDE RECORDS SUMMARY | 2025-01-31 14:53 | XMS_ITS | Clinical Summary ---
Author Organization [facility] Address [address] [employer] [facility] [address] [place] [address] Phone Care Team Providers Care Microsoft Dynamics Ax Consultant Name Role Phone Vipul Schneider DO Unavailable [phone] NameQamar MD Primary Care Provider [phone] Allergies Active Allergy Reactions Criticality Noted Date [...] - Follows with Dr. Devries [facility]rology at [facility] for Medullary sponge kidney, Nephrolithiasis - [...] 1:38 AM EDT Oxygen Saturation 98% 07/16/2024 2: 00 AM EDT Inhaled Oxygen Concentration - - [...] 01/02/2022, 01/17/2021, Additional history exists COVID-19 VACCINE (2024- season) 2024 SMOKING Hx and SMOKELESS TOBACCO [...] this topic Medical Devices Implanted Type Area Retort Or Condenser Press Operator Device Identifier Shelf Expiration Date Model / Serial / Lot Stent Urological 8fr 24cm Double Pigtail Taper Tip Threaded Hydroplus Coated Percuflex Radiopaque Y - [id number] Implanted:Qty: 1 on 11/06/2021 by Chel Mayers MD at [facility] Ureteral Stent Left: Ureter [employer] 06/18/2024 [id number] / / [id number] Stent Urological 4adw05od Double Pigtail Taper Tip Threaded Hydroplus Coated Percuflex Radiopaque Y - [id number] Implanted:Qty: 1 on 11/06/2021 by Chel Mayers MD at [facility] Ureteral Stent Right: Ureter [employer] 07/10/2024 [id number] / / [id number] Tkr Explanted Type Area Retort Or Condenser Press Operator Device Identifier Shelf Expiration Date Model / Serial / Lot Kit Stent 22 30cm 4.8fr Urolgcl Dbl Pigtl Thred Guidwr Hydrpl Cotd Percuflex Postnr Radiopq Y Contur - [id number] Implanted:Qty: 1 on 05/06/2019 by Peter Devries MD at [facility] Ureteral Stent Left: Ureter [employer] 12/02/2021 [id number] / / [id number] Description:Explanted in 202 0 per pt Insurance [employer] [place] [employer] [employer] [place] [employer] [employer] RE[employer]IC[employer] [place] [address] [address] [place] [address] [place] [address] [place] [address] MEDICARE REPLACEMENT [employer] Advance Directives For more information, please contact: [phone] (9AM - 5PM [facility], Thursday-Thursday) Documents on File Type Date Recorded Patient Crozer Operator Expl [employer] Proxy 11/18/2021 4:33 PM [...] Code Status Confirmed With: Patient Care Teams Microsoft Dynamics Ax Consultant Relationship Specialty Start Date End Date Name, MD Qamar [address] [place] [address] PCP - General Internal Medicine 10/16/22 Vipul Schneider DO [address] [place] [address] Cardiology 01/17/22 Additional Source Comments The information contained in this document represents components of the legal health record. It is not the complete legal health record.[facility]
--- OUTSIDE RECORDS SUMMARY | 2025-01-31 14:53 | XMS_ITS | Encounter Summary ---
Author Organization [employer] Address [address] [place] [address] 7 [place] [address] Care Team Providers Care Cashier General Name Role Phone Name, Qamar GUARDADO Primary Care Provider [phone] Reason for Visit * Reason Comments Med Refill Encounter Details Date Type Department Care Team ([facility] Contact Info) Description 01/23/2023 Refill [facility] MEDICINE [address] [place] [phone] Name, MD Qamar [address] [place] [address] Medullary sponge kidney Social History Tobacco Use [...] Upcoming Encounters Date Type Department Care Team ([facility] Contact Info) Description 02/08/2025 11:00 AM EDT Clinical Support [address] [phone] 02/21/2025 9:45 AM EDT Office Visit [address] [address] 03/02/2025 8:30 AM EST Clinical Support [facility] MEDICINE [address] [facility] [place] [address] Anna Ochoa RN documented as of this encounter Visit Diagnoses Diagnosis Medullary sponge kidney Congenital medullary sponge kidney documented in this encounter Care Teams Cashier General Relationship Specialty Start Date End Date Name, MD Qamar 230 [facility] [place] [address] PCP - General Internal Medicine 05/02/22 documented as of this encounter
--- OUTSIDE RECORDS SUMMARY | 2025-01-31 14:53 | XMS_ITS | Encounter Summary ---
Author Organization [facility] Address [address] [facility] [facility] [address] [place] [address] Phone Care Team Providers Care County Treasurer Name Role Phone Velvet Blandon MD Primary Care Provider [phone] Yudelka Jain NP Primary Care Provider U ashleynievesfrieda Marienanithin Vipul DO Unavailable [phone] Qamar Solitario MD Primary Care Provider [phone] Encounter Details Date Type Department Care Team (Late st Contact Info) Description 07/30/2021 Procedure Pass MRI, [facility] [address], [address] [place] [address] Social History Tobacco Use Types Packs/Day Years [...] documented as of this encounter Care Teams County Treasurer Relationship Specialty Start Date End Date Velvet Blandon MD 34 [place] [address] PCP - General Family Medicine 09/03/20 10/31/21 Yudelka Jain NP PCP - General Family Medicine 11/01/21 10/15/22 Qamar Solitario MD 230 [place] [address] PCP - General Internal Medicine 10/16/22 Vipul Schneider DO [address] [place] [address] Cardiology 01/17/22 documented as of this encounter Additional Source Comments The information contained in this document represents components of the legal health record. It is not the complete legal health record.[facility]
== END 2025-01-31 11:45 | disposition home or self-care (01) ==
LOC: HO.HHCL 11:44
PROVIDERS: PCP Internal Medicine Geriatric Medicine; Visit Provider Internal Medicine Geriatric Medicine
DX: R30.0 Dysuria (principal)
CPT/HCPCS: 81001; 87086

== ENCOUNTER 2025-03-02 18:08 | Outpatient (REF) | payer OTHER, SELFPAY ==
--- OUTSIDE RECORDS SUMMARY | 2025-03-02 09:00 | XMS_ITS | Encounter Summary ---
Author Organization [employer] Address [address] [place] [address] 7 [place] [address] Care Team Providers Care Community Service Organization Director Name Role Phone Name, Qamar GUARDADO Primary Care Provider [phone] Reason for Visit * Reason Comments UTI Hypertension Encounter Details Date Type Department Care Team ([facility] [address] Contact Info) Description 03/02/2025 9:00 AM EST Office Visit [facility] [address] [place], [place] [phone] Name, MD Qamar [address] [place], [place] [phone] Urinary tract infection with hematuria, site unspecified (Primary Dx); Essential hypertension; Chronic right-sided low back pain, unspecified whether [...] Sign Reading Time Taken Comments Blood Pressure 180/100 03/02/2025 9:20 AM EST Pulse 99 03/02/2025 9:07 AM EST Temperature 36.7 C (98.1 F) 03/02/2025 9:07 AM EST Respiratory Rate 14 03/02/2025 9:07 AM EST Oxygen Saturation 98% 03/02/2025 9:07 AM EST Inhaled Oxygen Concentration - - Weight 77.9 kg (171 lb 12.8 oz) 03/02/2025 9:07 AM EST Height 165.1 cm (5' 5 ) 03/02/2025 9:07 AM EST Body Mass Index 28.59 03/02/2025 9:07 AM EST documented in this encounter Progress Notes * Qamar Solitario MD - 03/02/2025 9:00 AM EST Subjective Patient ID: Arpita Park is a 64 y.o. female who presents for UTI and Hypertension. Patient comes for a sick visit complaining of 3 days of malaise, urinary frequency, suprapubic and right CVA angle discomfort, foul-smelling urine. She has personal history of recurrent UTIs, previous history of kidney stones, medullary sponge kidney. Her blood pressure is very high today. She has not used her blood pressure pressure medications in the past 3 days. She does not have any chest pains or shortness of breath.. Review of Systems Constitutional: Negative for chills and fever. HENT: Negative for sore throat. Respiratory: Negative for cough, shortness of breath and wheezing. Cardiovascular: Negative for chest pain, palpitations and leg swelling. Gastrointestinal: Negative for abdominal pain. Genitourinary: Positive for dysuria, frequency and urgency. Objective Vitals: 03/02/25 0907 03/02/25 0920 BP: (!) 196/120 (!) 180/100 BP Location: Left arm Patient Position: Sitting BP Cuff Size: Adult Pulse: 99 Resp: 14 Temp: 98.1 ??F (36.7 ??C) TempSrc: Temporal SpO2: 98% Weight: 171 lb 12.8 oz (77.9 kg) Height: 5' 5 (1.651 m) Physical Exam Constitutional: Appearance: Normal appearance. Cardiovascular: Rate and Rhythm: Normal rate and regular rhythm. Heart sounds: No murmur heard. No gallop. Pulmonary: Effort: Pulmonary effort is normal. No respiratory distress. Breath sounds: Normal breath sounds. No wheezing. Abdominal: Comments: Mild discomfort on deep palpation of the suprapubic area Musculoskeletal: Right lower leg: No edema. Left lower leg: No edema. Neurological: Mental Status: She is alert. Latest Reference Range & Units 03/02/25 09:22 Color, UA Dark Mariah Specific Herminie, UA 1.020 pH, UA 6.0 Ketones, UA Negative Protein, UA Trace Nitrite, UA Negative, None Detected Negative RBC, UA Negative, None Detected Positive ! Clarity, UA Cloudy Glucose, UA Negative Leukocytes, UA Negative, Rare, Trace Many ! Bilirubin UA Negative Urobilinogen, UA 0.2 Appearance, UA dark yellow !: Data is abnormal Assessment/Plan Diagnoses and all orders for this visit: Urinary tract infection with hematuria, site unspecified Comments: I will start the patient on treatment with Levaquin for possible complicated UTI I recommended drink lots of water She is encouraged to call if not much better in 24 hours I am sending the urine for culture. Orders: - POCT Urinalysis - Urinalysis, Complete, with Reflex to Culture; Future Essential hypertension Comments: I strongly encouraged the patient to use her blood pressure medications daily as prescribed. She was prescribed a blood pressure monitor for home use. Follow-up televisit with team nurses next week for blood pressure recheck. Orders: - Blood Pressure kit; Use once a day - losartan (Cozaar) 25 MG tablet; Take 1 tablet (25 mg) by mouth Once per day. - amLODIPine (Norvasc) 5 MG tablet; Take 1 tablet (5 mg) by mouth Once per day. Chronic right-sided low back pain, unspecified whether sciatica present Comments: I refilled the patient's oxycodone as per her SHOT BAGGER agreement. Orders: - oxyCODONE (Roxicodone) 10 MG immediate release tablet; Take 1 tablet (10 mg) by mouth every 6 (six) hours if needed for severe pain for up to 28 days. Other orders - levoFLOXacin (Levaquin) 750 MG tablet; Take 1 tablet (750 mg) by mouth Once per day for 7 days. Future Appointments Date Time Provider Department Center 03/21/2025 9:45 AM [facility] documented in this encounter Plan of Treatment Upcoming Encounters Date Type Department Care Team (Late st Contact Info) Description 03/17/2025 10:00 AM EST Telemedicine [facility] [address] [place] [address] 03/21/2025 9:45 AM EST Office Visit [facility] [address] [place] [phone] documented as of this encounter Procedures Procedure Name Priority Date/Time Associated Diagnosis Comments POCT URINALYSIS DIPSTICK Routine 03/02/2025 9:22 AM EST Urinary tract infection with hematuria, site unspecified URINALYSIS, COMPLETE, WITH REFLEX TO CULTURE Routine 03/02/2025 9:18 AM EST Urinary tract infection with hematuria, site unspecified documented in this encounter Results * (ABNORMAL) POCT Urinalysis (03/02/2025 9:22 AM EST) Color, UA Dark Mariah Clarity, UA Cloudy Glucose, UA Negative Bilirubin, UA Negative Ketones, UA Negative Spec Grav, UA 1.020 Blood, UA Positive(A) Negative, None Detected Comment:moderate pH, UA 6.0 Protein, UA Trace Comment:100mg/dL Urobilinogen, UA 0.2 Leukocytes, UA Many(A) Negative, Rare, Trace Comment:small Nitrite, UA Negative Negative, None Detected Appearance, UA dark yellow QC Media Lot # [id number] Lot# Expiration Date 63,026 Urine (Urine, Random) 03/02/2025 9:22 AM EST us Qamar Name POINT OF CARE TEST ENTER/EDIT OR DERABLES Final Result * (ABNORMAL) Urinalysis, Complete, with Reflex to Culture (03/02/2025 9:18 AM EST) Color Urine Yellow [facility] Appearance Urine Cloudy [facility] PH 6.0 5.0 - 9.0 [facility] Glucose Urine UA Negative Negative mg/dL [facility] Urine Blood Moderate (2+)(A) Negative [facility] Specific Herminie - Urine 1.020 1.005 - 1.025 [facility] Urine Protein 100 (2+)(A) Neg-Trace mg/dL [facility] Urine Ketones Negative Negative mg/dL [facility] Nitrite Urine Negative Negative [facility] Leukocyte Esterase Urine Small (1+)(A) Negative [facility] RBC Urine 11-20(A) 0 - 2 /HPF [facility] Urine WBC 21-50(A) 0 - 5 /HPF [facility] Urine Squamous Epithelial Cell 6-10 0 - 2 /HPF [facility] Urine Bacteria 1+ None Seen [facility] Hyaline Casts, Urine 0-2 0 - 2 /LPF [facility] Urine 03/02/2025 9:18 AM EST 03/02/2025 6:09 PM EST Narrative [facility] - 03/02/2025 6:43 PM EST Urine, Clean Catch us Qamar Name MD LAB URINE ORDERABLES Final Resul t [facility] [address] [place] [phone] [phone] documented in this encounter Visit Diagnoses Diagnosis Urinary tract infection with hematuria, site unspecified- Primary Essential hypertension Unspecified essential hypertension Chronic right-sided low back pain, unspecified whether sciatica present documented in this encounter Additional Health Concerns Assessment Noted Time PHQ-9 Depression Total Score: 7 06/07/19 25 1:15 PM EST documented as of this encounter Care Teams Community Service Organization Director Relationship Specialty Start Date End Date Name, MD Qamar [address] [place] [address] PCP - General Internal Medicine 05/02/22 documented as of this encounter
[2025-03-02 18:38] LABS: Appearance Urine Cloudy; Glucose Urine UA Negative (Negative); PH 6.0 (5.0-9.0); Specific Gravity - Urine 1.020 (1.005-1.025); UMIC TRIGGER UACC YES
[2025-03-02 18:42] LABS: UACC Culture Trigger YES
--- OUTSIDE RECORDS SUMMARY | 2025-03-02 18:54 | XMS_ITS | Encounter Summary ---
Author Organization [employer] Address [address] [place] [address] 7 [place] [address] Care Team Providers Care Chute Builder Name Role Phone Name, Qamar GUARDADO Primary Care Provider [phone] Reason for Visit * Reason Onset Date Comments Reschedule 05/12/2023 Encounter Details Date Type Department Care Team ([facility] Contact Info) Description 05/12/2023 Telephone [facility] [address] [place], [place] [phone] Name, MD Qamar [address] [place] [address] Reschedule Social History Tobacco Use Types Packs/Day [...] Info) Description 03/17/2025 10:00 AM EST Telemedicine [facility] [address] [place] [phone] 03/21/2025 9:45 AM EST Office Visit [facility] [address] [place] [phone] documented as of this encounter Visit Diagnoses Not on filedocumented in this encounter Care Teams Chute Builder Relationship Specialty Start Date End Date Name, MD Qamar [address] [place] [phone] PCP - General Internal Medicine 05/02/22 documented as of this encounter
--- OUTSIDE RECORDS SUMMARY | 2025-03-02 18:54 | XMS_ITS | Encounter Summary ---
Author Organization [employer] Address [address] [facility] 7t [place] [address] Care Team Providers Care Agronomy Technician Name Role Phone Name, Qamar GUARDADO Primary Care Provider [phone] Reason for Visit * Reason Comments Med Refill Encounter Details Date Type Department Care Team ([facility] st Contact Info) Description 10/10/2024 Refill [facility] [address] [place], [place] [phone] Name, MD Qamar [address] [place] [address] Chronic right-sided low back pain, unspecified whether [...] Info) Description 03/17/2025 10:00 AM EST Telemedicine [facility] [address] [place] [phone] 03/21/2025 9:45 AM EST Office Visit [address] [address] documented as of this encounter Visit Diagnoses Diagnosis Chronic right-sided low back pain, unspecified whether sciatica present documented in this encounter Additional Health Concerns Assessment Noted Time PHQ-9 Depression Total Score: 7 06/07/19 25 1:15 PM EST documented as of this encounter Care Teams Agronomy Technician Relationship Specialty Start Date End Date Name, MD Qamar [address] [place] [phone] PCP - General Internal Medicine 05/02/22 documented as of this encounter
--- OUTSIDE RECORDS SUMMARY | 2025-03-02 18:54 | XMS_ITS | Encounter Summary ---
Author Organization [employer] Address [address] [facility] [address] 7[address] [place] [address] Care Team Providers Care Computer Typesetter Name Role Phone Name, Qamar GUARDADO Primary Care Provider Encounter Details Date Type Department Care Team (Latest Contact Info) Description 03/01/2025 Travel Social History Tobacco Use Types Packs/Day [...] 10:00 AM EST Telemedicine [facility] [address] [place] [phone] 03/21/2025 9:45 AM EST Office Visit [address] [address] documented as of this encounter Visit Diagnoses Not on filedocumented in this encounter Additional Health Concerns Assessment Noted Time PHQ-9 Depression Total Score: 7 06/07/19 25 1:15 PM EST documented as of this encounter Care Teams Computer Typesetter Relationship Specialty Start Date End Date Name, MD Qamar [address] [place] [phone] PCP - General Internal Medicine 05/02/22 documented as of this encounter
--- OUTSIDE RECORDS SUMMARY | 2025-03-02 18:54 | XMS_ITS | Encounter Summary ---
Author Organization [employer] Address [address] [place] [address] 7 [place] [address] Care Team Providers Care Machine Coil Assembler Name Role Phone Name, Qamar GUARDADO Primary Care Provider [phone] Reason for Visit * Reason Comments Med Refill Encounter Details Date Type Department Care Team ([facility] Contact Info) Description 01/23/2023 Refill [facility] [address] [place] [address] [phone] Name, MD Qamar [address] [place] [phone] Medullary sponge kidney Social History Tobacco Use [...] Upcoming Encounters Date Type Department Care Team ([facility] Contact Info) Description 03/17/2025 10:00 AM EST Telemedicine [address] [address] 03/21/2025 9:45 AM EST Office Visit [facility] [address] [place] [address] [phone] documented as of this encounter Visit Diagnoses Diagnosis Medullary sponge kidney Congenital medullary sponge kidney documented in this encounter Care Teams Machine Coil Assembler Relationship Specialty Start Date End Date Name, MD Qamar [address] [place] [address] PCP - General Internal Medicine 05/02/22 documented as of this encounter
--- OUTSIDE RECORDS SUMMARY | 2025-03-02 18:54 | XMS_ITS | Encounter Summary ---
Author Organization [employer] Address [address] [place] [address] 7 [place] [address] Care Team Providers Care Diagnostic Tech Name Role Phone Name, Qamar GUARDADO Primary Care Provider [phone] Reason for Visit * Reason Onset Date Comments BUSINESS LIAISON OFFICER Tier 2 03/02/2025 Encounter Details Date Type Department Care Team ([facility] Contact Info) Description 03/02/2025 Telephone [facility] [address] [place], [place] [phone] Anna Ochoa RN BUSINESS LIAISON OFFICER Tier 2 Social History Tobacco Use Types Packs/Day Years [...] Telephone Encounter - Anna Ochoa RN - 03/02/2025 9:06 AM EST Per message from PCP, pt to be BUSINESS LIAISON OFFICER Tier 2. documented in this encounter Plan of Treatment Upcoming Encounters Date Type Department Care Team (Late st Contact Info) Description 03/17/2025 10:00 AM EST Telemedicine [facility] [address] [place] [phone] 03/21/2025 9:45 AM EST Office Visit [facility] [address] [place] [phone] documented as of this encounter Visit Diagnoses Not on filedocumented in this encounter Additional Health Concerns Assessment Noted Time PHQ-9 Depression Total Score: 7 06/07/19 25 1:15 PM EST documented as of this encounter Care Teams Diagnostic Tech Relationship Specialty Start Date End Date Name, MD Qamar [address] [place] [phone] PCP - General Internal Medicine 05/02/22 documented as of this encounter
--- OUTSIDE RECORDS SUMMARY | 2025-03-02 18:54 | XMS_ITS | Encounter Summary ---
Author Organization [employer] Address [address] [facility] 7t [place] [address] Care Team Providers Care Medical Coordinator Pesticide Use Name Role Phone Name, Qamar GUARDADO Primary Care Provider [phone] Reason for Visit * Reason Comments Med Refill Encounter Details Date Type Department Care Team ([facility] st Contact Info) Description 02/28/2025 Refill [facility] [address] [place], [place] [phone] Name, MD Qamar [address] [place] [address] Chronic right-sided low back pain, unspecified whether [...] Info) Description 03/17/2025 10:00 AM EST Telemedicine [facility] [address] [place] [phone] 03/21/2025 9:45 AM EST Office Visit [address] [address] documented as of this encounter Visit Diagnoses Diagnosis Chronic right-sided low back pain, unspecified whether sciatica present documented in this encounter Additional Health Concerns Assessment Noted Time PHQ-9 Depression Total Score: 7 06/07/19 25 1:15 PM EST documented as of this encounter Care Teams Medical Coordinator Pesticide Use Relationship Specialty Start Date End Date Name, MD Qamar [address] [place] [phone] PCP - General Internal Medicine 05/02/22 documented as of this encounter
--- OUTSIDE RECORDS SUMMARY | 2025-03-02 18:54 | XMS_ITS | Encounter Summary ---
Author Organization [employer] Address [address] [facility] [address] 7[address] [place] [address] Care Team Providers Care Cut And Print Machine Operator Name Role Phone Name, Qamar GUARDADO Primary Care Provider [phone] Encounter Details Date Type Department Care Team (Latest Contact Info) Description 03/02/2025 Travel Social History Tobacco Use Types Packs/Day [...] Info) Description 03/17/2025 10:00 AM EST Telemedicine [facility] [address] [place] [phone] 03/21/2025 9:45 AM EST Office Visit [address] [address] documented as of this encounter Visit Diagnoses Not on filedocumented in this encounter Additional Health Concerns Assessment Noted Time PHQ-9 Depression Total Score: 7 06/07/19 25 1:15 PM EST documented as of this encounter Care Teams Cut And Print Machine Operator Relationship Specialty Start Date End Date Name, MD Qamar [address] [place] [phone] PCP - General Internal Medicine 05/02/22 documented as of this encounter
--- OUTSIDE RECORDS SUMMARY | 2025-03-02 18:54 | XMS_ITS | Clinical Summary ---
Author Organization [employer] Address [address] [facility] [address] [place] [address] Care Team Providers Care Revolving Inventory Clerk Name Role Phone Name, Qamar GUARDADO Primary Care Provider [phone] Allergies Active Allergy Reactions Criticality Noted Date [...] DAY FOR 3 DOSES 02/11/20 22 Active orphenadrine (Norflex) 100 MG 12 hr [...] PAIN 100 g 1 11/17/19 25 Active Blood Pressure kitIndications: Essential hypertension Use once a day 1 kit 03/02/20 25 Active losartan (Cozaar) 25 MG tabletIndicatio ns:Essential hypertension Take 1 tablet (25 mg) by mouth Once per day. 90 tablet 3 03/02/20 25 026 Active amLODIPine (Norvasc) 5 MG tabletIndicatio ns:Essential hypertension Take 1 tablet (5 mg) by mouth Once per day. 90 tablet 3 03/02/20 25 026 Active levoFLOXacin (Levaquin) 750 MG tablet Take 1 tablet (750 mg) by mouth Once per day for 7 days. 7 tablet 03/02/20 25 025 Active oxyCODONE (Roxicodone) 10 MG immediate release tabletIndicatio ns:Chronic right-sided low back pain, unspecified whether sciatica present Take 1 tablet (10 mg) by mouth every 6 (six) hours if needed for severe pain for up to 28 days. 112 tablet 03/02/20 25 025 Active Blood Pressure kitIndications: Essential hypertension Use once a day 1 kit 05/15/19 23 025 Discontinued(Du plicate order (will not trigger notification to Pharmacy)) oxyCODONE (Roxicodone) 10 MG immediate release tabletIndicatio ns:Chronic right-sided low back pain, unspecified whether sciatica present Take 1 tablet (10 mg) by mouth every 6 (six) hours if needed for severe pain for up to 28 days. Do not start before December 30, 2024. 112 tablet 12/31/19 25 025 Discontinued(Re order (will not trigger notification to Pharmacy)) levoFLOXacin (Levaquin) 500 MG tabletIndicatio ns:Dysuria Take 1 tablet (500 mg) by mouth Once per day for 5 days. 5 tablet 02/01/20 25 025 amLODIPine (Norvasc) 5 MG tabletIndicatio ns:Essential hypertension Take 1 tablet (5 mg) by mouth Once per day. 90 tablet 3 02/01/20 25 025 Discontinued(Re order (will not trigger notification to Pharmacy)) losartan (Cozaar) 25 MG tabletIndicatio ns:Essential hypertension Take 1 tablet (25 mg) by mouth Once per day. 90 tablet 3 02/01/20 25 025 Discontinued(Re order (will not trigger notification to Pharmacy)) oxyCODONE (Roxicodone) 10 MG immediate release tabletIndicatio ns:Chronic right-sided low back pain, unspecified whether sciatica present Take 1 tablet (10 mg) by mouth every 6 (six) hours if needed for severe pain for up to 28 days. 112 tablet 02/03/20 25 025 Discontinued(Re order (will not trigger notification to Pharmacy)) Active Problems Problem Noted Date Diagnosed Date [facility] current use of opiate analgesic 2023 Overview (02/21/2025): Dx: chronic abdominal pain and right-sided low back pain, knee OA Rx: oxycodone 10 mg every 6 hours as needed Last MEMBER SERVICE REPRESENTATIVE agreement: 02/21/25 Tier I (monthly visits) Additional considerations: pain frequently intertwined with chronic kidney issues Assessment & Plan (02/21/2025 1:21 PM EDT): Timeline: 10/18/24: Group - utox/pill count as expected 02/21/25: Group - utox/pill count as expected Assessment & Plan (10/18/2024 2:02 PM EDT): Timeline: 10/18/24: Group - utox/pill count as expected Diverticulitis 03/23/2024 Assessment & Plan (03/23/2024 1:39 PM EST): Pt is PCN allergic, so will treat with Flagyl and Bactrim, as the Bactrim will also cover urinary symptoms, and she was on Cipro < 30 days ago Pyelonephritis 02/20/2024 Chronic right-sided low back pain 10/21/2023 Assessment & Plan (02/21/2025 1:22 PM EDT): -Good engagement and participation with Group Medical Visit model -Encouraged multifactorial approach to pain control including pharm and non- pharm modalities -Utox and pill count as expected -Referral to physical therapy placed Assessment & Plan (10/18/2024 2:01 PM EDT): [...] of acute diverticulitis with an abscess at [facility]. EXPLORATORY LAPAROTOMYREDO RESECTION ANTERIOR, TAKEDOWN COLOVAGINAL FISTULA, SMALL BOWEL RESECTION at [facility] 10/2021 lleostomy closure 02/[address] [facility] She has small intra-abdominal abscess 02/16. Responded [...] of right artificial knee joint 02/12/20 18 Assessment & Plan (02/21/2025 1:19 PM EDT): Included in physical therapy referral Unspecified osteoarthritis, unspecified site Assessment & Plan [...] of intestine 12/20/2022 02/06/2023 07/09/2023 Intra-abdominal abscess ([facility]/HCC) 12/20/202202/06/ 023 07/09/2023 Ileostomy present (CMS/HCC) 02/05/2022 07/09/2023 Overview (06/12/2022): Taken down at 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 11/15 Muscle weakness (generalized) 02/11/2018 10/09/2022 Unilateral primary osteoarthritis, right knee 02/12/20 18 10/09/2022 Other lack of coordination 02/11/2018 0 07/09/2023 Encounters * This document contains information received from the source organization and may not represent a complete record from that organization. Date Type Department Care Team Description 03/02/2025 9:00 AM EST Office Visit [facility] [address] [place] [address] Qamar Solitario MD Urinary tract infection with hematuria, site unspecified (Primary Dx); Essential hypertension; Chronic right-sided low back pain, unspecified whether sciatica present 03/02/2025 Telephone [facility] [address] [place] [phone] Anna Ochoa RN MEMBER SERVICE REPRESENTATIVE Tier 2 03/02/2025 Travel 03/01/2025 Travel 02/28/2025 Refill [facility] [address] [place] [address] Qamar Solitario MD Chronic right-sided low back pain, unspecified whether sciatica present 02/27/2025 Refill [facility] [address] [place] [address] Qamar Solitario MD Chronic right-sided low back pain, unspecified whether sciatica present 02/21/2025 9:45 AM EDT Office Visit [facility] [address] [place] [address] Terrie Paiz, GAMBLING CASHIER Chronic right-sided low back pain, unspecified whether sciatica present (Primary Dx); computer terminal operator current use of opiate analgesic; Presence of right artificial knee joint 02/21/2025 Travel 02/02/2025 Refill [facility] [address] [facility] [place] [address] Qamar Solitario MD Chronic right-sided low back pain, unspecified whether sciatica present 01/31/2025 11:15 AM EDT Office Visit [facility] [address] [place] [address] Qamar Solitario MD Essential hypertension (Primary Dx); Sore throat; Dysuria 01/31/2025 Travel 01/30/2025 Telephone [facility] [address] [place] [phone] Qamar Solitario MD chart prep 01/26/2025 9:00 AM EDT Clinical Support [facility] [address] [place] [phone] Anna Ochoa RN [facility] current use of opiate analgesic (Primary Dx) 01/26/2025 Travel 01/18/2025 Telephone [facility] [address] [place] [phone] Qamar Solitario MD 01/12/2025 Travel 12/28/2024 11:00 AM EDT Office Visit [facility] [address] [place] [phone] Egeland, Alicia, GAMBLING CASHIER Essential hypertension (Primary Dx); UTI symptoms 12/27/2024 Refill [facility] [address] [place] [phone] Qamar Solitario MD Chronic right-sided low back pain, unspecified whether sciatica present 12/27/2024 Telephone [facility] [address] [place] [phone] Qamar Solitario MD Nurse Triage 12/27/2024 Refill [facility] [address] [place] [address] Qamar Solitario MD Chronic right-sided low back pain, unspecified whether sciatica present 12/05/2024 Refill [facility] [address] [place] [phone] Name, MD Qamar Chronic right-sided low back pain, unspecified whether [...] Mass Index 28.59 03/02/2025 9:07 AM EST Plan of Treatment Upcoming Encounters Date Type Department Care Team (Late st Contact Info) Description 03/17/2025 10:00 AM EST Telemedicine [facility] [address] [place] [phone] 03/21/2025 9:45 AM EST Office Visit [facility] [address] [place] [phone] Health Maintenance Due Date Last Done Comments [...] Pap Smear 08/24/2023 08/23/2020 COVID-19 Vaccine ( - season) 2024 Depression Screening 06/07/2025 06/07/2024, 06/07/19 Cervical Cancer Screening 08/23/2025 HPV/Cotest 08/23/2025 08/23/2020 SDOH Screening 08/31/2025 08/31/2024 Alcohol/Substance Use Screening 11/03/2025 11/03/2024 Disability Screening 01/12/2026 01/12/2025 Tobacco Screening 03/02/2026 03/02/2025 Lipid Panel 04/01/2026 04/01/2021 RSV Patients and [...] Urinary tract infection with hematuria, site unspecified POCT SANYA-14 URINE DRUG SCREEN Routine 02/21/2025 10:09 AM EDT Chronic right-sided low back pain, unspecified whether sciatica present URINALYSIS, COMPLETE, WITH REFLEX TO CULTURE Routine 01/31/2025 11:49 AM EDT Dysuria POCT INFLUENZA A Routine 01/31/2025 11:3 5 AM EDT Sore throat POCT INFLUENZA B Routine 01/31/2025 11:3 5 AM EDT Sore throat POCT RAPID COVID ANTIGEN Routine 01/31/2025 11:35 AM EDT Sore throat CULTURE, URINE, ROUTINE Routine 01/31/2025 12:00 AM EDT POCT SANYA-14 URINE DRUG SCREEN Routine 01/26/2025 8:56 AM EDT [facility] current use of opiate analgesic CBC WITH AUTO DIFFERENTIAL Routine 12/28/2024 12:22 PM EDT UTI symptoms CULTURE, URINE, ROUTINE Routine 12/28/2024 12:22 PM EDT UTI symptoms POCT URINALYSIS DIPSTICK Routine 12/28/2024 11:31 AM EDT UTI symptoms ZZZ HISTORICAL HEPATITIS C AB W/REFL TO [...] Relevant to Health Maintenance Results * (ABNORMAL) POCT Urinalysis (03/02/2025 9:22 AM EST) Only the most recent of2 resultswithin the time period is included. Color, UA Dark Mariah Clarity, UA Cloudy Glucose, UA Negative Bilirubin, UA Negative Ketones, UA Negative Spec Grav, UA 1.020 Blood, UA Positive(A) Negative, None Detected Comment:moderate pH, UA 6.0 Protein, UA Trace Comment:100mg/dL Urobilinogen, UA 0.2 Leukocytes, UA Many(A) Negative, Rare, Trace Comment:small Nitrite, UA Negative Negative, None Detected Appearance, UA dark yellow QC Media Lot # [id number] Lot# Expiration Date Urine (Urine, Random) 03/02/2025 9:22 AM EST us Qamar Name POINT OF CARE TEST ENTER/EDIT OR DERABLES Final Result * (ABNORMAL) Urinalysis, Complete, with Reflex to Culture (03/02/2025 9:18 AM EST) Only the most recent of2 resultswithin the time period is included. Color Urine Yellow [facility] Appearance Urine Cloudy [facility] PH 6.0 5.0 - 9.0 [facility] Glucose Urine UA Negative Negative mg/dL [facility] Urine Blood Moderate (2+)(A) Negative [facility] Specific [place] - Urine 1.020 1.005 - 1.025 [facility] Urine Protein 100 (2+)(A) Neg-Trace mg/dL [facility] Urine Ketones Negative Negative mg/dL [facility] Nitrite Urine Negative Negative [facility] Leukocyte Esterase Urine Small (1+)(A) Negative [facility] RBC Urine 11-20(A) 0 - 2 /HPF [facility] Urine WBC 21-50(A) 0 - 5 /HPF [facility] Urine Squamous Epithelial Cell 6-10 0 - 2 /HPF [facility] Urine Bacteria 1+ None Seen [facility] Hyaline Casts, Urine 0-2 0 - 2 /LPF [facility] Urine 03/02/2025 9:18 AM EST 03/02/2025 6:09 PM EST Narrative [facility] - 03/02/2025 6:43 PM EST Urine, Clean Catch us Qamar Solitario MD LAB URINE ORDERABLES Final Resul t [facility] [address] [place] [phone] * (ABNORMAL) POCT SANYA-14 Urine Drug Screen (02/21/2025 10:09 AM EDT) Only the most recent of2 resultswithin the time period is included. THC Positive(A) Negative Cocaine Screen, Urine Negative Negative Opiate Screen, Urine Negative Negative Methamphetamine Screen Urine Negative Negative Amphetamine Screen, Urine Negative Negative Benzodiazepines Screen, Urine Negative Negative Barbiturate Screen, Urine Negative Negative Methadone Screen, Urine Negative Negative Buprenophine Screen, Urine Negative Negative TCA, Urine Negative Negative MDMA Urine Negative Negative ng/mL Oxycodone Screen, Urine Positive(A) Negative Comment:Rx Phencyclidine (PCP), Urine Negative Negative Propoxyphene, Urine Negative Negative Fentanyl, Urine Negative Negative Urine Urine specimen obtained by clean catch procedure / Unknown 02/21/2025 10:09 AM EDT Narrative Gely Wolfe RN - 02/21/2025 10:09 AM EDT .UTOX cup Lot#[id number] Exp. 01/31/26 Internal Pass Control us Qamar Solitario MD POINT OF CARE TEST ENTER/EDIT OR DERABLES Final Result * POCT Rapid Covid-19 BinaxNOW (01/31/2025 11:35 AM EDT) [facility] Rapid COVID Ag Negative QC Media Lot # [id number] Lot# Expiration Date [id number] Swab 01/31/2025 11:3 5 AM EDT Result [facility] POINT OF CARE TEST ENTER/EDIT OR DERABLES Final Result * POCT Rapid Influenza B OSOM (01/31/2025 11:35 AM EDT) [facility] Rapid Influenza B Ag Negative Negative, Indeterminate QC Media Lot # [id number] Lot# Expiration Date Swab 01/31/2025 11:3 5 AM EDT Result [facility] POINT OF CARE TEST ENTER/EDIT OR DERABLES Final Result * POCT Rapid Influenza A OSOM (01/31/2025 11:35 AM EDT) [facility] Rapid Influenza A Ag Negative Negative, Indeterminate QC Media Lot # [id number] Lot# Expiration Date Swab Nasopharyngeal structure / Unknown 01/31/2025 11:35 AM EDT Result [facility] POINT OF CARE TEST ENTER/EDIT OR DERABLES Final Result * Culture, Urine, Routine (01/31/2025 12:00 AM EDT) Only the most recent of2 resultswithin the time period is included. Urine Urine specimen obtained by clean catch procedure / Unknown 01/31/2025 01/31/2025 Comment:[facility] Narrative [facility] - 02/01/2025 1:22 PM EDT Urine Culture Report Result Urine Culture 10,000 to 50,000 cfu/ml Urine Culture Mixed bacterial denia characteristic of Urine Culture urogenital contamination. Specimen Source: Urine clean catch us Qamar Name LAB MICROBIOLOGY - GENERAL ORDER MEGAN Final Result [facility] [address] [place], [place] [phone] * (ABNORMAL) CBC auto differential (12/28/2024 12:22 PM EDT) White Blood Count 11.5(H) 4.8 - 10.8 X10*3/uL [facility] Red Blood Count 5.41 4.20 - 5.50 X10*6/uL [facility] Hemoglobin 15.6 12.0 - 16.0 g/dl [facility] Hematocrit 45.6 37.0 - 47.0 % [facility] Mean Corpuscular Volume 84.3 80.0 - 98.0 fL [facility] Mean Corpuscular Hemoglobin 28.8 27.0 - 33.0 pg [facility] Mean Corpuscular HGB Conc 34.2 31.0 - 35.0 g/dl [facility] Red Cell Distribution Width 14.3 11.0 - 16.0 % [facility] Platelet Count 354 160 - 400 X10*3/uL [facility] Mean Platelet Volume 9.7 9.4 - 12.3 fL [facility] Neutrophils Percent Auto 69.2 45 - 73 % [facility] Imm Gran Pct Auto 0.3 0.0 - 0.4 % [facility] Lymphocytes Percent Auto 23.1 20 - 40 % [facility] Monocytes Percent Auto 5.1 2 - 11 % [facility] Eosinophils Percent Auto 1.9 0 - 4 % [facility] Basophils Percent Auto 0.4 0 - 2 % [facility] NRBC Pct Auto 0.0 0.0 - 0.2 /100WBC [facility] Neutrophils Absolute Auto 7.9 2.0 - 8.3 x10*3/uL [facility] Imm Gran Abs Auto 0.03 0.00 - 0.03 X10*3/uL [facility] Lymphocytes Absolute Auto 2.7 1.2 - 4.9 X10*3/uL [facility] Monocytes Absolute Auto 0.6 0.1 - 1.2 X10*3/uL [facility] Eosinophils Absolute Auto 0.2 0.0 - 0.4 X10*3/uL [facility] Basophils Absolute Auto 0.1 0.0 - 0.2 X10*3/uL [facility] NRBC Abs Auto 0.000 0.0 - 0.012 X10*3/uL [facility] Blood Venous blood specimen / Unknown 12/28/2024 12:22 PM EDT 12/28/2024 1:16 PM EDT [facility] LAB BLOOD ORDERABLES Final Re sult Performing Organization Address City/[facility]/ZIP Co de Phone Number [facility] [address] [place] [address] [phone] * HEPATITIS C AB W/REFL TO HCV RNA, QN, PCR (04/01/2021 8:51 AM EST) Pathologist [facility] HEPATITIS C ANTIBODY NON-REACT [place] NON-REACT [facility] INDEX 0.05 <1.00 [facility] Comment: HCV antibody was non-reactive. There is no laboratory evidence of HCV infection. In most cases, no further action is required. However, if recent HCV exposure is suspected, a test for HCV RNA (test code 06094) is suggested. For additional information please refer to http://education.[employer]/faq/WPA96d5 (This link is being provided for informational/ educational purposes only.) 04/01/2021 8:51 AM EST Yudelka Jain NP HISTORICAL/NON ORDERABLE LABS F inal Result [facility] [address] * HIV 1/2 ANTIGEN/ANTIBODY,FOURTH GENERATION W/RFL (04/01/2021 8:51 AM EST) Pathologist [facility] HIV-1/2 ANTIGEN AND ANTIBODIES, 4TH GENERATION W/ [...] purpose. For additional information please refer to http://BU[employer]STAND.[employer]/faq/HMM445 (This link is being provided for informational/ educational purposes only.) The performance of this assay has not been clinically validated in patients less than 2 years old. 04/01/2021 8:51 AM EST Yudelka Jain [employer]OMOTIONS ASSISTANT SALES MARKETING LAB BLOOD ORDERABLES Final Resu lt [facility] [address] * (ABNORMAL) LIPID PANEL, STANDARD (04/01/2021 8:51 AM EST) [facility] Chol/HDLC Ratio 3.1 <5.0 (calc) [facility] Cholesterol, Total 162 <200 [...] factors. LDL-C is now calculated using the Roni-Octavio calculation, which is a validated novel method providing better accuracy than the Friedewald equation in the estimation of LDL-C. Roni ALLEN et al. KENNETH. 2013;310(19): 2493-9077 (http://education.[employer]/faq/CJR951) Non-HDL Cholesterol 110 <130 mg/dL (calc) [facility] Comment: For patients with diabetes plus 1 major ASCVD risk factor, treating to a non-HDL-C goal of <100 mg/dL (LDL-C of <70 mg/dL) is considered a therapeutic option. Triglycerides 164(H) <150 mg/dL [facility] 04/01/2021 8:51 AM EST Yudelka Jain PROMOTIONS ASSISTANT SALES MARKETING LAB BLOOD ORDERABLES Final Resu lt Performing Organization Address [facility] Co de Phone Number [facility] [address] [place] [address], * THINPREP TIS PAP (08/23/2020 9:31 AM [...] computer assisted technology. [facility] Corporate Responsibility Officer : SEE COMMENT [facility] Comment: NSS, CT(ASCP) CT screening location: [place] [address] Interpretation/R esult: Negative for intraepithelial lesion or malignancy. [facility] LMP: [id number] [facility] [...] ORDERABLES Elena l Result Performing Organization Address [facility] Co de Phone Number [facility] [address] [place] [address], * HPV mRNA E6/E7 (08/23/2020 9:31 AM EDT) HPV nRNA E6/E7 Not Detected Not Detected [facility] Comment: Methodology: Rubber Compounder Supervisor-Mediated Amplification This assay detects E6/E7 viral messenger RNA (mRNA) from 14 high-risk HPV types (16,18,31,33,35,39,45,51,52,56,58,59,66,68). The analytical performance characteristics of this assay have been determined by [employer]. The modifications have not been cleared or approved by the FDA. This assay has been validated pursuant to the CLIA regulations and is used for clinical purposes. For additional information, please refer to http://education.[employer]/faq/RJH547t4 (This link if provided for information/ educational purposes only.) 08/23/2020 9:31 AM EDT us Velvet Blandon MD LAB BLOOD ORDERABLES Final Re sult [facility] [address] from Last 3 Months or Most Recently Relevant to Health Maintenance Insurance [facility] < 67 [place] [id number] Care Teams Revolving Inventory Clerk Relationship Specialty Start Date End Date Name, MD Qamar [address] [facility] [place] [phone] PCP - General Internal Medicine 05/02/22
--- OUTSIDE RECORDS SUMMARY | 2025-03-02 18:54 | XMS_ITS | Encounter Summary ---
Author Organization [employer] Address [address] [facility] 7 [place] [address] Care Team Providers Care Senior Java J2Ee Developer Name Role Phone Name, Qamar GUARDADO Primary Care Provider [phone] Reason for Visit * Reason Onset Date Comments Call Back Request 07/04/2024 Encounter Details Date Type Department Care Team ([facility] Contact Info) Description 07/04/2024 Telephone [facility] [address] [place], [place] [phone] Name, MD Qamar [address] [place] [address] Call Back Request Social History Tobacco Use [...] discuss some information. Please return call to [phone] documented in this encounter Plan of Treatment Upcoming Encounters Date Type Department Care Team (Late st Contact Info) Description 03/17/2025 10:00 AM EST Telemedicine [facility] [address] [place] [phone] 03/21/2025 9:45 AM EST Office Visit [facility] [address] [place] [phone] documented as of this encounter Visit Diagnoses Not on filedocumented in this encounter Additional Health Concerns Assessment Noted Time PHQ-9 Depression Total Score: 7 06/07/19 25 1:15 PM EST documented as of this encounter Care Teams Senior Java J2Ee Developer Relationship Specialty Start Date End Date Name, MD Qamar [address] [place] [phone] PCP - General Internal Medicine 05/02/22 documented as of this encounter
--- OUTSIDE RECORDS SUMMARY | 2025-03-02 18:54 | XMS_ITS | Encounter Summary ---
Author Organization [employer] Address [address] [place] [address] 7 [place] [address] Care Team Providers Care Gas Pumper Name Role Phone Name, Qaamr GUARDADO Primary Care Provider [phone] Reason for Visit * Reason Onset Date Comments Med Refill 02/27/2025 Encounter Details Date Type Department Care Team ([facility] st Contact Info) Description 02/27/2025 Refill [facility] [address] [place], [place] [phone] Name, MD Qamar [address] [place] [address] Chronic right-sided low back pain, unspecified whether [...] Telephone Encounter - Anna Ochoa RN - 02/27/2025 1:46 PM EST Per chantelle, Percocet last picked up 02/06/25 for a 28 day supply. Prescription due 03/06/25. Will forward request to PCP on 03/03/25. documented in this encounter Plan of Treatment Upcoming Encounters Date Type Department Care Team (Late st Contact Info) Description 03/17/2025 10:00 AM EST Telemedicine [facility] MEDICINE [address] [place] [address] 03/21/2025 9:45 AM EST Office Visit [facility] [address] [place] [address] documented as of this encounter Visit Diagnoses Diagnosis Chronic right-sided low back pain, unspecified whether sciatica present documented in this encounter Additional Health Concerns Assessment Noted Time PHQ-9 Depression Total Score: 7 06/07/19 1:15 PM EST documented as of this encounter Care Teams Gas Pumper Relationship Specialty Start Date End Date Name, MD Qamar [address] [place] [id number] PCP - General Internal Medicine 05/02/22 documented as of this encounter
--- OUTSIDE RECORDS SUMMARY | 2025-03-02 18:54 | XMS_ITS | Encounter Summary ---
Author Organization [employer] Address [address] [place] [address] 7 [place] [address] Care Team Providers Care Saddle And Side Wire Stitcher Name Role Phone Name, Qamar GUARDADO Primary Care Provider [phone] Reason for Visit * Reason Onset Date Comments Durable Medical Equipment 07/16/2022 Encounter Details Date Type Department Care Team ([facility] st Contact Info) Description 07/16/2022 Telephone [facility] [address] [place], [place] [phone] Name, MD Qamar [address] [place] [address] Durable Medical Equipment Social History Tobacco Use [...] and incontinence pads Please contact pt at [phone] documented in this encounter Plan of Treatment Upcoming Encounters Date Type Department Care Team (Late st Contact Info) Description 03/17/2025 10:00 AM EST Telemedicine [address] [address] 03/21/2025 9:45 AM EST Office Visit [address] [address] documented as of this encounter Visit Diagnoses Not on filedocumented in this encounter Care Teams Saddle And Side Wire Stitcher Relationship Specialty Start Date End Date Name, MD Qamar [address] [place] [id number] PCP - General Internal Medicine 05/02/22 documented as of this encounter
--- OUTSIDE RECORDS SUMMARY | 2025-03-02 18:54 | XMS_ITS | Encounter Summary ---
Author Organization [facility] [employer] Address [address] [facility] 7t [place] [address] Care Team Providers Care Electric Pile Driver Operator Name Role Phone Name, Qamar GUARDADO Primary Care Provider [phone] Reason for Visit * Reason Comments Med Refill Encounter Details Date Type Department Care Team ([facility] st Contact Info) Description 06/27/2024 Refill [facility] MEDICINE [address] [place], [place] [phone] Name, MD Qamar [address] [place] [address] Chronic right-sided low back pain, unspecified whether [...] Info) Description 03/17/2025 10:00 AM EST Telemedicine [address] [address] 03/21/2025 9:45 AM EST Office Visit [address] [address] documented as of this encounter Visit Diagnoses Diagnosis Chronic right-sided low back pain, unspecified whether sciatica present documented in this encounter Additional Health Concerns Assessment Noted Time PHQ-9 Depression Total Score: 7 06/07/19 25 1:15 PM EST documented as of this encounter Care Teams Electric Pile Driver Operator Relationship Specialty Start Date End Date Name, MD Qamar [address] [place] [id number] PCP - General Internal Medicine 05/02/22 documented as of this encounter
--- OUTSIDE RECORDS SUMMARY | 2025-03-02 18:54 | XMS_ITS | Encounter Summary ---
Author Organization [employer] Address [address] [place] [address] 7 [place] [address] Care Team Providers Care Cattle Inspector Name Role Phone Name, Qamar GUARDADO Primary Care Provider [phone] Reason for Visit * Reason Onset Date Comments Medication Question 11/07/2024 Med Refill 11/07/2024 Encounter Details Date Type Department Care Team ([facility] st Contact Info) Description 11/07/2024 Refill [facility] [address] [place], [place] [phone] Name, MD Qamar [address] [place] [address] Chronic right-sided low back pain, unspecified whether [...] 11/15/24. TC to patient, pt scheduled for [employer] RV 11/22/24 @ 11:30am. * Telephone Encounter - Qamar Jauregui - 11/07/2024 10:02 AM EDT Tc from pt reporting that she was supposed to receive her Oxycodone today but pharmacy didn't have it. Pt would like a call back in regards to her medication. Contact pt at [phone] documented in this encounter Plan of Treatment Upcoming Encounters Date Type Department Care Team (Late st Contact Info) Description 03/17/2025 10:00 AM EST Telemedicine [facility]INE [address] [place] [phone] 03/21/2025 9:45 AM EST Office Visit [facility] [address] [place] [address] documented as of this encounter Visit Diagnoses Diagnosis Chronic right-sided low back pain, unspecified whether sciatica present documented in this encounter Additional Health Concerns Assessment Noted Time PHQ-9 Depression Total Score: 7 06/07/19 25 1:15 PM EST documented as of this encounter Care Teams Cattle Inspector Relationship Specialty Start Date End Date Name, MD Qamar [address] [place] [address] PCP - General Internal Medicine 05/02/22 documented as of this encounter
--- OUTSIDE RECORDS SUMMARY | 2025-03-02 18:54 | XMS_ITS | Encounter Summary ---
Author Organization [employer] Address [address] [place] [address] 7 [place] [address] Care Team Providers Care Log Cut Off Sawyer Name Role Phone Name, Qamar GUARDADO Primary Care Provider [phone] Reason for Visit * Reason Comments Med Refill Encounter Details Date Type Department Care Team ([facility] Contact Info) Description 07/17/2022 Refill [facility]INE [address] [place], [place] [phone] Name, MD Qamar [address] [place] [address] Medullary sponge kidney Social History Tobacco Use [...] Upcoming Encounters Date Type Department Care Team ([facility] Contact Info) Description 03/17/2025 10:00 AM EST Telemedicine [facility] MEDICINE [address] [place] [address] 03/21/2025 9:45 AM EST Office Visit [address] [address] documented as of this encounter Visit Diagnoses Diagnosis Medullary sponge kidney Congenital medullary sponge kidney documented in this encounter Care Teams Log Cut Off Sawyer Relationship Specialty Start Date End Date Name, MD Qamar [address] [place] [id number] PCP - General Internal Medicine 05/02/22 documented as of this encounter
--- OUTSIDE RECORDS SUMMARY | 2025-03-02 18:54 | XMS_ITS | Encounter Summary ---
Author Organization [email or web address] Address [address] [facility] 7t [place] [address] Care Team Providers Care Office Manager Receptionist Name Role Phone Name, Qamar GUARDADO Primary Care Provider Encounter Details Date Type Department Care Team ([facility] st Contact Info) Description 02/04/2023 Abstract [facility] MED[facility]INE [address] [place], [place] [phone] Name, MD Qamar [address] [place], [place] [phone] Social History Tobacco Use Types Packs/Day Years [...] the past 12 months, has t he [employer], oil or water company threatened to shut [...] Info) Description 03/17/2025 10:00 AM EST Telemedicine [facility] MEDICINE [address] [place] [address] 03/21/2025 9:45 AM EST Office Visit [address] [address] documented as of this encounter Visit Diagnoses Not on filedocumented in this encounter Care Teams Office Manager Receptionist Relationship Specialty Start Date End Date Name, MD Qamar [address] [place] [id number] PCP - General Internal Medicine 05/02/22 documented as of this encounter
== END 2025-03-02 18:09 | disposition home or self-care (01) ==
LOC: HO.HHCLNP 18:08
PROVIDERS: Visit Provider Internal Medicine Geriatric Medicine
DX: R30.0 Dysuria (principal)
CPT/HCPCS: 81001; 87086